=== PATIENT | male | born 1935 | race Caucasian/White ===

== ENCOUNTER → 2017-01-07 | Outpatient (CLI) | payer MEDICARE ==
[2017-01-07 07:40] LABS: Anion Gap 11 mmol/L; Blood Urea Nitrogen 18 mg/dL (9-20); Calcium 9.4 mg/dL (8.4-10.2); Carbon Dioxide 27 mmol/L (22-30); Chloride 102 mmol/L (98-107); Glucose 134 mg/dL (74-99); Non-African American GFR(MDRD) >60 (>60 ml/min/1.73 sqM); Potassium 4.4 mmol/L (3.5-5.1); Sodium 140 mmol/L (137-145)
[2017-01-07 12:51] LABS: Hemoglobin A1C 6.4 % (4.2-6.1)
== END | disposition home or self-care (01) ==
LOC: LABWHC1 06:38
PROVIDERS: ATTEND Internal Medicine
DX: E11.65 Type 2 diabetes mellitus with hyperglycemia (principal)
CPT/HCPCS: 36415; 80048; 83036

== ENCOUNTER → 2017-04-07 | Outpatient (CLI) | payer MEDICARE ==
--- NOTE | 2017-04-07 08:35 | CT ---
EXAMINATION TYPE: CT lumbar spine wo con DATE OF EXAM: 04/07/2017 8:25 AM COMPARISON: July 05, 2014 HISTORY: Low back pain CT DLP: 2633.4 mGycm CONTRAST: Unenhanced CT of the lumbar spine was performed with bone and soft tissue window settings submitted. Unenhanced CT of the lumbar spine was performed. Bone and soft tissue window settings are submitted as well as coronal and sagittal reconstructions. L1-L2: Mild degenerative disc space narrowing. No significant disc bulge. No herniation protrusion or central stenosis. Ventral spondylosis identified. Foramina are patent. L2-L3: Mild degenerative disc space narrowing. No significant disc bulge. No herniation protrusion or central stenosis. Ventral spondylosis identified. Foramina are patent. L3-L4: Mild degenerative disc space narrowing. Posterior disc bulge mildly effaces the ventral thecal sac. No evidence for central stenosis or brijesh herniation. Mild facet joint arthropathy with mild bi lateral foraminal encroachment. L4-L5: Moderate degenerative disc space narrowing. Grade 1 anterolisthesis L4 and L5 measuring 3.8 mm related to severe facet joint arthropathy. Circumferential disc bulge greatest posteriorly with effa cement of the ventral thecal sac. Hypertrophy of the ligamentum flavum contributes to central stenosi s at this level mild to moderate in degree and essentially stable relative to the prior study. Mild b ilateral foraminal encroachment noted. L5-S1: Moderate degenerative disc space narrowing. Circumferential disc bulge greatest posteriorly. E ffacement of the ventral thecal sac with bilateral lateral recess stenosis. No evidence for central s tenosis. Facet joint arthropathy with mild bilateral foraminal encroachment. Ventral spondylosis. No paraspinal masses are identified. Lumbar segments are free if fracture. IMPRESSION: 1. Degenerative disc disease with disc bulging greatest at L4-5 and L5-S1 as noted above.
== END | disposition home or self-care (01) ==
LOC: RADCTMAIN 07:52
PROVIDERS: ATTEND Physical Medicine & Rehabilitation
DX: M51.17 Intervertebral disc disorders with radiculopathy, lumbosacral region (principal); M48.06 Spinal stenosis, lumbar region; M47.27 Other spondylosis with radiculopathy, lumbosacral region; M43.16 Spondylolisthesis, lumbar region; M41.26 Other idiopathic scoliosis, lumbar region; E11.9 Type 2 diabetes mellitus without complications
CPT/HCPCS: 72131

== ENCOUNTER → 2017-04-08 | Outpatient (CLI) | payer MEDICARE ==
[2017-04-08 08:30] LABS: Anion Gap 9 mmol/L; Blood Urea Nitrogen 23 mg/dL (9-20); Calcium 9.1 mg/dL (8.4-10.2); Carbon Dioxide 26 mmol/L (22-30); Chloride 105 mmol/L (98-107); Glucose 137 mg/dL (74-99); Non-African American GFR(MDRD) >60 (>60 ml/min/1.73 sqM); Potassium 4.3 mmol/L (3.5-5.1); Sodium 140 mmol/L (137-145)
[2017-04-08 12:28] LABS: Hemoglobin A1C 6.7 % (4.2-6.1)
== END | disposition home or self-care (01) ==
LOC: LABWHC1 07:05
PROVIDERS: ATTEND Internal Medicine
DX: E11.65 Type 2 diabetes mellitus with hyperglycemia (principal)
CPT/HCPCS: 36415; 80048; 83036

== ENCOUNTER 2017-05-22 08:56 | Inpatient (IN) | payer MEDICARE ==
--- NOTE | 2017-05-22 10:30 | XR ---
EXAMINATION TYPE: XR chest 2V DATE OF EXAM: 05/22/2017 COMPARISON: 05/14/2017 HISTORY: Shortness of breath TECHNIQUE: Frontal and lateral views of the chest are obtained. FINDINGS: Scattered senescent parenchymal changes noted. Hyperinflation compatible with COPD. No evidence for infiltrate. No evidence for atelectasis. Heart size is stable. Mediastinal structures are stable and grossly unremarkable. No evidence for hilar prominence. Degenerative changes dorsal spine. IMPRESSION: 1. No evidence for acute pulmonary disease.
[2017-05-22] MEDS ORDERED: IPRATROPIUM-ALBUTEROL 3 ML NEB INHALATION PRN (10:44)
[2017-05-22 10:55] LABS: Basophils # (A) 0.1 k/uL (0-0.2); Basophils % (A) 0 %; CH 31.8; CHCM 33.8; Eosinophils # (A) 0.2 k/uL (0-0.7); Eosinophils % (A) 1 %; HCT 41.8 % (39.0-53.0); HDW 2.75; HGB 14.9 gm/dL (13.0-17.5); Luc % (Auto) 1; Lymphocytes # (A) 1.2 k/uL (1.0-4.8); Lymphocytes % (A) 9 %; MCH 33.7 pg (25.0-35.0); MCHC 35.7 g/dL (31.0-37.0); MCV 94.5 fL (80.0-100.0); Mean Platelet Volume 6.8; Monocytes # (A) 0.5 k/uL (0-1.0); Monocytes % (A) 4 %; Neutrophils # (A) 11.2 k/uL (1.3-7.7); Neutrophils % (A) 85 %; RBC 4.42 m/uL (4.30-5.90); RDW 13.9 % (11.5-15.5); WBC 13.2 k/uL (3.8-10.6); WBC (Perox) 13.39
[2017-05-22 11:06] LABS: Appearance,Urine Clear (Clear); Bilirubin,Urine Negative (Negative); Glucose,Urine (UA) Negative (Negative); Ketones,Urine Negative (Negative); Leukocyte Esterase,Urine Trace (Negative); Nitrite,Urine Negative (Negative); Particle Count 524; Protein,Urine Negative (Negative); Specific Gravity,Urine 1.007 (1.001-1.035); UA Billing (MACRO vs. MICRO) MICRO; Urobilinogen,Urine <2.0 mg/dL (<2.0); WBC,Urine 2 /hpf (0-5)
[2017-05-22] MEDS: IPRATROPIUM-ALBUTEROL 3 ML NEB INHALATION SCH ×3 (11:18→19:42)
[2017-05-22 11:24] LABS: ALT 49 U/L (21-72); AST 21 U/L (17-59); Alkaline Phosphatase 79 U/L (38-126); Anion Gap 12 mmol/L; Blood Urea Nitrogen 23 mg/dL (9-20); Calcium 9.4 mg/dL (8.4-10.2); Carbon Dioxide 23 mmol/L (22-30); Chloride 102 mmol/L (98-107); Glucose 182 mg/dL (74-99); Non-African American GFR(MDRD) >60 (>60 ml/min/1.73 sqM); Potassium 4.4 mmol/L (3.5-5.1); Sodium 137 mmol/L (137-145); Total Bilirubin 0.4 mg/dL (0.2-1.3); Total Protein 6.2 g/dL (6.3-8.2)
[2017-05-22] MEDS: methylPREDNISolone SOD SUCCI 125 MG/2 ML VIAL IV SCH ×3 (12:13→23:34)
[2017-05-22] MEDS: AZITHROMYCIN 500 MG TAB PO SCH (12:38)
[2017-05-22] MEDS ORDERED: CYCLOBENZAPRINE 10 MG TAB PO PRN (17:27)
[2017-05-22] MEDS ORDERED: HYDROcodone/APAP 5-325MG 1 EACH TAB PO PRN (17:27)
--- NOTE | 2017-05-22 17:28 | P.CNPUL ---
History of Present Illness Consult date: 05/22/17 Reason for consult: dyspnea, COPD History of present illness: This is a 82-year-old male patient, obese with known history of COPD with a baseline FEV1 of 60% of predicted was hospitalized for shortness of breath. The patient was sent over from our office for breathing difficulties. The patient was seen in our office on 05/14/[address] Adams and he was complaining of cough, chest tightness and wheezing and shortness of breath. He has already seen a physician at the walk-in clinic and he had completed the course of Augmentin. Chest x-ray in the office showed a questionable left lower lobe pulmonary infiltrate, retrocardiac, and based on that the patient was given a Depo-Medrol shot, prednisone burst taper it and a course of Levaquin 500 mg by mouth daily for a total of 10 days. The patient was asked also to take Lasix 20 mg every other day noting that he had some increased swelling in lower extremities. He came back to see Dr. Rodriguez on 05/22/2017 and he was having similar symptoms and he denied having much of an improvement. The follow-up chest x-ray was done on 05/22/2017 in the office showed no evidence of any abnormalities. Based on that the patient was sent over to be hospitalized for an acute COPD exacerbation in patient treatment. Denies having any sore throat. Denies having any pleurisy. No hemoptysis. No major swelling lower extremities. No other complaints otherwise for now. Review of Systems All systems: negative Constitutional: Denies chills, Denies fever Eyes: denies blurred vision, denies pain Ears, nose, mouth and throat: Denies headache Cardiovascular: Denies chest pain, Denies shortness of breath Respiratory: Denies cough Musculoskeletal: Denies myalgias Integumentary: Denies pruritus, Denies rash Neurological: Denies numbness, Denies weakness Psychiatric: Denies anxiety, Denies depression Endocrine: Denies fatigue, Denies weight change Past Medical History Past Medical History: Cancer, Heart Failure, COPD, Diabetes Mellitus, Osteoarthritis (OA), Pneumonia, Prostate Disorder, Respiratory Disorder, Sleep Apnea/CPAP/BIPAP, Thyroid Disorder Additional Past Medical History / Comment(s): Obesity, obstructive sleep apnea and the patient has not been able to tolerate CPAP, BPH, diabetes mellitus, hypothyroidism, hypertension, hyperlipidemia History of Any Multi-Drug Resistant Organisms: None Reported Past Surgical History: Appendectomy, Bowel Resection, Heart Catheterization, Orthopedic Surgery, Tonsillectomy Additional Past Surgical History / Comment(s): bowel resections twice-pt does not know reason, CERVICAL FUSION 1989, BACK INJECTIONS, 2 past heart caths-no intervention, ARTHROSCOPIC LT KNEE, bilateral cataract removals, skin cancer removed from upper lip and R ear, colonoscopy. Past Anesthesia/Blood Transfusion Reactions: No Reported Reaction Smoking Status: Former smoker - Past Family History Mother Family Medical History: Cancer Additional Family Medical History / Comment(s): breast cancer Medications and Allergies Home Medications Medication Instructions Recorded Confirmed Type Isosorbide Mononitrate ER [Imdur] 30 mg PO DAILY@1200 07/03/14 05/22/17 History Simvastatin [Zocor] 40 mg PO HS 07/03/14 05/22/17 History Tamsulosin HCl [Flomax] 0.4 mg PO HS 07/03/14 05/22/17 History Hydrocodone/Acetaminophen 1 tab PO TID PRN 11/11/14 05/22/17 History [Hydrocodon-Acetaminophen 5-325] metFORMIN HCL [Glucophage Xr] 500 mg PO DAILY 08/13/15 05/22/17 History Aspirin EC [Ecotrin Low Dose] 81 mg PO DAILY 05/22/17 05/22/17 History Cyclobenzaprine [Flexeril] 10 mg PO TID PRN 05/22/17 05/22/17 History Furosemide [Lasix] 20 mg PO MOWEFR 05/22/17 05/22/17 History Insulin Aspart [NovoLOG Flexpen] 24 units SQ TID 05/22/17 05/22/17 History Levofloxacin [Levaquin] 500 mg PO DAILY 05/22/17 05/22/17 History Levothyroxine Sodium [Synthroid] 50 mcg PO DAILY 05/22/17 05/22/17 History Naproxen Sodium [Aleve] 220 mg PO DAILY PRN 05/22/17 05/22/17 History Olmesartan/Hydrochlorothiazide 1 tab PO DAILY 05/22/17 05/22/17 History [Benicar Hct 20-12.5 mg Tablet] Umeclidinium Brm/Vilanterol Tr 1 puff INHALATION RT-DAILY 05/22/17 05/22/17 History [Anoro Ellipta 62.5-25 Mcg INH] predniSONE See Taper PO DAILY 05/22/17 05/22/17 History Allergies Allergy/AdvReac Type Severity Reaction Status Date / Time acetaminophen AdvReac Nausea & Verified 05/22/17 10:45 [From Darvocet-N 100] Vomiting & Diarrhea propoxyphene napsylate AdvReac Nausea & Verified 05/22/17 10:45 [From Darvocet-N 100] Vomiting & Diarrhea Physical Exam Vitals: Vital Signs Temp Pulse Pulse Resp BP Pulse Ox 05/22/17 16:00 81 20 05/22/17 15:29 68 05/22/17 15:18 66 05/22/17 15:00 97.6 F 81 20 168/72 96 05/22/17 12:21 74 14 05/22/17 11:30 65 05/22/17 11:18 65 14 98 05/22/17 10:00 97.5 F L 74 20 136/58 94 L Intake and Output 05/22/17 05/22/17 05/22/17 06:59 14:59 22:59 Output Total 300 Balance -300 Output: Urine 300 Other: # Voids 1 # Bowel Movements 1 Weight 117.934 kg 117.934 kg Patient Weight 05/23/17 06:59 Weight 117.934 kg Head exam was generally normal. There was no scleral icterus or corneal arcus. Mucous membranes were moist.Neck was supple and without jugular venous distension, thyromegaly, or carotid bruits. Carotids were easily palpable bilaterally. There was no adenopathy. Lung sounds are diminished bilaterally along with some few scattered external wheeze.Cardiac exam revealed the PMI to be normally situated and sized. The rhythm was regular and no extrasystoles were noted during several minutes of auscultation. The first and second heart sounds were normal and physiologic splitting of the second heart sound was noted. There were no murmurs, rubs, clicks, or gallops.Abdominal exam revealed normal bowel sounds. The abdomen was soft, non-tender, and without masses, organomegaly, or appreciable enlargement of the abdominal aorta. Organs are not palpable as the patient has an underlying obesity.Examination of the extremities revealed easily palpable radial, femoral and pedal pulses. There was no cyanosis, clubbing or edema. Results - Laboratory Findings CBC and BMP: 05/22/17 10:45 05/22/17 10:45 Abnormal lab findings: Abnormal Labs 05/22/17 05/22/17 05/22/17 10:45 10:45 10:50 WBC 13.2 H Neutrophils # 11.2 H BUN 23 H Glucose 182 H Total Protein 6.2 L Ur Leukocyte Esterase Trace H - Diagnostic Findings Chest x-ray: image reviewed Assessment and Plan Plan: Assessment 1 shortness of breath secondary to COPD exacerbation. Patient has a baseline FEV1 of 60% of predicted. She is on an outpatient for his/pneumonia yet the most recent chest x-ray is free of any acute pulmonary infiltrates. 2 obesity 3 diabetes mellitus 4 hypertension 5 hyperlipidemia 6 hypothyroidism 7 obstructive sleep apnea, noncompliant to CPAP therapy due to poor tolerability 8 coronary artery disease with nonocclusive disease maintained on medical treatment Plan Continue bronchovascular to antibiotics. We'll assess his progression. May need to repeat his echocardiogram if not done over the past 6 months. Encourage weight loss. We'll follow.
[2017-05-22 17:41] LABS: Glucose,Whole Blood 246 mg/dL (75-99)
[2017-05-22] MEDS: ASPIRIN 81 MG CHEW PO SCH (17:59)
--- NOTE | 2017-05-22 17:59 | ECHOF ---
Referral Reason:CHF MEASUREMENTS -------- HEIGHT: 175.3 cm WEIGHT: 117.9 kg BP: IVSd: 1.5 cm (0.6 - 1.1) LVIDd: 3.6 cm (3.9 - 5.3) LVPWd: 1.5 cm (0.6 - 1.1) IVSs: 1.7 cm LVIDs: 2.1 cm LVPWs: 1.8 cm LAESV Index (A-L): 22.59 ml/m Ao Diam: 3.4 cm (2.0 - 3.7) AV Cusp: 1.5 cm (1.5 - 2.6) MV E Fredo: 1.09 m/s MV DecT: 283 ms MV A Fredo: 0.92 m/s MV E/A Ratio: 1.19 AV maxP.95 mmHg AV meanP.99 mmHg AR PHT: 544 ms RAP: 5.00 mmHg RVSP: 10.73 mmHg FINDINGS -------- Sinus rhythm. This was a technically adequate study. There is moderate concentric left ventricular hypertrophy. Overall left ventricular systolic function is normal with, an EF between 55 - 60 %. The right ventricle is normal in size and function. Normal LA size by volume 22+/-6 ml/m2. The right atrium is normal in size. Aortic valve is trileaflet and is mildly thickened. Trace to mild aortic regurgitation. Moderate aortic stenosis with peak/mean pressure gradient of 36.95mmHg / 22.99mmHg, the aortic valve area by continuity equation is 0.9cm. The mitral valve leaflets are mildly thickened. Mild mitral annular calcification present. There is trace to mild mitral regurgitation. Trace tricuspid regurgitation present. There is no evidence of pulmonary hypertension. The right ventricular systolic pressure, as measured by Doppler, is 10.73mmHg. The pulmonic valve was not well visualized. The aortic root size is normal. Normal inferior vena cava with normal inspiratory collapse consistent with estimated right atrial pressure of 5 mmHg. The pericardium is normal. There is no pericardial effusion. CONCLUSIONS -------- 1. Sinus rhythm. 2. Mild mitral annular calcification present. 3. There is trace to mild mitral regurgitation. 4. Trace tricuspid regurgitation present. 5. There is no evidence of pulmonary hypertension. 6. The right ventricular systolic pressure, as measured by Doppler, is 10.73mmHg. 7. The pulmonic valve was not well visualized. 8. The aortic root size is normal. 9. The pericardium is normal. 10. There is no pericardial effusion. 11. This was a technically adequate study. 12. There is moderate concentric left ventricular hypertrophy. 13. Overall left ventricular systolic function is normal with, an EF between 55 - 60 %. 14. Normal LA size by volume 22+/-6 ml/m2. 15. Aortic valve is trileaflet and is mildly thickened. 16. Trace to mild aortic regurgitation. 17. Moderate aortic stenosis with peak/mean pressure gradient of 36.95mmHg / 22.99mmHg, the aortic valve area by continuity equation is 0.9cm. 18. The mitral valve leaflets are mildly thickened. MARINE SERVICE OPERATOR: Benito Joya RDCS
[2017-05-22] MEDS: INSULIN LISPRO (humaLOG) 300 UNIT/3 ML VIAL SQ SCH ×4 (18:00→23:22)
[2017-05-22] MEDS: FORMOTEROL FUMARATE 20 MCG/2 ML NEBU INHALATION SCH (19:42)
[2017-05-22] MEDS: BUDESONIDE 1 MG/2 ML NEBU INHALATION SCH (19:42)
[2017-05-22 19:55] LABS: Hemoglobin A1C 6.8 % (4.2-6.1)
[2017-05-22 20:50] LABS: Glucose,Whole Blood 265 mg/dL (75-99)
[2017-05-22] MEDS ORDERED: INSULIN LISPRO (humaLOG) 300 UNIT/3 ML VIAL SQ ONE (21:25)
[2017-05-22] MEDS: TAMSULOSIN 0.4 MG CAP.ER.24H PO SCH (21:39)
[2017-05-22] MEDS: ATORVASTATIN 20 MG TAB PO SCH (21:39)
[2017-05-23 03:39] LABS: Glucose,Whole Blood 199 mg/dL (75-99)
[2017-05-23] MEDS: methylPREDNISolone SOD SUCCI 125 MG/2 ML VIAL IV SCH ×2 (05:35→12:50)
[2017-05-23] MEDS: LEVOTHYROXINE 50 MCG TAB PO SCH (05:36)
[2017-05-23 07:23] LABS: Glucose,Whole Blood 203 mg/dL (75-99)
[2017-05-23] MEDS: METOPROLOL TARTRATE 25 MG TAB PO SCH (08:11)
[2017-05-23] MEDS: metFORMIN 500 MG TAB PO SCH ×2 (08:11→16:57)
[2017-05-23] MEDS: HYDROCHLOROTHIAZIDE 12.5 MG CAP PO SCH (08:12)
[2017-05-23] MEDS: FUROSEMIDE 20 MG TAB PO SCH (08:12)
[2017-05-23] MEDS: AZITHROMYCIN 500 MG TAB PO SCH (08:13)
[2017-05-23] MEDS: LOSARTAN 50 MG TAB PO SCH (08:13)
[2017-05-23] MEDS: ASPIRIN 81 MG CHEW PO SCH (08:13)
[2017-05-23] MEDS: INSULIN LISPRO (humaLOG) 300 UNIT/3 ML VIAL SQ SCH ×7 (08:14→21:56)
[2017-05-23] MEDS: BUDESONIDE 1 MG/2 ML NEBU INHALATION SCH ×2 (08:51→19:19)
[2017-05-23] MEDS: FORMOTEROL FUMARATE 20 MCG/2 ML NEBU INHALATION SCH ×2 (08:51→19:19)
[2017-05-23] MEDS: IPRATROPIUM-ALBUTEROL 3 ML NEB INHALATION SCH ×4 (08:51→19:19)
[2017-05-23] MEDS ORDERED: FUROSEMIDE 20 MG TAB PO SCH (09:00)
[2017-05-23 10:56] VITALS: BMI 37.8
[2017-05-23 11:46] LABS: Glucose,Whole Blood 294 mg/dL (75-99)
[2017-05-23] MEDS: ISOSORBIDE MONONITRATE ER 30 MG TAB.ER.24H PO SCH (12:50)
--- NOTE | 2017-05-23 13:21 | P.PN ---
Subjective This is a 82-year-old male patient, obese with known history of COPD with a baseline FEV1 of 60% of predicted was hospitalized for shortness of breath. The patient was sent over from our office for breathing difficulties. The patient was seen in our office on 05/14/[address] Adams and he was complaining of cough, chest tightness and wheezing and shortness of breath. He has already seen a physician at the walk-in clinic and he had completed the course of Augmentin. Chest x-ray in the office showed a questionable left lower lobe pulmonary infiltrate, retrocardiac, and based on that the patient was given a Depo-Medrol shot, prednisone burst taper it and a course of Levaquin 500 mg by mouth daily for a total of 10 days. The patient was asked also to take Lasix 20 mg every other day noting that he had some increased swelling in lower extremities. He came back to see Dr. Rodriguez on 05/22/2017 and he was having similar symptoms and he denied having much of an improvement. The follow-up chest x-ray was done on 05/22/2017 in the office showed no evidence of any abnormalities. Based on that the patient was sent over to be hospitalized for an acute COPD exacerbation in patient treatment. Denies having any sore throat. Denies having any pleurisy. No hemoptysis. No major swelling lower extremities. No other complaints otherwise for now. On 05/23/2017 the patient is feeling better. His cough has subsided. No fever. No chills. No pleurisy. The echocardiogram was also done and the patient has an adequate at present LV function with an ejection fraction of 55- 60% without any significant pulmonary hypertension. He is having however some issues with steroid-induced hyperglycemia. He is diabetic. The appropriate adjustments on the insulin dose was maintained. I think Solu-Medrol can be also weaned off Objective - Vital Signs Vital signs: Vital Signs Temp 97.6 F 05/23/17 07:00 Pulse 80 05/23/17 12:42 Resp 20 05/23/17 07:00 BP 145/76 05/23/17 07:00 Pulse Ox 97 05/23/17 07:00 Intake & Output 05/22/17 05/23/17 05/23/17 18:59 06:59 18:59 Intake Total 820 Output Total 300 Balance -300 820 Weight 117.934 kg 117.934 kg Intake: Oral 820 Output: Urine 300 Other: Voiding Method Toilet Toilet Urinal Urinal # Voids 1 2 # Bowel Movements 1 - Exam Head exam was generally normal. There was no scleral icterus or corneal arcus. Mucous membranes were moist.Neck was supple and without jugular venous distension, thyromegaly, or carotid bruits. Carotids were easily palpable bilaterally. There was no adenopathy. Lung sounds are diminished bilaterally along with some few scattered external wheeze.Cardiac exam revealed the PMI to be normally situated and sized. The rhythm was regular and no extrasystoles were noted during several minutes of auscultation. The first and second heart sounds were normal and physiologic splitting of the second heart sound was noted. There were no murmurs, rubs, clicks, or gallops.Abdominal exam revealed normal bowel sounds. The abdomen was soft, non-tender, and without masses, organomegaly, or appreciable enlargement of the abdominal aorta. Organs are not palpable as the patient has an underlying obesity.Examination of the extremities revealed easily palpable radial, femoral and pedal pulses. There was no cyanosis, clubbing or edema. - Labs CBC & Chem 7: 05/22/17 10:45 05/22/17 10:45 Labs: Abnormal Lab Results - Last 24 Hours (Table) 05/22/17 05/22/17 05/22/17 Range/Units 10:45 17:38 20:49 POC Glucose (mg/dL) 246 H 265 H (75-99) mg/dL Hemoglobin A1c 6.8 H (4.2-6.1) % 05/23/17 05/23/17 05/23/17 Range/Units 03:29 07:21 11:44 POC Glucose (mg/dL) 199 H 203 H 294 H (75-99) mg/dL Hemoglobin A1c (4.2-6.1) % Microbiology - Last 24 Hours (Table) 05/22/17 10:45 Blood Culture Gram Stain - Preliminary Blood 05/22/17 10:45 Blood Culture - Final Blood 05/22/17 10:50 Urine Culture - Preliminary Urine,Clean Catch Assessment and Plan Plan: Assessment 1 shortness of breath secondary to COPD exacerbation. Patient has a baseline FEV1 of 60% of predicted. She is on an outpatient for his/pneumonia yet the most recent chest x-ray is free of any acute pulmonary infiltrates. 2 obesity 3 diabetes mellitus 4 hypertension 5 hyperlipidemia 6 hypothyroidism 7 obstructive sleep apnea, noncompliant to CPAP therapy due to poor tolerability 8 coronary artery disease with nonocclusive disease maintained on medical treatment Plan The patient is improving. The patient is less short of breath. His coughing has subsided. Echocardiogram was noted. He is having steroid-induced hyperglycemia and the sodium was a little be dropped down to 40 mg every 12 hours. We'll switch him to a prednisone burst taper within the next 24 hours if continues to show ongoing improvement. We'll also given Robitussin-DM for cough and chest congestion. We'll follow.
[2017-05-23] MEDS: guaiFENesin-DM 100-10MG/5ML 10 ML CUP PO SCH ×2 (16:56→21:55)
[2017-05-23 17:24] LABS: Glucose,Whole Blood 182 mg/dL (75-99)
[2017-05-23 20:36] LABS: Glucose,Whole Blood 175 mg/dL (75-99)
[2017-05-23] MEDS: ATORVASTATIN 20 MG TAB PO SCH (21:55)
[2017-05-23] MEDS: TAMSULOSIN 0.4 MG CAP.ER.24H PO SCH (21:55)
[2017-05-23] MEDS: methylPREDNISolone SOD SUCCI 40 MG/ML 1 ML VIAL IV SCH (21:56)
[2017-05-24] MEDS: guaiFENesin-DM 100-10MG/5ML 10 ML CUP PO SCH ×4 (02:06→20:33)
[2017-05-24 02:09] LABS: Glucose,Whole Blood 204 mg/dL (75-99)
[2017-05-24] MEDS: LEVOTHYROXINE 50 MCG TAB PO SCH (05:40)
[2017-05-24 07:34] LABS: Glucose,Whole Blood 224 mg/dL (75-99)
[2017-05-24] MEDS: METOPROLOL TARTRATE 25 MG TAB PO SCH (08:14)
[2017-05-24] MEDS: ASPIRIN 81 MG CHEW PO SCH (08:14)
[2017-05-24] MEDS: AZITHROMYCIN 500 MG TAB PO SCH (08:14)
[2017-05-24] MEDS: metFORMIN 500 MG TAB PO SCH ×2 (08:14→17:29)
[2017-05-24] MEDS: methylPREDNISolone SOD SUCCI 40 MG/ML 1 ML VIAL IV SCH ×2 (08:15→20:34)
[2017-05-24] MEDS: LOSARTAN 50 MG TAB PO SCH (08:15)
[2017-05-24] MEDS: FUROSEMIDE 20 MG TAB PO SCH (08:15)
[2017-05-24] MEDS: HYDROCHLOROTHIAZIDE 12.5 MG CAP PO SCH (08:15)
[2017-05-24] MEDS: INSULIN LISPRO (humaLOG) 300 UNIT/3 ML VIAL SQ SCH ×7 (08:16→20:39)
[2017-05-24] MEDS: IPRATROPIUM-ALBUTEROL 3 ML NEB INHALATION SCH ×4 (08:38→19:39)
[2017-05-24] MEDS: BUDESONIDE 1 MG/2 ML NEBU INHALATION SCH ×2 (08:43→19:39)
[2017-05-24] MEDS: FORMOTEROL FUMARATE 20 MCG/2 ML NEBU INHALATION SCH ×2 (08:43→19:39)
[2017-05-24 11:32] LABS: Glucose,Whole Blood 176 mg/dL (75-99)
[2017-05-24] MEDS: ISOSORBIDE MONONITRATE ER 30 MG TAB.ER.24H PO SCH (12:56)
--- NOTE | 2017-05-24 13:59 | P.PN ---
Subjective This is a 82-year-old male patient, obese with known history of COPD with a baseline FEV1 of 60% of predicted was hospitalized for shortness of breath. The patient was sent over from our office for breathing difficulties. The patient was seen in our office on 05/14/[address] Adams and he was complaining of cough, chest tightness and wheezing and shortness of breath. He has already seen a physician at the walk-in clinic and he had completed the course of Augmentin. Chest x-ray in the office showed a questionable left lower lobe pulmonary infiltrate, retrocardiac, and based on that the patient was given a Depo-Medrol shot, prednisone burst taper it and a course of Levaquin 500 mg by mouth daily for a total of 10 days. The patient was asked also to take Lasix 20 mg every other day noting that he had some increased swelling in lower extremities. He came back to see Dr. Rodriguez on 05/22/2017 and he was having similar symptoms and he denied having much of an improvement. The follow-up chest x-ray was done on 05/22/2017 in the office showed no evidence of any abnormalities. Based on that the patient was sent over to be hospitalized for an acute COPD exacerbation in patient treatment. Denies having any sore throat. Denies having any pleurisy. No hemoptysis. No major swelling lower extremities. No other complaints otherwise for now. On 05/23/2017 the patient is feeling better. His cough has subsided. No fever. No chills. No pleurisy. The echocardiogram was also done and the patient has an adequate at present LV function with an ejection fraction of 55- 60% without any significant pulmonary hypertension. He is having however some issues with steroid-induced hyperglycemia. He is diabetic. The appropriate adjustments on the insulin dose was maintained. I think Solu-Medrol can be also weaned off On 2016 the patient's reports that he is getting better. He has no new complaints. Cough has subsided. Blood sugar control is also improved. The patient is on IV Solu Medrol 40 mg every 12 hours. The patient will be switched to prednisone burst taper as of tomorrow. Objective - Vital Signs Vital signs: Vital Signs Temp 97.4 F L 05/24/17 07:00 Pulse 80 05/24/17 12:58 Resp 16 05/24/17 07:00 BP 144/75 05/24/17 07:00 Pulse Ox 96 05/24/17 08:40 Intake & Output 05/23/17 05/24/17 05/24/17 18:59 06:59 18:59 Intake Total 50 550 50 Balance 50 550 50 Weight 117.934 kg 116.94 kg Intake: IV 50 50 cefTRIAXone 1,000 mg In 50 50 Sodium Chloride 0.9% 50 ml @ 100 mls/hr IVPB Q24HR [facility] Rx#:[id number] Oral 550 Other: Voiding Method Toilet Toilet Toilet Urinal Urinal Urinal # Voids 4 2 - Exam Head exam was generally normal. There was no scleral icterus or corneal arcus. Mucous membranes were moist.Neck was supple and without jugular venous distension, thyromegaly, or carotid bruits. Carotids were easily palpable bilaterally. There was no adenopathy. Lung sounds are diminished bilaterally along with some few scattered external wheeze.Cardiac exam revealed the PMI to be normally situated and sized. The rhythm was regular and no extrasystoles were noted during several minutes of auscultation. The first and second heart sounds were normal and physiologic splitting of the second heart sound was noted. There were no murmurs, rubs, clicks, or gallops.Abdominal exam revealed normal bowel sounds. The abdomen was soft, non-tender, and without masses, organomegaly, or appreciable enlargement of the abdominal aorta. Organs are not palpable as the patient has an underlying obesity.Examination of the extremities revealed easily palpable radial, femoral and pedal pulses. There was no cyanosis, clubbing or edema. - Labs CBC & Chem 7: 05/22/17 10:45 05/22/17 10:45 Labs: Abnormal Lab Results - Last 24 Hours (Table) 05/23/17 05/23/17 05/24/17 Range/Units 17:21 20:25 02:02 POC Glucose (mg/dL) 182 H 175 H 204 H (75-99) mg/dL 05/24/17 05/24/17 Range/Units 07:30 11:31 POC Glucose (mg/dL) 224 H 176 H (75-99) mg/dL Microbiology - Last 24 Hours (Table) 05/22/17 10:45 Blood Culture Gram Stain - Final Blood Blood Culture - Final Coagulase Negative Staph Alpha Hemolytic Streptococcus Coagulase Negative Staph#2 05/22/17 10:50 Urine Culture - Final Urine,Clean Catch Assessment and Plan Plan: Assessment 1 shortness of breath secondary to COPD exacerbation. Patient has a baseline FEV1 of 60% of predicted. She is on an outpatient for his/pneumonia yet the most recent chest x-ray is free of any acute pulmonary infiltrates. 2 obesity 3 diabetes mellitus 4 hypertension 5 hyperlipidemia 6 hypothyroidism 7 obstructive sleep apnea, noncompliant to CPAP therapy due to poor tolerability 8 coronary artery disease with nonocclusive disease maintained on medical treatment Plan The patient is improving. The patient is less short of breath. His coughing has subsided. Echocardiogram was noted. Arterial control is also improved. Continue IV Solu Medrol 43 g every 12 hours. Robitussin-DM for cough. Reevaluate in a.m. Possible discharge in a.m.
[2017-05-24 17:22] LABS: Glucose,Whole Blood 190 mg/dL (75-99)
--- NOTE | 2017-05-24 17:48 | P.CRDCN ---
History of Present Illness Consult date: 05/23/17 History of present illness: This 82-year-old gentleman with history of severe COPD, diabetes mellitus, osteoarthritis and also sleep apnea, admitted to the hospital with complaints of increasing shortness of breath. Patient has been coughing and patient also developed some edema and patient was advised to take the Lasix by mouth. Outpatient treatment did not improve the situation and patient came to the emergency room. We're asked to see the patient to rule out possibility of congestive heart failure. Patient's BNP was within normal limits. His echocardiogram showed normal LV function. Based on those findings, it appears that most of symptoms are related to pneumonia and respiratory issues. Review of Systems As per the chart Past Medical History Past Medical History: Cancer, Heart Failure, COPD, Diabetes Mellitus, Osteoarthritis (OA), Pneumonia, Prostate Disorder, Respiratory Disorder, Sleep Apnea/CPAP/BIPAP, Thyroid Disorder Additional Past Medical History / Comment(s): Obesity, obstructive sleep apnea and the patient has not been able to tolerate CPAP, BPH, diabetes mellitus, hypothyroidism, hypertension, hyperlipidemia History of Any Multi-Drug Resistant Organisms: None Reported Past Surgical History: Appendectomy, Bowel Resection, Heart Catheterization, Orthopedic Surgery, Tonsillectomy Additional Past Surgical History / Comment(s): bowel resections twice-pt does not know reason, CERVICAL FUSION 1989, BACK INJECTIONS, 2 past heart caths-no intervention, ARTHROSCOPIC LT KNEE, bilateral cataract removals, skin cancer removed from upper lip and R ear, colonoscopy. Past Anesthesia/Blood Transfusion Reactions: No Reported Reaction Smoking Status: Former smoker - Past Family History Mother Family Medical History: Cancer Additional Family Medical History / Comment(s): breast cancer Medications and Allergies Home Medications Medication Instructions Recorded Confirmed Type Isosorbide Mononitrate ER [Imdur] 30 mg PO DAILY@1200 07/03/14 05/22/17 History Simvastatin [Zocor] 40 mg PO HS 07/03/14 05/22/17 History Tamsulosin HCl [Flomax] 0.4 mg PO HS 07/03/14 05/22/17 History Hydrocodone/Acetaminophen 1 tab PO TID PRN 11/11/14 05/22/17 History [Hydrocodon-Acetaminophen 5-325] metFORMIN HCL [Glucophage Xr] 500 mg PO DAILY 08/13/15 05/22/17 History Aspirin EC [Ecotrin Low Dose] 81 mg PO DAILY 05/22/17 05/22/17 History Cyclobenzaprine [Flexeril] 10 mg PO TID PRN 05/22/17 05/22/17 History Furosemide [Lasix] 20 mg PO MOWEFR 05/22/17 05/22/17 History Insulin Aspart [NovoLOG Flexpen] 24 units SQ TID 05/22/17 05/22/17 History Levofloxacin [Levaquin] 500 mg PO DAILY 05/22/17 05/22/17 History Levothyroxine Sodium [Synthroid] 50 mcg PO DAILY 05/22/17 05/22/17 History Naproxen Sodium [Aleve] 220 mg PO DAILY PRN 05/22/17 05/22/17 History Olmesartan/Hydrochlorothiazide 1 tab PO DAILY 05/22/17 05/22/17 History [Benicar Hct 20-12.5 mg Tablet] Umeclidinium Brm/Vilanterol Tr 1 puff INHALATION RT-DAILY 05/22/17 05/22/17 History [Anoro Ellipta 62.5-25 Mcg INH] predniSONE See Taper PO DAILY 05/22/17 05/22/17 History Allergies Allergy/AdvReac Type Severity Reaction Status Date / Time acetaminophen AdvReac Nausea & Verified 05/22/17 10:45 [From Darvocet-N 100] Vomiting & Diarrhea propoxyphene napsylate AdvReac Nausea & Verified 05/22/17 10:45 [From Darvocet-N 100] Vomiting & Diarrhea Physical Exam Vitals: Vital Signs Temp Pulse Pulse Resp BP Pulse Ox 05/24/17 15:32 78 05/24/17 15:21 77 05/24/17 15:00 97.3 F L 74 20 134/63 93 L 05/24/17 12:58 80 05/24/17 12:47 80 05/24/17 09:01 84 05/24/17 08:54 86 05/24/17 08:53 86 05/24/17 08:40 80 96 05/24/17 07:00 97.4 F L 72 16 144/75 93 L 05/23/17 22:43 97 F L 81 20 125/50 95 05/23/17 19:47 78 05/23/17 19:32 78 05/23/17 19:31 78 05/23/17 19:20 76 Intake and Output 05/24/17 05/24/17 05/24/17 06:59 14:59 22:59 Intake Total 300 50 Balance 300 50 Intake: IV 50 cefTRIAXone 1,000 mg In 50 Sodium Chloride 0.9% 50 ml @ 100 mls/hr IVPB Q24HR DAMI Rx#:[id number] Oral 300 Other: Voiding Method Toilet Toilet Toilet Urinal Urinal # Voids 2 Weight 116.94 kg GENERAL EXAM: Patient is alert and oriented and doesn't appear to be in any acute distress HEENT: Normocephalic. Normal reaction of pupils, equal size, normal range of extraocular motion. No erythema or exudates in the throat. NECK: No masses, no nuchal rigidity. CHEST: No chest wall deformity. Scattered accept default's LUNGS: . Kytril wheezing and diminished breath sounds. HEART: S1 and S2 normal with no audible mumurs or gallops. Regular rhythm, femorals equal on both sides.. ABDOMEN: No hepatosplenomegaly, normal bowel sounds, no guarding or rigidity. SKIN: No rashes CENTRAL NERVOUS SYSTEM: No focal deficits. EXTREMITIES: No cyanosis, clubbing or edema. Results 05/22/17 10:45 05/22/17 10:45 Current Medications Generic Name Dose Route Start Last Admin Trade Name Freq PRN Reason Stop Dose Admin Hydrocodone Bitart/Acetaminophen 1 each 05/22/17 17:27 [place] 5-325 PO TID PRN Pain Albuterol/Ipratropium 3 ml 05/22/17 12:00 05/24/17 15:20 Duoneb 0.5 Mg-3 Mg/3 Ml Soln INHALATION 3 ml RT-QID DAMI Administration Albuterol/Ipratropium 3 ml 05/22/17 10:44 Duoneb 0.5 Mg-3 Mg/3 Ml Soln INHALATION RT-QID PRN Shortness Of Breath Aspirin 81 mg 05/22/17 17:30 05/24/17 08:14 Aspirin PO 81 mg DAILY DAMI Administration Atorvastatin Calcium 20 mg 05/22/17 21:00 05/23/17 21:55 Lipitor PO 20 mg HS DAMI Administration Azithromycin 500 mg 05/22/17 10:45 05/24/17 08:14 Zithromax PO 500 mg DAILY DAMI Administration Budesonide 1 mg 05/22/17 20:00 05/24/17 08:43 Pulmicort INHALATION 1 mg RT-BID DAMI Administration Cyclobenzaprine HCl 10 mg 05/22/17 17:27 Flexeril PO TID PRN MUSCLE SPASMS Formoterol Fumarate 20 mcg 05/22/17 20:00 05/24/17 08:43 Perforomist INHALATION 20 mcg RT-BID DAMI Administration Furosemide 40 mg 05/23/17 09:00 05/24/17 08:15 Lasix PO 40 mg DAILY DAMI Administration Guaifenesin/Dextromethorphan 10 ml 05/23/17 14:00 05/24/17 12:55 Robitussin Dm PO 10 ml Q6H DAMI Administration Hydrochlorothiazide 12.5 mg 05/23/17 09:00 05/24/17 08:15 Hydrodiuril PO 12.5 mg DAILY DAMI Administration Ceftriaxone Sodium 1,000 mg/ 50 mls @ 100 mls/hr 05/22/17 11:30 05/24/17 08: 20 Sodium Chloride IVPB 100 mls/hr Q24HR DAMI Administration Insulin Human Lispro 24 unit 05/22/17 17:30 05/24/17 12:55 Humalog SQ 24 unit AC-TID DAMI Administration Insulin Human Lispro 0 unit 05/22/17 21:30 05/24/17 12:56 Humalog SQ 4 unit ACHS DAMI Administration Protocol Isosorbide Mononitrate 30 mg 05/23/17 12:00 05/24/17 12:56 Imdur PO 30 mg DAILY@1200 DAMI Administration Levothyroxine Sodium 50 mcg 05/23/17 06:30 05/24/17 05:40 Synthroid PO 50 mcg DAILY@0630 DAMI Administration Losartan Potassium 100 mg 05/23/17 09:00 05/24/17 08:15 Cozaar PO 100 mg DAILY DAMI Administration Metformin HCl 250 mg 05/23/17 07:30 05/24/17 17:29 Glucophage PO 250 mg BID-W/MEALS DAMI Administration Methylprednisolone Sodium Succinate 40 mg 05/23/17 21:00 05/24/17 08:15 Solu-Medrol IV 40 mg Q12HR DAMI Administration Metoprolol Tartrate 25 mg 05/23/17 09:00 05/24/17 08:14 Lopressor PO 25 mg QAM DAMI Administration Tamsulosin HCl 0.4 mg 05/22/17 21:00 05/23/17 21:55 Flomax PO 0.4 mg HS DAMI Administration Intake and Output 05/24/17 05/24/17 05/24/17 06:59 14:59 22:59 Intake Total 300 50 Balance 300 50 Intake: IV 50 cefTRIAXone 1,000 mg In 50 Sodium Chloride 0.9% 50 ml @ 100 mls/hr IVPB Q24HR DAMI Rx#:[id number] Oral 300 Other: Voiding Method Toilet Toilet Toilet Urinal Urinal # Voids 2 Weight 116.94 kg 05/22/17 10:45 05/22/17 10:45 Assessment and Plan (1) COPD with exacerbation Status: Acute (2) Hypertension Status: Acute (3) Diabetes mellitus Status: Acute (4) Hypothyroidism Status: Acute Plan: Clinically, or radiologically and also from the lab values. It doesn't appear that the symptoms are cardiac in nature. Continue current medical therapy and close follow-up with [facility].
[2017-05-24 20:10] LABS: Glucose,Whole Blood 193 mg/dL (75-99)
[2017-05-24] MEDS: ATORVASTATIN 20 MG TAB PO SCH (20:33)
[2017-05-24] MEDS: TAMSULOSIN 0.4 MG CAP.ER.24H PO SCH (20:33)
[2017-05-25 02:08] LABS: Glucose,Whole Blood 152 mg/dL (75-99)
[2017-05-25] MEDS: guaiFENesin-DM 100-10MG/5ML 10 ML CUP PO SCH ×2 (02:08→07:44)
[2017-05-25] MEDS: LEVOTHYROXINE 50 MCG TAB PO SCH (05:48)
[2017-05-25 07:33] LABS: Glucose,Whole Blood 206 mg/dL (75-99)
[2017-05-25] MEDS: INSULIN LISPRO (humaLOG) 300 UNIT/3 ML VIAL SQ SCH ×2 (07:44)
[2017-05-25] MEDS: METOPROLOL TARTRATE 25 MG TAB PO SCH (07:46)
[2017-05-25] MEDS: metFORMIN 500 MG TAB PO SCH (07:46)
[2017-05-25] MEDS: LOSARTAN 50 MG TAB PO SCH (07:47)
[2017-05-25] MEDS: methylPREDNISolone SOD SUCCI 40 MG/ML 1 ML VIAL IV SCH (07:47)
[2017-05-25] MEDS: FUROSEMIDE 20 MG TAB PO SCH (07:47)
[2017-05-25] MEDS: HYDROCHLOROTHIAZIDE 12.5 MG CAP PO SCH (07:47)
[2017-05-25] MEDS: AZITHROMYCIN 500 MG TAB PO SCH (07:48)
[2017-05-25] MEDS: ASPIRIN 81 MG CHEW PO SCH (07:48)
[2017-05-25 08:26] VITALS: BP 153/67; RESP 20; TEMP 96.6
[2017-05-25] MEDS: BUDESONIDE 1 MG/2 ML NEBU INHALATION SCH (08:56)
[2017-05-25] MEDS: IPRATROPIUM-ALBUTEROL 3 ML NEB INHALATION SCH ×2 (08:56→12:15)
[2017-05-25] MEDS: FORMOTEROL FUMARATE 20 MCG/2 ML NEBU INHALATION SCH (08:56)
[2017-05-25 09:56] VITALS: PULSE 86
[2017-05-25 11:08] LABS: Anion Gap 16 mmol/L; Blood Urea Nitrogen 29 mg/dL (9-20); Calcium 9.8 mg/dL (8.4-10.2); Carbon Dioxide 23 mmol/L (22-30); Chloride 96 mmol/L (98-107); Glucose 162 mg/dL (74-99); Non-African American GFR(MDRD) >60 (>60 ml/min/1.73 sqM); Potassium 4.3 mmol/L (3.5-5.1); Sodium 135 mmol/L (137-145)
[2017-05-25 11:38] LABS: Glucose,Whole Blood 126 mg/dL (75-99)
[2017-05-25] MEDS: ISOSORBIDE MONONITRATE ER 30 MG TAB.ER.24H PO SCH (12:14)
--- NOTE | 2017-05-25 13:47 | P.PN ---
Subjective Principal diagnosis: Acute exacerbation of COPD This is a 82-year-old male patient, obese with known history of COPD with a baseline FEV1 of 60% of predicted was hospitalized for shortness of breath. The patient was sent over from our office for breathing difficulties. The patient was seen in our office on 05/14/[address] Adams and he was complaining of cough, chest tightness and wheezing and shortness of breath. He has already seen a physician at the walk-in clinic and he had completed the course of Augmentin. Chest x-ray in the office showed a questionable left lower lobe pulmonary infiltrate, retrocardiac, and based on that the patient was given a Depo-Medrol shot, prednisone burst taper it and a course of Levaquin 500 mg by mouth daily for a total of 10 days. The patient was asked also to take Lasix 20 mg every other day noting that he had some increased swelling in lower extremities. He came back to see Dr. Rodriguez on 05/22/2017 and he was having similar symptoms and he denied having much of an improvement. The follow-up chest x-ray was done on 05/22/2017 in the office showed no evidence of any abnormalities. Based on that the patient was sent over to be hospitalized for an acute COPD exacerbation in patient treatment. Denies having any sore throat. Denies having any pleurisy. No hemoptysis. No major swelling lower extremities. No other complaints otherwise for now. On 05/23/2017 the patient is feeling better. His cough has subsided. No fever. No chills. No pleurisy. The echocardiogram was also done and the patient has an adequate at present LV function with an ejection fraction of 55- 60% without any significant pulmonary hypertension. He is having however some issues with steroid-induced hyperglycemia. He is diabetic. The appropriate adjustments on the insulin dose was maintained. I think Solu-Medrol can be also weaned off On 2016 the patient's reports that he is getting better. He has no new complaints. Cough has subsided. Blood sugar control is also improved. The patient is on IV Solu Medrol 40 mg every 12 hours. The patient will be switched to prednisone burst taper as of tomorrow. Patient was seen on 05/25/2017 patient is doing much better, breathing a lot easier, discharge planning is in progress. No cough no wheezing no shortness of breath. Objective - Vital Signs Vital signs: Vital Signs Temp 96.6 F L 05/25/17 07:00 Pulse 86 05/25/17 09:17 Resp 20 05/25/17 07:00 BP 153/67 05/25/17 07:00 Pulse Ox 96 05/25/17 07:00 Intake & Output 05/24/17 05/25/17 05/25/17 18:59 06:59 18:59 Intake Total 50 1070 Balance 50 1070 Weight 115.808 kg Intake: IV 50 cefTRIAXone 1,000 mg In 50 Sodium Chloride 0.9% 50 ml @ 100 mls/hr IVPB Q24HR DAMI Rx#:[id number] Oral 1070 Other: Voiding Method Toilet Toilet Toilet # Voids 2 - Exam Physical Exam HEENT:[Neck is supple.] [No neck masses.] [No thyromegaly.] [No JVD.] Chest: [Clear throughout, no crackles, no rhonchi, no wheezes.] Cardiac Exam: [Normal S1 and S2, no S3 gallop, no murmur.] Abdomen: [Soft, nontender, no megaly, no rebound, no guarding, normal bowel sounds.] Extremities: [No clubbing, no edema, no cyanosis.] Neurological Exam: [No focal neurologic deficit.] - Labs CBC & Chem 7: 05/22/17 10:45 05/25/17 10:43 Labs: Abnormal Lab Results - Last 24 Hours (Table) 05/24/17 05/24/17 05/25/17 Range/Units 17:19 20:09 02:06 Sodium (137-145) mmol/L Chloride (98-107) mmol/L BUN (9-20) mg/dL Glucose (74-99) mg/dL POC Glucose (mg/dL) 190 H 193 H 152 H (75-99) mg/dL 05/25/17 05/25/17 05/25/17 Range/Units 07:31 10:43 11:34 Sodium 135 L (137-145) mmol/L Chloride 96 L (98-107) mmol/L BUN 29 H (9-20) mg/dL Glucose 162 H (74-99) mg/dL POC Glucose (mg/dL) 206 H 126 H (75-99) mg/dL Microbiology - Last 24 Hours (Table) 05/23/17 13:49 Blood Culture - Preliminary Blood No Growth after 24 hours Assessment and Plan Plan: 1 shortness of breath secondary to COPD exacerbation. Patient has a baseline FEV1 of 60% of predicted. She is on an outpatient for his/pneumonia yet the most recent chest x-ray is free of any acute pulmonary infiltrates. 2 obesity 3 diabetes mellitus 4 hypertension 5 hyperlipidemia 6 hypothyroidism 7 obstructive sleep apnea, noncompliant to CPAP therapy due to poor tolerability 8 coronary artery disease with nonocclusive disease maintained on medical treatment Plan: Agree with discharge planning, follow-up on outpatient basis. Time with Patient: Less than 30
[2017-05-25] MEDS ORDERED: INSULIN DETEMIR 100 UNIT/ML 10 ML VIAL SQ SCH (21:00)
--- NOTE | 2017-05-31 10:07 | PN ---
DATE OF SERVICE: 05/23/2017 This 82-year-old gentleman, admitted with COPD exacerbation, is being closely monitored. No chest pain. No palpitations. No fever. On exam, alert and oriented x3. Pulse 76, blood pressure 131/62, respiration 20 , temperature 97.6, pulse ox 94% on room air. HEENT: Conjunctivae normal. NECK: No jugular venous distention. CARDIOVASCULAR: S1, S2 muffled. RESPIRATORY: Breath sounds diminished at the bases. No rhonchi. No crackles. ABDOMEN: Soft, non-tender. LEGS: No edema. No swelling. NERVOUS SYSTEM: No focal deficit. LABS: Accu-Cheks noted. ASSESSMENT: 1. Chronic obstructive pulmonary disease, acute exacerbation, with acute purulent tracheobronchitis. 2. Diabetes mellitus, type 2. 3. Hypertension. 4. Hyperlipidemia. 5. Hypothyroidism. RECOMMENDATIONS AND DISCUSSION: I recommend to continue current medications, continue symptomatic treatment. We will monitor the patient closely. Further recommendations to follow. HEIDID
--- NOTE | 2017-05-31 10:15 | PN ---
DATE OF SERVICE: 05/24/2017 This 82-year-old gentleman admitted with COPD acute exacerbation is improving significantly. No chest pain, no palpitations. No fever. On exam, alert and oriented x3. Pulse 72, blood pressure 144/75, respirations 16 , temperature 97.4, pulse ox 93% on room air. HEENT: Conjunctivae normal. NECK: No jugular venous distention. CARDIOVASCULAR: S1, S2. RESPIRATORY: Breath sounds are diminished at the bases. Bilateral scattered rhonchi and crackles. ABDOMEN: Soft, nontender. LEGS: No edema. NERVOUS SYSTEM: No focal deficits. LABS: Accu-Cheks noted. ASSESSMENT: 1. Chronic obstructive pulmonary disease acute exacerbation with acute purulent tracheobronchitis. 2. Severe chronic obstructive pulmonary disease. 3. Diabetes mellitus type 2. 4. Hypertension, essential. 5. Hyperlipidemia. 6. Hypothyroidism. RECOMMENDATIONS AND DISCUSSION: I recommend to continue the current medications , continue monitoring and symptomatic treatment. Otherwise monitor closely. Further recommendations to follow. MTDD
--- NOTE | 2017-05-31 10:32 | HP ---
DATE OF ADMISSION: 05/22/17 CHIEF COMPLAINT: Shortness of breath. HISTORY OF PRESENT ILLNESS: This 82 year old gentleman with a past medical history of CHF, COPD, diabetes, DJD, was admitted with shortness of breath. The COPD acute exacerbation is suspected. The patient is being closely monitored. The patient was started on board spectrum antibiotics. Also, white count elevated at 13.2. Blood sugars are also elevated. There is no history of fever, rigors or chills. no history of headache, loss of consciousness or seizures. PAST MEDICAL HISTORY: CHF, COPD, history of DJD, history of pneumonia. MEDICATIONS: Home medications were reviewed and include: 1. Glucophage. 2. Metformin 250 mg po b.i.d. 3. Elipto one puff b.i.d. 4. Flomax 0.4 mg daily. 5. Zocor 40 mg daily. 6. Lopressor. 7. Synthroid 50 mcg po daily. 8. Imdur 30 mg. 9. Levemir . 10. NovoLog t.i.d. 11. Hydrocodone one tablet t.i.d. prn. 12. Flexeril 10 mg t.i.d. 13. Ecotrin 81 mg daily. 15. Robitussin . 16. Cozaar 100 mg po daily. 17. Hydrodiuril 12.5 mg daily. 18. Lasix 40 mg daily. 19. Ceftin 500 mg po daily. ALLERGIES ARE: noted. FAMILY HISTORY: History of breast cancer in the family. SOCIAL HISTORY: No history of current smoking. Occasional alcohol. Previous history of smoking. REVIEW OF SYSTEMS: HEENT: No diminished vision, no diminished hearing. Cardiovascular: No angina. Respiratory: As mentioned earlier. GI: No nausea or vomiting. : No dysuria. NERVOUS SYSTEM: No numbness or weakness. Allergy/Immunology: No asthma or hayfever. Musculoskeletal: As mentioned earlier. Hematology/Oncology: no history of anemia. Endocrine: As mentioned earlier. Constitutional: As mentioned earlier. Dermatology: Negative. Rheumatology: Negative. Psychiatric: As mentioned earlier. PHYSICAL EXAMINATION: The patient is alert and oriented times three. Pulse 74, blood pressure 130/58. Respirations 20. Temperature 97.4, pulse ox 92% on room air. HEENT: Conjunctivae normal. Oral mucosa moist. NECK: No JVD. No carotid bruit. No lymph node enlargement. CARDIOVASCULAR: S1, S2 muffled. RESPIRATORY: Breath sounds diminished at the bases. Bilateral scattered rhonchi and crackles. ABDOMEN: Soft, nontender. LEGS: No edema. No swelling. NERVOUS SYSTEM: Higher function as mentioned earlier. Moves all four limbs. LYMPHATICS: No lymph nodes palpable in the neck, axillae or groin. SKIN: no ulcer, rash or bleeding. LABS: WBC 13.2. Glucose noted. other labs noted. ASSESSMENT: 1. Chronic obstructive pulmonary disease with acute purulent tracheobronchitis. 2. Severe chronic obstructive pulmonary disease. 3. Diabetes mellitus Type 2. 4. Hypertension. 5. Hyperlipidemia. 6. Hypothyroidism. RECOMMENDATIONS AND DISCUSSION: Recommend to continue current medications. Continue symptomatic treatment. Continue with bronchodilators. Continue empiric antibiotics. otherwise, guarded prognosis because of multiple complex medical issues. Further recommendations to follow. MTDD
--- NOTE | 2017-06-01 07:01 | DS ---
DATE OF SERVICE: 05/25/2017 FINAL DIAGNOSES: 1. Chronic obstructive pulmonary disease acute exacerbation with acute purulent tracheobronchitis. 2. Diabetes mellitus type 2. 3. Hypertension. 4. Hyperlipidemia. 5. Hypothyroidism. DISCHARGE DISPOSITION: The patient will be discharged in stable condition with guarded prognosis. Discharge cleared by Dr. Adams. HISTORY OF PRESENT ILLNESS: This 82-year-old gentleman with a past medical history of multiple medical problems including COPD, acute exacerbation. The patient also has multiple other medical issues. Monitored closely. steroids and antibiotics, improved significantly. Dr. Adams saw the patient. ON EXAM: Vitals are stable. CARDIOVASCULAR SYSTEM: S1 and S2, muffled. ABDOMEN: Soft. NERVOUS SYSTEM: No focal deficits. DISCHARGE ADVICE: 1. Diet is cardiac. 2. Activity limited until followup. 3. Follow up with Dr. Deleon as advised. 4. Follow up with Dr. De Leon as advised. Medications will be as follows: 1. Ecotrin 81 mg p.o. daily. 2. Ceftin 500 mg p.o. b.i.d. for 5 days. 3. Flexeril 10 mg t.i.d. p.r.n. 4. Lasix 40 mg p.o. daily. 5. Guaifenesin. 6. HydroDIURIL 12.5 mg daily. 7. Hydrocodone tabs t.i.d. p.r.n. 8. NovoLog flex pen. 9. Levemir 60 subcu q.h.s. 10. Imdur ER 30 mg p.o. daily. 11. Synthroid 50 mcg p.o. daily. 12. Cozaar 100 mg p.o. daily. 13. Glucophage XR 250 mg p.o. b.i.d. 14. Lopressor 25 mg q.a.m. 15. Prednisone taper, 40 mg daily for 3 days, 30 for 3 days, 20 for 3 days, 10 for 3 days. 16. Zocor 40 mg q.h.s. 17. Flomax 0.4 q.h.s. 18. Anoro Ellipta 62.5/25 one puff daily. Once again, the patient will be discharged in a stable condition with guarded prognosis. MTDD
== END 2017-05-25 12:20 | disposition home health service (06) | DRG 192 ==
LOC: 5MS5E 09:42
PROVIDERS: ADMIT Hospitalist; ATTEND Hospitalist
DX: J44.1 Chronic obstructive pulmonary disease with (acute) exacerbation (principal); I11.0 Hypertensive heart disease with heart failure; E11.65 Type 2 diabetes mellitus with hyperglycemia; I50.9 Heart failure, unspecified; E66.9 Obesity, unspecified; J20.9 Acute bronchitis, unspecified; J44.0 Chronic obstructive pulmonary disease with (acute) lower respiratory infection; T38.0X5A Adverse effect of glucocorticoids and synthetic analogues, initial encounter; E03.9 Hypothyroidism, unspecified; I25.10 Atherosclerotic heart disease of native coronary artery without angina pectoris; G47.33 Obstructive sleep apnea (adult) (pediatric); E78.5 Hyperlipidemia, unspecified; R06.2 Wheezing; D72.829 Elevated white blood cell count, unspecified; E78.00 Pure hypercholesterolemia, unspecified; N40.0 Benign prostatic hyperplasia without lower urinary tract symptoms; M19.90 Unspecified osteoarthritis, unspecified site; Z87.891 Personal history of nicotine dependence; Z80.3 Family history of malignant neoplasm of breast; Z79.899 Other long term (current) drug therapy; Z79.4 Long term (current) use of insulin; Z85.828 Personal history of other malignant neoplasm of skin; Z88.6 Allergy status to analgesic agent; Z88.5 Allergy status to narcotic agent; Z87.19 Personal history of other diseases of the digestive system; Z98.42 Cataract extraction status, left eye; Z98.41 Cataract extraction status, right eye; Z98.1 Arthrodesis status; Z68.37 Body mass index [BMI] 37.0-37.9, adult; Z71.3 Dietary counseling and surveillance; Z91.19 Patient's noncompliance with other medical treatment and regimen; Z79.1 Long term (current) use of non-steroidal anti-inflammatories (NSAID); Z79.891 Long term (current) use of opiate analgesic; Z87.01 Personal history of pneumonia (recurrent); Z79.82 Long term (current) use of aspirin; Z79.51 Long term (current) use of inhaled steroids
CPT/HCPCS: 71020; 80048; 80053; 81001; 83036; 83880; 84443; 84484; 85025; 87040; 87086; 93005; 93306; 94640; 94760

== ENCOUNTER → 2017-07-10 | Outpatient (CLI) | payer MEDICARE ==
[2017-07-10 07:55] LABS: Anion Gap 8 mmol/L; Blood Urea Nitrogen 16 mg/dL (9-20); Carbon Dioxide 27 mmol/L (22-30); Chloride 105 mmol/L (98-107); Glucose 120 mg/dL (74-99); Non-African American GFR(MDRD) >60 (>60 ml/min/1.73 sqM); Potassium 4.6 mmol/L (3.5-5.1); Sodium 140 mmol/L (137-145)
== END | disposition home or self-care (01) ==
LOC: LABWHC1 06:56
PROVIDERS: ATTEND Internal Medicine
DX: E11.65 Type 2 diabetes mellitus with hyperglycemia (principal)
CPT/HCPCS: 36415; 80048; 83036

== ENCOUNTER → 2017-08-11 | Outpatient (CLI) | payer MEDICARE ==
--- NOTE | 2017-08-11 11:46 | XR ---
EXAMINATION TYPE: XR chest 2V DATE OF EXAM: 08/11/2017 COMPARISON: 05/22/17 HISTORY: Shortness of breath TECHNIQUE: Frontal and lateral views of the chest are obtained. FINDINGS: Scattered senescent parenchymal changes noted. Hyperinflation compatible with COPD. No evidence for infiltrate. No evidence for atelectasis. Heart size is stable. Mediastinal structures are stable and grossly unremarkable. No evidence for hilar prominence. Degenerative changes dorsal spine. IMPRESSION: 1. No evidence for acute pulmonary disease.
== END ==
LOC: RADXRMAIN 11:10
PROVIDERS: ATTEND Internal Medicine
DX: J06.9 Acute upper respiratory infection, unspecified (principal)
CPT/HCPCS: 71020

== ENCOUNTER → 2017-08-20 | Outpatient (CLI) | payer MEDICARE ==
[2017-08-20 12:45] LABS: Anion Gap 12 mmol/L; Blood Urea Nitrogen 19 mg/dL (9-20); Calcium 9.5 mg/dL (8.4-10.2); Carbon Dioxide 22 mmol/L (22-30); Chloride 102 mmol/L (98-107); Glucose 183 mg/dL (74-99); Non-African American GFR(MDRD) >60 (>60 ml/min/1.73 sqM); Potassium 4.6 mmol/L (3.5-5.1); Sodium 136 mmol/L (137-145)
[2017-08-20 12:46] LABS: CH 33.1; CHCM 33.6; HCT 43.2 % (39.0-53.0); HDW 2.85; HGB 14.3 gm/dL (13.0-17.5); MCH 32.7 pg (25.0-35.0); Mean Platelet Volume 6.8; RBC 4.36 m/uL (4.30-5.90); RDW 14.1 % (11.5-15.5); WBC 10.9 k/uL (3.8-10.6)
== END | disposition home or self-care (01) ==
LOC: LABWHC1 11:34
PROVIDERS: ATTEND Internal Medicine Interventional Cardiology
DX: I10 Essential (primary) hypertension (principal)
CPT/HCPCS: 36415; 80048; 85027

== ENCOUNTER 2017-09-09 08:41 | Day surgery (SDC) | payer MEDICARE ==
[2017-09-04 15:36] VITALS: BMI 37.3
[~2017-09-09 08:41] MED LIST: ALPRAZolam 0.25 MG TAB PO PRN; ALPRAZolam 0.5 MG TAB PO PRN; ASPIRIN 325 MG TAB PO STA; ATORVASTATIN 80 MG TAB PO STA; NITROGLYCERIN SL TABS 0.4 MG TAB SUBLINGUAL PRN; SODIUM CHLORIDE 0.9% 1,000 ML in EMPTY BAG 1 BAG IV ONE
[2017-09-09 09:09] VITALS: PULSE 69
[2017-09-09 09:19] LABS: Glucose,Whole Blood 137 mg/dL (75-99)
[2017-09-09] MEDS ORDERED: LIDOCAINE 2% INJ 20 MG/ML (20 ML MDV) ONE (09:30)
[2017-09-09] MEDS ORDERED: HEPARIN SODIUM 1,000 UN/ML (10ML VL) ONE (09:30)
[2017-09-09] MEDS ORDERED: VERAPAMIL 2.5 MG/ML 2 ML AMP ONE (09:31)
[2017-09-09] MEDS ORDERED: diphenhydrAMINE 50 MG/ML 1 ML VIAL ONE (10:08)
[2017-09-09] MEDS ORDERED: MIDAZOLAM 2 MG/2 ML VIAL ONE (10:08)
[2017-09-09] MEDS ORDERED: MIDAZOLAM 2 MG/2 ML VIAL IV ONE ×2 (10:29)
[2017-09-09] MEDS ORDERED: diphenhydrAMINE 50 MG/ML 1 ML VIAL IVP ONE (10:29)
[2017-09-09] MEDS ORDERED: NITROGLYCERIN SL TABS 0.4 MG TAB SUBLINGUAL ONE ×2 (10:32→10:38)
[2017-09-09] MEDS ORDERED: LIDOCAINE 2% INJ 20 MG/ML SQ ONE (10:33)
[2017-09-09] MEDS ORDERED: VERAPAMIL SYRINGE (5 MG/10 ML) INTRAARTER ONE ×2 (10:38→11:21)
[2017-09-09] MEDS ORDERED: HEPARIN SODIUM 1,000 UN/ML (10ML VL) IV ONE (10:38)
[2017-09-09] MEDS ORDERED: BIVALIRUDIN BOLUS 250 MG/50 ML IV ONE (10:59)
[2017-09-09] MEDS ORDERED: BIVALIRUDIN 250 MG in SODIUM CHLORIDE 0.9% 50 ML IV ONE (11:00)
[2017-09-09] MEDS ORDERED: NITROGLYCERIN 1000MCG/10ML SYRINGE INTRACORON ONE (11:13)
[2017-09-09] MEDS ORDERED: TICAGRELOR 90 MG TAB ONE (11:19)
[2017-09-09] MEDS ORDERED: TICAGRELOR 90 MG TAB PO ONE (11:21)
[2017-09-09] MEDS ORDERED: HYDROcodone/APAP 5-325MG 1 EACH TAB PO PRN (11:37)
[2017-09-09] MEDS ORDERED: ATROPINE SULFATE 0.1 MG/ML 10ML SYRINGE IV PRN (11:39)
[2017-09-09] MEDS ORDERED: RX INFO: IV CONTRAST WAS GIVEN 1 EACH MISC MISCELLANE PRN (11:39)
[2017-09-09] MEDS ORDERED: MAG HYDROX/AL HYDROX/SIMETH 30 ML CUP PO PRN (11:39)
[2017-09-09] MEDS ORDERED: SODIUM CHLORIDE 0.9% 1,000 ML IV SCH (11:45)
[2017-09-09 11:56] VITALS: BP 159/104; RESP 16; TEMP 97
[2017-09-09] MEDS ORDERED: ISOSORBIDE MONONITRATE ER 30 MG TAB.ER.24H PO SCH (12:00)
[2017-09-09 12:07] LABS: Glucose,Whole Blood 127 mg/dL (75-99)
--- NOTE | 2017-09-09 15:19 | PTCA ---
PERCUTANEOUSTRANS CORORONARY ANGIOGRAPHY PTCA AND STENTING OF MIDCIRCUMFLEX CORONARY ARTERY: Performed by Dr. Sydney Vaughn. PROCEDURE NOTE: The existing 6 [place] introduced in the right radial artery was used to perform the procedure. I used a standard left Kyle-type guide catheter to cannulate the left coronary artery. A BMW wire was used to cross the lesion. Wire was kept distally. Without predilatation, I deployed a 2.75 caliber 8 mm long Xience stent at 12 atmospheres. Excellent angiographic result was achieved. Patient had mild chest discomfort, but no new EKG changes. Excellent angiographic result without complication was achieved. Patient received Brilinta 180 mg orally and had already received aspirin earlier in the day. The sheath was then taken out and a TR band applied as per protocol with good hemostasis and saturation of the fingers of the right hand was 93%. Patient received Angiomax bolus and infusion as per protocol and Brilinta 180 mg was given. Results were discussed with the patient's and I expect he will be discharged later on this evening if he remains stable and I will see him in the office in 48 hours. Moderate conscious sedation was provided for a total duration of 49 minutes. Patient tolerated procedure well without complications. MMODL / IJN: [id number] /
--- NOTE | 2017-09-09 15:19 | CC ---
CARDIAC CATHETERIZATION REPORT DATE OF SERVICE: 09/09/2017 PROCEDURE: 1. Left heart catheterization. 2. Coronary angiography. Performed by Dr. Sydney Vaughn. CLINICAL INFORMATION: Jorge Escobar is an 82-year-old gentleman with a known history of obstructive sleep apnea who wears a CPAP, COPD, hypertension, hyperlipidemia, and moderate CAD. I had performed a cardiac cath on this patient in 2010, which revealed a 50% proximal/mid LAD lesion and a 60% circumflex lesion and a 40% obtuse marginal lesion. He was treated with medications, had done well. Of late, he has been having symptoms strongly suggestive of unstable angina and even with moderate effort, he had chest heaviness and pressure and therefore I recommended coronary angiography after optimizing medical therapy. He did not have a stress test because of significant symptoms and a change in his pattern. Patient is quite active and plays golf 3 times a week and is unable to do so with his symptoms. PROCEDURE NOTE: Under local anesthesia and strict aseptic precautions, a 6-Ivorian introducer was placed in the right radial artery. I used Ultimate I catheter for the left coronary artery and a JR4 catheter for the right coronary artery. I checked the LV pressures with the same JR4 catheter. I noted that there was 80% lesion in the circumflex in the midportion just before the origin of the second obtuse marginal. The LAD had about a 50% to 55% proximal/mid lesion unchanged from before and the diagonal also had a 40% lesion. The first obtuse marginal had no more than 40% lesion. I recommended intervention and proceeded to perform this in the same setting. CARDIAC CATHETERIZATION FINDINGS: The left ventricular end-diastolic pressure was 14 mmHg and there was a gradient of about 14 to 15 mmHg across the aortic valve suggestive of mild aortic stenosis. . CORONARY ANGIOGRAPHY FINDINGS: RIGHT CORONARY ARTERY: Technically a large dominant vessel that supplies a sizable amount of myocardium and distally gives multiple branches including a PDA and PLV all of which supply a sizable amount of myocardium. There are minor diffuse irregularities and also moderate calcification but no significant disease is noted. The PDA and PLV are free of significant disease other than minor irregularities. LEFT MAIN CORONARY ARTERY: Short patent vessel that bifurcates into LAD and circumflex. LEFT ANTERIOR DESCENDING CORONARY ARTERY: This is a good caliber vessel that has about a 55% proximal/mid lesion eccentric area of narrowing, gives off a diagonal branch that has a 40% narrowing and then the caliber improved, runs all the way to the apex. Angiographically, the stenosis is very similar to the previous one. There is a modest increase in the narrowing, but no significant lesion is noted. This needs to be addressed at a later date either by a stress test or FFR. LEFT POSTERIOR CIRCUMFLEX CORONARY ARTERY: Nondominant vessel that gives off a first obtuse marginal that is free of significant disease. Second obtuse marginal has about a 40% narrowing but just before the second obtuse marginal, there is an 80% stenosis and then there is a groove branch that runs through. Second obtuse marginal has about a 40% narrowing within the branch, but before the origin of second obtuse marginal, there is 80% stenosis which represents a progression of disease. FINAL IMPRESSION: 1. This patient has normal filling pressures, mild aortic stenosis and nondominant circumflex vessel with 80% mid lesion. The right coronary artery is dominant, free of significant disease. Left anterior descending artery has a 55% mid lesion, which will need to be addressed at a later date. 2. LV gram was not performed. RECOMMENDATION: I recommend intervention of the circumflex and proceeded to perform this in the same setting. MMODL / IJN: [id number] /
[2017-09-09] MEDS ORDERED: INSULIN LISPRO (humaLOG) 300 UNIT/3 ML VIAL SQ SCH (16:00)
[2017-09-09] MEDS ORDERED: IPRATROPIUM-ALBUTEROL 3 ML NEB INHALATION SCH (16:15)
[2017-09-09 16:23] LABS: Glucose,Whole Blood 207 mg/dL (75-99)
--- NOTE | 2017-09-09 16:43 | P.PN ---
Progress Note - Text Progress Note Date: 09/09/17 Patient underwent PTCA and stenting of the mid circumflex artery today by Dr. ROGER Vaughn by right radial approach. His right radial site was examined, good distal pulse, soft, no hematoma. Patient was given instructions regarding the care of his right radial site is well. Discharge orders have been written and medications provided. Follow-up appointment has been scheduled. DNP note has been reviewed, I agree with a documented findings and plan of care. Patient was seen and examined.
[2017-09-09] MEDS ORDERED: NON-FORMULARY DRUG (Simvastatin 40 MG) PO SCH (21:00)
[2017-09-09] MEDS ORDERED: TAMSULOSIN 0.4 MG CAP.ER.24H PO SCH (21:00)
[2017-09-09] MEDS ORDERED: INSULIN DETEMIR 100 UNIT/ML 10 ML VIAL SQ SCH (21:00)
[2017-09-09] MEDS ORDERED: METOPROLOL TARTRATE 25 MG TAB PO SCH (21:00)
[2017-09-10] MEDS ORDERED: LEVOTHYROXINE 50 MCG TAB PO SCH (06:30)
[2017-09-10] MEDS ORDERED: predniSONE 5 MG TAB PO SCH (09:00)
[2017-09-10] MEDS ORDERED: ASPIRIN 81 MG PO SCH (09:00)
[2017-09-10] MEDS ORDERED: TICAGRELOR 90 MG TAB PO SCH (09:00)
[2017-09-10] MEDS ORDERED: ATORVASTATIN 80 MG TAB PO SCH (21:00)
== END 2017-09-09 19:03 | disposition home health service (06) ==
LOC: CATHCVL 08:41 → 6SEL 11:20 → CATHCVL 19:03
PROVIDERS: ATTEND Internal Medicine Interventional Cardiology
DX: I25.110 Atherosclerotic heart disease of native coronary artery with unstable angina pectoris (principal); I10 Essential (primary) hypertension; E78.00 Pure hypercholesterolemia, unspecified; G47.33 Obstructive sleep apnea (adult) (pediatric); Z99.89 Dependence on other enabling machines and devices; I35.2 Nonrheumatic aortic (valve) stenosis with insufficiency; I27.20 Pulmonary hypertension, unspecified; E11.9 Type 2 diabetes mellitus without complications; I73.9 Peripheral vascular disease, unspecified; E66.9 Obesity, unspecified; Z68.37 Body mass index [BMI] 37.0-37.9, adult; J44.9 Chronic obstructive pulmonary disease, unspecified; Z79.82 Long term (current) use of aspirin; Z79.4 Long term (current) use of insulin; Z79.899 Other long term (current) drug therapy; Z88.5 Allergy status to narcotic agent; Z87.891 Personal history of nicotine dependence
CPT/HCPCS: 93458; 99152; 99153 ×2; C9600; C1769 ×2; C1887; C1874; C1894; J2001; J2250; J1200; J1644; J0583

== ENCOUNTER → 2018-06-23 | Outpatient (CLI) | payer MEDICARE ==
[2018-06-23 06:59] LABS: Basophils # (A) 0.1 k/uL (0-0.2); Basophils % (A) 1 %; Eosinophils # (A) 0.3 k/uL (0-0.7); Eosinophils % (A) 3 %; HCT 39.5 % (39.0-53.0); HGB 13.2 gm/dL (13.0-17.5); Lymphocytes # (A) 2.1 k/uL (1.0-4.8); Lymphocytes % (A) 27 %; MCH 31.1 pg (25.0-35.0); MCHC 33.4 g/dL (31.0-37.0); MCV 93.1 fL (80.0-100.0); Mean Platelet Volume 7.2; Monocytes # (A) 0.3 k/uL (0-1.0); Monocytes % (A) 4 %; Neutrophils # (A) 5.1 k/uL (1.3-7.7); Neutrophils % (A) 65 %; Platelet Count 210 k/uL (150-450); RBC 4.24 m/uL (4.30-5.90); RDW 14.3 % (11.5-15.5); WBC 7.9 k/uL (3.8-10.6)
[2018-06-23 07:21] LABS: Anion Gap 7 mmol/L; Blood Urea Nitrogen 19 mg/dL (9-20); Calcium 9.1 mg/dL (8.4-10.2); Carbon Dioxide 26 mmol/L (22-30); Chloride 106 mmol/L (98-107); Glucose 118 mg/dL (74-99); Potassium 4.2 mmol/L (3.5-5.1); Sodium 139 mmol/L (137-145)
[2018-06-23 13:02] LABS: Hemoglobin A1C 6.2 % (4.0-6.0)
== END | disposition home or self-care (01) ==
LOC: LABWHC1 06:39
PROVIDERS: ATTEND Internal Medicine
DX: E11.21 Type 2 diabetes mellitus with diabetic nephropathy (principal)
CPT/HCPCS: 36415; 80048; 83036; 85025

== ENCOUNTER 2018-09-02 18:56 | Inpatient (IN) | payer MEDICARE ==
[2018-09-02] MEDS ORDERED: ACETAMINOPHEN TAB 500 MG TAB PO STA (19:08)
[2018-09-02] MEDS ORDERED: IBUPROFEN 600 MG TAB PO STA (19:08)
[2018-09-02] MEDS ORDERED: SODIUM CHLORIDE 0.9% 1,000 ML IV STA (19:08)
--- NOTE | 2018-09-02 19:20 | ED ---
SOB HPI - General Chief Complaint: Shortness of Breath Stated Complaint: poss sepsis Time Seen by Provider: 09/02/18 19:07 Source: patient, EMS, RN notes reviewed, old records reviewed - History of Present Illness Initial Comments: This is a 83-year-old male to the ER for evaluation. Patient was essay for evaluation or shortness of breath positive fever positive cough. 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 Patient denies pain no chest pain no bowel pain no nausea vomiting no known sick contacts he does have no recent hospital admissions. No recent travel history. MD Complaint: shortness of breath, cough -: days(s) Severity scale (1-10): 7 Quality: aching Consistency: constant Improves With: rest Worsens With: exertion Known History Of: COPD, congestive heart failure Associated Symptoms: fever, cough - Related Data Home Medications Medication Instructions Recorded Confirmed Isosorbide Mononitrate ER [Imdur] 30 mg PO DAILY@1200 07/03/14 09/02/18 Tamsulosin HCl [Flomax] 0.4 mg PO HS 07/03/14 09/02/18 Aspirin EC [Ecotrin Low Dose] 81 mg PO DAILY 05/22/17 09/02/18 Insulin Aspart [NovoLOG Flexpen] 24 units SQ TID 05/22/17 09/02/18 Levothyroxine Sodium [Synthroid] 50 mcg PO DAILY 05/22/17 09/02/18 Umeclidinium Brm/Vilanterol Tr 1 puff INHALATION RT-DAILY 05/22/17 09/02/18 [Anoro Ellipta 62.5-25 Mcg INH] Insulin Degludec [Tresiba 60 unit SQ HS 09/04/17 09/02/18 Flextouch U-100] Metoprolol Tartrate [Lopressor] 25 mg PO HS 09/04/17 09/02/18 metFORMIN HCL [Glucophage Xr] 500 mg PO AC-SUPPER 09/04/17 09/02/18 Clopidogrel [Plavix] 75 mg PO HS 09/02/18 09/02/18 Olmesartan [Benicar] 10 mg PO DAILY 09/02/18 09/02/18 Sulfamethox-Tmp 800-160Mg [Bactrim 1 tab PO Q12HR 09/02/18 09/02/18 DS 800-160 mg] predniSONE See Taper PO DIRECTED 09/02/18 09/02/18 Previous Rx's Medication Instructions Recorded Atorvastatin [Lipitor] 80 mg PO HS #30 tab 09/09/17 Allergies Allergy/AdvReac Type Severity Reaction Status Date / Time morphine AdvReac Hallucinati Verified 09/02/18 19:31 ons propoxyphene napsylate AdvReac Nausea & Verified 09/02/18 19:31 [From Iramt-N 100] Vomiting & Diarrhea Review of Systems ROS Statement: Those systems with pertinent positive or pertinent negative responses have been documented in the HPI. ROS Other: All systems not noted in ROS Statement are negative. 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 Past Anesthesia/Blood Transfusion Reactions: No Reported Reaction Past Psychological History: No Psychological Hx Reported Smoking Status: Former smoker Past Alcohol Use History: Occasional Past Drug Use History: None Reported - Past Family History Mother Family Medical History: Cancer Additional Family Medical History / Comment(s): breast cancer General Exam General appearance: alert, in no apparent distress Head exam: Present: atraumatic, normocephalic, normal inspection Eye exam: Present: normal appearance, PERRL, EOMI. Absent: scleral icterus, conjunctival injection, periorbital swelling ENT exam: Present: normal exam, mucous membranes moist Neck exam: Present: normal inspection. Absent: tenderness, meningismus, lymphadenopathy Respiratory exam: Present: normal lung sounds bilaterally, wheezes, accessory muscle use, decreased breath sounds, prolonged expiratory. Absent: respiratory distress, rales, rhonchi, stridor Cardiovascular Exam: Present: normal rhythm, tachycardia, normal heart sounds. Absent: systolic murmur, diastolic murmur, rubs, gallop, clicks GI/Abdominal exam: Present: soft, normal bowel sounds. Absent: distended, tenderness, guarding, rebound, rigid Extremities exam: Present: normal inspection, full ROM, normal capillary refill. Absent: tenderness, pedal edema, joint swelling, calf tenderness Back exam: Present: normal inspection Neurological exam: Present: alert, oriented X3, CN II-XII intact Psychiatric exam: Present: normal affect, normal mood Skin exam: Present: warm, dry, intact, normal color. Absent: rash Course Vital Signs 09/02/18 09/02/18 09/02/18 19:00 19:45 19:57 Temperature 102.5 F H Pulse Rate 100 93 Respiratory 32 H 26 H Rate Blood Pressure 150/68 137/60 O2 Sat by Pulse 96 99 Oximetry 09/02/18 21:25 Temperature 99.3 F Pulse Rate 89 Respiratory 24 Rate Blood Pressure 101/50 O2 Sat by Pulse 95 Oximetry - Reevaluation(s) Reevaluation #1: 09/02/18 21:39 Medical record is reviewed Reevaluation #2: 09/02/18 21:39 Patient symptoms are improved with fever control and breathing treatments Medical Decision Making - Medical Decision Making 83 male the ER for evaluation of fever cough congestion shortness of breath COPD exacerbation, no evidence of heart failure, will place on fever control symptom management, breathing treatments, rule out bacteremia - Lab Data Result diagrams: 09/02/18 19:09 09/02/18 19:09 Lab Results 09/02/18 09/02/18 09/02/18 Range/Units 19:09 19:09 19:09 WBC 11.0 H (3.8-10.6) k/uL RBC 4.31 (4.30-5.90) m/uL Hgb 13.6 (13.0-17.5) gm/dL Hct 41.1 (39.0-53.0) % MCV 95.3 (80.0-100.0) fL MCH 31.6 (25.0-35.0) pg MCHC 33.1 (31.0-37.0) g/dL RDW 15.1 (11.5-15.5) % Plt Count 227 (150-450) k/uL Neutrophils % 94 % Lymphocytes % 2 % Monocytes % 3 % Eosinophils % 1 % Basophils % 0 % Neutrophils # 10.3 H (1.3-7.7) k/uL Lymphocytes # 0.2 L (1.0-4.8) k/uL Monocytes # 0.3 (0-1.0) k/uL Eosinophils # 0.1 (0-0.7) k/uL Basophils # 0.0 (0-0.2) k/uL Sodium 135 L (137-145) mmol/L Potassium 4.9 (3.5-5.1) mmol/L Chloride 102 (98-107) mmol/L Carbon Dioxide 24 (22-30) mmol/L Anion Gap 9 mmol/L BUN 16 (9-20) mg/dL Creatinine 0.91 (0.66-1.25) mg/dL Est GFR (CKD-EPI)AfAm 89 (>60 ml/min/1.73 sqM) Est GFR (CKD-EPI)NonAf 77 (>60 ml/min/1.73 sqM) Glucose 210 H (74-99) mg/dL POC Glucose (mg/dL) (75-99) mg/dL POC Glu Chef [employer] ID Plasma Lactic Acid Don 2.7 H* (0.7-2.0) mmol/L Calcium 9.2 (8.4-10.2) mg/dL Total Bilirubin 0.7 (0.2-1.3) mg/dL AST 31 (17-59) U/L ALT 21 (21-72) U/L Alkaline Phosphatase 64 (38-126) U/L Total Protein 6.4 (6.3-8.2) g/dL Albumin 3.8 (3.5-5.0) g/dL 09/02/18 Range/Units 20:48 WBC (3.8-10.6) k/uL RBC (4.30-5.90) m/uL Hgb (13.0-17.5) gm/dL Hct (39.0-53.0) % MCV (80.0-100.0) fL MCH (25.0-35.0) pg MCHC (31.0-37.0) g/dL RDW (11.5-15.5) % Plt Count (150-450) k/uL Neutrophils % % Lymphocytes % % Monocytes % % Eosinophils % % Basophils % % Neutrophils # (1.3-7.7) k/uL Lymphocytes # (1.0-4.8) k/uL Monocytes # (0-1.0) k/uL Eosinophils # (0-0.7) k/uL Basophils # (0-0.2) k/uL Sodium (137-145) mmol/L Potassium (3.5-5.1) mmol/L Chloride (98-107) mmol/L Carbon Dioxide (22-30) mmol/L Anion Gap mmol/L BUN (9-20) mg/dL Creatinine (0.66-1.25) mg/dL Est GFR (CKD-EPI)AfAm (>60 ml/min/1.73 sqM) Est GFR (CKD-EPI)NonAf (>60 ml/min/1.73 sqM) Glucose (74-99) mg/dL POC Glucose (mg/dL) 148 H (75-99) mg/dL POC Glu Chef [employer] ID [place] Plasma Lactic Acid Don (0.7-2.0) mmol/L Calcium (8.4-10.2) mg/dL Total Bilirubin (0.2-1.3) mg/dL AST (17-59) U/L ALT (21-72) U/L Alkaline Phosphatase (38-126) U/L Total Protein (6.3-8.2) g/dL Albumin (3.5-5.0) g/dL - EKG Data -: EKG Interpreted by Me (EKG shows sinus rhythm rate of 98, HI 228, QRS 138, QTc 480) EKG shows normal: sinus rhythm - Radiology Data Radiology results: report reviewed (Chest x-rays negative for acute disease), image reviewed Disposition Clinical Impression: COPD with exacerbation, Fever, Acute exacerbation of chronic obstructive airways disease Disposition: ADMITTED IP TO THIS HOSP Condition: Fair Is patient prescribed a controlled substance at d/c from ED?: No Referrals: Manuel Deleon MD [Primary Care Provider] - 1-2 days
[2018-09-02 19:22] LABS: Basophils % (A) 0 %; Eosinophils # (A) 0.1 k/uL (0-0.7); Eosinophils % (A) 1 %; HCT 41.1 % (39.0-53.0); HGB 13.6 gm/dL (13.0-17.5); Lymphocytes # (A) 0.2 k/uL (1.0-4.8); Lymphocytes % (A) 2 %; MCH 31.6 pg (25.0-35.0); MCHC 33.1 g/dL (31.0-37.0); MCV 95.3 fL (80.0-100.0); Mean Platelet Volume 8.1; Monocytes # (A) 0.3 k/uL (0-1.0); Monocytes % (A) 3 %; Neutrophils # (A) 10.3 k/uL (1.3-7.7); Neutrophils % (A) 94 %; Platelet Count 227 k/uL (150-450); RBC 4.31 m/uL (4.30-5.90); RDW 15.1 % (11.5-15.5)
[2018-09-02 19:37] LABS: Albumin 3.8 g/dL (3.5-5.0); Calcium 9.2 mg/dL (8.4-10.2); Potassium 4.9 mmol/L (3.5-5.1); Total Bilirubin 0.7 mg/dL (0.2-1.3); Total Protein 6.4 g/dL (6.3-8.2)
--- NOTE | 2018-09-02 19:49 | XR ---
EXAMINATION TYPE: XR chest 2V DATE OF EXAM: 09/02/2018 COMPARISON: 09/01/2018 and 05/22/2017 HISTORY: Difficulty breathing TECHNIQUE: Frontal and lateral views of the chest are obtained. FINDINGS: There is some coarsening of interstitial markings. There is poor inspiration. There is no heart failure. There is spurring in the thoracic spine. There is mid thoracic mild kyphotic deformity . IMPRESSION: Pulmonary fibrosis. No definite acute lung disease. No change compared to yesterday. Ins piration is decreased compared to 05/22/2017. There is stable mild thoracic kyphotic deformity.
[2018-09-02 20:53] LABS: Glucose,Whole Blood 148 mg/dL (75-99)
[2018-09-02] MEDS ORDERED: HYDROcodone/APAP 5-325MG 1 EACH TAB PO STA (21:08)
[2018-09-02] MEDS ORDERED: HYDROmorphone 1 MG/ML 1 ML SYRINGE IVP STA (21:33)
[2018-09-02] MEDS ORDERED: HYDROmorphone 1 MG/ML 1 ML SYRINGE IVP PRN (21:33)
[2018-09-02] MEDS ORDERED: LEVOFLOXACIN 750MG-D5W PMX 750 MG in DEXTROSE/WATER 1 150ML.BAG IVPB STA (21:34)
[2018-09-02] MEDS ORDERED: PIPERACILLIN-TAZOBACTAM 3.375 GM in DEXTROSE/WATER 1 50ML.BAG IVPB STA (21:34)
[2018-09-02] MEDS ORDERED: IPRATROPIUM-ALBUTEROL 3 ML NEB INHALATION STA (21:40)
[2018-09-02 21:54] LABS: Appearance,Urine Cloudy (Clear); Bilirubin,Urine Negative (Negative); Blood,Urine Trace (Negative); Color,Urine Yellow; Glucose,Urine (UA) 2+ (Negative); Hyaline Casts,Urine 5 /lpf (0-2); Ketones,Urine Trace (Negative); Leukocyte Esterase,Urine Moderate (Negative); Mucus,Urine Many /hpf; Nitrite,Urine Negative (Negative); PH, Urine 5.5 (5.0-8.0); Protein,Urine 1+ (Negative); RBC,Urine 5 /hpf (0-5); Specific Gravity,Urine 1.026 (1.001-1.035); WBC,Urine 8 /hpf (0-5)
[2018-09-02] MEDS: SODIUM CHLORIDE 0.9% 1,000 ML IV SCH (21:55)
[2018-09-03] MEDS: SODIUM CHLORIDE 0.9% 1,000 ML IV SCH ×2 (00:02→17:10)
[2018-09-03] MEDS ORDERED: AZITHROMYCIN 500 MG TAB PO STA (00:34)
--- NOTE | 2018-09-03 00:41 | P.HPIM ---
History of Present Illness H&P Date: 09/03/18 Chief Complaint: Shortness of breath 83-year-old male with history of COPD not on home oxygen, obstructive sleep apnea on CPAP. Patient presented the hospital with a few day history of worsening shortness of breath. Patient reported advanced COPD for which she follows up with Dr. Steele , he is normally able to run short errands around the house and take care of his basic needs without having limitations by shortness of breath unless he exerts himself. However over the past couple days he noticed shortness of breath with minimum exertion out of the ordinary associated with coughing productive of yellowish sputum and feeling of a temperature. He denies any sick contacts or recent traveling denies any chest pain but he does report chest tightness when he starts coughing. On Thursday he saw Dr. Steele who prescribed him a tapering doses of steroids and antibiotics however he didn't have a chance to start that yet. Today patient noticed wheezing and worsening trouble breathing for which she decided to come to the hospital he denies any leg swelling but does report some weight gain over the past month or so. Patient denies any history of intubation, patient denies any chest pain, abdominal pain, nausea or vomiting, denies any changes in his bowel or urinary habits. In the emergency department after initial treatments with steroids and inhalers reports some improvement in his wheezing. Chest x-ray did not show any acute infiltrations. Review of Systems Pertinent positives as noted in HPI. 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 Past Anesthesia/Blood Transfusion Reactions: No Reported Reaction Past Psychological History: No Psychological Hx Reported Smoking Status: Former smoker Past Alcohol Use History: Occasional Past Drug Use History: None Reported - Past Family History Mother Family Medical History: Cancer Additional Family Medical History / Comment(s): breast cancer Medications and Allergies Home Medications Medication Instructions Recorded Confirmed Type Isosorbide Mononitrate ER [Imdur] 30 mg PO DAILY@1200 07/03/14 09/02/18 History Tamsulosin HCl [Flomax] 0.4 mg PO HS 07/03/14 09/02/18 History Aspirin EC [Ecotrin Low Dose] 81 mg PO DAILY 05/22/17 09/02/18 History Insulin Aspart [NovoLOG Flexpen] 24 units SQ TID 05/22/17 09/02/18 History Levothyroxine Sodium [Synthroid] 50 mcg PO DAILY 05/22/17 09/02/18 History Umeclidinium Brm/Vilanterol Tr 1 puff INHALATION RT-DAILY 05/22/17 09/02/18 History [Anoro Ellipta 62.5-25 Mcg INH] Insulin Degludec [Tresiba 60 unit SQ HS 09/04/17 09/02/18 History Flextouch U-100] Metoprolol Tartrate [Lopressor] 25 mg PO HS 09/04/17 09/02/18 History metFORMIN HCL [Glucophage Xr] 500 mg PO AC-SUPPER 09/04/17 09/02/18 History Atorvastatin [Lipitor] 80 mg PO HS #30 tab 09/09/17 09/02/18 Rx Clopidogrel [Plavix] 75 mg PO HS 09/02/18 09/02/18 History Olmesartan [Benicar] 10 mg PO DAILY 09/02/18 09/02/18 History Sulfamethox-Tmp 800-160Mg [Bactrim 1 tab PO Q12HR 09/02/18 09/02/18 History DS 800-160 mg] predniSONE See Taper PO DIRECTED 09/02/18 09/02/18 History Allergies Allergy/AdvReac Type Severity Reaction Status Date / Time morphine AdvReac Hallucinati Verified 09/02/18 19:31 ons propoxyphene napsylate AdvReac Nausea & Verified 09/02/18 19:31 [From Darvocet-N 100] Vomiting & Diarrhea Physical Exam Vitals: Vital Signs Temp Pulse Pulse Resp BP BP Pulse Ox 09/02/18 23:23 96.7 F L 86 20 127/65 92 L 09/02/18 22:58 81 18 102/52 93 L 09/02/18 22:11 95 09/02/18 22:02 91 09/02/18 21:25 99.3 F 89 24 101/50 95 09/02/18 19:57 99 09/02/18 19:45 93 26 H 137/60 96 09/02/18 19:00 102.5 F H 100 32 H 150/68 Intake and Output 09/02/18 09/02/18 09/03/18 14:59 22:59 06:59 Other: Weight 122.47 kg Constitutional: Patient is conversant and pleasant, however he starts huffing and puffing after speaking few words Eyes: Anicteric sclerae, moist conjunctiva, no lid-lag Pupils equal round reactive to light ENMT: NC/AT Oropharynx clear, no erythema, or exudates Neck: Supple, FROM, no masses, or JVD No carotid bruits No thyromegaly Lungs: Good breath sounds overall, prolonged expiratory phase with end expiratory wheezes Clear to percussion Mild respiratory distress when patient starts talking , increased respiratory effort, with accessory muscle use Cardiovascular: Heart regular in rate and rhythm, No murmurs, gallops, or rubs No peripheral edema Abdominal: Obese, large abdomen limiting exam Nontender, no guarding, rebound or rigidity Abdomen moving with respiration Normoactive bowel sounds No hepatomegaly, No splenomegaly No palpable mass No abdominal wall hernia noted Skin: Normal temperature, tone, texture, turgor No induration No subcutaneous nodules No rash, lesions No ulcers Extremities: No digital cyanosis No clubbing Pedal pulses intact and symmetrical Radial pulses intact and symmetrical No calf tenderness Psychiatric: Alert and oriented to person, place and time Appropriate affect fair judgment Neuro Muscles Strength 5/5 in all 4 extremities Sensation to light touch grossly present throughout Cranial nerves II-XII grossly intact No focal sensory deficits Lymphatics: no palpable cervical or supraclavicular , or inguinal lymph nodes Results CBC & Chem 7: 09/02/18 19:09 09/02/18 19:09 Labs: Abnormal Lab Results - Last 24 Hours (Table) 09/02/18 09/02/18 09/02/18 Range/Units 19:09 19:09 19:09 WBC 11.0 H (3.8-10.6) k/uL Neutrophils # 10.3 H (1.3-7.7) k/uL Lymphocytes # 0.2 L (1.0-4.8) k/uL Sodium 135 L (137-145) mmol/L Glucose 210 H (74-99) mg/dL POC Glucose (mg/dL) (75-99) mg/dL Plasma Lactic Acid Don 2.7 H* (0.7-2.0) mmol/L Urine Protein (Negative) Urine Glucose (UA) (Negative) Urine Ketones (Negative) Urine Blood (Negative) Ur Leukocyte Esterase (Negative) Urine WBC (0-5) /hpf Hyaline Casts (0-2) /lpf Urine Mucus (None) /hpf 09/02/18 09/02/18 Range/Units 20:48 21:38 WBC (3.8-10.6) k/uL Neutrophils # (1.3-7.7) k/uL Lymphocytes # (1.0-4.8) k/uL Sodium (137-145) mmol/L Glucose (74-99) mg/dL POC Glucose (mg/dL) 148 H (75-99) mg/dL Plasma Lactic Acid Don (0.7-2.0) mmol/L Urine Protein 1+ H (Negative) Urine Glucose (UA) 2+ H (Negative) Urine Ketones Trace H (Negative) Urine Blood Trace H (Negative) Ur Leukocyte Esterase Moderate H (Negative) Urine WBC 8 H (0-5) /hpf Hyaline Casts 5 H (0-2) /lpf Urine Mucus Many H (None) /hpf Assessment and Plan Assessment: 83 year old male with history of copd not on home oxygen , admitted as inpatient with anticipated length of stay >48 hours, due to acute worsening of SOB, due to acute COPD exacerbation with suspected underlying viral Bronchitis with fever, and productive cough , CXR did not show any acute changes Plan: Acute COPD exacerbation secondary to acute bronchitis rule out influenza Check flu PCR Continue patient on systemic IV steroids DuoNeb nebulizer when necessary Continue with home inhalers Supplemental oxygen through nasal cannula Azithromycin Chest x-ray did not show acute infiltrate Evaluate for home oxygen requirement prior to discharge Diabetes mellitus Hold metformin Continue with home dose of insulin Add insulin sliding scale DVT prophylaxis on Lovenox subcu Chronic conditions CAD stable continue plavix and ASA, and statin Hypertension Currently controlled continue with home medications History of CHF currently compensated continue with home medications Hyperlipidemia History prostate cancer Hypothyroidism Surrogate decision-maker: Patient's [place] CODE STATUS: Full code Discussed with: Patient, ER, RN Anticipated discharge: 48-[address]: Home A total of 60 minutes was spent on the care of this complex patient more than 50 % of the time was spent in counseling and care coordination.
[2018-09-03] MEDS: methylPREDNISolone SOD SUCCI 125 MG/2 ML VIAL IV SCH ×4 (00:59→17:14)
[2018-09-03 02:55] VITALS: BMI 38.7
[2018-09-03] MEDS: LEVOTHYROXINE 50 MCG TAB PO SCH (05:52)
[2018-09-03] MEDS ORDERED: PIPERACILLIN-TAZOBACTAM 3.375 GM in DEXTROSE/WATER 1 50ML.BAG IVPB SCH (06:00)
[2018-09-03] MEDS: IPRATROPIUM-ALBUTEROL 3 ML NEB INHALATION SCH ×6 (07:12→19:34)
[2018-09-03 07:46] LABS: Glucose,Whole Blood 156 mg/dL (75-99)
[2018-09-03] MEDS ORDERED: IPRATROPIUM 0.5 MG/2.5 ML NEBU INHALATION SCH (08:00)
[2018-09-03] MEDS: INSULIN ASPART 100 UNIT/ML 1 ML 10 ML VIAL SQ SCH ×3 (08:25→22:44)
[2018-09-03] MEDS: ENOXAPARIN 40 MG/0.4 ML SYRINGE SQ SCH (08:25)
[2018-09-03] MEDS: AZITHROMYCIN 250 MG TAB PO SCH (08:25)
[2018-09-03] MEDS: LOSARTAN 50 MG TAB PO SCH (08:25)
[2018-09-03] MEDS: ASPIRIN 81 MG PO SCH (08:25)
[2018-09-03 09:46] LABS: Basophils % (A) 0 %; Eosinophils # (A) 0.1 k/uL (0-0.7); Eosinophils % (A) 0 %; HCT 40.7 % (39.0-53.0); HGB 13.6 gm/dL (13.0-17.5); Lymphocytes # (A) 0.1 k/uL (1.0-4.8); Lymphocytes % (A) 1 %; MCH 31.4 pg (25.0-35.0); MCHC 33.4 g/dL (31.0-37.0); MCV 93.8 fL (80.0-100.0); Monocytes # (A) 0.2 k/uL (0-1.0); Monocytes % (A) 2 %; Neutrophils # (A) 10.9 k/uL (1.3-7.7); Neutrophils % (A) 96 %; Platelet Count 184 k/uL (150-450); RBC 4.33 m/uL (4.30-5.90); RDW 15.5 % (11.5-15.5); WBC 11.3 k/uL (3.8-10.6)
[2018-09-03 09:49] LABS: Albumin 3.5 g/dL (3.5-5.0); Potassium 4.7 mmol/L (3.5-5.1); Total Bilirubin 0.7 mg/dL (0.2-1.3); Total Protein 6.1 g/dL (6.3-8.2)
[2018-09-03 11:24] LABS: Glucose,Whole Blood 219 mg/dL (75-99)
[2018-09-03] MEDS: ISOSORBIDE MONONITRATE ER 30 MG TAB.ER.24H PO SCH (11:30)
--- NOTE | 2018-09-03 12:16 | P.PN ---
Subjective Progress Note Date: 09/03/18 Principal diagnosis: COPD exacerbation Patient was seen and examined. No acute events overnight. Patient reports feeling short of breath at baseline. But he is able to usually catch his breath while at rest, worsened with exertion. Patient reported feeling short of breath while walking from his garage to the front of the house to put out the garbage. He also complains of cough, productive of yellow mucus. Patient reports a long smoking history quit in 1989. He denies any lower extremity edema. He denies any orthopnea. Objective - Vital Signs Vital signs: Vital Signs Temp 96.8 F L 09/03/18 05:00 Pulse 82 09/03/18 11:20 Resp 20 09/03/18 05:00 BP 131/64 09/03/18 05:00 Pulse Ox 92 L 09/03/18 07:14 Intake & Output 09/02/18 09/03/18 09/03/18 18:59 06:59 18:59 Intake Total 720 Balance 720 Weight 122.47 kg Intake: Intake, IV Titration 600 Amount Sodium Chloride 0.9% 1, 600 000 ml @ 150 mls/hr IV . Q6H40M [facility] Rx#:[id number] Oral 120 - Exam General: [Obese], [short of breath speaking in full sentences], [appears at stated age] Derm: [warm], [dry] Head: [atraumatic], [normocephalic], [symmetric] Eyes: [EOMI], [no lid lag], [anicteric sclera] Mouth: [no lip lesion], [mucus membranes moist] Cardiovascular: [S1S2 reg], [no murmur], [positive posterior tibial pulse bilateral], Lungs: [Decreased breath sounds bilateral], [no rhonchi, no rales] , [no accessory muscle use] Abdominal: [soft], [ nontender to palpation], [no guarding], [no appreciable organomegaly] Ext: [no gross muscle atrophy], [no edema], [no contractures] Neuro: [no focal neuro deficits] Psych: [Alert], [oriented], [appropriate affect] - Labs CBC & Chem 7: 09/03/18 09:02 09/03/18 09:02 Labs: Abnormal Lab Results - Last 24 Hours (Table) 09/02/18 09/02/1809/02/18 Range/Units 19:09 19:09 19:09 WBC 11.0 H (3.8-10.6) k/uL Neutrophils # 10.3 H (1.3-7.7) k/uL Lymphocytes # 0.2 L (1.0-4.8) k/uL Sodium 135 L (137-145) mmol/L Carbon Dioxide (22-30) mmol/L BUN (9-20) mg/dL Glucose 210 H (74-99) mg/dL POC Glucose (mg/dL) (75-99) mg/dL Plasma Lactic Acid Don 2.7 H* (0.7-2.0) mmol/L Total Protein (6.3-8.2) g/dL Urine Protein (Negative) Urine Glucose (UA) (Negative) Urine Ketones (Negative) Urine Blood (Negative) Ur Leukocyte Esterase (Negative) Urine WBC (0-5) /hpf Hyaline Casts (0-2) /lpf Urine Mucus (None) /hpf 09/02/18 09/02/18 09/03/18 Range/Units 20:48 21:38 07:42 WBC (3.8-10.6) k/uL Neutrophils # (1.3-7.7) k/uL Lymphocytes # (1.0-4.8) k/uL Sodium (137-145) mmol/L Carbon Dioxide (22-30) mmol/L BUN (9-20) mg/dL Glucose (74-99) mg/dL POC Glucose (mg/dL) 148 H 156 H (75-99) mg/dL Plasma Lactic Acid Don (0.7-2.0) mmol/L Total Protein (6.3-8.2) g/dL Urine Protein 1+ H (Negative) Urine Glucose (UA) 2+ H (Negative) Urine Ketones Trace H (Negative) Urine Blood Trace H (Negative) Ur Leukocyte Esterase Moderate H (Negative) Urine WBC 8 H (0-5) /hpf Hyaline Casts 5 H (0-2) /lpf Urine Mucus Many H (None) /hpf 09/03/18 09/03/18 09/03/18 Range/Units 09:02 09:02 11:23 WBC 11.3 H (3.8-10.6) k/uL Neutrophils # 10.9 H (1.3-7.7) k/uL Lymphocytes # 0.1 L (1.0-4.8) k/uL Sodium 134 L (137-145) mmol/L Carbon Dioxide 19 L (22-30) mmol/L BUN 21 H (9-20) mg/dL Glucose 206 H (74-99) mg/dL POC Glucose (mg/dL) 219 H (75-99) mg/dL Plasma Lactic Acid Don (0.7-2.0) mmol/L Total Protein 6.1 L (6.3-8.2) g/dL Urine Protein (Negative) Urine Glucose (UA) (Negative) Urine Ketones (Negative) Urine Blood (Negative) Ur Leukocyte Esterase (Negative) Urine WBC (0-5) /hpf Hyaline Casts (0-2) /lpf Urine Mucus (None) /hpf Microbiology - Last 24 Hours (Table) 09/02/18 21:38 Urine Culture - Preliminary Urine,Voided Assessment and Plan Assessment: Assessment and Plan 1. COPD exacerbation: Likely due to viral bronchitis. CXR shows pulmonary fibrosis. Tmax 102.5 on 09/02, afebrile since with a mild leukocytosis of 11.3 ( on IV steroids). Z pack for possible bacterial bronchitis. DuoNeb Q4H scheduled , SoluMedrol 60 mg IV Q6H. Telemetry monitoring. O2 per NC to maintain O2 sat > 92%. Will need 6 min walk test prior to DC. FU Pulmonology 2. Diabetes Mellitus: POC glucose 219. A1c 7.3 on 07/2018. Continue Levemir 60 units QHS, Novolog 24 units TID. 3. CHF: Stable. Echo 04/2017 shows EF 55-60% with normal LVH. Continue BBlocker and ARB. PAKO Vaughn outPT 4. CAD: Stable. Continue ASA 81 mg PO QD and Lipitor 80 mg PO QHS with Plavix 75 mg PO QD. On BBlocker and ARB. PAKO Vaughn outPT 5. Hypertension: BP 131/64. Continue Imdur 30 mg PO QD, Losartan 50 mg PO QD, Metoprolol 25 mg PO QHS. Monitor vitals, adjust medications as necessary. 6. Hypothyroidism: Stable. TSH 2.62 07/2018. Continue Synthroid 50 mcg PO QD. 7. DVT/GI Prophylaxis: Lovenox 40 mg SUBCUT QD. Patient is pending clinical improvement. Better than yesterday. Pulmonology consult pending. Will need 6 min walk test prior to DC.
--- NOTE | 2018-09-03 12:18 | P.CNPUL ---
History of Present Illness Consult date: 09/03/18 Requesting physician: Carlitos Jaramillo Reason for consult: dyspnea Chief complaint: Shortness of breath History of present illness: This is a very pleasant 83-year-old gentleman who follows with Dr. Deleon as his primary care physician. He has a history of diabetes mellitus, osteoarthritis, congestive heart failure, hypothyroidism, previous bowel resection 2. He has obstructive sleep apnea and utilizes a CPAP at night. He also has a previous smoking history and has chronic obstructive pulmonary disease and follows with Dr. Hayward in our office. He is maintained on Anoro and albuterol. He was seen there this week and treated for COPD exacerbation with steroids and empiric antibiotics in the form of Bactrim. He states yesterday he had been out for lunch and a haircut and returned home and sat in a chair. He then developed significant weakness while sitting in his chair and unable to get himself up. EMS was called and he was brought here for the same. Chest x-ray revealed evidence of pulmonary fibrosis but no acute pulmonary process. White count 11.3. Hemoglobin 13.6. Creatinine 0.95. Influenza screen was negative. Urine culture pending. He's been initiated on IV Solu- Medrol, bronchodilators, azithromycin. He is seen today in the regular medical floor. He is currently sitting up in the bedside. He is awake and alert in no acute distress. He states he is still quite dyspneic on minimal exertion. Not quite back to his baseline. Maintaining O2 saturations in the low 90s on 3 L/m per nasal cannula. Review of Systems 14 point review of system was conducted. All negative other than as mentioned in the HPI. 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 Past Anesthesia/Blood Transfusion Reactions: No Reported Reaction Past Psychological History: No Psychological Hx Reported Smoking Status: Former smoker Past Alcohol Use History: Occasional Past Drug Use History: None Reported - Past Family History Mother Family Medical History: Cancer Additional Family Medical History / Comment(s): breast cancer Medications and Allergies Home Medications Medication Instructions Recorded Confirmed Type Isosorbide Mononitrate ER [Imdur] 30 mg PO DAILY@1200 07/03/14 09/02/18 History Tamsulosin HCl [Flomax] 0.4 mg PO HS 07/03/14 09/02/18 History Aspirin EC [Ecotrin Low Dose] 81 mg PO DAILY 05/22/17 09/02/18 History Insulin Aspart [NovoLOG Flexpen] 24 units SQ TID 05/22/17 09/02/18 History Levothyroxine Sodium [Synthroid] 50 mcg PO DAILY 05/22/17 09/02/18 History Umeclidinium Brm/Vilanterol Tr 1 puff INHALATION RT-DAILY 05/22/17 09/02/18 History [Anoro Ellipta 62.5-25 Mcg INH] Insulin Degludec [Tresiba 60 unit SQ HS 09/04/17 09/02/18 History Flextouch U-100] Metoprolol Tartrate [Lopressor] 25 mg PO HS 09/04/17 09/02/18 History metFORMIN HCL [Glucophage Xr] 500 mg PO AC-SUPPER 09/04/17 09/02/18 History Atorvastatin [Lipitor] 80 mg PO HS #30 tab 09/09/17 09/02/18 Rx Clopidogrel [Plavix] 75 mg PO HS 09/02/18 09/02/18 History Olmesartan [Benicar] 10 mg PO DAILY 09/02/18 09/02/18 History Sulfamethox-Tmp 800-160Mg [Bactrim 1 tab PO Q12HR 09/02/18 09/02/18 History DS 800-160 mg] predniSONE See Taper PO DIRECTED 09/02/18 09/02/18 History Allergies Allergy/AdvReac Type Severity Reaction Status Date / Time morphine AdvReac Hallucinati Verified 09/02/18 19:31 ons propoxyphene napsylate AdvReac Nausea & Verified 09/02/18 19:31 [From Darvocet-N 100] Vomiting & Diarrhea Physical Exam Vitals: Vital Signs Temp Pulse Pulse Resp BP BP Pulse Ox 09/03/18 11:20 82 09/03/18 11:09 86 09/03/18 07:25 92 09/03/18 07:14 88 92 L 09/03/18 05:00 96.8 F L 83 20 131/64 97 09/03/18 00:00 20 09/02/18 23:23 96.7 F L 86 20 127/65 92 L 09/02/18 22:58 81 18 102/52 93 L 09/02/18 22:11 95 09/02/18 22:02 91 09/02/18 21:25 99.3 F 89 24 101/50 95 09/02/18 19:57 99 09/02/18 19:45 93 26 H 137/60 96 09/02/18 19:00 102.5 F H 100 32 H 150/68 Intake and Output 09/02/18 09/03/18 09/03/18 22:59 06:59 14:59 Intake Total 720 Balance 720 Intake: Intake, IV Titration 600 Amount Sodium Chloride 0.9% 1, 600 000 ml @ 150 mls/hr IV . Q6H40M [facility] Rx#:[id number] Oral 120 Other: Weight 122.47 kg 122.47 kg GENERAL EXAM: Morbidly obese. Alert, active, comfortable in no apparent distress. HEAD: Normocephalic. EYES: Normal reaction of pupils, equal size. NOSE: Clear with pink turbinates. THROAT: Crowding of the posterior pharynx. No erythema or exudates. NECK: Short. No masses, no JVD. CHEST: No chest wall deformity. LUNGS: Equal air entry with faint crackles in the posterior bases, no wheeze, rhonchi or dullness. CVS: S1 and S2 normal with no audible murmur, regular rhythm. ABDOMEN: No hepatosplenomegaly, normal bowel sounds, no guarding or rigidity. SPINE: No scoliosis or deformity SKIN: No rashes CENTRAL NERVOUS SYSTEM: No focal deficits, tone is normal in all 4 extremities. EXTREMITIES: There is no peripheral edema. No clubbing, no cyanosis. Peripheral pulses are intact. Results - Laboratory Findings CBC and BMP: 09/03/18 09:02 09/03/18 09:02 Abnormal lab findings: Abnormal Labs 09/02/18 09/02/18 09/02/18 19:09 19:09 19:09 WBC 11.0 H Neutrophils # 10.3 H Lymphocytes # 0.2 L Sodium 135 L Carbon Dioxide BUN Glucose 210 H POC Glucose (mg/dL) Plasma Lactic Acid Don 2.7 H* Total Protein Urine Protein Urine Glucose (UA) Urine Ketones Urine Blood Ur Leukocyte Esterase Urine WBC Hyaline Casts Urine Mucus 09/02/18 09/02/18 09/03/18 20:48 21:38 07:42 WBC Neutrophils # Lymphocytes # Sodium Carbon Dioxide BUN Glucose POC Glucose (mg/dL) 148 H 156 H Plasma Lactic Acid Don Total Protein Urine Protein 1+ H Urine Glucose (UA) 2+ H Urine Ketones Trace H Urine Blood Trace H Ur Leukocyte Esterase Moderate H Urine WBC 8 H Hyaline Casts 5 H Urine Mucus Many H 09/03/18 09/03/18 09/03/18 09:02 09:02 11:23 WBC 11.3 H Neutrophils # 10.9 H Lymphocytes # 0.1 L Sodium 134 L Carbon Dioxide 19 L BUN 21 H Glucose 206 H POC Glucose (mg/dL) 219 H Plasma Lactic Acid Don Total Protein 6.1 L Urine Protein Urine Glucose (UA) Urine Ketones Urine Blood Ur Leukocyte Esterase Urine WBC Hyaline Casts Urine Mucus - Diagnostic Findings Chest x-ray: image reviewed Assessment and Plan Assessment: Impression: #1 Acute exacerbation of chronic obstructive pulmonary disease, complicated by purulent tracheobronchitis. #2 Acute hypoxic respiratory failure secondary to above. #3 Morbid obesity. #4 Obstructive sleep apnea utilizing CPAP in the outpatient setting. #5 Diabetes mellitus. #6 Hyperlipidemia. #7 Hypertension. #8 Hypothyroidism. Plan: The patient was seen and evaluated by Dr. Adams. Chest x-ray and labs were reviewed. We'll continue his treatment for his COPD exacerbation. Empiric antibiotics. Increase his activity as tolerated. We'll continue to follow. I, the cosigning physician, performed a history & physical examination of the patient. Lungs sounds have faint crackles in the posterior bases, diminished. Maintaining good O2 saturations in the 90s on 3 L/m per nasal cannula. I discussed the assessment and plan of care with my nurse practitioner, Antoinette Denny. I attest to the above note as dictated by her. Time with Patient: Greater than 30
[2018-09-03 16:59] LABS: Glucose,Whole Blood 310 mg/dL (75-99)
[2018-09-03] MEDS ORDERED: IPRATROPIUM-ALBUTEROL 3 ML NEB INHALATION PRN (20:58)
[2018-09-03] MEDS ORDERED: INSULIN DETEMIR 100 UNIT/ML 10 ML VIAL SQ SCH (21:00)
[2018-09-03] MEDS ORDERED: TAMSULOSIN 0.4 MG CAP.ER.24H PO SCH (21:00)
[2018-09-03] MEDS ORDERED: LEVOFLOXACIN 750MG-D5W PMX 750 MG in DEXTROSE/WATER 1 150ML.BAG IVPB SCH (21:00)
[2018-09-03] MEDS ORDERED: ATORVASTATIN 80 MG TAB PO SCH (21:00)
[2018-09-03] MEDS ORDERED: METOPROLOL TARTRATE 25 MG TAB PO SCH (21:00)
[2018-09-03] MEDS ORDERED: CLOPIDOGREL 75 MG TAB PO SCH (21:00)
[2018-09-03 21:16] LABS: Glucose,Whole Blood 303 mg/dL (75-99)
[2018-09-03 23:47] LABS: Glucose,Whole Blood 213 mg/dL (75-99)
[2018-09-04] MEDS: methylPREDNISolone SOD SUCCI 125 MG/2 ML VIAL IV SCH ×3 (00:10→12:32)
[2018-09-04] MEDS: LEVOTHYROXINE 50 MCG TAB PO SCH (05:36)
[2018-09-04 05:42] VITALS: RESP 18; TEMP 97.7
[2018-09-04 06:56] LABS: Glucose,Whole Blood 148 mg/dL (75-99)
[2018-09-04] MEDS: IPRATROPIUM-ALBUTEROL 3 ML NEB INHALATION SCH ×3 (07:02→16:34)
--- NOTE | 2018-09-04 07:46 | P.PN ---
Subjective Progress Note Date: 09/04/18 Principal diagnosis: COPD exacerbation, shortness of breath, cough, Progress note dated 09/04/2018 This 83-year-old male who I saw the office on Thursday. The patient has a history of underlying COPD and COPD exacerbation. The patient was given a Depo- Medrol, prednisone, and antibiotics. Unfortunately, beginning on , the patient got worse with fever chills cough shortness of breath chest congestion and phlegm production. He called 911 and EMS brought him into the emergency room where he was evaluated. The patient was admitted with a COPD exacerbation. Today, he is doing much better. He feels much better. His breathing is improved. He still coughing quite a bit. Producing some phlegm. No fever or chills. The patient has a history of COPD, acute purulent tracheobronchitis, hypoxemic respiratory failure, morbid obesity, sleep apnea, diabetes, hyperlipidemia, hypertension, and hypothyroidism. Again, he is doing much better today than he was yesterday and the day before. Objective - Vital Signs Vital signs: Vital Signs Temp 97.7 F 09/04/18 05:00 Pulse 80 09/04/18 07:16 Resp 18 09/04/18 05:00 BP 133/65 09/04/18 05:00 Pulse Ox 97 09/04/18 05:00 Intake & Output 09/03/18 09/04/18 09/04/18 18:59 06:59 18:59 Output Total 1999 850 Balance -2000 -850 Output: Urine 2000 850 Other: Voiding Method Urinal # Voids 2 - Exam No acute distress, oriented 3. Nasal O2 in place. HEENT examination is grossly unremarkable. Mucous membranes are moist. No oral lesions. Neck supple. Full range of motion. No adenopathy thyromegaly or neck vein distention. Cardiovascular examination reveals regular rhythm rate. S1-S2 normal. No S3 or S4. No discernible murmur noted. Heart sounds are distant. Lungs reveal coarse bilateral breath sounds. Breath sounds are diminished. There is prolongation on forced maneuver. There are no crackles. There are coarse inspiratory and expiratory wheezes and rhonchi both on inspiration and excellent ablation. Adventitious lung sounds are more prominent on forced maneuver. Abdomen soft bowel sounds are heard. No masses or tenderness. Extremities are intact. No cyanosis clubbing or edema. Skin is without rash or lesion. Neurologic examination is brief but nonfocal. - Labs CBC & Chem 7: 09/03/18 09:02 09/03/18 09:02 Labs: Abnormal Lab Results - Last 24 Hours (Table) 09/03/18 09/03/18 09/03/18 Range/Units 07:42 09:02 09:02 WBC 11.3 H (3.8-10.6) k/uL Neutrophils # 10.9 H (1.3-7.7) k/uL Lymphocytes # 0.1 L (1.0-4.8) k/uL Sodium 134 L (137-145) mmol/L Carbon Dioxide 19 L (22-30) mmol/L BUN 21 H (9-20) mg/dL Glucose 206 H (74-99) mg/dL POC Glucose (mg/dL) 156 H (75-99) mg/dL Total Protein 6.1 L (6.3-8.2) g/dL 09/03/18 09/03/18 09/03/18 Range/Units 11:23 16:58 21:13 WBC (3.8-10.6) k/uL Neutrophils # (1.3-7.7) k/uL Lymphocytes # (1.0-4.8) k/uL Sodium (137-145) mmol/L Carbon Dioxide (22-30) mmol/L BUN (9-20) mg/dL Glucose (74-99) mg/dL POC Glucose (mg/dL) 219 H 310 H 303 H (75-99) mg/dL Total Protein (6.3-8.2) g/dL 09/03/18 09/04/18 Range/Units 23:44 06:53 WBC (3.8-10.6) k/uL Neutrophils # (1.3-7.7) k/uL Lymphocytes # (1.0-4.8) k/uL Sodium (137-145) mmol/L Carbon Dioxide (22-30) mmol/L BUN (9-20) mg/dL Glucose (74-99) mg/dL POC Glucose (mg/dL) 213 H 148 H (75-99) mg/dL Total Protein (6.3-8.2) g/dL Microbiology - Last 24 Hours (Table) 09/02/18 21:38 Urine Culture - Final Urine,Voided 09/02/18 19:09 Blood Culture - Preliminary Blood No Growth after 24 hours Assessment and Plan Assessment: Assessment COPD exacerbation complicated by purulent tracheobronchitis Acute hypoxemic respiratory failure Morbid obesity Sleep apnea syndrome, maintained on CPAP History of diabetes mellitus Hyperlipidemia Hypertension Hypothyroidism Plan: Plan dated 09/04/2018 Labs x-rays a medications are reviewed. The patient appears be doing better. Likely discharge within the next 24-48 hours. White count from yesterday was 11.3. Hemoglobin and hematocrit and platelet count all normal. Sodium 134 potassium and chloride normal CO2 19 anion gap mildly elevated and BUN and creatinine were 21 and 0.95. Initial lactic acid was 1.7. Urine and blood cultures negative thus far. Medications are reviewed. Prognosis is guarded. The patient does appear to be moving in the right direction. Time with Patient: Less than 30
[2018-09-04] MEDS: ASPIRIN 81 MG PO SCH (08:05)
[2018-09-04] MEDS: INSULIN ASPART 100 UNIT/ML 1 ML 10 ML VIAL SQ SCH (08:05)
[2018-09-04] MEDS: LOSARTAN 50 MG TAB PO SCH (08:05)
[2018-09-04] MEDS: AZITHROMYCIN 250 MG TAB PO SCH (08:05)
[2018-09-04] MEDS: ENOXAPARIN 40 MG/0.4 ML SYRINGE SQ SCH (08:05)
[2018-09-04 08:11] LABS: Anion Gap 13 mmol/L; Blood Urea Nitrogen 20 mg/dL (9-20); Calcium 9.3 mg/dL (8.4-10.2); Carbon Dioxide 20 mmol/L (22-30); Chloride 103 mmol/L (98-107); Glucose 162 mg/dL (74-99); Potassium 4.2 mmol/L (3.5-5.1); Sodium 136 mmol/L (137-145)
--- NOTE | 2018-09-04 10:59 | P.PN ---
Subjective Progress Note Date: 09/04/18 Principal diagnosis: COPD exacerbation Patient was seen and examined. No acute events overnight. Patient reports improvement in his breathing but states he has not been able to walk around. per RN, patient had difficulty getting out of bed yesterday. He continues to cough up yellow sputum. He denies any fever or chills. No chest pain, palpitations. Patient requesting to go home today. Objective - Vital Signs Vital signs: Vital Signs Temp 97.7 F 09/04/18 05:00 Pulse 80 09/04/18 07:16 Resp 18 09/04/18 05:00 BP 133/65 09/04/18 05:00 Pulse Ox 97 09/04/18 05:00 Intake & Output 09/03/18 09/04/18 09/04/18 18:59 06:59 18:59 Output Total 1999 850 Balance -1999 Output: Urine 1999 Other: Voiding Method Urinal # Voids 2 - Exam General: [Obese], [short of breath speaking in full sentences], [appears at stated age] Derm: [warm], [dry] Head: [atraumatic], [normocephalic], [symmetric] Eyes: [EOMI], [no lid lag], [anicteric sclera] Mouth: [no lip lesion], [mucus membranes moist] Cardiovascular: [S1S2 reg], [no murmur], [positive posterior tibial pulse bilateral], Lungs: [Decreased breath sounds bilateral], [no rhonchi, no rales] , [no accessory muscle use] Abdominal: [soft], [ nontender to palpation], [no guarding], [no appreciable organomegaly] Ext: [no gross muscle atrophy], [no edema], [no contractures] Neuro: [no focal neuro deficits] Psych: [Alert], [oriented], [appropriate affect] - Labs CBC & Chem 7: 09/03/18 09:02 09/04/18 07:36 Labs: Abnormal Lab Results - Last 24 Hours (Table) 09/03/18 09/03/18 09/03/18 Range/Units 11:23 16:58 21:13 Sodium (137-145) mmol/L Carbon Dioxide (22-30) mmol/L Glucose (74-99) mg/dL POC Glucose (mg/dL) 219 H 310 H 303 H (75-99) mg/dL 09/03/18 09/04/18 09/04/18 Range/Units 23:44 06:53 07:36 Sodium 136 L (137-145) mmol/L Carbon Dioxide 20 L (22-30) mmol/L Glucose 162 H (74-99) mg/dL POC Glucose (mg/dL) 213 H 148 H (75-99) mg/dL Microbiology - Last 24 Hours (Table) 09/02/18 21:38 Urine Culture - Final Urine,Voided 09/02/18 19:09 Blood Culture - Preliminary Blood No Growth after 24 hours Assessment and Plan Assessment: Assessment and Plan 1. COPD exacerbation: Likely due to viral bronchitis. CXR shows pulmonary fibrosis (has had CT chest and follows Dr. Hayward). Tmax 102.5 on 09/02, afebrile since with a mild leukocytosis of 11.3 (on IV steroids). Z pack for possible bacterial bronchitis. DuoNeb Q4H scheduled, SoluMedrol 60 mg IV Q6H. Add Symbicort 2 puff BID. Telemetry monitoring. O2 per NC to maintain O2 sat > 92%. FU 6 min walk test, PT/OT, Pulmonology 2. Diabetes Mellitus: POC glucose 162. A1c 7.3 on 07/2018. Continue Levemir 60 units QHS, Novolog 24 units TID. Low carb diet. Accuchecks. Hypoglycemic precautions. 3. CHF: Stable. Echo 04/2017 shows EF 55-60% with normal LVH. Continue BBlocker and ARB. FU Dr. Vaughn outPT 4. CAD: Stable. Continue ASA 81 mg PO QD and Lipitor 80 mg PO QHS with Plavix 75 mg PO QD. On BBlocker and ARB. FU Dr. Vaughn outPT 5. Hypertension: BP 133/65. Continue Imdur 30 mg PO QD, Losartan 50 mg PO QD, Metoprolol 25 mg PO QHS. Monitor vitals, adjust medications as necessary. 6. Hypothyroidism: Stable. TSH 2.62 07/2018. Continue Synthroid 50 mcg PO QD. 7. DVT/GI Prophylaxis: Lovenox 40 mg SUBCUT QD. Patient is pending clinical improvement. Better than yesterday. Wants to go home. Will order 6 minute walk test and PT consult.
[2018-09-04 11:33] LABS: Glucose,Whole Blood 318 mg/dL (75-99)
[2018-09-04] MEDS ORDERED: INSULIN ASPART 100 UNIT/ML 1 ML 10 ML VIAL SQ SCH (12:30)
[2018-09-04] MEDS: ISOSORBIDE MONONITRATE ER 30 MG TAB.ER.24H PO SCH (12:33)
[2018-09-04 12:48] VITALS: BP 138/64
[2018-09-04 14:37] VITALS: PULSE 95
[2018-09-04] MEDS ORDERED: SYMBICORT 160-4.5 MCG INHALER INHALATION SCH (20:00)
[2018-09-04] MEDS ORDERED: INSULIN DETEMIR 100 UNIT/ML 10 ML VIAL SQ SCH (21:00)
--- NOTE | 2018-09-05 11:31 | P.DS ---
Providers Date of admission: 09/02/18 21:40 Expected date of discharge: 09/04/18 Attending physician: Jair Sweeney MD Consults: 09/02/18 21:44 Consult Physician Routine Consulting Provider: Steve Hayward Consult Reason/Comments: known Do you want consulting provider notified?: Yes Primary care physician: Manuel Deleon - Discharge Diagnosis(es) (1) CAD (coronary artery disease) Status: Acute (2) Acute exacerbation of chronic obstructive airways disease Status: Acute (3) Diabetes mellitus Status: Acute (4) Hypertension Status: Acute (5) Hypothyroidism Status: Acute Hospital Course: 83-year-old male with history of COPD not on home oxygen, obstructive sleep apnea on CPAP. Patient presented the hospital with a few day history of worsening shortness of breath. Patient reported advanced COPD for which she follows up with Dr. Steele , he is normally able to run short errands around the house and take care of his basic needs without having limitations by shortness of breath unless he exerts himself. However over the past couple days he noticed shortness of breath with minimum exertion out of the ordinary associated with coughing productive of yellowish sputum and feeling of a temperature. He denies any sick contacts or recent traveling denies any chest pain but he does report chest tightness when he starts coughing. On Thursday he saw Dr. Steele who prescribed him a tapering doses of steroids and antibiotics however he didn't have a chance to start that yet. Today patient noticed wheezing and worsening trouble breathing for which she decided to come to the hospital he denies any leg swelling but does report some weight gain over the past month or so. His shortness of breath was thought to be due to COPD exacerbation. Chest x- ray showed pulmonary fibrosis. Patient did report obtaining a CT chest under Dr. Steele in the outpatient setting. He had a T-max of 102.5 on admission but was afebrile afterwards with a mild leukocytosis of 11.3. He was started on azithromycin for possible bacterial bronchitis. He was started on DuoNeb treatments scheduled along with Solu-Medrol IV and Symbicort. His oxygenation was maintained on nasal cannula. Heart to discharge he underwent a 6 minute walk test and passed. Pulmonology was consulted at this time and recommended that we continue present management. PT and OT were consulted and recommended home PT. His home medications were otherwise resumed for his diabetes mellitus, CHF, CAD , hypertension, and hypothyroidism. Patient was discharged after passing his 6 minute walk test and being cleared by PT and OT. He was advised to follow-up with his PCP within 1-2 days of discharge. He was advised follow-up with Dr. Hayward within 1 week of discharge. Pertinent Studies: CXR Patient Condition at Discharge: Fair Plan - Discharge Summary New Discharge Prescriptions: New Azithromycin [Zithromax] 250 mg PO DAILY #3 tab predniSONE 50 mg PO DAILY #3 tablet Continue Tamsulosin HCl [Flomax] 0.4 mg PO HS Isosorbide Mononitrate ER [Imdur] 30 mg PO DAILY@1200 Umeclidinium Brm/Vilanterol Tr [Anoro Ellipta 62.5-25 Mcg INH] 1 puff INHALATION RT-DAILY Aspirin EC [Ecotrin Low Dose] 81 mg PO DAILY Insulin Aspart [NovoLOG Flexpen] 24 units SQ TID Levothyroxine Sodium [Synthroid] 50 mcg PO DAILY Insulin Degludec [Tresiba Flextouch U-100] 60 unit SQ HS metFORMIN HCL [Glucophage Xr] 500 mg PO AC-SUPPER Metoprolol Tartrate [Lopressor] 25 mg PO HS Atorvastatin [Lipitor] 80 mg PO HS #30 tab Olmesartan [Benicar] 10 mg PO DAILY Clopidogrel [Plavix] 75 mg PO HS Discontinued predniSONE See Taper PO DIRECTED Sulfamethox-Tmp 800-160Mg [Bactrim DS 800-160 mg] 1 tab PO Q12HR Discharge Medication List Isosorbide Mononitrate ER [Imdur] 30 mg PO DAILY@1200 07/03/14 [History] Tamsulosin HCl [Flomax] 0.4 mg PO HS 07/03/14 [History] Aspirin EC [Ecotrin Low Dose] 81 mg PO DAILY 05/22/17 [History] Insulin Aspart [NovoLOG Flexpen] 24 units SQ TID 05/22/17 [History] Levothyroxine Sodium [Synthroid] 50 mcg PO DAILY 05/22/17 [History] Umeclidinium Brm/Vilanterol Tr [Anoro Ellipta 62.5-25 Mcg INH] 1 puff INHALATION RT-DAILY 05/22/17 [History] Insulin Degludec [Tresiba Flextouch U-100] 60 unit SQ HS 09/04/17 [History] Metoprolol Tartrate [Lopressor] 25 mg PO HS 09/04/17 [History] metFORMIN HCL [Glucophage Xr] 500 mg PO AC-SUPPER 09/04/17 [History] Atorvastatin [Lipitor] 80 mg PO HS #30 tab 09/09/17 [Rx] Clopidogrel [Plavix] 75 mg PO HS 09/02/18 [History] Olmesartan [Benicar] 10 mg PO DAILY 09/02/18 [History] Azithromycin [Zithromax] 250 mg PO DAILY #3 tab 09/04/18 [Rx] predniSONE 50 mg PO DAILY #3 tablet 09/04/18 [Rx] Follow up Appointment(s)/Referral(s): Steve Hayward DO [Doctor of Osteopathic Medicine] - 1 Week Manuel Deleon MD [Primary Care Provider] - 1-2 days Patient Instructions/Handouts: Prednisone (By mouth), Azithromycin (By mouth), COPD (Chronic Obstructive Pulmonary Disease) (DC) Activity/Diet/Wound Care/Special Instructions: Diet: HEART healthy deit. Please take all medications as advised. Please follow up with your primary care provider within 1-2 days of discharge. Please follow up with Dr. Hayward within 1 week of discharge. Discharge Disposition: HOME SELF-CARE
== END 2018-09-04 16:45 | disposition home or self-care (01) | DRG 190 ==
LOC: EC 18:56 → 5MS5E 21:40
PROVIDERS: ADMIT Family Medicine; ATTEND Family Medicine
DX: J44.1 Chronic obstructive pulmonary disease with (acute) exacerbation (principal); J96.01 Acute respiratory failure with hypoxia; E03.9 Hypothyroidism, unspecified; E11.9 Type 2 diabetes mellitus without complications; E66.01 Morbid (severe) obesity due to excess calories; E78.5 Hyperlipidemia, unspecified; G47.33 Obstructive sleep apnea (adult) (pediatric); I11.0 Hypertensive heart disease with heart failure; I25.10 Atherosclerotic heart disease of native coronary artery without angina pectoris; I50.9 Heart failure, unspecified; J84.10 Pulmonary fibrosis, unspecified; M19.90 Unspecified osteoarthritis, unspecified site; J20.8 Acute bronchitis due to other specified organisms; J44.0 Chronic obstructive pulmonary disease with (acute) lower respiratory infection; N40.0 Benign prostatic hyperplasia without lower urinary tract symptoms; Z68.38 Body mass index [BMI] 38.0-38.9, adult; Z79.02 Long term (current) use of antithrombotics/antiplatelets; Z79.4 Long term (current) use of insulin; Z79.51 Long term (current) use of inhaled steroids; Z79.82 Long term (current) use of aspirin; Z79.890 Hormone replacement therapy; Z79.899 Other long term (current) drug therapy; Z90.49 Acquired absence of other specified parts of digestive tract; Z87.891 Personal history of nicotine dependence; Z85.46 Personal history of malignant neoplasm of prostate; Z85.828 Personal history of other malignant neoplasm of skin; Z88.5 Allergy status to narcotic agent; Z80.3 Family history of malignant neoplasm of breast
CPT/HCPCS: 36415; 71046; 80048; 80053; 81001; 83605; 83880; 85025; 87040; 87086; 87502; 93005; 94640; 94760; 96361; 96365; 96375; 99285

== ENCOUNTER 2018-09-13 13:57 | Observation (INO) | payer MEDICARE ==
[2018-09-13] MEDS ORDERED: IPRATROPIUM-ALBUTEROL 3 ML NEB INHALATION STA (14:27)
[2018-09-13] MEDS ORDERED: methylPREDNISolone SOD SUCCI 125 MG/2 ML VIAL IV STA (14:27)
--- NOTE | 2018-09-13 14:27 | ED ---
General Adult HPI - General Chief complaint: Shortness of Breath Stated complaint: SOB Time Seen by Provider: 09/13/18 14:00 Source: patient, RN notes reviewed Mode of arrival: wheelchair Limitations: no limitations - History of Present Illness Initial comments: This is an 83-year-old male who presents emergency department with past medical history significant for COPD and a recent lung infection. Patient comes in today because it is difficult to breathing is gotten considerably worse. Patient states he went to see Dr. Mae for Dr. Mae ordered a CAT scan it did not show any signs of a pulmonary embolism but Dr. Mae told the patient to come to the emergency department. Patient is here and feeling slightly short of breath. Patient denies any chest pain or palpitations. Patient denies fever or chills recently. Patient denies any lightheadedness or dizziness. Patient denies any dark or black or bloody stools. Patient denies any abdominal pain patient denies nausea vomiting diarrhea. Patient denies any lightheadedness or dizziness or near syncopal episode. - Related Data Home Medications Medication Instructions Recorded Confirmed Isosorbide Mononitrate ER [Imdur] 30 mg PO DAILY@1200 07/03/14 09/13/18 Tamsulosin HCl [Flomax] 0.4 mg PO HS 07/03/14 09/13/18 Aspirin EC [Ecotrin Low Dose] 81 mg PO DAILY 05/22/17 09/13/18 Insulin Aspart [NovoLOG Flexpen] 24 units SQ TID 05/22/17 09/13/18 Levothyroxine Sodium [Synthroid] 50 mcg PO DAILY 05/22/17 09/13/18 Umeclidinium Brm/Vilanterol Tr 1 puff INHALATION RT-DAILY 05/22/17 09/13/18 [Anoro Ellipta 62.5-25 Mcg INH] Insulin Degludec [Tresiba 60 unit SQ HS 09/04/17 09/13/18 Flextouch U-100] Metoprolol Tartrate [Lopressor] 25 mg PO HS 09/04/17 09/13/18 metFORMIN HCL [Glucophage Xr] 500 mg PO AC-SUPPER 09/04/17 09/13/18 Clopidogrel [Plavix] 75 mg PO HS 09/02/18 09/13/18 Olmesartan [Benicar] 10 mg PO DAILY 09/02/18 09/13/18 Previous Rx's Medication Instructions Recorded Atorvastatin [Lipitor] 80 mg PO HS #30 tab 09/09/17 Azithromycin [Zithromax] 250 mg PO DAILY #3 tab 09/04/18 Allergies Allergy/AdvReac Type Severity Reaction Status Date / Time morphine AdvReac Hallucinati Verified 09/13/18 14:23 ons propoxyphene napsylate AdvReac Nausea & Verified 09/13/18 14:23 [From Darvocet-N 100] Vomiting & Diarrhea Review of Systems ROS Statement: Those systems with pertinent positive or pertinent negative responses have been documented in the HPI. ROS Other: All systems not noted in ROS Statement are negative. 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 Past Anesthesia/Blood Transfusion Reactions: No Reported Reaction Past Psychological History: No Psychological Hx Reported Smoking Status: Former smoker Past Alcohol Use History: Occasional Past Drug Use History: None Reported - Past Family History Mother Family Medical History: Cancer Additional Family Medical History / Comment(s): breast cancer General Exam - General Exam Comments Initial Comments: GENERAL: Patient is well-developed and well-nourished. Patient is nontoxic and well- hydrated and is in mild distress. ENT: Neck is soft and supple. No significant lymphadenopathy is noted. Oropharynx is clear. Moist mucous membranes. Neck has full range of motion without eliciting any pain. EYES: The sclera were anicteric and conjunctiva were pink and moist. Extraocular movements were intact and pupils were equal round and reactive to light. Eyelids were unremarkable. PULMONARY: Unlabored respirations. Good breath sounds bilaterally. No audible rales rhonchi or wheezing was noted. CARDIOVASCULAR: There is a regular rate and rhythm without any murmurs gallops or rubs. ABDOMEN: Soft and nontender with normal bowel sounds. No palpable organomegaly was noted. There is no palpable pulsatile mass. SKIN: Skin is clear with no lesions or rashes and otherwise unremarkable. NEUROLOGIC: Patient is alert and oriented x3. Cranial nerves II through XII are grossly intact. Motor and sensory are also intact. Normal speech, volume and content. Symmetrical smile. MUSCULOSKELETAL: Normal extremities with adequate strength and full range of motion. No lower extremity swelling or edema. No calf tenderness. LYMPHATICS: No significant lymphadenopathy is noted PSYCHIATRIC: Normal psychiatric evaluation. Limitations: no limitations Course Vital Signs 09/13/18 09/13/18 09/13/18 14:02 14:35 14:47 Temperature 98.2 F Pulse Rate 77 74 68 Respiratory 20 Rate Blood Pressure 120/66 O2 Sat by Pulse 97 Oximetry 09/13/18 09/13/18 15:00 16:00 Temperature Pulse Rate 69 69 Respiratory 19 12 Rate Blood Pressure 132/57 148/73 O2 Sat by Pulse 95 Oximetry Medical Decision Making - Medical Decision Making EKG shows normal sinus rhythm at 76 bpm LA interval is 208 QRSs 1:30 for QT intervals 432 QTC is 486. Patient's EKG shows no ST segment elevation or depression or T wave abnormalities are noted I reviewed the patient's CAT scan. There was no pulmonary embolism. Computed tomography scan did show emphysematous changes bilaterally Patient received a breathing treatment while in the emergency department and was feeling a little better. I spoke with some physicians admit the patient I consult Dr. Mae. - Lab Data Result diagrams: 09/13/18 14:27 09/13/18 14:27 Lab Results 09/13/18 09/13/18 09/13/18 Range/Units 14:27 14:27 14:27 WBC 12.6 H (3.8-10.6) k/uL RBC 4.36 (4.30-5.90) m/uL Hgb 13.8 (13.0-17.5) gm/dL Hct 41.2 (39.0-53.0) % MCV 94.5 (80.0-100.0) fL MCH 31.6 (25.0-35.0) pg MCHC 33.4 (31.0-37.0) g/dL RDW 15.2 (11.5-15.5) % Plt Count 233 (150-450) k/uL Neutrophils % 87 % Lymphocytes % 7 % Monocytes % 4 % Eosinophils % 1 % Basophils % 0 % Neutrophils # 11.0 H (1.3-7.7) k/uL Lymphocytes # 0.9 L (1.0-4.8) k/uL Monocytes # 0.5 (0-1.0) k/uL Eosinophils # 0.1 (0-0.7) k/uL Basophils # 0.0 (0-0.2) k/uL PT (9.0-12.0) sec INR (<1.2) APTT (22.0-30.0) sec Sodium 138 (137-145) mmol/L Potassium 4.5 (3.5-5.1) mmol/L Chloride 104 (98-107) mmol/L Carbon Dioxide 24 (22-30) mmol/L Anion Gap 10 mmol/L BUN 17 (9-20) mg/dL Creatinine 0.72 (0.66-1.25) mg/dL Est GFR (CKD-EPI)AfAm >90 (>60 ml/min/1.73 sqM) Est GFR (CKD-EPI)NonAf 85 (>60 ml/min/1.73 sqM) Glucose 151 H (74-99) mg/dL Calcium 9.5 (8.4-10.2) mg/dL Magnesium 2.1 (1.6-2.3) mg/dL Total Bilirubin 0.7 (0.2-1.3) mg/dL AST 25 (17-59) U/L ALT 36 (21-72) U/L Alkaline Phosphatase 75 (38-126) U/L Total Creatine Kinase 36 L (55-170) U/L CK-MB (CK-2) 1.6 (0.0-2.4) ng/mL CK-MB (CK-2) Rel Index 4.4 Troponin I <0.012 (0.000-0.034) ng/mL NT-Pro-B Natriuret Pep pg/mL Total Protein 6.2 L (6.3-8.2) g/dL Albumin 3.6 (3.5-5.0) g/dL 09/13/18 09/13/18 Range/Units 14:27 14:27 WBC (3.8-10.6) k/uL RBC (4.30-5.90) m/uL Hgb (13.0-17.5) gm/dL Hct (39.0-53.0) % MCV (80.0-100.0) fL MCH (25.0-35.0) pg MCHC (31.0-37.0) g/dL RDW (11.5-15.5) % Plt Count (150-450) k/uL Neutrophils % % Lymphocytes % % Monocytes % % Eosinophils % % Basophils % % Neutrophils # (1.3-7.7) k/uL Lymphocytes # (1.0-4.8) k/uL Monocytes # (0-1.0) k/uL Eosinophils # (0-0.7) k/uL Basophils # (0-0.2) k/uL PT 10.0 (9.0-12.0) sec INR 1.0 (<1.2) APTT 22.4 (22.0-30.0) sec Sodium (137-145) mmol/L Potassium (3.5-5.1) mmol/L Chloride (98-107) mmol/L Carbon Dioxide (22-30) mmol/L Anion Gap mmol/L BUN (9-20) mg/dL Creatinine (0.66-1.25) mg/dL Est GFR (CKD-EPI)AfAm (>60 ml/min/1.73 sqM) Est GFR (CKD-EPI)NonAf (>60 ml/min/1.73 sqM) Glucose (74-99) mg/dL Calcium (8.4-10.2) mg/dL Magnesium (1.6-2.3) mg/dL Total Bilirubin (0.2-1.3) mg/dL AST (17-59) U/L ALT (21-72) U/L Alkaline Phosphatase (38-126) U/L Total Creatine Kinase (55-170) U/L CK-MB (CK-2) (0.0-2.4) ng/mL CK-MB (CK-2) Rel Index Troponin I (0.000-0.034) ng/mL NT-Pro-B Natriuret Pep 546 pg/mL Total Protein (6.3-8.2) g/dL Albumin (3.5-5.0) g/dL Disposition Clinical Impression: Acute exacerbation of chronic obstructive airways disease Disposition: ADMITTED IP TO THIS HOSP Referrals: Manuel Deleon MD [Primary Care Provider] - 1-2 days Time of Disposition: 16:02
[2018-09-13 15:25] LABS: Basophils % (A) 0 %; Eosinophils # (A) 0.1 k/uL (0-0.7); Eosinophils % (A) 1 %; HCT 41.2 % (39.0-53.0); HGB 13.8 gm/dL (13.0-17.5); Lymphocytes # (A) 0.9 k/uL (1.0-4.8); Lymphocytes % (A) 7 %; MCH 31.6 pg (25.0-35.0); MCHC 33.4 g/dL (31.0-37.0); MCV 94.5 fL (80.0-100.0); Mean Platelet Volume 6.9; Monocytes # (A) 0.5 k/uL (0-1.0); Monocytes % (A) 4 %; Neutrophils % (A) 87 %; Platelet Count 233 k/uL (150-450); RBC 4.36 m/uL (4.30-5.90); RDW 15.2 % (11.5-15.5); WBC 12.6 k/uL (3.8-10.6)
[2018-09-13 15:34] LABS: ALT 36 U/L (21-72); AST 25 U/L (17-59); Albumin 3.6 g/dL (3.5-5.0); Alkaline Phosphatase 75 U/L (38-126); Anion Gap 10 mmol/L; Blood Urea Nitrogen 17 mg/dL (9-20); Calcium 9.5 mg/dL (8.4-10.2); Carbon Dioxide 24 mmol/L (22-30); Chloride 104 mmol/L (98-107); Glucose 151 mg/dL (74-99); Magnesium 2.1 mg/dL (1.6-2.3); Potassium 4.5 mmol/L (3.5-5.1); Sodium 138 mmol/L (137-145); Total Bilirubin 0.7 mg/dL (0.2-1.3); Total Protein 6.2 g/dL (6.3-8.2)
[2018-09-13 15:39] LABS: Partial Thromboplastin Time 22.4 sec (22.0-30.0)
[2018-09-13 15:44] LABS: Creatine Kinase 36 U/L (55-170)
[2018-09-13 15:57] LABS: Creatine Kinase MB 1.6 ng/mL (0.0-2.4); Troponin I <0.012 ng/mL (0.000-0.034)
[2018-09-13] MEDS ORDERED: IPRATROPIUM-ALBUTEROL 3 ML NEB INHALATION PRN (16:02)
[2018-09-13] MEDS ORDERED: ACETAMINOPHEN TAB 325 MG TAB PO PRN (16:46)
[2018-09-13] MEDS ORDERED: NALOXONE 0.4 MG/ML 1 ML VIAL IV PRN (16:46)
[2018-09-13 17:16] LABS: Glucose,Whole Blood 123 mg/dL (75-99)
--- NOTE | 2018-09-13 17:51 | P.HPIM ---
History of Present Illness H&P Date: 09/13/18 Chief Complaint: COPD exacerbation 83-year-old male with PMH of hypertension, diabetes mellitus, hypothyroidism, CHF, COPD presents to the ED for shortness of breath. Patient reports worsening shortness of breath over the last 2-3 days. Patient reports he is usually able to walk from his garage to the front of the house, but was unable to do so in the recent days. Patient states that he went to [facility] to get some exercise, felt exertional shortness of breath and had to use his albuterol inhaler 4 times during that trip. Today he went to Dr. Hayward's clinic, CT of the chest was ordered and ruled out pulmonary embolus. Patient was advised to go to the ED for shortness of breath with minimal exertion. He continues to complain of a cough productive of mucus with yellow and white sputum for the past 1-1/2 weeks. He denies any fever or chills. He denies any lower extremity edema or orthopnea. He does not have a nebulizer machine at home. Of note, he has a history of smoking 1-1/2-2 packs of cigarettes per day for at least 30 years, quit in 1989. He denies any headache, nausea, vomiting, fever, chest pain, palpitations, changes in urination or bowel habits. No changes in appetite or weight. Of note, patient was recently discharged on 09/04/2018 after being treated for COPD exacerbation. He does report that his symptoms initially improved after discharge prior to returning again. In the ED, CBC showed a mild leukocytosis of 12.6. CMP showed a glucose of 151. His vitals were stable, with an O2 saturation of 95% on 2 L nasal cannula. EKG showed normal sinus rhythm with RBBB. 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 Past Anesthesia/Blood Transfusion Reactions: No Reported Reaction Past Psychological History: No Psychological Hx Reported Smoking Status: Former smoker Past Alcohol Use History: Occasional Past Drug Use History: None Reported - Past Family History Mother Family Medical History: Cancer Additional Family Medical History / Comment(s): breast cancer Medications and Allergies Home Medications Medication Instructions Recorded Confirmed Type Isosorbide Mononitrate ER [Imdur] 30 mg PO DAILY@1200 07/03/14 09/13/18 History Tamsulosin HCl [Flomax] 0.4 mg PO HS 07/03/14 09/13/18 History Aspirin EC [Ecotrin Low Dose] 81 mg PO DAILY 05/22/17 09/13/18 History Insulin Aspart [NovoLOG Flexpen] 24 units SQ TID 05/22/17 09/13/18 History Levothyroxine Sodium [Synthroid] 50 mcg PO DAILY 05/22/17 09/13/18 History Umeclidinium Brm/Vilanterol Tr 1 puff INHALATION RT-DAILY 05/22/17 09/13/18 History [Anoro Ellipta 62.5-25 Mcg INH] Insulin Degludec [Tresiba 60 unit SQ HS 09/04/17 09/13/18 History Flextouch U-100] Metoprolol Tartrate [Lopressor] 25 mg PO HS 09/04/17 09/13/18 History metFORMIN HCL [Glucophage Xr] 500 mg PO AC-SUPPER 09/04/17 09/13/18 History Atorvastatin [Lipitor] 80 mg PO HS #30 tab 09/09/17 09/13/18 Rx Clopidogrel [Plavix] 75 mg PO HS 09/02/18 09/13/18 History Olmesartan [Benicar] 10 mg PO DAILY 09/02/18 09/13/18 History Azithromycin [Zithromax] 250 mg PO DAILY #3 tab 09/04/18 09/13/18 Rx Allergies Allergy/AdvReac Type Severity Reaction Status Date / Time morphine AdvReac Hallucinati Verified 09/13/18 14:23 ons propoxyphene napsylate AdvReac Nausea & Verified 09/13/18 14:23 [From Darvocet-N 100] Vomiting & Diarrhea Physical Exam Vitals: Vital Signs Temp Pulse Pulse Resp BP BP Pulse Ox 09/13/18 17:15 97.6 F 72 20 192/82 96 09/13/18 16:00 69 12 148/73 09/13/18 15:00 69 19 132/57 95 09/13/18 14:47 68 09/13/18 14:35 74 09/13/18 14:02 98.2 F 77 20 120/66 97 Intake and Output 09/13/18 09/13/18 09/13/18 06:59 14:59 22:59 Other: Weight 122.47 kg 74.843 kg General: [non toxic], [no distress], [appears at stated age] Derm: [warm], [dry] Head: [atraumatic], [normocephalic], [symmetric] Eyes: [EOMI], [no lid lag], [anicteric sclera] Mouth: [no lip lesion], [mucus membranes moist] Cardiovascular: [S1S2 reg], [no murmur], [positive DP pulse bilateral] Lungs: [Decreased breath sounds bilateral], [no rhonchi, no rales] , [no accessory muscle use] Abdominal: [soft], [ nontender to palpation], [no guarding], [no appreciable organomegaly] Ext: [no gross muscle atrophy], [no edema], [no contractures], [ecchymosis bilateral arms] Neuro: [ CN II-XI grossly intact], [no focal neuro deficits] Psych: [Alert], [oriented], [appropriate affect] Results CBC & Chem 7: 09/13/18 14:27 09/13/18 14:27 Labs: Abnormal Lab Results - Last 24 Hours (Table) 09/13/18 09/13/18 09/13/18 Range/Units 14:27 14:27 14:27 WBC 12.6 H (3.8-10.6) k/uL Neutrophils # 11.0 H (1.3-7.7) k/uL Lymphocytes # 0.9 L (1.0-4.8) k/uL Glucose 151 H (74-99) mg/dL POC Glucose (mg/dL) (75-99) mg/dL Total Creatine Kinase 36 L (55-170) U/L Total Protein 6.2 L (6.3-8.2) g/dL 09/13/18 Range/Units 17:10 WBC (3.8-10.6) k/uL Neutrophils # (1.3-7.7) k/uL Lymphocytes # (1.0-4.8) k/uL Glucose (74-99) mg/dL POC Glucose (mg/dL) 123 H (75-99) mg/dL Total Creatine Kinase (55-170) U/L Total Protein (6.3-8.2) g/dL Thrombosis Risk Factor Assmnt - Choose All That Apply Any of the Below Risk Factors Present?: Yes Each Factor Represents 1 point: Abnormal pulmonary function (COPD) Other Risk Factors: Yes Each Risk Factor Represents 3 Points: Age 75 years or older Thrombosis Risk Factor Assessment Total Risk Factor Score: 4 Thrombosis Risk Factor Assessment Level: Moderate Risk Assessment and Plan Assessment: Assessment and Plan 1. COPD exacerbation: Possibly due to viral bronchitis. CTA of the chest rules out pulmonary embolus, shows emphysematous changes. Patient is afebrile with a mild leukocytosis of 12.6 (this is likely due to steroids). We will start the patient on DuoNeb every 4 hours scheduled and as needed. Continue Solu-Medrol 60 mg IV every 6 hours, Symbicort 2 puffs twice a day. Oxygen per nasal cannula to maintain oxygen saturation greater than 92%. FU Pulmonology consult 2. Diabetes Mellitus: POC glucose 123. A1c 7.3 on 07/2018. Continue Levemir 60 units QHS, Novolog 24 units TID. Low carb diet. Accuchecks TID. Hypoglycemic precautions. 3. CHF: Stable. Echocardiogram shows EF 55-60 % with normal LVH. Continue BBlocker and ARB. PAKO Vaughn outPT 4. CAD: Continue ASA 81 mg PO QD, Lipitor 80 mg PO QHS with Plavix 75 mg PO QD. On BBlocker at ARB at home. PAKO Vaughn outPT 5. Hypertension: BP 192/82. Continue Imdur 30 mg PO QD, Losartan 50 mg PO QD, Metoprolol 25 mg PO QHS. Monitor vitals, adjust medications as necessary. 6. Hypothyroidism: Stable TSH 07/2018. Continue Synthroid 50 mcg PO QD. 7. DVT/GI Prophylaxis: Lovenox 40 mg SUBCUT QD. Protonix 40 mg PO QAM. Patient admitted for COPD exacerbation. Pending clinic improvement. Will follow Pulmonology recommendations.
[2018-09-13] MEDS: methylPREDNISolone SOD SUCCI 125 MG/2 ML VIAL IV SCH ×2 (18:23→23:30)
[2018-09-13] MEDS: INSULIN ASPART 100 UNIT/ML 1 ML 10 ML VIAL SQ SCH (18:23)
[2018-09-13] MEDS: SYMBICORT 160-4.5 MCG INHALER INHALATION SCH (19:23)
[2018-09-13] MEDS: IPRATROPIUM-ALBUTEROL 3 ML NEB INHALATION SCH (19:23)
[2018-09-13] MEDS: TAMSULOSIN 0.4 MG CAP.ER.24H PO SCH (20:36)
[2018-09-13] MEDS: CLOPIDOGREL 75 MG TAB PO SCH (20:36)
[2018-09-13] MEDS: METOPROLOL TARTRATE 25 MG TAB PO SCH (20:36)
[2018-09-13] MEDS: ATORVASTATIN 80 MG TAB PO SCH (20:36)
[2018-09-13] MEDS ORDERED: TRESIBA U SQ SCH (21:00)
[2018-09-13 21:55] LABS: Glucose,Whole Blood 141 mg/dL (75-99)
[2018-09-13] MEDS ORDERED: INSULIN ASPART 100 UNIT/ML 1 ML 10 ML VIAL SQ SCH (22:00)
[2018-09-13] MEDS: INSULIN DETEMIR 100 UNIT/ML 10 ML VIAL SQ SCH (22:09)
[2018-09-14] MEDS: IPRATROPIUM-ALBUTEROL 3 ML NEB INHALATION SCH ×7 (00:56→19:46)
[2018-09-14] MEDS: LEVOTHYROXINE 50 MCG TAB PO SCH (05:15)
[2018-09-14] MEDS: methylPREDNISolone SOD SUCCI 125 MG/2 ML VIAL IV SCH (05:15)
[2018-09-14 07:02] LABS: Glucose,Whole Blood 182 mg/dL (75-99)
[2018-09-14] MEDS: SYMBICORT 160-4.5 MCG INHALER INHALATION SCH ×2 (07:44→19:33)
[2018-09-14] MEDS: ENOXAPARIN 40 MG/0.4 ML SYRINGE SQ SCH (08:34)
[2018-09-14] MEDS: PANTOPRAZOLE 40 MG TABLET PO SCH (08:34)
[2018-09-14] MEDS: INSULIN ASPART 100 UNIT/ML 1 ML 10 ML VIAL SQ SCH ×3 (08:34→18:08)
[2018-09-14] MEDS: ASPIRIN 81 MG PO SCH (08:34)
[2018-09-14] MEDS: LOSARTAN 50 MG TAB PO SCH (08:34)
[2018-09-14 09:09] LABS: HCT 45.4 % (39.0-53.0); HGB 14.9 gm/dL (13.0-17.5); MCH 31.6 pg (25.0-35.0); MCHC 32.7 g/dL (31.0-37.0); MCV 96.5 fL (80.0-100.0); Platelet Count 250 k/uL (150-450); RDW 15.2 % (11.5-15.5); WBC 14.5 k/uL (3.8-10.6)
[2018-09-14 09:18] LABS: Anion Gap 14 mmol/L; Blood Urea Nitrogen 19 mg/dL (9-20); Calcium 9.2 mg/dL (8.4-10.2); Carbon Dioxide 24 mmol/L (22-30); Chloride 97 mmol/L (98-107); Glucose 268 mg/dL (74-99); Sodium 135 mmol/L (137-145)
[2018-09-14 09:21] LABS: Potassium 4.8 mmol/L (3.5-5.1)
--- NOTE | 2018-09-14 10:08 | P.PN ---
Subjective Progress Note Date: 09/14/18 Principal diagnosis: COPD exacerbation Patient was seen and examined. No acute events overnight. Patient reports walking up to the nursing station this morning, got visibly short of breath as he was walking back to his room. He continues to complain of a mild cough productive of white sputum. He denies any chest pain. He used his BiPAP overnight. Objective - Vital Signs Vital signs: Vital Signs Temp 97.8 F 09/14/18 08:00 Pulse 69 09/14/18 08:00 Resp 16 09/14/18 08:00 BP 172/76 09/14/18 08:00 Pulse Ox 95 09/14/18 08:00 Intake & Output 09/13/18 09/14/18 09/14/18 18:59 06:59 18:59 Intake Total 200 236 Balance 200 236 Weight 74.843 kg Intake: Oral 200 236 Other: Voiding Method Toilet Toilet Toilet # Voids 3 1 - Exam General: [non toxic], [no distress], [appears at stated age] Derm: [warm], [dry] Head: [atraumatic], [normocephalic], [symmetric] Eyes: [EOMI], [no lid lag], [anicteric sclera] Mouth: [no lip lesion], [mucus membranes moist] Cardiovascular: [S1S2 reg], [no murmur], [positive DP pulse bilateral] Lungs: [Decreased breath sounds bilateral], [no rhonchi, no rales] , [no accessory muscle use] Abdominal: [soft], [ nontender to palpation], [no guarding], [no appreciable organomegaly] Ext: [no gross muscle atrophy], [no edema], [no contractures], [ecchymosis bilateral arms] Neuro: [no focal neuro deficits] Psych: [Alert], [oriented], [appropriate affect] - Labs CBC & Chem 7: 09/14/18 08:33 09/14/18 08:33 Labs: Abnormal Lab Results - Last 24 Hours (Table) 09/13/18 09/13/18 09/13/18 Range/Units 14:27 14:27 14:27 WBC 12.6 H (3.8-10.6) k/uL Neutrophils # 11.0 H (1.3-7.7) k/uL Lymphocytes # 0.9 L (1.0-4.8) k/uL Sodium (137-145) mmol/L Chloride (98-107) mmol/L Glucose 151 H (74-99) mg/dL POC Glucose (mg/dL) (75-99) mg/dL Total Creatine Kinase 36 L (55-170) U/L Total Protein 6.2 L (6.3-8.2) g/dL 09/13/18 09/13/18 09/14/18 Range/Units 17:10 21:53 06:52 WBC (3.8-10.6) k/uL Neutrophils # (1.3-7.7) k/uL Lymphocytes # (1.0-4.8) k/uL Sodium (137-145) mmol/L Chloride (98-107) mmol/L Glucose (74-99) mg/dL POC Glucose (mg/dL) 123 H 141 H 182 H (75-99) mg/dL Total Creatine Kinase (55-170) U/L Total Protein (6.3-8.2) g/dL 09/14/18 09/14/18 Range/Units 08:33 08:33 WBC 14.5 H (3.8-10.6) k/uL Neutrophils # (1.3-7.7) k/uL Lymphocytes # (1.0-4.8) k/uL Sodium 135 L (137-145) mmol/L Chloride 97 L (98-107) mmol/L Glucose 268 H (74-99) mg/dL POC Glucose (mg/dL) (75-99) mg/dL Total Creatine Kinase (55-170) U/L Total Protein (6.3-8.2) g/dL Assessment and Plan Assessment: Assessment and Plan 1. COPD exacerbation: Possibly due to viral bronchitis. CTA of the chest rules out pulmonary embolus, shows emphysematous changes. Patient is afebrile with a mild leukocytosis of 12.6 (this is likely due to steroids). We will start the patient on DuoNeb every 4 hours scheduled and as needed. Continue Solu-Medrol 60 mg IV every 6 hours, Symbicort 2 puffs twice a day. Oxygen per nasal cannula to maintain oxygen saturation greater than 92%. Pulmonology consult 2. Diabetes Mellitus: POC glucose 268. A1c 7.3 on 07/2018. Continue Levemir 60 units QHS, Novolog 24 units TID. Low carb diet. Accuchecks TID. Hypoglycemic precautions. 3. CHF: Stable. Echocardiogram shows EF 55-60 % with normal LVH. Continue BBlocker and ARB. FU Dr. Vaughn outPT 4. CAD: Continue ASA 81 mg PO QD, Lipitor 80 mg PO QHS with Plavix 75 mg PO QD. On BBlocker at ARB at home. FU Dr. Vaughn outPT 5. Hypertension: BP 172/76. Continue Imdur 30 mg PO QD, Losartan 50 mg PO QD, Metoprolol 25 mg PO QHS. Monitor vitals, adjust medications as necessary. 6. Hypothyroidism: Stable TSH 07/2018. Continue Synthroid 50 mcg PO QD. 7. DVT/GI Prophylaxis: Lovenox 40 mg SUBCUT QD. Protonix 40 mg PO QAM. Patient admitted for COPD exacerbation. Pending clinic improvement. Discussed with case management, will attempt to get patient a nebulizer machine for home. Will follow Pulmonology recommendations.
[2018-09-14 12:22] LABS: Glucose,Whole Blood 184 mg/dL (75-99)
[2018-09-14] MEDS: ISOSORBIDE MONONITRATE ER 30 MG TAB.ER.24H PO SCH (12:36)
--- NOTE | 2018-09-14 14:05 | P.CNPUL ---
History of Present Illness Consult date: 09/14/18 Requesting physician: Zuleima Caballero Reason for consult: dyspnea Chief complaint: Dyspnea on exertion History of present illness: This is a 83-year-old white male patient with past medical history of moderately severe COPD with an underlying FEV1 of 71% of predicted, who was recently hospitalized for acute exacerbation of chronic obstructive pulmonary disease and acute bronchitis, who presented to the emergency department on at 1300 for evaluation of worsening shortness of breath. Patient was seen by Dr. Hayward in the pulmonary office, CTA chest was ordered, and was negative for any evidence of pulmonary embolism, however in view of patient's symptoms of worsening shortness of breath, patient was directed to the emergency department for further evaluation and treatment. Denies any fever or chills, no chest pain, no palpitations, no lightheadedness or dizziness. No abdominal pain, no nausea, no vomiting or diarrhea. No significant chest congestion, no phlegm production. No other acute abnormality was noted on the CT angios of the chest. No pulmonary infiltrates, no atelectasis, no nodules or masses, no pleural effusion. Emphysematous changes noted bilaterally. Lab work showed a PVC of 12.6, hemoglobin of 13.8, electrolytes and renal profile were within normal limits, troponins were negative 2, proBNP is within normal limits at 546, LFTs are normal. Vital signs are stable, no fever or chills, room air pulse ox is 95%. Patient states he has gained 8 pounds in one week, no significant lower extremity edema noted. His abdomen is large and distended , but nontender. Patient has had 3 rounds of oral steroids in the last several weeks. He is on maintenance dose of prednisone of 5 mg daily, his maintenance inhalers include Anoro Ellipta. Not significantly bronchospastic on the exam. No rhonchi, no crackles, wheezes. Not congested. Patient does become very dyspneic with ambulation. His previous echocardiogram from 05/22/2017 showed preserved left ventricular systolic function with an EF between 55-60%. There was moderate aortic stenosis, trace MR and trace TR. No significant pulmonary hypertension. His most recent cardiac catheterization on 09/09/2017 showed mild aortic stenosis, nondominant circumflex vessel with 80% mid lesion. RCA was free of any significant disease, LAD had a 55% mid lesion. Patient did undergo PTCA and stenting of the mid circumflex on 09/09/2017. He follows with Dr. ROGER Vaughn, and he states he had a recent echocardiogram done at the office, and we will try to obtain results of that. Review of Systems All systems: negative Constitutional: Denies chills, Denies fever Eyes: denies blurred vision, denies pain Ears, nose, mouth and throat: Denies headache, Denies sore throat Cardiovascular: Denies chest pain, Denies shortness of breath Respiratory: Reports dyspnea, Denies cough Gastrointestinal: Denies abdominal pain, Denies diarrhea, Denies nausea, Denies vomiting Musculoskeletal: Denies myalgias Integumentary: Denies pruritus, Denies rash Neurological: Denies numbness, Denies weakness Psychiatric: Denies anxiety, Denies depression Endocrine: Denies fatigue, Denies weight change Past Medical History Past Medical History: Cancer, Heart Failure, COPD, Diabetes Mellitus, Hyperlipidemia, Hypertension, Osteoarthritis (OA), Prostate Disorder, Respiratory Disorder, Sleep Apnea/CPAP/BIPAP, Thyroid Disorder Additional Past Medical History / Comment(s): 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 Past Anesthesia/Blood Transfusion Reactions: No Reported Reaction Smoking Status: Former smoker - Past Family History Father Additional Family Medical History / Comment(s): burst appendix Mother Family Medical History: Cancer Additional Family Medical History / Comment(s): breast cancer Medications and Allergies Home Medications Medication Instructions Recorded Confirmed Type Isosorbide Mononitrate ER [Imdur] 30 mg PO DAILY@1200 07/03/14 09/13/18 History Tamsulosin HCl [Flomax] 0.4 mg PO HS 07/03/14 09/13/18 History Aspirin EC [Ecotrin Low Dose] 81 mg PO DAILY 05/22/17 09/13/18 History Insulin Aspart [NovoLOG Flexpen] 24 units SQ TID 05/22/17 09/13/18 History Levothyroxine Sodium [Synthroid] 50 mcg PO DAILY 05/22/17 09/13/18 History Umeclidinium Brm/Vilanterol Tr 1 puff INHALATION RT-DAILY 05/22/17 09/13/18 History [Anoro Ellipta 62.5-25 Mcg INH] Insulin Degludec [Tresiba 60 unit SQ HS 09/04/17 09/13/18 History Flextouch U-100] Metoprolol Tartrate [Lopressor] 25 mg PO HS 09/04/17 09/13/18 History metFORMIN HCL [Glucophage Xr] 500 mg PO AC-SUPPER 09/04/17 09/13/18 History Atorvastatin [Lipitor] 80 mg PO HS #30 tab 09/09/17 09/13/18 Rx Clopidogrel [Plavix] 75 mg PO HS 09/02/18 09/13/18 History Olmesartan [Benicar] 10 mg PO DAILY 09/02/18 09/13/18 History Azithromycin [Zithromax] 250 mg PO DAILY #3 tab 09/04/18 09/13/18 Rx Allergies Allergy/AdvReac Type Severity Reaction Status Date / Time morphine AdvReac Hallucinati Verified 09/13/18 14:23 ons propoxyphene napsylate AdvReac Nausea & Verified 09/13/18 14:23 [From Darvocet-N 100] Vomiting & Diarrhea Physical Exam Vitals: Vital Signs Temp Pulse Pulse Resp BP BP Pulse Ox 09/14/18 12:00 69 16 09/14/18 11:27 74 09/14/18 11:16 82 09/14/18 08:00 97.8 F 69 16 172/76 95 09/14/18 07:55 74 09/14/18 07:44 70 09/14/18 03:50 18 09/14/18 00:00 18 09/13/18 23:50 97.5 F L 74 18 152/65 94 L 09/13/18 20:00 20 09/13/18 19:40 73 09/13/18 19:23 71 98 09/13/18 19:05 179/77 09/13/18 17:45 72 20 09/13/18 17:15 97.6 F 72 20 192/82 96 09/13/18 16:00 69 12 148/73 09/13/18 15:00 69 19 132/57 95 09/13/18 14:47 68 09/13/18 14:35 74 09/13/18 14:02 98.2 F 77 20 120/66 97 Intake and Output 09/13/18 09/14/18 09/14/18 22:59 06:59 14:59 Intake Total 200 236 Balance 200 236 Intake: Oral 200 236 Other: Voiding Method Toilet Toilet Toilet # Voids 3 1 Weight 74.843 kg GENERAL EXAM: Alert, pleasant, 83-year-old obese white male comfortable in no apparent distress. HEAD: Normocephalic/atraumatic. EYES: Normal reaction of pupils, equal size. Conjunctiva pink, sclera white. NOSE: Clear with pink turbinates. THROAT: No erythema or exudates. NECK: No masses, no JVD, no thyroid enlargement, no adenopathy. CHEST: No chest wall deformity. Symmetrical expansion. LUNGS: Equal air entry with no crackles, wheeze, rhonchi or dullness. CVS: Regular rate and rhythm, normal S1 and S2, no gallops, no murmurs, no rubs ABDOMEN: Soft, obese, nontender. No hepatosplenomegaly, normal bowel sounds, no guarding or rigidity. EXTREMITIES: No clubbing, no edema, no cyanosis, 2+ pulses and upper and lower extremities. MUSCULOSKELETAL: Muscle strength and tone normal. SPINE: No scoliosis or deformity SKIN: No rashes CENTRAL NERVOUS SYSTEM: Alert and oriented -3. No focal deficits, tone is normal in all 4 extremities. PSYCHIATRIC: Alert and oriented -3. Appropriate affect. Intact judgment and insight. Results - Laboratory Findings CBC and BMP: 09/14/18 08:33 09/14/18 08:33 PT/INR, D-dimer PT 10.0 sec (9.0-12.0) 09/13/18 14:27 INR 1.0 (<1.2) 09/13/18 14:27 Abnormal lab findings: Abnormal Labs 09/13/18 09/13/18 09/13/18 14:27 14:27 14:27 WBC 12.6 H Neutrophils # 11.0 H Lymphocytes # 0.9 L Sodium Chloride Glucose 151 H POC Glucose (mg/dL) Total Creatine Kinase 36 L Total Protein 6.2 L 09/13/18 09/13/18 09/14/18 17:10 21:53 06:52 WBC Neutrophils # Lymphocytes # Sodium Chloride Glucose POC Glucose (mg/dL) 123 H 141 H 182 H Total Creatine Kinase Total Protein 09/14/18 09/14/18 09/14/18 08:33 08:33 12:08 WBC 14.5 H Neutrophils # Lymphocytes # Sodium 135 L Chloride 97 L Glucose 268 H POC Glucose (mg/dL) 184 H Total Creatine Kinase Total Protein - Diagnostic Findings CT scan - chest: report reviewed, image reviewed Additional studies: EKG reviewed Assessment and Plan Plan: Assessment: #1. Exertional dyspnea, and the etiology is under investigation. Patient is not bronchospastic, no chest congestion, no phlegm production, no chest wall tenderness. CT angios was negative for any evidence of pulmonary embolism, or any other pulmonary abnormality. No infiltrates, no atelectasis, no pneumothorax, no masses or nodules. #2. Coronary artery disease with previous stenting #3. Obesity #4. Recent hospitalization for acute exacerbation of COPD #5. Moderately severe COPD with underlying FEV1 of 71% of predicted #6. Obstructive sleep apnea on CPAP therapy #7. Diabetes mellitus type 2 #8. Hypertension, hyperlipidemia #9. Hypothyroidism #10. Mild aortic stenosis as previously documented on the echocardiogram and heart catheterization Plan: Patient is not significantly bronchospastic or congested on today's exam, we can discontinue the IV steroids, we'll put the patient on his maintenance dose of prednisone 5 mg daily. Continue nebulized bronchodilators, continue Symbicort. No fever or chills, vital signs are stable, he is not requiring any supplemental oxygen, does become very dyspneic with exertion, denies any chest pain. EKG was normal, troponins were negative 2, proBNP is within normal limits. Patient has had a recent echocardiogram at Dr. ROGER Vaughn's office, we will try to obtain the results of that. CT angios was negative for any abnormalities. Patient did have 3 [id number] rounds of prednisone, he states he has gained some weight but does not seem to be clinically fluid overloaded, and overall he may be somewhat deconditioned as well from recent hospitalization , and weight gain. Continue GI and DVT prophylaxis. Continue to follow. I performed a history & physical examination of the patient and discussed their management with my nurse practitioner, Richa Weiss. I reviewed the nurse practitioner's note and agree with the documented findings and plan of care. Lung sounds are positive or breath sounds, no rhonchi, no wheezes no rales. The findings and the impression was discussed with the patient. I attest to the documentation by the nurse practitioner. Time with Patient: Greater than 30
[2018-09-14 17:05] LABS: Glucose,Whole Blood 185 mg/dL (75-99)
[2018-09-14] MEDS: METOPROLOL TARTRATE 25 MG TAB PO SCH (20:27)
[2018-09-14] MEDS: ATORVASTATIN 80 MG TAB PO SCH (20:28)
[2018-09-14] MEDS: CLOPIDOGREL 75 MG TAB PO SCH (20:28)
[2018-09-14] MEDS: TAMSULOSIN 0.4 MG CAP.ER.24H PO SCH (20:28)
[2018-09-14 20:40] LABS: Glucose,Whole Blood 297 mg/dL (75-99)
[2018-09-14] MEDS: INSULIN DETEMIR 100 UNIT/ML 10 ML VIAL SQ SCH (21:04)
[2018-09-15] MEDS: LEVOTHYROXINE 50 MCG TAB PO SCH (06:07)
[2018-09-15 06:48] LABS: Glucose,Whole Blood 103 mg/dL (75-99)
[2018-09-15] MEDS: IPRATROPIUM-ALBUTEROL 3 ML NEB INHALATION SCH ×4 (07:13→16:00)
[2018-09-15] MEDS: SYMBICORT 160-4.5 MCG INHALER INHALATION SCH ×2 (07:13→08:49)
[2018-09-15] MEDS: INSULIN ASPART 100 UNIT/ML 1 ML 10 ML VIAL SQ SCH ×3 (08:27→17:41)
[2018-09-15] MEDS: ASPIRIN 81 MG PO SCH (08:28)
[2018-09-15] MEDS: LOSARTAN 50 MG TAB PO SCH (08:28)
[2018-09-15] MEDS: PANTOPRAZOLE 40 MG TABLET PO SCH (08:28)
[2018-09-15] MEDS: ENOXAPARIN 40 MG/0.4 ML SYRINGE SQ SCH (08:29)
[2018-09-15] MEDS ORDERED: predniSONE 5 MG TAB PO SCH (09:00)
--- NOTE | 2018-09-15 09:04 | P.PN ---
Subjective Progress Note Date: 09/15/18 Principal diagnosis: COPD exacerbation Patient was seen and examined. No acute events overnight. Patient reports walking to the bathroom from his bed yesterday to wash his CPAP. He began to feel dyspneic as he was standing in the washroom washing his CPAP. Patient reports recently obtaining an echocardiogram to Dr. Vaughn, results to be followed up by pulmonology. No chest pain or palpitations. Objective - Vital Signs Vital signs: Vital Signs Temp 98 F 09/15/18 07:30 Pulse 74 09/15/18 08:50 Resp 16 09/15/18 08:50 BP 159/70 09/15/18 07:30 Pulse Ox 96 09/15/18 07:30 Intake & Output 09/14/18 09/15/18 09/15/18 18:59 06:59 18:59 Intake Total 236 Balance 236 Intake: Oral 236 Other: Voiding Method Toilet Toilet # Voids 1 2 - Exam General: [non toxic], [visibly short of breath while speaking in full sentences] , [appears at stated age] Derm: [warm], [dry] Head: [atraumatic], [normocephalic], [symmetric] Eyes: [EOMI], [no lid lag], [anicteric sclera] Mouth: [no lip lesion], [mucus membranes moist] Cardiovascular: [S1S2 reg], [+ systolic murmur], [positive DP pulse bilateral] Lungs: [Decreased breath sounds bilateral], [no rhonchi, no rales] , [no accessory muscle use] Abdominal: [soft], [ nontender to palpation], [no guarding], [no appreciable organomegaly] Ext: [no gross muscle atrophy], [no edema], [no contractures], [ecchymosis bilateral arms] Neuro: [no focal neuro deficits] Psych: [Alert], [oriented], [appropriate affect] - Labs CBC & Chem 7: 09/14/18 08:33 09/14/18 08:33 Labs: Abnormal Lab Results - Last 24 Hours (Table) 09/14/18 09/14/18 09/14/18 Range/Units 08:33 08:33 12:08 WBC 14.5 H (3.8-10.6) k/uL Sodium 135 L (137-145) mmol/L Chloride 97 L (98-107) mmol/L Glucose 268 H (74-99) mg/dL POC Glucose (mg/dL) 184 H (75-99) mg/dL 09/14/18 09/14/18 09/15/18 Range/Units 17:02 20:39 06:47 WBC (3.8-10.6) k/uL Sodium (137-145) mmol/L Chloride (98-107) mmol/L Glucose (74-99) mg/dL POC Glucose (mg/dL) 185 H 297 H 103 H (75-99) mg/dL Microbiology - Last 24 Hours (Table) 09/13/18 14:27 Blood Culture - Preliminary Blood No Growth after 24 hours Assessment and Plan Assessment: Assessment and Plan 1. COPD exacerbation: Possibly due to viral bronchitis. CTA of the chest rules out pulmonary embolus, shows emphysematous changes. BNP 546, Echocardiogram in 2017 shows EF 55-60% with moderate , low concern for CHF. Troponin < 0.012 x 2 with EKG showing NSR with RBBB, ruling out ACS. Patient is afebrile with a mild leukocytosis of 14.5 (this is likely due to steroids). We will start the patient on DuoNeb every 4 hours scheduled and as needed. Solu-Medrol changed to daily maintenance of Prednisone 5 mg PO QD. Continue Symbicort 2 puffs twice a day. Oxygen per nasal cannula to maintain oxygen saturation greater than 92% . 6 minute walk test today. FU Pulmonology consult, Echocardiogram, 6 minute walk test. 2. Diabetes Mellitus: POC glucose 103. A1c 7.3 on 07/2018. Continue Levemir 60 units QHS, Novolog 24 units TID. Low carb diet. Accuchecks TID. Hypoglycemic precautions. 3. CHF: Stable. Echocardiogram shows EF 55-60 % with normal LVH in 2017. Continue BBlocker and ARB. PAKO Vaughn outPT 4. CAD: Continue ASA 81 mg PO QD, Lipitor 80 mg PO QHS with Plavix 75 mg PO QD. On BBlocker at ARB at home. PAKO Vaughn outPT 5. Hypertension: BP 159/70. Continue Imdur 30 mg PO QD, Losartan 50 mg PO QD, Metoprolol 25 mg PO QHS. Monitor vitals, adjust medications as necessary. 6. Hypothyroidism: Stable TSH 07/2018. Continue Synthroid 50 mcg PO QD. 7. DVT/GI Prophylaxis: Lovenox 40 mg SUBCUT QD. Protonix 40 mg PO QAM. Patient admitted for COPD exacerbation. Discussed with case management, will attempt to get patient a nebulizer machine for home. 6 minute walk test for discharge planning. He is pending clinical improvement. Will follow Pulmonology recommendations.
[2018-09-15] MEDS: ISOSORBIDE MONONITRATE ER 30 MG TAB.ER.24H PO SCH (11:43)
[2018-09-15 11:56] LABS: Glucose,Whole Blood 60 mg/dL (75-99)
[2018-09-15 12:32] LABS: Glucose,Whole Blood 131 mg/dL (75-99)
[2018-09-15 12:40] LABS: HCT 44.9 % (39.0-53.0); HGB 14.2 gm/dL (13.0-17.5); MCH 30.5 pg (25.0-35.0); MCHC 31.6 g/dL (31.0-37.0); MCV 96.6 fL (80.0-100.0); Mean Platelet Volume 6.7; Platelet Count 259 k/uL (150-450); RBC 4.65 m/uL (4.30-5.90); RDW 15.6 % (11.5-15.5); WBC 16.1 k/uL (3.8-10.6)
[2018-09-15 13:05] LABS: Anion Gap 9 mmol/L; Blood Urea Nitrogen 19 mg/dL (9-20); Calcium 9.5 mg/dL (8.4-10.2); Carbon Dioxide 27 mmol/L (22-30); Chloride 104 mmol/L (98-107); Potassium 4.3 mmol/L (3.5-5.1); Sodium 140 mmol/L (137-145)
[2018-09-15 13:17] LABS: Glucose 44 mg/dL (74-99)
[2018-09-15 14:55] VITALS: BP 154/66; TEMP 97.8
[2018-09-15 16:01] VITALS: RESP 16
[2018-09-15 16:33] VITALS: PULSE 71
[2018-09-15 17:16] LABS: Glucose,Whole Blood 160 mg/dL (75-99)
--- NOTE | 2018-09-15 17:57 | P.PN ---
Subjective Progress Note Date: 09/15/18 Principal diagnosis: Dyspnea on exertion This is a 83-year-old white male patient with past medical history of moderately severe COPD with an underlying FEV1 of 71% of predicted, who was recently hospitalized for acute exacerbation of chronic obstructive pulmonary disease and acute bronchitis, who presented to the emergency department on at 1300 for evaluation of worsening shortness of breath. Patient was seen by Dr. Hayward in the pulmonary office, CTA chest was ordered, and was negative for any evidence of pulmonary embolism, however in view of patient's symptoms of worsening shortness of breath, patient was directed to the emergency department for further evaluation and treatment. Denies any fever or chills, no chest pain, no palpitations, no lightheadedness or dizziness. No abdominal pain, no nausea, no vomiting or diarrhea. No significant chest congestion, no phlegm production. No other acute abnormality was noted on the CT angios of the chest. No pulmonary infiltrates, no atelectasis, no nodules or masses, no pleural effusion. Emphysematous changes noted bilaterally. Lab work showed a PVC of 12.6, hemoglobin of 13.8, electrolytes and renal profile were within normal limits, troponins were negative 2, proBNP is within normal limits at 546, LFTs are normal. Vital signs are stable, no fever or chills, room air pulse ox is 95%. Patient states he has gained 8 pounds in one week, no significant lower extremity edema noted. His abdomen is large and distended , but nontender. Patient has had 3 rounds of oral steroids in the last several weeks. He is on maintenance dose of prednisone of 5 mg daily, his maintenance inhalers include Anoro Ellipta. Not significantly bronchospastic on the exam. No rhonchi, no crackles, wheezes. Not congested. Patient does become very dyspneic with ambulation. His previous echocardiogram from 05/22/2017 showed preserved left ventricular systolic function with an EF between 55-60%. There was moderate aortic stenosis, trace MR and trace TR. No significant pulmonary hypertension. His most recent cardiac catheterization on 09/09/2017 showed mild aortic stenosis, nondominant circumflex vessel with 80% mid lesion. RCA was free of any significant disease, LAD had a 55% mid lesion. Patient did undergo PTCA and stenting of the mid circumflex on 09/09/2017. He follows with Dr. ROGER Vaughn, and he states he had a recent echocardiogram done at the office, and we will try to obtain results of that. The patient is seen again today 09/15/2018 in follow-up in the observation unit. He is awake and alert in no acute distress. He is maintaining O2 saturations in the 90s on room air. He's been afebrile. Cultures show no growth. Count 16.1. Hemoglobin 14.2. Creatinine 0.80. Bicarb 27. He has been taking maintained on DuoNeb, Symbicort. He is anxious to go home. Objective - Vital Signs Vital signs: Vital Signs Temp 97.8 F 09/15/18 14:54 Pulse 70 09/15/18 16:10 Resp 16 09/15/18 16:10 BP 154/66 09/15/18 14:54 Pulse Ox 90 L 09/15/18 16:01 Intake & Output 09/14/18 09/15/18 09/15/18 18:59 06:59 18:59 Intake Total 236 472 Balance 236 472 Intake: Oral 236 472 Other: Voiding Method Toilet Toilet Toilet # Voids 1 2 2 - Exam GENERAL EXAM: Alert, pleasant, 83-year-old morbidly obese white male comfortable in no apparent distress. HEAD: Normocephalic/atraumatic. EYES: Normal reaction of pupils, equal size. Conjunctiva pink, sclera white. NOSE: Clear with pink turbinates. THROAT: No erythema or exudates. NECK: No masses, no JVD, no thyroid enlargement, no adenopathy. CHEST: No chest wall deformity. Symmetrical expansion. LUNGS: Equal air entry with no crackles, wheeze, rhonchi or dullness. CVS: Regular rate and rhythm, normal S1 and S2, no gallops, no murmurs, no rubs ABDOMEN: Soft, obese, nontender. No hepatosplenomegaly, normal bowel sounds, no guarding or rigidity. EXTREMITIES: No clubbing, no edema, no cyanosis, 2+ pulses and upper and lower extremities. MUSCULOSKELETAL: Muscle strength and tone normal. SPINE: No scoliosis or deformity SKIN: No rashes CENTRAL NERVOUS SYSTEM: Alert and oriented -3. No focal deficits, tone is normal in all 4 extremities. PSYCHIATRIC: Alert and oriented -3. Appropriate affect. Intact judgment and insight. - Labs CBC & Chem 7: 09/15/18 11:20 09/15/18 11:20 Labs: Abnormal Lab Results - Last 24 Hours (Table) 09/14/18 09/15/18 09/15/18 Range/Units 20:39 06:47 11:20 WBC 16.1 H (3.8-10.6) k/uL RDW 15.6 H (11.5-15.5) % Glucose (74-99) mg/dL POC Glucose (mg/dL) 297 H 103 H (75-99) mg/dL 09/15/18 09/15/18 09/15/18 Range/Units 11:20 11:53 12:29 WBC (3.8-10.6) k/uL RDW (11.5-15.5) % Glucose 44 L* (74-99) mg/dL POC Glucose (mg/dL) 60 L 131 H (75-99) mg/dL 09/15/18 Range/Units 17:14 WBC (3.8-10.6) k/uL RDW (11.5-15.5) % Glucose (74-99) mg/dL POC Glucose (mg/dL) 160 H (75-99) mg/dL Microbiology - Last 24 Hours (Table) 09/13/18 14:27 Blood Culture - Preliminary Blood No Growth after 48 hours Assessment and Plan Assessment: Assessment: #1. Exertional dyspnea, and the etiology is under investigation. Patient is not bronchospastic, no chest congestion, no phlegm production, no chest wall tenderness. CT angios was negative for any evidence of pulmonary embolism, or any other pulmonary abnormality. No infiltrates, no atelectasis, no pneumothorax, no masses or nodules. #2. Coronary artery disease with previous stenting #3. Obesity #4. Recent hospitalization for acute exacerbation of COPD #5. Moderately severe COPD with underlying FEV1 of 71% of predicted #6. Obstructive sleep apnea on CPAP therapy #7. Diabetes mellitus type 2 #8. Hypertension, hyperlipidemia #9. Hypothyroidism #10. Mild aortic stenosis as previously documented on the echocardiogram and heart catheterization Plan: The patient was seen and evaluated by Dr. De Leon. He is stable from the pulmonary standpoint. He remains dyspneic on exertion otherwise comfortable at rest. He'll follow up with Dr. Basha in our office for close follow-up. He has received a nebulizer for treatments at home. He is encouraged to call sooner with any recurrence of symptoms or other questions or concerns. I, the cosigning physician, performed a history & physical examination of the patient. Lungs sounds are clear. Maintaining good O2 saturations in the 90s on room air. I discussed the assessment and plan of care with my nurse practitioner, Antoinette Denny. I attest to the above note as dictated by her.
== END 2018-09-15 16:14 | disposition home or self-care (01) ==
LOC: EC 13:57 → 1SOBS 16:03
PROVIDERS: ADMIT Family Medicine; ATTEND Family Medicine
DX: J44.1 Chronic obstructive pulmonary disease with (acute) exacerbation (principal); E11.9 Type 2 diabetes mellitus without complications; E03.9 Hypothyroidism, unspecified; I11.0 Hypertensive heart disease with heart failure; I50.9 Heart failure, unspecified; Z87.891 Personal history of nicotine dependence; D72.829 Elevated white blood cell count, unspecified; M19.90 Unspecified osteoarthritis, unspecified site; E78.5 Hyperlipidemia, unspecified; G47.33 Obstructive sleep apnea (adult) (pediatric); N40.0 Benign prostatic hyperplasia without lower urinary tract symptoms; I25.10 Atherosclerotic heart disease of native coronary artery without angina pectoris; I35.0 Nonrheumatic aortic (valve) stenosis; Z85.819 Personal history of malignant neoplasm of unspecified site of lip, oral cavity, and pharynx; Z85.828 Personal history of other malignant neoplasm of skin; Z80.3 Family history of malignant neoplasm of breast; Z79.82 Long term (current) use of aspirin; Z79.4 Long term (current) use of insulin; Z79.890 Hormone replacement therapy; Z79.899 Other long term (current) drug therapy; Z79.84 Long term (current) use of oral hypoglycemic drugs; Z79.02 Long term (current) use of antithrombotics/antiplatelets; Z88.5 Allergy status to narcotic agent; Z98.1 Arthrodesis status; Z99.89 Dependence on other enabling machines and devices; Z95.5 Presence of coronary angioplasty implant and graft; Z68.27 Body mass index [BMI] 27.0-27.9, adult; E66.01 Morbid (severe) obesity due to excess calories; Z98.0 Intestinal bypass and anastomosis status
CPT/HCPCS: 96374 ×2; 99285; 96372 ×2; 96376 ×2; 36415; 94640 ×6; 94760; 93005; 83880; 80053; 80048 ×2; 82550; 82553; 83735; 84484 ×2; 85025; 85027 ×2; 85610; 85730; 87040; G0378 ×3; J2930 ×2; J1650 ×2; J7512

== ENCOUNTER → 2018-09-13 | Outpatient (CLI) | payer MEDICARE ==
--- NOTE | 2018-09-13 12:04 | CT ---
EXAMINATION TYPE: CT angio chest DATE OF EXAM: 09/13/2018 COMPARISON: None HISTORY: SOB CT DLP: 613 mGycm CONTRAST: CT chest with contrast and 3D reconstruction with MIP imaging is performed with IV Contrast, patient injected with 100 mL of Isovue 370. Contrast-enhanced CT of the chest was performed through the course of the pulmonary arteries with ubaldo g and mediastinal window settings submitted. 3D reconstruction with MIP imaging was also performed. PULMONARY ARTERIES: The pulmonary arteries and their major tributaries are patent. I do not see liyl dence for sizable filling defect to suggest pulmonary embolic process. LUNGS: The lungs are clear and free of infiltrate. No evidence for atelectasis. No pulmonary nodule or mass is detected. No pleural effusion. Emphysematous changes noted bilaterally. MEDIASTINUM: Thoracic aorta courses posterior to the esophagus at the level of the aortic arch. Ather omatous changes noted. No evidence for aneurysm. The heart is enlarged. If there is concern for thora cic aortic pathology consider LYLE. Correlate clinically . No evidence for mediastinal mass. No med iastinal lymph nodes greater than 1cm. HILAR STRUCTURES: No evidence for mass. No hilar lymph nodes greater than 1 cm. UPPER ABDOMEN: No significant abnormality is seen. IMPRESSION: 1. No evidence for Pulmonary embolism at this time.
== END | disposition home or self-care (01) ==
LOC: RADCTMAIN 10:53
PROVIDERS: ATTEND Internal Medicine Critical Care Medicine
DX: R06.02 Shortness of breath (principal); Z88.5 Allergy status to narcotic agent
CPT/HCPCS: 71275; Q9967

== ENCOUNTER 2019-02-03 13:01 | Observation (INO) | payer MEDICARE ==
[2019-02-03] MEDS ORDERED: ALBUTEROL NEBULIZED 2.5 MG/3 ML INHALATION STA ×2 (13:38→15:04)
[2019-02-03] MEDS ORDERED: methylPREDNISolone SOD SUCCI 125 MG/2 ML VIAL IV STA (13:38)
[2019-02-03] MEDS ORDERED: IPRATROPIUM 0.5 MG/2.5 ML NEBU INHALATION STA (13:38)
[2019-02-03] MEDS ORDERED: cefTRIAXone IN SWFI 1,000 MG/10 ML SYRINGE IVP STA (13:40)
--- NOTE | 2019-02-03 13:48 | ED ---
General Adult HPI - General Chief complaint: Shortness of Breath Stated complaint: pneumonia Time Seen by Provider: 02/03/19 13:18 Source: patient, family, RN notes reviewed, old records reviewed Mode of arrival: wheelchair Limitations: no limitations - History of Present Illness Initial comments: 83-year-old male presents with a four-day history of cough, dyspnea, subjective fever chills. Patient was seen by his primary care physician on Thursday of this week which was 4 days prior, treated for COPD exacerbation, given steroids, antibiotics. Patient has been taking these medications over the past 4 days with no improvement. He continues to have productive cough with yellow sputum. He has moderate dyspnea. Denies any central chest pain, some mild chest pain associated with cough. No abdominal pain, no nausea vomiting or diarrhea. Denies lower extremity pain or swelling. Patient does have history of CAD status post stent. - Related Data Home Medications Medication Instructions Recorded Confirmed Isosorbide Mononitrate ER [Imdur] 30 mg PO DAILY@1200 07/03/14 09/13/18 Tamsulosin HCl [Flomax] 0.4 mg PO HS 07/03/14 09/13/18 Aspirin EC [Ecotrin Low Dose] 81 mg PO DAILY 05/22/17 09/13/18 Insulin Aspart [NovoLOG Flexpen] 24 units SQ TID 05/22/17 09/13/18 Levothyroxine Sodium [Synthroid] 50 mcg PO DAILY 05/22/17 09/13/18 Insulin Degludec [Tresiba 60 unit SQ HS 09/04/17 09/13/18 Flextouch U-100] Metoprolol Tartrate [Lopressor] 25 mg PO HS 09/04/17 09/13/18 metFORMIN HCL [Glucophage Xr] 500 mg PO AC-SUPPER 09/04/17 09/13/18 Clopidogrel [Plavix] 75 mg PO HS 09/02/18 09/13/18 Olmesartan [Benicar] 10 mg PO DAILY 09/02/18 09/13/18 Albuterol Inhaler [Ventolin Hfa 2 puff INHALATION RT-Q6H PRN 02/03/19 02/03/19 Inhaler] Albuterol Nebulized (Conc) 2.5 mg INHALATION RT-QID PRN 02/03/19 02/03/19 [Ventolin Nebulized (Conc)] Previous Rx's Medication Instructions Recorded Atorvastatin [Lipitor] 80 mg PO HS #30 tab 09/09/17 Ipratropium-Albuterol Nebulize 3 ml INHALATION RT-Q4H PRN #90 09/15/18 [Duoneb 0.5 mg-3 mg/3 ml Soln] ampul.neb Umeclidinium Brm/Vilanterol Tr 1 puff INHALATION RT-DAILY #30 09/15/18 [Anoro Ellipta 62.5-25 Mcg INH] blst.w.dev predniSONE 5 mg PO DAILY #30 tab 09/15/18 Allergies Allergy/AdvReac Type Severity Reaction Status Date / Time morphine AdvReac Hallucinati Verified 02/03/19 13:59 ons propoxyphene napsylate AdvReac Nausea & Verified 02/03/19 13:59 [From Darvocet-N 100] Vomiting & Diarrhea Review of Systems ROS Statement: Those systems with pertinent positive or pertinent negative responses have been documented in the HPI. ROS Other: All systems not noted in ROS Statement are negative. 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 Past Anesthesia/Blood Transfusion Reactions: No Reported Reaction Past Psychological History: No Psychological Hx Reported Smoking Status: Former smoker Past Alcohol Use History: None Reported Past Drug Use History: None Reported - Past Family History Father Additional Family Medical History / Comment(s): burst appendix Mother Family Medical History: Cancer Additional Family Medical History / Comment(s): breast cancer General Exam Limitations: no limitations General appearance: alert, in distress Head exam: Present: atraumatic, normocephalic Eye exam: Present: PERRL, other (Bilateral proptosis) ENT exam: Present: mucous membranes dry Neck exam: Present: normal inspection. Absent: tenderness, meningismus Respiratory exam: Present: normal lung sounds bilaterally, respiratory distress, wheezes, decreased breath sounds Cardiovascular Exam: Present: regular rate, normal rhythm GI/Abdominal exam: Present: soft. Absent: distended, tenderness Extremities exam: Present: normal inspection, normal capillary refill, pedal edema (Trace) Neurological exam: Present: alert, oriented X3, CN II-XII intact. Absent: motor sensory deficit Psychiatric exam: Present: normal affect, normal mood Skin exam: Present: warm, dry, intact. Absent: cyanosis, diaphoretic Course Vital Signs 02/03/19 02/03/19 02/03/19 13:06 13:46 14:01 Temperature 97.8 F Pulse Rate 64 62 69 Respiratory 18 20 Rate Blood Pressure 159/82 131/81 O2 Sat by Pulse 97 99 Oximetry 02/03/19 14:09 Temperature Pulse Rate 63 Respiratory Rate Blood Pressure O2 Sat by Pulse Oximetry EKG Findings - EKG Comments: EKG Findings:: EKG: Sinus rhythm, first-degree AV block, rate of 70, WA interval 236, QRS duration 140, QTC 462, no ST segment elevation, similar compared to EKG in August 2018. Medical Decision Making - Medical Decision Making 83-year-old male history of COPD presenting with cough and dyspnea, been on treatment as an outpatient for the past 5 days. Symptoms have failed to improve. X-rays obtained, consistent with COPD and bronchitis, no focal pneumonia. There is primarily nodule which may require further evaluation with computed tomography scan. Patient has mild leukocytosis 11.1, stable hemoglobin, lactic acid 2.2 which is treated with IV hydration. Influenza testing negative. Electrolytes within normal limits. Troponin, BNP are negative. Patient will be admitted for COPD exacerbation, failed outpatient treatment. Case discussed with admitting physician, who will admit. - Lab Data Result diagrams: 02/03/19 13:14 02/03/19 13:14 Lab Results 02/03/19 02/03/19 02/03/19 Range/Units 13:14 13:14 13:14 WBC 11.1 H (3.8-10.6) k/uL RBC 4.36 (4.30-5.90) m/uL Hgb 13.6 (13.0-17.5) gm/dL Hct 40.9 (39.0-53.0) % MCV 93.9 (80.0-100.0) fL MCH 31.3 (25.0-35.0) pg MCHC 33.3 (31.0-37.0) g/dL RDW 14.8 (11.5-15.5) % Plt Count 252 (150-450) k/uL Neutrophils % 84 % Lymphocytes % 9 % Monocytes % 5 % Eosinophils % 1 % Basophils % 0 % Neutrophils # 9.3 H (1.3-7.7) k/uL Lymphocytes # 1.0 (1.0-4.8) k/uL Monocytes # 0.5 (0-1.0) k/uL Eosinophils # 0.1 (0-0.7) k/uL Basophils # 0.0 (0-0.2) k/uL PT (9.0-12.0) sec INR (<1.2) APTT (22.0-30.0) sec Sodium 139 (137-145) mmol/L Potassium 5.0 (3.5-5.1) mmol/L Chloride 104 (98-107) mmol/L Carbon Dioxide 24 (22-30) mmol/L Anion Gap 11 mmol/L BUN 18 (9-20) mg/dL Creatinine 0.61 L (0.66-1.25) mg/dL Est GFR (CKD-EPI)AfAm >90 (>60 ml/min/1.73 sqM) Est GFR (CKD-EPI)NonAf >90 (>60 ml/min/1.73 sqM) Glucose 108 H (74-99) mg/dL Plasma Lactic Acid Don (0.7-2.0) mmol/L Calcium 9.6 (8.4-10.2) mg/dL Magnesium 2.2 (1.6-2.3) mg/dL Total Bilirubin 0.8 (0.2-1.3) mg/dL AST 38 (17-59) U/L ALT 27 (21-72) U/L Alkaline Phosphatase 54 (38-126) U/L Troponin I (0.000-0.034) ng/mL NT-Pro-B Natriuret Pep 845 pg/mL Total Protein 6.9 (6.3-8.2) g/dL Albumin 4.1 (3.5-5.0) g/dL Influenza Type A RNA (Not Detectd) Influenza Type B (PCR) (Not Detectd) 02/03/19 02/03/19 02/03/19 Range/Units 13:14 13:14 13:14 WBC (3.8-10.6) k/uL RBC (4.30-5.90) m/uL Hgb (13.0-17.5) gm/dL Hct (39.0-53.0) % MCV (80.0-100.0) fL MCH (25.0-35.0) pg MCHC (31.0-37.0) g/dL RDW (11.5-15.5) % Plt Count (150-450) k/uL Neutrophils % % Lymphocytes % % Monocytes % % Eosinophils % % Basophils % % Neutrophils # (1.3-7.7) k/uL Lymphocytes # (1.0-4.8) k/uL Monocytes # (0-1.0) k/uL Eosinophils # (0-0.7) k/uL Basophils # (0-0.2) k/uL PT 10.1 (9.0-12.0) sec INR 0.9 (<1.2) APTT 23.5 (22.0-30.0) sec Sodium (137-145) mmol/L Potassium (3.5-5.1) mmol/L Chloride (98-107) mmol/L Carbon Dioxide (22-30) mmol/L Anion Gap mmol/L BUN (9-20) mg/dL Creatinine (0.66-1.25) mg/dL Est GFR (CKD-EPI)AfAm (>60 ml/min/1.73 sqM) Est GFR (CKD-EPI)NonAf (>60 ml/min/1.73 sqM) Glucose (74-99) mg/dL Plasma Lactic Acid Don 2.2 H* (0.7-2.0) mmol/L Calcium (8.4-10.2) mg/dL Magnesium (1.6-2.3) mg/dL Total Bilirubin (0.2-1.3) mg/dL AST (17-59) U/L ALT (21-72) U/L Alkaline Phosphatase (38-126) U/L Troponin I 0.012 (0.000-0.034) ng/mL NT-Pro-B Natriuret Pep pg/mL Total Protein (6.3-8.2) g/dL Albumin (3.5-5.0) g/dL Influenza Type A RNA (Not Detectd) Influenza Type B (PCR) (Not Detectd) 02/03/19 Range/Units 13:46 WBC (3.8-10.6) k/uL RBC (4.30-5.90) m/uL Hgb (13.0-17.5) gm/dL Hct (39.0-53.0) % MCV (80.0-100.0) fL MCH (25.0-35.0) pg MCHC (31.0-37.0) g/dL RDW (11.5-15.5) % Plt Count (150-450) k/uL Neutrophils % % Lymphocytes % % Monocytes % % Eosinophils % % Basophils % % Neutrophils # (1.3-7.7) k/uL Lymphocytes # (1.0-4.8) k/uL Monocytes # (0-1.0) k/uL Eosinophils # (0-0.7) k/uL Basophils # (0-0.2) k/uL PT (9.0-12.0) sec INR (<1.2) APTT (22.0-30.0) sec Sodium (137-145) mmol/L Potassium (3.5-5.1) mmol/L Chloride (98-107) mmol/L Carbon Dioxide (22-30) mmol/L Anion Gap mmol/L BUN (9-20) mg/dL Creatinine (0.66-1.25) mg/dL Est GFR (CKD-EPI)AfAm (>60 ml/min/1.73 sqM) Est GFR (CKD-EPI)NonAf (>60 ml/min/1.73 sqM) Glucose (74-99) mg/dL Plasma Lactic Acid Don (0.7-2.0) mmol/L Calcium (8.4-10.2) mg/dL Magnesium (1.6-2.3) mg/dL Total Bilirubin (0.2-1.3) mg/dL AST (17-59) U/L ALT (21-72) U/L Alkaline Phosphatase (38-126) U/L Troponin I (0.000-0.034) ng/mL NT-Pro-B Natriuret Pep pg/mL Total Protein (6.3-8.2) g/dL Albumin (3.5-5.0) g/dL Influenza Type A RNA Not Detected (Not Detectd) Influenza Type B (PCR) Not Detected (Not Detectd) Disposition Clinical Impression: Acute exacerbation of chronic obstructive airways disease, COPD with exacerbation Disposition: ADMITTED IP TO THIS HOSP Condition: Stable Is patient prescribed a controlled substance at d/c from ED?: No Referrals: Manuel Deleon MD [Primary Care Provider] - 1-2 days Decision to Admit Reason: Admit from EC Decision Date: 02/03/19 Decision Time: 15:03
[2019-02-03 14:18] LABS: INR 0.9 (<1.2); Partial Thromboplastin Time 23.5 sec (22.0-30.0); Prothrombin Time 10.1 sec (9.0-12.0)
[2019-02-03 14:22] LABS: Basophils % (A) 0 %; Eosinophils # (A) 0.1 k/uL (0-0.7); Eosinophils % (A) 1 %; HCT 40.9 % (39.0-53.0); HGB 13.6 gm/dL (13.0-17.5); Lymphocytes % (A) 9 %; MCH 31.3 pg (25.0-35.0); MCHC 33.3 g/dL (31.0-37.0); MCV 93.9 fL (80.0-100.0); Mean Platelet Volume 6.4; Monocytes # (A) 0.5 k/uL (0-1.0); Monocytes % (A) 5 %; Neutrophils # (A) 9.3 k/uL (1.3-7.7); Neutrophils % (A) 84 %; Platelet Count 252 k/uL (150-450); RBC 4.36 m/uL (4.30-5.90); RDW 14.8 % (11.5-15.5); WBC 11.1 k/uL (3.8-10.6)
--- NOTE | 2019-02-03 14:33 | XR ---
EXAMINATION TYPE: XR chest 2V DATE OF EXAM: 02/03/2019 COMPARISON: 09/02/[address] 09/13/2018 HISTORY: 83-year-old male difficulty breathing and shortness of breath TECHNIQUE: PA and lateral views FINDINGS: Heart mildly enlarged. Diffuse interstitial prominence. No brijesh consolidation or pleural effusion. S table accentuation of the upper thoracic kyphosis. Subtle nodularity at the peripheral left midlung. Hyperinflation. IMPRESSION: 1. COPD, cardiomegaly, and interstitial changes which appear largely chronic. Correlate for possible superimposed bronchitis. 2. Nodular density left midlung likely corresponds to a calcified pleural plaque seen on CT. Given th e patient's increased risk for development of lung cancer, consider a one-month follow-up CT to ny re to the patient's 09/13/2018 study.
[2019-02-03 14:36] LABS: ALT 27 U/L (21-72); AST 38 U/L (17-59); Albumin 4.1 g/dL (3.5-5.0); Alkaline Phosphatase 54 U/L (38-126); Anion Gap 11 mmol/L; Blood Urea Nitrogen 18 mg/dL (9-20); Calcium 9.6 mg/dL (8.4-10.2); Carbon Dioxide 24 mmol/L (22-30); Chloride 104 mmol/L (98-107); Glucose 108 mg/dL (74-99); Magnesium 2.2 mg/dL (1.6-2.3); Sodium 139 mmol/L (137-145); Total Bilirubin 0.8 mg/dL (0.2-1.3); Total Protein 6.9 g/dL (6.3-8.2)
[2019-02-03] MEDS ORDERED: SODIUM CHLORIDE 0.9% 500 ML 500 ML IV ONE (14:44)
[2019-02-03] MEDS ORDERED: IPRATROPIUM-ALBUTEROL 3 ML NEB INHALATION PRN (15:00)
[2019-02-03] MEDS ORDERED: ACETAMINOPHEN TAB 325 MG TAB PO PRN (16:34)
[2019-02-03] MEDS ORDERED: NALOXONE 0.4 MG/ML 1 ML VIAL IV PRN (16:34)
[2019-02-03 17:12] LABS: Glucose,Whole Blood 209 mg/dL (75-99)
[2019-02-03] MEDS ORDERED: HYDROcodone/APAP 10-325MG 1 EACH TAB PO PRN (17:27)
--- NOTE | 2019-02-03 17:28 | P.HPIM ---
History of Present Illness H&P Date: 02/03/19 Chief Complaint: COPD exacerbation 83-year-old male with PMH of hypertension, diabetes mellitus, hypothyroidism, CHF, COPD presents the ED for shortness of breath. Of note, he has a history of smoking 1-1-1/2 pack of cigarettes per day for at least 30 years, quit in 1989. Patient reports constellation of symptoms including productive cough of yellow sputum, rhinorrhea and nasal congestion along with shortness of breath and wheezing that has been ongoing since Thursday. Patient reports going to Dr. Torres's office on Thursday, received some antibiotics orally and steroids to take by mouth. Patient reports trying nebulize treatments at home. Patient states that he progressively got worse, prompting him to come to the ED today. He also complains of whole body soreness and chest pain only when he coughs. He denies any headache, nausea, vomiting, fever, chest pain, palpitations, changes in urination or bowel habits. No changes in appetite or weight. In the ED, CBC showed a mild leukocytosis of 11.1. CMP was unremarkable. Lactic acid was 2.2. Troponin was 0.012, EKG showing sinus rhythm with first- degree AV block and RBBB. Chest x-ray showing signs of COPD and interstitial changes, calcified pleural plaque nodular density. His vital signs are stable and he was saturating 96% on 2 L nasal cannula. Patient is admitted for COPD exacerbation. 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 Past Anesthesia/Blood Transfusion Reactions: No Reported Reaction Past Psychological History: No Psychological Hx Reported Smoking Status: Former smoker Past Alcohol Use History: None Reported Past Drug Use History: None Reported - Past Family History Father Additional Family Medical History / Comment(s): burst appendix Mother Family Medical History: Cancer Additional Family Medical History / Comment(s): breast cancer Medications and Allergies Home Medications Medication Instructions Recorded Confirmed Type Isosorbide Mononitrate ER [Imdur] 30 mg PO DAILY 07/03/14 02/03/19 History Tamsulosin HCl [Flomax] 0.4 mg PO HS 07/03/14 02/03/19 History Aspirin EC [Ecotrin Low Dose] 81 mg PO DAILY 05/22/17 02/03/19 History Insulin Aspart [NovoLOG Flexpen] 24 units SQ AC-TID 05/22/17 02/03/19 History Levothyroxine Sodium [Synthroid] 50 mcg PO DAILY 05/22/17 02/03/19 History Insulin Degludec [Tresiba 60 unit SQ HS 09/04/17 02/03/19 History Flextouch U-100] Metoprolol Tartrate [Lopressor] 25 mg PO HS 09/04/17 02/03/19 History metFORMIN HCL [Glucophage Xr] 500 mg PO AC-SUPPER 09/04/17 02/03/19 History Atorvastatin [Lipitor] 80 mg PO HS #30 tab 09/09/17 02/03/19 Rx Clopidogrel [Plavix] 75 mg PO HS 09/02/18 02/03/19 History Olmesartan [Benicar] 10 mg PO DAILY 09/02/18 02/03/19 History Ipratropium-Albuterol Nebulize 3 ml INHALATION RT-Q4H PRN #90 09/15/18 02/03/19 Rx [Duoneb 0.5 mg-3 mg/3 ml Soln] ampul.neb Umeclidinium Brm/Vilanterol Tr 1 puff INHALATION RT-DAILY #30 09/15/18 02/03/19 Rx [Anoro Ellipta 62.5-25 Mcg INH] blst.w.dev predniSONE 5 mg PO DAILY #30 tab 09/15/18 02/03/19 Rx Albuterol Inhaler [Ventolin Hfa 2 puff INHALATION RT-Q6H PRN 02/03/19 02/03/19 History Inhaler] Albuterol Nebulized (Conc) 2.5 mg INHALATION RT-QID PRN 02/03/19 02/03/19 History [Ventolin Nebulized (Conc)] Allergies Allergy/AdvReac Type Severity Reaction Status Date / Time morphine AdvReac Hallucinati Verified 02/03/19 13:59 ons propoxyphene napsylate AdvReac Nausea & Verified 02/03/19 13:59 [From Darcet-N 100] Vomiting & Diarrhea Physical Exam Vitals: Vital Signs Temp Pulse Resp BP Pulse Ox 02/03/19 15:50 98.1 F 84 20 145/72 02/03/19 15:25 67 02/03/19 15:16 65 02/03/19 15:00 78 20 133/81 96 02/03/19 14:09 63 02/03/19 14:01 69 20 131/81 99 02/03/19 13:46 62 02/03/19 13:06 97.8 F 64 18 159/82 97 Intake and Output 02/03/19 02/03/19 02/03/19 06:59 14:59 22:59 Other: Weight 121.563 kg General: [non toxic], [no distress], [appears at stated age] Derm: [warm], [dry] Head: [atraumatic], [normocephalic], [symmetric] Eyes: [EOMI], [no lid lag], [anicteric sclera] Mouth: [no lip lesion], [mucus membranes moist] Cardiovascular: [S1S2 reg], [no murmur], [positive posterior tibial pulse bilateral], Lungs: [Decreased breath sounds bilateral with wheezing at the bases], [no rhon chi, no rales] , [no accessory muscle use] Abdominal: [soft], [ nontender to palpation], [no guarding], [no appreciable organomegaly] Ext: [no gross muscle atrophy], [no edema], [no contractures] Neuro: [ CN II-XI grossly intact], [no focal neuro deficits] Psych: [Alert], [oriented], [appropriate affect] Results CBC & Chem 7: 02/03/19 13:14 02/03/19 13:14 Labs: Abnormal Lab Results - Last 24 Hours (Table) 02/03/19 02/03/19 02/03/19 Range/Units 13:14 13:14 13:14 WBC 11.1 H (3.8-10.6) k/uL Neutrophils # 9.3 H (1.3-7.7) k/uL Creatinine 0.61 L (0.66-1.25) mg/dL Glucose 108 H (74-99) mg/dL Plasma Lactic Acid Don 2.2 H* (0.7-2.0) mmol/L Thrombosis Risk Factor Assmnt - Choose All That Apply Any of the Below Risk Factors Present?: Yes Each Factor Represents 1 point: Abnormal pulmonary function (COPD), Obesity (BMI >25) Each Risk Factor Represents 3 Points: Positive Factor V Leiden, Age 75 years or older Thrombosis Risk Factor Assessment Total Risk Factor Score: 8 Thrombosis Risk Factor Assessment Level: High Risk Assessment and Plan Assessment: Assessment and plan 1. COPD exacerbation 2. Lactic acidosis 3. Diabetes mellitus 4. CHF 5. CAD, diastolic 6. Hypertension 7. Hypothyroidism 8. DVT and GI prophylaxis 1. Echo secondary to bronchitis. Chest x-ray showing signs of COPD and pleural plaque that was previously seen on computed tomography scan. Patient is afebrile with a mild leukocytosis of 11.1. Start the patient on DuoNeb 4 times a day scheduled and as needed for shortness of breath or wheezing. Continue Solu-Medrol 60 mg IV every 6 hours. O2 per nasal cannula to maintain an O2 saturation greater than 92%. Will follow pulmonology consultation. 2. Lactate 2.2 likely due to dehydration. Continue normal saline at 75 mL per hour. Repeat lactic acid. 3. Cooml-uy-hhdy glucose 108. A1c 7.3 in July 2018. Continue Levemir 60 units daily at bedtime, NovoLog 24 units 3 times a day. Low carb diet. Accu- Cheks 3 times a day. Hypoglycemic precautions. 4. Stable. Echocardiogram shows EF 55-60% with normal LVH. A new beta sohail and ARB. Follow-up cardiology Dr. Vaughn in the outpatient setting. 5. Continue aspirin 81 mg by mouth daily, Lipitor 80 mg by mouth at bedtime with Plavix 75 mg by mouth daily. Continue beta sohail and ARB. Follow-up cardiology in the outpatient setting. 6. BP 145/72. Continue Imdur 30 mg by mouth daily, losartan 50 mg by mouth daily, metoprolol 25 mg by mouth at bedtime. Monitor vitals, adjust medications as necessary. 7. TSH within normal limits in July 2018. Continue Synthroid 50 g by mouth daily. 8. SCD boots only. Patient is admitted for COPD exacerbation. He is pending clinical improvement. Pulmonology on board.
[2019-02-03 18:34] VITALS: BMI 38.4
[2019-02-03] MEDS: INSULIN ASPART (NovoLOG) 100 UNIT/ML VIAL SQ SCH (18:41)
[2019-02-03] MEDS: methylPREDNISolone SOD SUCCI 125 MG/2 ML VIAL IV SCH (19:25)
[2019-02-03] MEDS: SODIUM CHLORIDE 0.9% 1,000 ML IV SCH (19:25)
[2019-02-03] MEDS: IPRATROPIUM-ALBUTEROL 3 ML NEB INHALATION SCH (19:51)
[2019-02-03] MEDS: TAMSULOSIN 0.4 MG CAP.ER.24H PO SCH (21:02)
[2019-02-03] MEDS: INSULIN DETEMIR (LEVEMIR) 100 UNIT/ML SYR SQ SCH (21:02)
[2019-02-03] MEDS: ATORVASTATIN 80 MG TAB PO SCH (21:02)
[2019-02-03] MEDS: METOPROLOL TARTRATE 25 MG TAB PO SCH (21:02)
[2019-02-03] MEDS: CLOPIDOGREL 75 MG TAB PO SCH (21:02)
[2019-02-04] MEDS: methylPREDNISolone SOD SUCCI 125 MG/2 ML VIAL IV SCH ×4 (01:36→18:37)
[2019-02-04] MEDS: LEVOTHYROXINE 50 MCG TAB PO SCH (05:43)
[2019-02-04 06:52] LABS: Glucose,Whole Blood 225 mg/dL (75-99)
[2019-02-04] MEDS: ASPIRIN 81 MG PO SCH (08:00)
[2019-02-04] MEDS: INSULIN ASPART (NovoLOG) 100 UNIT/ML VIAL SQ SCH ×3 (08:00→18:10)
[2019-02-04] MEDS: LOSARTAN 50 MG TAB PO SCH (08:00)
[2019-02-04] MEDS: ISOSORBIDE MONONITRATE ER 30 MG TAB.ER.24H PO SCH (08:00)
[2019-02-04 08:12] LABS: Basophils % (A) 0 %; Eosinophils % (A) 0 %; HCT 40.5 % (39.0-53.0); HGB 13.3 gm/dL (13.0-17.5); Lymphocytes # (A) 0.7 k/uL (1.0-4.8); Lymphocytes % (A) 7 %; MCH 31.2 pg (25.0-35.0); MCHC 32.9 g/dL (31.0-37.0); Mean Platelet Volume 6.4; Monocytes # (A) 0.3 k/uL (0-1.0); Monocytes % (A) 3 %; Neutrophils # (A) 8.5 k/uL (1.3-7.7); Neutrophils % (A) 89 %; Platelet Count 240 k/uL (150-450); RBC 4.26 m/uL (4.30-5.90); RDW 14.9 % (11.5-15.5); WBC 9.6 k/uL (3.8-10.6)
[2019-02-04] MEDS: IPRATROPIUM-ALBUTEROL 3 ML NEB INHALATION SCH ×4 (08:20→19:29)
[2019-02-04] MEDS: SODIUM CHLORIDE 0.9% 1,000 ML IV SCH ×2 (08:24→21:14)
--- NOTE | 2019-02-04 11:23 | P.PN ---
Subjective Progress Note Date: 02/04/19 Principal diagnosis: COPD exacerbation Patient was seen and examined. No acute events overnight. Patient reports great improvement in his breathing today. He complains of cough productive of yellow sputum. He denies any chest pain, dizziness or palpitations. No fever or chills. No nausea or vomiting. Objective - Vital Signs Vital signs: Vital Signs Temp 97.3 F L 02/04/19 04:52 Pulse 74 02/04/19 08:32 Resp 18 02/04/19 08:30 BP 168/85 02/04/19 04:52 Pulse Ox 98 02/04/19 08:20 Intake & Output 02/03/19 02/04/19 02/04/19 18:59 06:59 18:59 Intake Total 1300 Balance 1300 Weight 121.563 kg 120.5 kg Intake: Intake, IV Titration 800 Amount Sodium Chloride 0.9% 1, 800 000 ml @ 75 mls/hr IV . [id number] [facility] Rx#:[id number] Oral 500 Other: Voiding Method Toilet Toilet # Voids 3 - Exam General: [non toxic], [no distress], [appears at stated age] Derm: [warm], [dry] Head: [atraumatic], [normocephalic], [symmetric] Eyes: [EOMI], [no lid lag], [anicteric sclera] Mouth: [no lip lesion], [mucus membranes moist] Cardiovascular: [S1S2 reg], [no murmur], [positive posterior tibial pulse bilateral], Lungs: [Decreased breath sounds bilateral], [no rhonchi, no rales] , [no acce ssory muscle use] Abdominal: [soft], [ nontender to palpation], [no guarding], [no appreciable organomegaly] Ext: [no gross muscle atrophy], [no edema], [no contractures] Neuro: [ CN II-XI grossly intact], [no focal neuro deficits] Psych: [Alert], [oriented], [appropriate affect] - Labs CBC & Chem 7: 02/04/19 07:26 02/03/19 13:14 Labs: Abnormal Lab Results - Last 24 Hours (Table) 02/03/19 02/03/19 02/03/19 Range/Units 13:14 13:14 13:14 WBC 11.1 H (3.8-10.6) k/uL RBC (4.30-5.90) m/uL Neutrophils # 9.3 H (1.3-7.7) k/uL Lymphocytes # (1.0-4.8) k/uL Creatinine 0.61 L (0.66-1.25) mg/dL Glucose 108 H (74-99) mg/dL POC Glucose (mg/dL) (75-99) mg/dL Plasma Lactic Acid Don 2.2 H* (0.7-2.0) mmol/L 02/03/19 02/03/19 02/04/19 Range/Units 17:11 17:39 06:50 WBC (3.8-10.6) k/uL RBC (4.30-5.90) m/uL Neutrophils # (1.3-7.7) k/uL Lymphocytes # (1.0-4.8) k/uL Creatinine (0.66-1.25) mg/dL Glucose (74-99) mg/dL POC Glucose (mg/dL) 209 H 225 H (75-99) mg/dL Plasma Lactic Acid Don 2.2 H* (0.7-2.0) mmol/L 02/04/19 Range/Units 07:26 WBC (3.8-10.6) k/uL RBC 4.26 L (4.30-5.90) m/uL Neutrophils # 8.5 H (1.3-7.7) k/uL Lymphocytes # 0.7 L (1.0-4.8) k/uL Creatinine (0.66-1.25) mg/dL Glucose (74-99) mg/dL POC Glucose (mg/dL) (75-99) mg/dL Plasma Lactic Acid Don (0.7-2.0) mmol/L Assessment and Plan Assessment: Assessment and plan 1. COPD exacerbation 2. Lactic acidosis 3. Diabetes mellitus 4. CHF 5. CAD, diastolic 6. Hypertension 7. Hypothyroidism 8. DVT and GI prophylaxis 1. Likely secondary to bronchitis. Chest x-ray showing signs of COPD and pleural plaque that was previously seen on computed tomography scan. Patient is afebrile with a mild leukocytosis of 11.1 on admission, resolved today. Start the patient on DuoNeb 4 times a day scheduled and as needed for shortness of breath or wheezing. Continue Solu-Medrol 60 mg IV every 6 hours. O2 per nasal cannula to maintain an O2 saturation greater than 92%. Will follow pulmonology consultation. 2. Lactate 2.2 likely due to dehydration, same on repeat. Continue normal saline at 75 mL per hour. Repeat lactic acid. 3. Phbrc-ge-nujv glucose 225. A1c 7.3 in July 2018. Continue Levemir 60 units daily at bedtime, NovoLog 24 units 3 times a day. Low carb diet. Accu- Cheks 3 times a day. Hypoglycemic precautions. 4. Stable. Echocardiogram shows EF 55-60% with normal LVH. Continue beta oshail and ARB. Follow-up cardiology Dr. Vaughn in the outpatient setting. 5. Continue aspirin 81 mg by mouth daily, Lipitor 80 mg by mouth at bedtime with Plavix 75 mg by mouth daily. Continue beta sohail and ARB. Follow-up cardiology in the outpatient setting. 6. BP 160/85. Continue Imdur 30 mg by mouth daily, losartan 50 mg by mouth daily, metoprolol 25 mg by mouth at bedtime. Monitor vitals, adjust medications as necessary. 7. TSH within normal limits in July 2018. Continue Synthroid 50 g by mouth daily. 8. SCD boots only. Patient is admitted for COPD exacerbation. Considerable improvement from yesterday. Patient is pending clinical improvement. We'll follow pulmonology recommendations. Possible DC 1-2 days.
[2019-02-04 11:27] LABS: Glucose,Whole Blood 251 mg/dL (75-99)
[2019-02-04] MEDS: AZITHROMYCIN 500 MG TAB PO SCH (12:53)
--- NOTE | 2019-02-04 14:43 | CONS ---
CONSULTATION PULMONARY CRITICAL CARE CONSULTATION: DATE OF SERVICE: 02/04/2019 REASON FOR CONSULTATION: Shortness of breath. An 83-year-old male who I see in the office. His primary is Dr. Deleon. The patient apparently saw Dr. Deleon twice this past week. He apparently was seen on Thursday and I believe on . Since Thursday he has not been feeling well. He has been complaining of cough, wheezing, shortness of breath, fever, chills, and phlegm production. His phlegm is discolored. He saw Dr. Deleon on Thursday, was treated with antibiotics and steroids. Returned on and because he was no better, was sent to the ER to be evaluated. The patient's complaints again include shortness of breath, chest tightness, wheezing, cough, chest congestion and yellow phlegm production. The patient denies any chest pain or chest discomfort. There is no nausea, vomiting or diarrhea. No urinary complaints. Anyway, the patient is feeling a slight bit better currently than he did when he first came in. I see me in the office for his underlying COPD. I see him about every 3-4 months. CURRENT HOME MEDICATIONS: Include Imdur, Flomax, low-dose aspirin, insulin FlexPen, Synthroid, Tresiba, Lopressor, Glucophage XR, Plavix, Benicar, Ventolin, updrafts with albuterol, Anoro, atorvastatin, and prednisone 5 mg a day. ALLERGIES: Are MORPHINE and DARVOCET-N. PAST MEDICAL HISTORY: Include heart failure, COPD, diabetes, hyperlipidemia, sleep apnea syndrome, hypothyroidism, ear and lip cancer, obesity. SURGICAL HISTORY: Includes appendectomy, bowel resection, heart catheterization, orthopedic procedures, and tonsillectomy. The patient has also had bilateral cataract surgery and skin cancer removal. SOCIAL HISTORY: Positive for previous tobacco use. Does not smoke currently. Denies any alcohol use or illicit drug use. FAMILY HISTORY: Positive for appendicitis and breast cancer. OCCUPATIONAL HISTORY: Noncontributory. He is currently retired. REVIEW OF SYSTEMS: CONSTITUTIONAL: Fever, chills. NEUROLOGIC: Negative. HEENT: Negative. CARDIOVASCULAR: Negative. PULMONARY: Shortness of breath, chest tightness, wheezing, cough, chest congestion and phlegm production. GI: Negative/ : Negative. RHEUMATOLOGIC: Negative. IMMUNOLOGIC: Negative. ENDOCRINOLOGIC: Negative. DERMATOLOGIC: Negative. PHYSICAL EXAMINATION: Current vital signs are reviewed. Temperature 98.2, heart rate 69, respiratory rate 18, blood pressure 138/61, room air saturation 95%. He is sitting at the bedside. The patient does have some very mild conversational dyspnea. He has a very harsh wet congested cough. There is no audible wheezing. No use of accessory muscles. HEENT examination is grossly unremarkable. Mucous membranes are moist. Neck is supple. Full range of motion. No adenopathy, thyromegaly or neck vein distention. Cardiovascular examination reveals regular rhythm and rate. Heart rate 72, S1, S2 normal. Heart sounds are distant. No distinct murmur noted. Lungs reveal diffuse inspiratory and expiratory rhonchi and wheezes. Breath sounds are diminished throughout. There is prolongation on forced maneuver. Adventitious lung sounds are more prominent on forced maneuver. Breath sounds are equal bilaterally. Abdomen is obese. Bowel sounds are heard. Extremities are intact. No cyanosis, clubbing, or edema. Skin without rash. Neurologic examination is brief but nonfocal. LABORATORY DATA: Reviewed. White count 9.6, hemoglobin 13.3, hematocrit 40.5, platelet count normal. Sodium, potassium, chloride, CO2 all normal, anion gap normal. BUN and creatinine were 18 and 0.61. His lactic acid was 2.2. Liver function tests are normal. Influenza studies were negative. Troponin was 0.014. N terminal proBNP 845. CHEST X-RAY: From yesterday shows evidence of changes of COPD. Cardiomegaly and some diffuse interstitial changes. In addition, there is some nodular densities left mid lung, likely corresponding to calcified pleural plaques seen on CT scan. Medications are reviewed. They will be adjusted accordingly. We will make sure that he is on a short-acting beta agonist, short-acting muscarinic antagonist, long-acting beta agonist, inhaled corticosteroids, systemic corticosteroids and antibiotics. ASSESSMENT: 1. Chronic obstructive pulmonary disease exacerbation complicated by purulent tracheobronchitis, without brijesh pneumonia, failing outpatient therapy. 2. History of skin cancer. 3. Congestive heart failure. 4. Diabetes mellitus. 5. Hyperlipidemia. 6. History of hypertension. 7. Benign prostatic hypertrophy. 8. Sleep apnea syndrome. 9. Obesity. 10.Hypothyroidism. PLAN: The patient's medications will be adjusted accordingly. Please see my note above. Will make sure he is on all the appropriate medications, systemic corticosteroids and oral antibiotics. I am hoping that he will be able to be discharged in a day or so. Will have to see how he responds. If he is going to be here longer, he would like to bring his CPAP device from home. He will let his know. No additional recommendations are made. After discharge, will follow up with me in the office. DOMINIK / ENID: [id number] /
[2019-02-04 17:10] LABS: Glucose,Whole Blood 197 mg/dL (75-99)
[2019-02-04] MEDS: SYMBICORT 160-4.5 MCG INHALER INHALATION SCH (19:29)
[2019-02-04 19:53] LABS: Glucose,Whole Blood 293 mg/dL (75-99)
[2019-02-04] MEDS: CLOPIDOGREL 75 MG TAB PO SCH (22:20)
[2019-02-04] MEDS: ATORVASTATIN 80 MG TAB PO SCH (22:20)
[2019-02-04] MEDS: METOPROLOL TARTRATE 25 MG TAB PO SCH (22:20)
[2019-02-04] MEDS: TAMSULOSIN 0.4 MG CAP.ER.24H PO SCH (22:20)
[2019-02-04] MEDS: INSULIN DETEMIR (LEVEMIR) 100 UNIT/ML SYR SQ SCH (22:24)
[2019-02-05] MEDS: methylPREDNISolone SOD SUCCI 125 MG/2 ML VIAL IV SCH ×2 (00:07→05:59)
[2019-02-05] MEDS: DOCUSATE 100 MG CAP PO SCH ×2 (00:08→07:57)
[2019-02-05 05:46] VITALS: RESP 20; TEMP 97.5
[2019-02-05] MEDS: LEVOTHYROXINE 50 MCG TAB PO SCH (05:58)
[2019-02-05 06:51] LABS: Glucose,Whole Blood 180 mg/dL (75-99)
[2019-02-05] MEDS: INSULIN ASPART (NovoLOG) 100 UNIT/ML VIAL SQ SCH ×2 (07:56→12:21)
[2019-02-05] MEDS: LOSARTAN 50 MG TAB PO SCH (07:57)
[2019-02-05] MEDS: SYMBICORT 160-4.5 MCG INHALER INHALATION SCH (07:57)
[2019-02-05] MEDS: IPRATROPIUM-ALBUTEROL 3 ML NEB INHALATION SCH ×2 (07:57→11:41)
[2019-02-05] MEDS: ISOSORBIDE MONONITRATE ER 30 MG TAB.ER.24H PO SCH (07:57)
[2019-02-05] MEDS: ASPIRIN 81 MG PO SCH (07:57)
[2019-02-05] MEDS: AZITHROMYCIN 500 MG TAB PO SCH (07:57)
[2019-02-05 08:57] LABS: Glucose,Whole Blood 283 mg/dL (75-99)
[2019-02-05 10:58] LABS: Glucose,Whole Blood 255 mg/dL (75-99)
[2019-02-05 11:44] LABS: Basophils % (A) 0 %; Eosinophils # (A) 0.1 k/uL (0-0.7); Eosinophils % (A) 1 %; HCT 41.1 % (39.0-53.0); HGB 13.3 gm/dL (13.0-17.5); Lymphocytes # (A) 0.8 k/uL (1.0-4.8); Lymphocytes % (A) 6 %; MCH 31.3 pg (25.0-35.0); MCHC 32.3 g/dL (31.0-37.0); MCV 96.8 fL (80.0-100.0); Mean Platelet Volume 7.9; Monocytes # (A) 0.5 k/uL (0-1.0); Monocytes % (A) 4 %; Neutrophils # (A) 10.9 k/uL (1.3-7.7); Neutrophils % (A) 88 %; Platelet Count 235 k/uL (150-450); RBC 4.25 m/uL (4.30-5.90); WBC 12.3 k/uL (3.8-10.6)
[2019-02-05 11:55] LABS: ALT 34 U/L (21-72); AST 29 U/L (17-59); Albumin 3.7 g/dL (3.5-5.0); Alkaline Phosphatase 59 U/L (38-126); Anion Gap 8 mmol/L; Blood Urea Nitrogen 20 mg/dL (9-20); Calcium 9.3 mg/dL (8.4-10.2); Carbon Dioxide 25 mmol/L (22-30); Chloride 105 mmol/L (98-107); Glucose 194 mg/dL (74-99); Potassium 4.5 mmol/L (3.5-5.1); Sodium 138 mmol/L (137-145); Total Bilirubin 0.5 mg/dL (0.2-1.3)
[2019-02-05 11:58] VITALS: BP 160/72; PULSE 64
--- NOTE | 2019-02-05 13:11 | P.DS ---
Providers Date of admission: 02/03/19 15:00 Expected date of discharge: 02/05/19 Attending physician: Zuleima Caballero MD Consults: 02/03/19 17:27 Consult Physician Stat Consulting Provider: Steve Hayward Reason/Comments: COPD exacerbation Do you want consulting provider notified?: Yes Primary care physician: Manuel Deleon - Discharge Diagnosis(es) (1) Acute exacerbation of chronic obstructive airways disease Current Visit: Yes Status: Acute (2) Diabetes mellitus Current Visit: Yes Status: Acute (3) CAD (coronary artery disease) Current Visit: No Status: Acute (4) Hypertension Current Visit: No Status: Acute (5) Lactic acid acidosis Current Visit: Yes Status: Acute Hospital Course: The patient is a 83-year-old male was admitted with acute COPD exacerbation secondary to purulent tracheobronchitis after presenting with shortness of air and productive cough was started on systemic steroids with IV Solu-Medrol 60 mg IV 4 times a day along with empiric IV antibiotics with azithromycin, and scheduled and when necessary bronchodilator DuoNeb breathing treatments, along with inhaled steroids. chest x-ray showed signs of COPD and pleural plaque with diffuse interstitial changes with some nodular densities in the left midlung likely corresponding to calcified pleural plaques seen on CT. treatment the patient's symptoms improved and he was gradually cleared for discharge by pulmonary, the patient continued to have lactic acidosis of unknown cause, there is no signs of sepsis as a patient remained afebrile with only mild leukocytosis. He was discharged home in stable condition told to follow-up with his PCP to have his lactic acid checked. The patient is sent home with new prescriptions for prednisone taper and azithromycin. This discharge process took approximately 35 minutes Focused exam Respiratory: Coarse breath sounds and coughing, otherwise unlabored and clear to auscultation Patient Condition at Discharge: Stable Plan - Discharge Summary Discharge Rx Participant: No New Discharge Prescriptions: New Azithromycin [Zithromax] 500 mg PO DAILY #3 tab Continue Tamsulosin HCl [Flomax] 0.4 mg PO HS Isosorbide Mononitrate ER [Imdur] 30 mg PO DAILY Aspirin EC [Ecotrin Low Dose] 81 mg PO DAILY Insulin Aspart [NovoLOG Flexpen] 24 units SQ AC-TID Levothyroxine Sodium [Synthroid] 50 mcg PO DAILY Insulin Degludec [Tresiba Flextouch U-100] 60 unit SQ HS metFORMIN HCL [Glucophage Xr] 500 mg PO AC-SUPPER Metoprolol Tartrate [Lopressor] 25 mg PO HS Atorvastatin [Lipitor] 80 mg PO HS #30 tab Olmesartan [Benicar] 10 mg PO DAILY Clopidogrel [Plavix] 75 mg PO HS Ipratropium-Albuterol Nebulize [Duoneb 0.5 mg-3 mg/3 ml Soln] 3 ml INHALATION RT-Q4H PRN #90 ampul.neb PRN Reason: Shortness Of Breath Or Wheezing predniSONE 5 mg PO DAILY #30 tab Umeclidinium Brm/Vilanterol Tr [Anoro Ellipta 62.5-25 Mcg INH] 1 puff INHALATION RT-DAILY #30 blst.w.dev Albuterol Inhaler [Ventolin Hfa Inhaler] 2 puff INHALATION RT-Q6H PRN PRN Reason: Shortness Of Breath Albuterol Nebulized (Conc) [Ventolin Nebulized (Conc)] 2.5 mg INHALATION RT- QID PRN PRN Reason: Shortness Of Breath Or Wheezing Discharge Medication List Isosorbide Mononitrate ER [Imdur] 30 mg PO DAILY 07/03/14 [History] Tamsulosin HCl [Flomax] 0.4 mg PO HS 07/03/14 [History] Aspirin EC [Ecotrin Low Dose] 81 mg PO DAILY 05/22/17 [History] Insulin Aspart [NovoLOG Flexpen] 24 units SQ AC-TID 05/22/17 [History] Levothyroxine Sodium [Synthroid] 50 mcg PO DAILY 05/22/17 [History] Insulin Degludec [Tresiba Flextouch U-100] 60 unit SQ HS 09/04/17 [History] Metoprolol Tartrate [Lopressor] 25 mg PO HS 09/04/17 [History] metFORMIN HCL [Glucophage Xr] 500 mg PO AC-SUPPER 09/04/17 [History] Atorvastatin [Lipitor] 80 mg PO HS #30 tab 09/09/17 [Rx] Clopidogrel [Plavix] 75 mg PO HS 09/02/18 [History] Olmesartan [Benicar] 10 mg PO DAILY 09/02/18 [History] Ipratropium-Albuterol Nebulize [Duoneb 0.5 mg-3 mg/3 ml Soln] 3 ml INHALATION RT-Q4H PRN #90 ampul.neb 09/15/18 [Rx] Umeclidinium Brm/Vilanterol Tr [Anoro Ellipta 62.5-25 Mcg INH] 1 puff INHALATION RT-DAILY #30 blst.w.dev 09/15/18 [Rx] predniSONE 5 mg PO DAILY #30 tab 09/15/18 [Rx] Albuterol Inhaler [Ventolin Hfa Inhaler] 2 puff INHALATION RT-Q6H PRN 02/03/19 [History] Albuterol Nebulized (Conc) [Ventolin Nebulized (Conc)] 2.5 mg INHALATION RT-QID PRN 02/03/19 [History] Azithromycin [Zithromax] 500 mg PO DAILY #3 tab 02/05/19 [Rx] Follow up Appointment(s)/Referral(s): Steve Hayward DO [Family Provider] - 1 Week (call office on Thursday for appointment at end of the week or beginning of following week.) Manuel Deleon MD [Primary Care Provider] - 1-2 days (call office for follow up appointment) Patient Instructions/Handouts: Azithromycin (By mouth)
[2019-02-05 13:49] LABS: Glucose,Whole Blood 309 mg/dL (75-99)
--- NOTE | 2019-02-05 15:50 | PN ---
PROGRESS NOTE DATE OF SERVICE: 02/05/2019 An 83-year-old male seen yesterday in consultation. His primary care physician is Dr. Manuel Deleon. He saw Dr. Deleon twice this past week, once on Thursday and once on . Anyway, he came with complaints of increasing shortness of breath, chest tightness, wheezing, cough and some phlegm production. Today, he is doing much better. The patient states that he feels like he possibly could go home. Will leave that up to the primary. He is not having any fever or chills. He is feeling much better. I did tell him that I would like to see him in the office either the end of this upcoming week or the beginning part of the following week. Anyway, if he is discharged, he should go home on a short course of antibiotics for about 5 or 7 days and prednisone with a burst and taper 40 mg for 4 days, 30 mg for 4 days, 20 mg for 4 days, 10 mg for 4 days, then stop. He has the rest of his medications at home. In addition to COPD, the patient has a history of skin cancer, heart failure, diabetes, hyperlipidemia, hypertension, BPH, sleep apnea syndrome, obesity, and hypothyroidism. Current vital signs included a temperature which is 97.6, a heart rate which is 74, respiratory rate 16, blood pressure 129/72, and a saturation on room air of 96%. Appears in no acute distress. He is sitting at the bedside. No conversational dyspnea. No use of accessory muscles. No audible wheezing. HEENT examination is grossly unremarkable. Mucous membranes are moist. He does have a degree of exophthalmos. Neck is supple. Full range of motion. No adenopathy or thyromegaly. Neck veins are flat. Cardiovascular examination reveals regular rhythm and rate. S1, S2 normal. No S3, S4, or murmur. Lungs reveal relatively clear breath sounds. There is a few scattered rhonchi. No wheezes or crackles. Breath sounds equal bilaterally but diminished throughout. Abdomen is obese. Bowel sounds are heard. Extremities are intact. No cyanosis, clubbing, or edema. Skin is without rash. Neurologic examination is brief but nonfocal. Labs, x-rays and medications are all reviewed. ASSESSMENT: 1. Chronic obstructive pulmonary disease exacerbation complicated by purulent tracheobronchitis, without brijesh pneumonia, failing outpatient therapy. 2. History of skin cancer. 3. Congestive heart failure. 4. Diabetes mellitus. 5. Hyperlipidemia. 6. Benign essential hypertension. 7. Benign prostatic hypertrophy. 8. Sleep apnea syndrome. 9. Obesity. 10.Hypothyroidism. PLAN: The patient will go home on a short course of antibiotics. In addition, the patient will be placed on prednisone with a burst and taper 40 mg a day for 4 days, 30 mg a day for 4 days, 20 mg a day for 4 days and 10 mg a day for 4 days. He should resume his normal medications. He knows to follow with me in the office either at the end of next week or the beginning of the following the week. No additional recommendations are made. Prognosis is guarded. MMODL / IJN: [id number] /
== END 2019-02-05 14:49 | disposition home or self-care (01) ==
LOC: EC 13:01 → INTOOBSV 15:00 → 3NMEDONC 15:00
PROVIDERS: ADMIT Family Medicine; ATTEND Family Medicine
DX: J44.1 Chronic obstructive pulmonary disease with (acute) exacerbation (principal); E03.9 Hypothyroidism, unspecified; E11.9 Type 2 diabetes mellitus without complications; E66.9 Obesity, unspecified; Z68.38 Body mass index [BMI] 38.0-38.9, adult; E78.5 Hyperlipidemia, unspecified; E86.0 Dehydration; I11.0 Hypertensive heart disease with heart failure; I50.32 Chronic diastolic (congestive) heart failure; H05.20 Unspecified exophthalmos; E87.2 Acidosis; I25.10 Atherosclerotic heart disease of native coronary artery without angina pectoris; I44.30 Unspecified atrioventricular block; I45.10 Unspecified right bundle-branch block; N40.0 Benign prostatic hyperplasia without lower urinary tract symptoms; G47.33 Obstructive sleep apnea (adult) (pediatric); Z95.5 Presence of coronary angioplasty implant and graft; Z87.891 Personal history of nicotine dependence; Z85.828 Personal history of other malignant neoplasm of skin; Z85.819 Personal history of malignant neoplasm of unspecified site of lip, oral cavity, and pharynx; Z79.899 Other long term (current) drug therapy; Z79.890 Hormone replacement therapy; Z79.82 Long term (current) use of aspirin; Z79.4 Long term (current) use of insulin; Z79.02 Long term (current) use of antithrombotics/antiplatelets; Z80.3 Family history of malignant neoplasm of breast
CPT/HCPCS: 96376 ×3; 96361; 96374; 96375; 99285; 36415; 94640 ×6; 94760; 93005; 83880; 80053 ×2; 83605 ×2; 83735; 84484; 85025 ×3; 85610; 85730; 87040; 87502; 71046; G0378 ×4; J2930 ×3; J0696

== ENCOUNTER 2019-02-06 13:09 | Inpatient (IN) | payer MEDICARE ==
[2019-02-06] MEDS ORDERED: methylPREDNISolone SOD SUCCI 125 MG/2 ML VIAL IV STA (13:16)
[2019-02-06] MEDS ORDERED: ALBUTEROL NEBULIZED 2.5 MG/3 ML INHALATION STA (13:16)
[2019-02-06] MEDS ORDERED: IPRATROPIUM 0.5 MG/2.5 ML NEBU INHALATION STA (13:16)
[2019-02-06] MEDS ORDERED: SODIUM CHLORIDE 0.9% 1,000 ML IV STA (13:16)
--- NOTE | 2019-02-06 13:35 | ED ---
SOB HPI - General Chief Complaint: Shortness of Breath Stated Complaint: DEON Time Seen by Provider: 02/06/19 13:16 Source: EMS, RN notes reviewed, old records reviewed Mode of arrival: EMS Limitations: no limitations - History of Present Illness Initial Comments: This is an 83-year-old male well-known to this emergency department. Patient coming in for evaluation of shortness of breath episodes of recurrent hypoglycemia at home. Patient is having persistent shortness of breath with cough and congestion since arriving home about a couple days ago from inpatient pneumonia hospitalization. Patient activity levels been diminished that is kind of been the course he has been on. Patient has some fullness of chest but no pain. Patient denies fevers. No recent other change in medications. Patient was also be on antibiotics currently but he is not taking them secondary to prescription filled. MD Complaint: shortness of breath, cough -: days(s) Radiation: other (No pain) Severity: severe (With coughing attack shortness of breath is severe) Severity scale (1-10): 7 Consistency: constant, intermittent Improves With: oxygen, rest Worsens With: exertion, medication Known History Of: COPD, asthma, congestive heart failure Context: recent URI Associated Symptoms: cough, sputum production Treatments Prior to Arrival: oxygen, bronchodilator - Related Data Home Medications Medication Instructions Recorded Confirmed Isosorbide Mononitrate ER [Imdur] 30 mg PO DAILY 07/03/14 02/06/19 Tamsulosin HCl [Flomax] 0.4 mg PO HS 07/03/14 02/06/19 Aspirin EC [Ecotrin Low Dose] 81 mg PO DAILY 05/22/17 02/06/19 Insulin Aspart [NovoLOG Flexpen] 24 units SQ AC-TID 05/22/17 02/06/19 Levothyroxine Sodium [Synthroid] 50 mcg PO DAILY 05/22/17 02/06/19 Insulin Degludec [Tresiba 60 unit SQ HS 09/04/17 02/06/19 Flextouch U-100] Metoprolol Tartrate [Lopressor] 25 mg PO HS 09/04/17 02/06/19 metFORMIN HCL [Glucophage Xr] 500 mg PO AC-SUPPER 09/04/17 02/06/19 Clopidogrel [Plavix] 75 mg PO HS 09/02/18 02/06/19 Olmesartan [Benicar] 10 mg PO DAILY 09/02/18 02/06/19 Albuterol Inhaler [Ventolin Hfa 2 puff INHALATION RT-Q6H PRN 02/03/19 02/06/19 Inhaler] Albuterol Nebulized (Conc) 2.5 mg INHALATION RT-QID PRN 02/03/19 02/06/19 [Ventolin Nebulized (Conc)] predniSONE 20 mg PO ONCE 02/06/19 02/06/19 Previous Rx's Medication Instructions Recorded Atorvastatin [Lipitor] 80 mg PO HS #30 tab 09/09/17 Ipratropium-Albuterol Nebulize 3 ml INHALATION RT-Q4H PRN #90 09/15/18 [Duoneb 0.5 mg-3 mg/3 ml Soln] ampul.neb Umeclidinium Brm/Vilanterol Tr 1 puff INHALATION RT-DAILY #30 09/15/18 [Anoro Ellipta 62.5-25 Mcg INH] blst.w.dev predniSONE 5 mg PO DAILY #30 tab 09/15/18 Azithromycin [Zithromax] 500 mg PO DAILY #3 tab 02/05/19 Allergies Allergy/AdvReac Type Severity Reaction Status Date / Time morphine AdvReac Hallucinati Verified 02/06/19 13:29 ons propoxyphene napsylate AdvReac Nausea & Verified 02/06/19 13:29 [From Darvocet-N 100] Vomiting & Diarrhea Review of Systems ROS Statement: Those systems with pertinent positive or pertinent negative responses have been documented in the HPI. ROS Other: All systems not noted in ROS Statement are negative. Past Medical History Past Medical History: Cancer, Heart Failure, COPD, Diabetes Mellitus, Hyperlipidemia, Osteoarthritis (OA), Prostate Disorder, Respiratory Disorder, Sleep Apnea/CPAP/BIPAP, Thyroid Disorder Additional Past Medical History / Comment(s): CA on Ear & lip; obstructive sleep apnea-uses CPAP every night, BPH, hypothyroidism History of Any Multi-Drug Resistant Organisms: None Reported Past Surgical History: Appendectomy, Bowel Resection, Heart Catheterization With Stent, Orthopedic Surgery, Tonsillectomy Additional Past Surgical History / Comment(s): bowel resections x 2-had adhesions that were blocking everything, cervical fusion in 1989, back injections, 2 past heart caths-had stent put in 2016, bilateral cataract removals, skin cancer removed from upper lip and R ear, colonoscopy. Past Anesthesia/Blood Transfusion Reactions: No Reported Reaction Date of Last Stent Placement:: 09/2017 Past Psychological History: No Psychological Hx Reported Smoking Status: Former smoker Past Alcohol Use History: None Reported Past Drug Use History: None Reported - Past Family History Father Additional Family Medical History / Comment(s): burst appendix Mother Family Medical History: Cancer Additional Family Medical History / Comment(s): breast cancer General Exam Limitations: no limitations General appearance: alert, anxious, in distress Head exam: Present: atraumatic, normocephalic, normal inspection Eye exam: Present: normal appearance, PERRL, EOMI. Absent: scleral icterus, conjunctival injection, periorbital swelling ENT exam: Present: normal exam, mucous membranes moist Neck exam: Present: normal inspection. Absent: tenderness, meningismus, lymphadenopathy Respiratory exam: Present: respiratory distress, wheezes, accessory muscle use, decreased breath sounds, prolonged expiratory. Absent: rales, rhonchi, stridor Cardiovascular Exam: Present: regular rate, normal rhythm, normal heart sounds. Absent: systolic murmur, diastolic murmur, rubs, gallop, clicks GI/Abdominal exam: Present: soft, normal bowel sounds. Absent: distended, tenderness, guarding, rebound, rigid Extremities exam: Present: normal inspection, full ROM, normal capillary refill. Absent: tenderness, pedal edema, joint swelling, calf tenderness Back exam: Present: normal inspection Neurological exam: Present: alert, oriented X3, CN II-XII intact Psychiatric exam: Present: normal affect, normal mood Skin exam: Present: warm, dry, intact, normal color. Absent: rash Course Vital Signs 02/06/19 02/06/19 02/06/19 13:15 13:23 14:04 Temperature 99.1 F Pulse Rate 83 79 95 Respiratory 20 24 Rate Blood Pressure 154/83 O2 Sat by Pulse 95 Oximetry 02/06/19 02/06/19 02/06/19 14:20 17:00 18:52 Temperature Pulse Rate 72 72 71 Respiratory 18 18 18 Rate Blood Pressure 153/68 169/83 O2 Sat by Pulse 100 97 Oximetry 02/06/19 02/06/19 19:09 19:11 Temperature Pulse Rate 77 74 Respiratory 18 18 Rate Blood Pressure 151/74 O2 Sat by Pulse 98 Oximetry - Reevaluation(s) Reevaluation #1: 02/06/19 14:54 Medical record including prior hospitalization is reviewed Reevaluation #2: 02/06/19 14:54 Patient is improved currently resting comfortably after significant breathing treatments Medical Decision Making - Medical Decision Making 83 male the ER for evaluation. Patient is just not feeling better. Patient does have significant history of breathing disorders. Patient be admitted for breathing treatments and monitoring of cardiopulmonary status - Lab Data Result diagrams: 02/06/19 13:26 02/06/19 13:26 Lab Results 02/06/19 02/06/19 02/06/19 Range/Units 13:26 13:26 13:26 WBC 13.8 H (3.8-10.6) k/uL RBC 4.41 (4.30-5.90) m/uL Hgb 13.6 (13.0-17.5) gm/dL Hct 42.8 (39.0-53.0) % MCV 97.0 (80.0-100.0) fL MCH 30.8 (25.0-35.0) pg MCHC 31.8 (31.0-37.0) g/dL RDW 15.0 (11.5-15.5) % Plt Count 211 (150-450) k/uL Neutrophils % 87 % Lymphocytes % 6 % Monocytes % 5 % Eosinophils % 1 % Basophils % 0 % Neutrophils # 11.9 H (1.3-7.7) k/uL Lymphocytes # 0.8 L (1.0-4.8) k/uL Monocytes # 0.7 (0-1.0) k/uL Eosinophils # 0.2 (0-0.7) k/uL Basophils # 0.0 (0-0.2) k/uL PT (9.0-12.0) sec INR (<1.2) APTT (22.0-30.0) sec Sodium 133 L (137-145) mmol/L Potassium 4.7 (3.5-5.1) mmol/L Chloride 101 (98-107) mmol/L Carbon Dioxide 25 (22-30) mmol/L Anion Gap 7 mmol/L BUN 21 H (9-20) mg/dL Creatinine 0.64 L (0.66-1.25) mg/dL Est GFR (CKD-EPI)AfAm >90 (>60 ml/min/1.73 sqM) Est GFR (CKD-EPI)NonAf 89 (>60 ml/min/1.73 sqM) Glucose 111 H (74-99) mg/dL POC Glucose (mg/dL) (75-99) mg/dL POC Glu L[employer] ID Calcium 8.8 (8.4-10.2) mg/dL Magnesium 2.1 (1.6-2.3) mg/dL Total Bilirubin 0.6 (0.2-1.3) mg/dL AST 71 H (17-59) U/L ALT 79 H (21-72) U/L Alkaline Phosphatase 71 (38-126) U/L Troponin I (0.000-0.034) ng/mL NT-Pro-B Natriuret Pep 1530 pg/mL Total Protein 5.7 L (6.3-8.2) g/dL Albumin 3.4 L (3.5-5.0) g/dL 02/06/19 02/06/19 02/06/19 Range/Units 13:26 13:26 16:57 WBC (3.8-10.6) k/uL RBC (4.30-5.90) m/uL Hgb (13.0-17.5) gm/dL Hct (39.0-53.0) % MCV (80.0-100.0) fL MCH (25.0-35.0) pg MCHC (31.0-37.0) g/dL RDW (11.5-15.5) % Plt Count (150-450) k/uL Neutrophils % % Lymphocytes % % Monocytes % % Eosinophils % % Basophils % % Neutrophils # (1.3-7.7) k/uL Lymphocytes # (1.0-4.8) k/uL Monocytes # (0-1.0) k/uL Eosinophils # (0-0.7) k/uL Basophils # (0-0.2) k/uL PT 10.4 (9.0-12.0) sec INR 1.0 (<1.2) APTT 23.3 (22.0-30.0) sec Sodium (137-145) mmol/L Potassium (3.5-5.1) mmol/L Chloride (98-107) mmol/L Carbon Dioxide (22-30) mmol/L Anion Gap mmol/L BUN (9-20) mg/dL Creatinine (0.66-1.25) mg/dL Est GFR (CKD-EPI)AfAm (>60 ml/min/1.73 sqM) Est GFR (CKD-EPI)NonAf (>60 ml/min/1.73 sqM) Glucose (74-99) mg/dL POC Glucose (mg/dL) 225 H (75-99) mg/dL POC Glu [employer] ID Dorene Mitchell Calcium (8.4-10.2) mg/dL Magnesium (1.6-2.3) mg/dL Total Bilirubin (0.2-1.3) mg/dL AST (17-59) U/L ALT (21-72) U/L Alkaline Phosphatase (38-126) U/L Troponin I 0.017 (0.000-0.034) ng/mL NT-Pro-B Natriuret Pep pg/mL Total Protein (6.3-8.2) g/dL Albumin (3.5-5.0) g/dL - EKG Data -: EKG Interpreted by Me (EKG shows sinus rhythm rate of 79, SD 104, QRS 142, QTc 470) - Radiology Data Radiology results: report reviewed (Chest x-ray shows increased pleural effusion sinus), image reviewed Disposition Clinical Impression: COPD with exacerbation, CAD (coronary artery disease), Weakness, Hypoglycemia Disposition: ADMITTED IP TO THIS [facility] Condition: Fair Is patient prescribed a controlled substance at d/c from ED?: No
[2019-02-06 13:49] LABS: ALT 79 U/L (21-72); AST 71 U/L (17-59); Albumin 3.4 g/dL (3.5-5.0); Alkaline Phosphatase 71 U/L (38-126); Anion Gap 7 mmol/L; Blood Urea Nitrogen 21 mg/dL (9-20); Calcium 8.8 mg/dL (8.4-10.2); Carbon Dioxide 25 mmol/L (22-30); Chloride 101 mmol/L (98-107); Glucose 111 mg/dL (74-99); Magnesium 2.1 mg/dL (1.6-2.3); Potassium 4.7 mmol/L (3.5-5.1); Sodium 133 mmol/L (137-145); Total Bilirubin 0.6 mg/dL (0.2-1.3); Total Protein 5.7 g/dL (6.3-8.2)
[2019-02-06 13:50] LABS: Basophils % (A) 0 %; Eosinophils # (A) 0.2 k/uL (0-0.7); Eosinophils % (A) 1 %; HCT 42.8 % (39.0-53.0); HGB 13.6 gm/dL (13.0-17.5); Lymphocytes # (A) 0.8 k/uL (1.0-4.8); Lymphocytes % (A) 6 %; MCH 30.8 pg (25.0-35.0); MCHC 31.8 g/dL (31.0-37.0); Mean Platelet Volume 6.4; Monocytes # (A) 0.7 k/uL (0-1.0); Monocytes % (A) 5 %; Neutrophils # (A) 11.9 k/uL (1.3-7.7); Neutrophils % (A) 87 %; Platelet Count 211 k/uL (150-450); RBC 4.41 m/uL (4.30-5.90); WBC 13.8 k/uL (3.8-10.6)
[2019-02-06 13:58] LABS: Partial Thromboplastin Time 23.3 sec (22.0-30.0); Prothrombin Time 10.4 sec (9.0-12.0)
--- NOTE | 2019-02-06 16:25 | XR ---
EXAMINATION TYPE: XR chest 2V DATE OF EXAM: 02/06/2019 COMPARISON: 02/03/2019 HISTORY: Difficulty breathing TECHNIQUE: Frontal and lateral views of the chest are obtained. FINDINGS: There is coarsening of the lung markings. Heart size is normal. There is slight blunting o f the costophrenic angles. There is spurring in the thoracic spine. There is right-sided aortic arch. IMPRESSION: Pulmonary fibrotic changes. Small pleural effusions. There is slight increased pleural f luid compared to last exam. There could be very minimal heart failure.
[2019-02-06 17:00] LABS: Glucose,Whole Blood 225 mg/dL (75-99)
[2019-02-06] MEDS ORDERED: IPRATROPIUM-ALBUTEROL 3 ML NEB INHALATION STA (18:03)
[2019-02-06] MEDS ORDERED: SODIUM CHLORIDE 0.9% 1,000 ML IV SCH (18:15)
[2019-02-06] MEDS: IPRATROPIUM-ALBUTEROL 3 ML NEB INHALATION SCH (19:46)
[2019-02-06 20:15] LABS: Glucose,Whole Blood 269 mg/dL (75-99)
--- NOTE | 2019-02-06 23:02 | P.HPIM ---
History of Present Illness H&P Date: 02/06/19 The patient is a 83-year-old male with a PMH of COPD, hypertension, diabetes mellitus, hypothyroid rhythm, and CHF who was recently admitted to the hospital and discharged yesterday for an acute COPD exacerbation. The patient notes that he was feeling well prior to discharge and was eager to get home. However, earlier this morning he felt uneasy after waking up and checked his blood sugar which was 67. He had breakfast after which he continued to feel uneasy and there are repeat blood sugar a few hours later which was then 74. At around the same time, he began to have mild shortness of breath and small amounts of yellow productive phlegm. He otherwise denied fever, chills, chest pain, nausea, vomiting, diaphoresis. He notes that his last A1c was 7.1 with his PCP though his sugars had recently been running on the lower side. He currently takes 50 units of Lantus at bedtime and 22 units of NovoLog 3 times a day with meals. Furthermore, the patient noted that he had not been able to get his steroid prescription filled as of yet. In the emergency room, the patient underwent a comprehensive workup, with WBC count 13.8, hemoglobin 13, platelets 211, chest x-ray showing fibrotic changes and small pleural effusions, BUN 21, creatinine 0.64, and glucose 111. The patient was subsequently admitted to the medicine service for continued COPD exacerbation and hypoglycemia. Review of Systems Pertinent positives and negatives as discussed in HPI, a complete review of systems was performed and all other systems are negative. Past Medical History Past Medical History: Cancer, Heart Failure, COPD, Diabetes Mellitus, Hyperlipidemia, Osteoarthritis (OA), Prostate Disorder, Respiratory Disorder, Sleep Apnea/CPAP/BIPAP, Thyroid Disorder Additional Past Medical History / Comment(s): CA on Ear & lip; obstructive sleep apnea-uses CPAP every night, BPH, hypothyroidism History of Any Multi-Drug Resistant Organisms: None Reported Past Surgical History: Appendectomy, Bowel Resection, Heart Catheterization With Stent, Orthopedic Surgery, Tonsillectomy Additional Past Surgical History / Comment(s): bowel resections x 2-had adhesions that were blocking everything, cervical fusion in 1989, back injections, 2 past heart caths-had stent put in 2016, bilateral cataract removals, skin cancer removed from upper lip and R ear, colonoscopy. Past Anesthesia/Blood Transfusion Reactions: No Reported Reaction Date of Last Stent Placement:: 09/2017 Smoking Status: Former smoker - Past Family History Father Additional Family Medical History / Comment(s): burst appendix Mother Family Medical History: Cancer Additional Family Medical History / Comment(s): breast cancer Medications and Allergies Home Medications Medication Instructions Recorded Confirmed Type Isosorbide Mononitrate ER [Imdur] 30 mg PO DAILY 07/03/14 02/06/19 History Tamsulosin HCl [Flomax] 0.4 mg PO HS 07/03/14 02/06/19 History Aspirin EC [Ecotrin Low Dose] 81 mg PO DAILY 05/22/17 02/06/19 History Insulin Aspart [NovoLOG Flexpen] 24 units SQ AC-TID 05/22/17 02/06/19 History Levothyroxine Sodium [Synthroid] 50 mcg PO DAILY 05/22/17 02/06/19 History Insulin Degludec [Tresiba 60 unit SQ HS 09/04/17 02/06/19 History Flextouch U-100] Metoprolol Tartrate [Lopressor] 25 mg PO HS 09/04/17 02/06/19 History metFORMIN HCL [Glucophage Xr] 500 mg PO AC-SUPPER 09/04/17 02/06/19 History Atorvastatin [Lipitor] 80 mg PO HS #30 tab 09/09/17 02/06/19 Rx Clopidogrel [Plavix] 75 mg PO HS 09/02/18 02/06/19 History Olmesartan [Benicar] 10 mg PO DAILY 09/02/18 02/06/19 History Ipratropium-Albuterol Nebulize 3 ml INHALATION RT-Q4H PRN #90 09/15/18 02/06/19 Rx [Duoneb 0.5 mg-3 mg/3 ml Soln] ampul.neb Umeclidinium Brm/Vilanterol Tr 1 puff INHALATION RT-DAILY #30 09/15/18 02/06/19 Rx [Anoro Ellipta 62.5-25 Mcg INH] blst.w.dev predniSONE 5 mg PO DAILY #30 tab 09/15/18 02/06/19 Rx Albuterol Inhaler [Ventolin Hfa 2 puff INHALATION RT-Q6H PRN 02/03/19 02/06/19 History Inhaler] Albuterol Nebulized (Conc) 2.5 mg INHALATION RT-QID PRN 02/03/19 02/06/19 History [Ventolin Nebulized (Conc)] Azithromycin [Zithromax] 500 mg PO DAILY #3 tab 02/05/19 02/06/19 Rx predniSONE 20 mg PO ONCE 02/06/19 02/06/19 History Allergies Allergy/AdvReac Type Severity Reaction Status Date / Time morphine AdvReac Hallucinati Verified 02/06/19 13:29 ons propoxyphene napsylate AdvReac Nausea & Verified 02/06/19 13:29 [[facility]] Vomiting & Diarrhea raw oyster AdvReac Diarrhea Uncoded 02/06/19 22:26 Physical Exam Vitals: Vital Signs Temp Pulse Pulse Resp BP BP Pulse Ox 02/06/19 21:29 98 F 89 18 167/75 92 L 02/06/19 19:11 74 18 151/74 98 02/06/19 19:09 77 18 02/06/19 18:52 71 18 02/06/19 17:00 72 18 169/83 97 02/06/19 14:20 72 18 153/68 100 02/06/19 14:04 95 02/06/19 13:23 79 24 02/06/19 13:15 99.1 F 83 20 154/83 95 Intake and Output 02/06/19 02/06/19 02/06/19 06:59 14:59 22:59 Other: Weight 121.563 kg General: non toxic, no distress, appears at stated age, obese Derm: no unusual rashes/lesions no unusual ecchymoses, warm, dry Head: atraumatic, normocephalic, symmetric Eyes: EOMI, no lid lag, anicteric sclera, pupils equal round reactive to light ENT: Nose and ears atraumatic, no thrush, no pharyngeal erythema Neck: No thyromegaly, no cervical lymphadenopathy, trachea midline, supple Mouth: no lip lesion, mucus membranes moist Cardiovascular: S1S2 reg, grade 4 systolic murmur appreciated, positive posterior tibial pulse bilateral, 1+ bilateral lower extremity pitting edema, capillary refill less than 2 seconds Lungs: Mild bilateral rhonchi, no rales , no wheezing appreciated, no accessory muscle use Abdominal: soft, nontender to palpation, no guarding, no appreciable organomegaly, normal bowel sounds Ext: no gross muscle atrophy, muscle strength 5 out of 5 in all 4 extremities grossly, no contractures, Neuro: CN II-XI grossly intact, light touch intact all 4 extremities, finger to nose within normal limits, Psych: Alert, oriented, appropriate affect Results CBC & Chem 7: 02/06/19 13:26 02/06/19 13:26 Labs: Abnormal Lab Results - Last 24 Hours (Table) 02/06/19 02/06/19 02/06/19 Range/Units 13:26 13:26 16:57 WBC 13.8 H (3.8-10.6) k/uL Neutrophils # 11.9 H (1.3-7.7) k/uL Lymphocytes # 0.8 L (1.0-4.8) k/uL Sodium 133 L (137-145) mmol/L BUN 21 H (9-20) mg/dL Creatinine 0.64 L (0.66-1.25) mg/dL Glucose 111 H (74-99) mg/dL POC Glucose (mg/dL) 225 H (75-99) mg/dL AST 71 H (17-59) U/L ALT 79 H (21-72) U/L Total Protein 5.7 L (6.3-8.2) g/dL Albumin 3.4 L (3.5-5.0) g/dL 02/06/19 Range/Units 20:14 WBC (3.8-10.6) k/uL Neutrophils # (1.3-7.7) k/uL Lymphocytes # (1.0-4.8) k/uL Sodium (137-145) mmol/L BUN (9-20) mg/dL Creatinine (0.66-1.25) mg/dL Glucose (74-99) mg/dL POC Glucose (mg/dL) 269 H (75-99) mg/dL AST (17-59) U/L ALT (21-72) U/L Total Protein (6.3-8.2) g/dL Albumin (3.5-5.0) g/dL Thrombosis Risk Factor Assmnt - Choose All That Apply Any of the Below Risk Factors Present?: Yes Each Factor Represents 1 point: Abnormal pulmonary function (COPD), Obesity (BMI >25), Sepsis (< 1month), Serious lung disease incl. pneumonia (< 1month) Other Risk Factors: Yes Each Risk Factor Represents 3 Points: Age 75 years or older Other congenital or acquired thrombophilia - If yes, enter type in comment: No Thrombosis Risk Factor Assessment Total Risk Factor Score: 7 Thrombosis Risk Factor Assessment Level: High Risk Assessment and Plan Plan: Symptomatic hypoglycemia -Will decrease insulin to 30 units daily at bedtime and 15 units 3 times a day before meals -The patient will need close follow-up with his PMD upon discharge and may then gradually increase the insulin levels Acute COPD exacerbation -We'll continue with burst steroid taper -Continue with prednisone 40 mg daily -DuoNeb's -Symbicort Leukocytosis -Likely reactive Hypertension -Resume home meds Hypothyroidism -Resume home meds DVT//GI prophylaxis -Heparin -Protonix The patient is admitted with an anticipated less than 2 midnight stay for evaluation of hypoglycemia CODE STATUS:Full Code Discussed with: Patient Anticipated discharge date: 02/07/[address]: Home A total of 45 minutes was spent on the care of this complex patient more than 50% of the time was spent in counseling and care coordination.
[2019-02-06] MEDS ORDERED: IPRATROPIUM-ALBUTEROL 3 ML NEB INHALATION PRN (23:43)
[2019-02-06] MEDS: INSULIN DETEMIR (LEVEMIR) 100 UNIT/ML SYR SQ SCH (23:51)
[2019-02-06] MEDS: INSULIN ASPART (NovoLOG) 100 UNIT/ML VIAL SQ SCH (23:52)
[2019-02-06] MEDS ORDERED: ATORVASTATIN 80 MG TAB PO STA (23:58)
[2019-02-06] MEDS ORDERED: CLOPIDOGREL 75 MG TAB PO STA (23:58)
[2019-02-06] MEDS ORDERED: TAMSULOSIN 0.4 MG CAP.ER.24H PO STA (23:59)
[2019-02-06] MEDS ORDERED: METOPROLOL TARTRATE 25 MG TAB PO STA (23:59)
[2019-02-07] MEDS ORDERED: methylPREDNISolone SOD SUCCI 125 MG/2 ML VIAL IV SCH
[2019-02-07 00:10] LABS: Glucose,Whole Blood 331 mg/dL (75-99)
[2019-02-07] MEDS: LEVOTHYROXINE 50 MCG TAB PO SCH (05:40)
[2019-02-07 06:53] LABS: Glucose,Whole Blood 79 mg/dL (75-99)
[2019-02-07] MEDS: IPRATROPIUM-ALBUTEROL 3 ML NEB INHALATION SCH ×4 (07:02→20:23)
[2019-02-07] MEDS: INSULIN ASPART (NovoLOG) 100 UNIT/ML VIAL SQ SCH ×3 (07:20→17:55)
[2019-02-07] MEDS: ASPIRIN 81 MG PO SCH (07:29)
[2019-02-07] MEDS: ENOXAPARIN 40 MG/0.4 ML SYRINGE SQ SCH (07:29)
[2019-02-07] MEDS ORDERED: INSULIN ASPART (NovoLOG) 100 UNIT/ML VIAL SQ SCH ×3 (07:30)
[2019-02-07] MEDS: ISOSORBIDE MONONITRATE ER 30 MG TAB.ER.24H PO SCH (07:30)
[2019-02-07] MEDS: predniSONE 20 MG TAB PO SCH (07:30)
[2019-02-07] MEDS: AZITHROMYCIN 500 MG TAB PO SCH (07:30)
[2019-02-07 08:03] LABS: HCT 41.6 % (39.0-53.0); HGB 13.3 gm/dL (13.0-17.5); MCH 30.6 pg (25.0-35.0); MCV 95.6 fL (80.0-100.0); Mean Platelet Volume 6.6; Platelet Count 240 k/uL (150-450); RBC 4.35 m/uL (4.30-5.90); RDW 14.9 % (11.5-15.5); WBC 11.3 k/uL (3.8-10.6)
[2019-02-07 08:42] LABS: Anion Gap 7 mmol/L; Blood Urea Nitrogen 19 mg/dL (9-20); Calcium 9.4 mg/dL (8.4-10.2); Carbon Dioxide 30 mmol/L (22-30); Chloride 101 mmol/L (98-107); Glucose 84 mg/dL (74-99); Potassium 4.3 mmol/L (3.5-5.1); Sodium 138 mmol/L (137-145)
--- NOTE | 2019-02-07 10:29 | P.PN ---
Subjective Progress Note Date: 02/07/19 Principal diagnosis: Patient seen in follow-up for acute COPD exacerbation Patient seen and examined, patient reported he was unable to refill his prednisone due to insurance denial. Yesterday he noticed that he was feeling some generalized weakness and feeling tired his blood sugar was running low for him in the range of 60s to 70s despite eating. Patient has been adjusting his insulin with the help of his PCP due to better control of his blood sugar recently despite taking prednisone. He's been requiring less and less insulin overall. His A1c 7.1. Yesterday suddenly he felt short of breath again with decreased exercise tolerance he continues to produce yellowish sputum picking consistency. Breathing treatments were not effective and he decided come back to the ospital. Today he is feeling better tolerating by mouth intake reports that his breathing better but he was concerned due to inability to refill his prednisone. oxygen saturation this morning dropped to the low 80s upon ambulation on room air. Patient denies any chest pain fevers or chills Patient reported specks of blood in his sputum I wasn't able to see it but nurse confirmed seeing the blood, she reported it was minimal and suspected it to be due to irritation of the throat from coughin Objective - Vital Signs Vital signs: Vital Signs Temp 97.5 F L 02/07/19 05:12 Pulse 84 02/07/19 07:15 Resp 18 02/07/19 05:12 BP 158/71 02/07/19 05:12 Pulse Ox 91 L 02/07/19 08:25 Intake & Output 02/06/19 02/07/19 02/07/19 18:59 06:59 18:59 Weight 121.563 kg Other: Voiding Method Toilet # Voids 2 - Exam Constitutional: vital signs stable, Not in acute distress, pleasant, conversant Lungs: Clear to auscultation bilaterally, clear to percussion, normal respiratory effort no use of accessory muscles Cardiovascular: Regular rate and rhythm, no murmurs, no gallops, no rubs, no peripheral edema Gastrointestinal: Soft, no tenderness to palpation, bowel sounds positive, Extremities: peripheral pulses palpable and equal over bilateral radial arteries and dorsalis pedis artery, no calf muscle tenderness Psych: Alert, oriented to place, person and time, appropriate affect, intact judgment - Labs CBC & Chem 7: 02/07/19 07:43 02/07/19 07:43 Labs: Abnormal Lab Results - Last 24 Hours (Table) 02/06/19 02/06/19 02/06/19 Range/Units 13:26 13:26 16:57 WBC 13.8 H (3.8-10.6) k/uL Neutrophils # 11.9 H (1.3-7.7) k/uL Lymphocytes # 0.8 L (1.0-4.8) k/uL Sodium 133 L (137-145) mmol/L BUN 21 H (9-20) mg/dL Creatinine 0.64 L (0.66-1.25) mg/dL Glucose 111 H (74-99) mg/dL POC Glucose (mg/dL) 225 H (75-99) mg/dL AST 71 H (17-59) U/L ALT 79 H (21-72) U/L Total Protein 5.7 L (6.3-8.2) g/dL Albumin 3.4 L (3.5-5.0) g/dL 02/06/19 02/06/19 02/07/19 Range/Units 20:14 23:48 07:43 WBC 11.3 H (3.8-10.6) k/uL Neutrophils # (1.3-7.7) k/uL Lymphocytes # (1.0-4.8) k/uL Sodium (137-145) mmol/L BUN (9-20) mg/dL Creatinine (0.66-1.25) mg/dL Glucose (74-99) mg/dL POC Glucose (mg/dL) 269 H 331 H (75-99) mg/dL AST (17-59) U/L ALT (21-72) U/L Total Protein (6.3-8.2) g/dL Albumin (3.5-5.0) g/dL Assessment and Plan Assessment: 83-year-old male with history of COPD and diabetes mellitus, patient does not use oxygen at home. He was recently admitted to the hospital for acute COPD exacerbation discharged and came back to the hospital after less than 48 hours due to low blood sugar and breathing difficulties. Patient was unable to refill his prescription for prednisone at his pharmacy due to insurance denial. This was verified and seems like he got a prescription for 5 mg prednisone daily for 90 days early in December and it seems like this would be the reason for insurance denial. Patient blood sugar has been running lower than usual over the past few months and his primary care doctor has been adjusting his insulin requirement down recently. Today upon reevaluation in the morning patient has dropped his oxygen saturation upon ambulation using room air down to the low 80s for which probably will continue to monitor the patient today while hospitalized we'll optimize his pulmonary function by adding expectorants and chest physiotherapy Plan: Acute hypoxic respiratory failure secondary to COPD exacerbation Acute COPD exacerbation Continue COPD pathway Add expectorants and chest physiotherapy today to optimize his pulmonary function Reevaluate ambulatory oxygen saturation tomorrow for home oxygen assessment By mouth prednisone upon discharge Diabetes mellitus with hypoglycemia on insulin Patient insulin requirement has been adjusted down A1c 7.1 I will discontinue preprandial insulin and continue with long-acting insulin at night Added insulin sliding scale for blood sugar correction DVT prophylaxis on Lovenox Patient labs reviewed and were unremarkable, leukocytosis resolved, no fevers Anticipated discharge tomorrow 02/08/2019 to home
[2019-02-07 11:09] LABS: Glucose,Whole Blood 54 mg/dL (75-99)
[2019-02-07 11:25] LABS: Glucose,Whole Blood 96 mg/dL (75-99)
[2019-02-07] MEDS: guaiFENesin 600 MG TABLET.ER PO SCH ×2 (12:25→21:33)
[2019-02-07 17:03] LABS: Glucose,Whole Blood 194 mg/dL (75-99)
--- NOTE | 2019-02-07 19:34 | P.CNPUL ---
History of Present Illness Consult date: 02/07/19 Requesting physician: Gisel Wang Reason for consult: dyspnea, cough, other Chief complaint: Worsening dyspnea, recurrent hypoglycemia, chest congestion History of present illness: 83-year-old white male patient of Dr. Deleon who is recently hospitalized or acute exacerbation of chronic obstructive pulmonary disease, with tracheobronchitis, chest x-ray were negative for pneumonia. Patient is clinically improving, and when she was discharged home on 02/05/2019. He was supposed to see Dr. Hayward in follow-up in the pulmonary clinic, however on 02/06/2019 was brought to the hospital by an ambulance, after experiencing acute episode of respiratory distress, dyspnea, cough and congestion at home. Patient feels like he is still having some chest congestion, he is not able to bring up much sputum. Chest x-ray showed pulmonary fibrotic changes, small pleural effusions, slight increase in pleural fluid compared to his last chest x-ray from 02/03/2019. Patient was also experiencing hypoglycemic episodes at home. Denied any fever or chills, denied any nausea, vomiting or diaphoresis. Patient after discharge did not fill his prescriptions including the prednisone taper. His blood work showed a white blood cell count of 13.8, hemoglobin of 13.6, correlation profile was within normal limits, sodium is 133, potassium is 4.7, chloride is 101, CO2 is 25, B1 is 21 and creatinine is 0.64. ProBNP was 1530, troponin was 0.017. AST was 71, ALT was 79, alkaline phosphatase was 71. On today's exam patient is seen in surgical floor, he is awake and alert, he is ambulating in the room, no acute distress, still feels somewhat congested, is able to bring up some small amounts of yellow colored sputum at times, and room air pulse ox is 95%, vital signs are stable, no complaints of chest pain. He was given a dose of IV Solu-Medrol in the emergency department, and he is currently on oral prednisone, lung sounds reveal some scattered rhonchi, and a few scattered wheezes. Pneumatic coverage in the form of Zithromax, patient was started on mucolytic's in the form of Mucinex Review of Systems All systems: negative Constitutional: Denies chills, Denies fever Eyes: denies blurred vision, denies pain Ears, nose, mouth and throat: Denies headache, Denies sore throat Cardiovascular: Denies chest pain, Denies shortness of breath Respiratory: Reports congestion, Reports dyspnea, Reports respiratory infections, Reports wheezing, Denies cough Gastrointestinal: Denies abdominal pain, Denies diarrhea, Denies nausea, Denies vomiting Musculoskeletal: Denies myalgias Integumentary: Denies pruritus, Denies rash Neurological: Denies numbness, Denies weakness Psychiatric: Denies anxiety, Denies depression Endocrine: Denies fatigue, Denies weight change Past Medical History Past Medical History: Cancer, Heart Failure, COPD, Diabetes Mellitus, Hyperlipidemia, Osteoarthritis (OA), Prostate Disorder, Respiratory Disorder, Sleep Apnea/CPAP/BIPAP, Thyroid Disorder Additional Past Medical History / Comment(s): 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 History of Any Multi-Drug Resistant Organisms: None Reported Past Surgical History: Appendectomy, Bowel Resection, Heart Catheterization With Stent, Orthopedic Surgery, Tonsillectomy Additional Past Surgical History / Comment(s): Bowel resections x 2 - had adhesions that were blocking everything, cervical fusion in 1989, back injections, 2 past heart caths - stent 2016, bilateral cataract removals, 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 Past Anesthesia/Blood Transfusion Reactions: No Reported Reaction Date of Last Stent Placement:: 09/2017 Past Psychological History: No Psychological Hx Reported Additional Psychological History / Comment(s): Pt resides with his spouse of over 60 years, Seble Michelle. He currently uses no assistive devices. He drives. He has a CPAP and glucometer and a nebulizer. Smoking Status: Former smoker Past Alcohol Use History: None Reported Additional Past Alcohol Use History / Comment(s): QUIT SMOKING 1989 ; smoked from age 17 to 65 yrs old 2 ppd Past Drug Use History: None Reported - Past Family History Father Additional Family Medical History / Comment(s): burst appendix Mother Family Medical History: Cancer Additional Family Medical History / Comment(s): breast cancer Medications and Allergies Home Medications Medication Instructions Recorded Confirmed Type Isosorbide Mononitrate ER [Imdur] 30 mg PO DAILY 07/03/14 02/06/19 History Tamsulosin HCl [Flomax] 0.4 mg PO HS 07/03/14 02/06/19 History Aspirin EC [Ecotrin Low Dose] 81 mg PO DAILY 05/22/17 02/06/19 History Insulin Aspart [NovoLOG Flexpen] 24 units SQ AC-TID 05/22/17 02/06/19 History Levothyroxine Sodium [Synthroid] 50 mcg PO DAILY 05/22/17 02/06/19 History Insulin Degludec [Tresiba 60 unit SQ HS 09/04/17 02/06/19 History Flextouch U-100] Metoprolol Tartrate [Lopressor] 25 mg PO HS 09/04/17 02/06/19 History metFORMIN HCL [Glucophage Xr] 500 mg PO AC-SUPPER 09/04/17 02/06/19 History Atorvastatin [Lipitor] 80 mg PO HS #30 tab 09/09/17 02/06/19 Rx Clopidogrel [Plavix] 75 mg PO HS 09/02/18 02/06/19 History Olmesartan [Benicar] 10 mg PO DAILY 09/02/18 02/06/19 History Ipratropium-Albuterol Nebulize 3 ml INHALATION RT-Q4H PRN #90 09/15/18 02/06/19 Rx [Duoneb 0.5 mg-3 mg/3 ml Soln] ampul.neb Umeclidinium Brm/Vilanterol Tr 1 puff INHALATION RT-DAILY #30 09/15/18 02/06/19 Rx [Anoro Ellipta 62.5-25 Mcg INH] blst.w.dev predniSONE 5 mg PO DAILY #30 tab 09/15/18 02/06/19 Rx Albuterol Inhaler [Ventolin Hfa 2 puff INHALATION RT-Q6H PRN 02/03/19 02/06/19 History Inhaler] Albuterol Nebulized (Conc) 2.5 mg INHALATION RT-QID PRN 02/03/19 02/06/19 History [Ventolin Nebulized (Conc)] Azithromycin [Zithromax] 500 mg PO DAILY #3 tab 02/05/19 02/06/19 Rx predniSONE 20 mg PO ONCE 02/06/19 02/06/19 History Allergies Allergy/AdvReac Type Severity Reaction Status Date / Time morphine AdvReac Hallucinati Verified 02/06/19 13:29 ons propoxyphene napsylate AdvReac Nausea & Verified 02/06/19 13:29 [From Darvocet-N 100] Vomiting & Diarrhea raw oyster AdvReac Diarrhea Uncoded 02/06/19 22:26 Physical Exam Vitals: Vital Signs Temp Pulse Pulse Resp BP Pulse Ox Pulse Ox 02/07/19 16:44 88 02/07/19 16:30 86 02/07/19 11:59 98 F 74 20 136/67 95 02/07/19 11:42 86 02/07/19 11:20 86 02/07/19 08:25 91 L 02/07/19 08:20 02/07/19 08:14 91 L 02/07/19 07:15 84 02/07/19 07:02 90 02/07/19 05:12 97.5 F L 69 18 158/71 94 L 02/07/19 00:41 91 22 103/77 92 L 02/07/19 00:00 89 02/06/19 23:49 87 02/06/19 21:29 98 F 89 18 167/75 92 L Pulse Ox 02/07/19 16:44 02/07/19 16:30 02/07/19 11:59 02/07/19 11:42 02/07/19 11:20 02/07/19 08:25 02/07/19 08:20 88 L 02/07/19 08:14 02/07/19 07:15 02/07/19 07:02 02/07/19 05:12 02/07/19 00:41 02/07/19 00:00 02/06/19 23:49 02/06/19 21:29 Intake and Output 02/07/19 02/07/19 02/07/19 06:59 14:59 22:59 Other: # Voids 2 2 GENERAL EXAM: Alert, pleasant, 83-year-old obese white male comfortable in no apparent distress. HEAD: Normocephalic/atraumatic. EYES: Normal reaction of pupils, equal size. Conjunctiva pink, sclera white. NOSE: Clear with pink turbinates. THROAT: No erythema or exudates. NECK: No masses, no JVD, no thyroid enlargement, no adenopathy. CHEST: No chest wall deformity. Symmetrical expansion. LUNGS: Equal air entry with scattered rhonchi and wheezes CVS: Regular rate and rhythm, normal S1 and S2, no gallops, no murmurs, no rubs ABDOMEN: Soft, nontender. No hepatosplenomegaly, normal bowel sounds, no guarding or rigidity. EXTREMITIES: No clubbing, no edema, no cyanosis, 2+ pulses and upper and lower extremities. MUSCULOSKELETAL: Muscle strength and tone normal. SPINE: No scoliosis or deformity SKIN: No rashes CENTRAL NERVOUS SYSTEM: Alert and oriented -3. No focal deficits, tone is normal in all 4 extremities. PSYCHIATRIC: Alert and oriented -3. Appropriate affect. Intact judgment and insight. Results - Laboratory Findings CBC and BMP: 02/07/19 07:43 02/07/19 07:43 PT/INR, D-dimer PT 10.4 sec (9.0-12.0) 02/06/19 13:26 INR 1.0 (<1.2) 02/06/19 13:26 Abnormal lab findings: Abnormal Labs 02/06/19 02/06/19 02/06/19 13:26 13:26 16:57 WBC 13.8 H Neutrophils # 11.9 H Lymphocytes # 0.8 L Sodium 133 L BUN 21 H Creatinine 0.64 L Glucose 111 H POC Glucose (mg/dL) 225 H AST 71 H ALT 79 H Total Protein 5.7 L Albumin 3.4 L 02/06/19 02/06/19 02/07/19 20:14 23:48 07:43 WBC 11.3 H Neutrophils # Lymphocytes # Sodium BUN Creatinine Glucose POC Glucose (mg/dL) 269 H 331 H AST ALT Total Protein Albumin 02/07/19 02/07/19 11:07 17:01 WBC Neutrophils # Lymphocytes # Sodium BUN Creatinine Glucose POC Glucose (mg/dL) 54 L 194 H AST ALT Total Protein Albumin - Diagnostic Findings Chest x-ray: report reviewed, image reviewed Additional studies: EKG reviewed Assessment and Plan Plan: Assessment: #1. Acute dyspnea, related to what sounds to be mucous plugging, and mild exacerbation of COPD #2. Recent hospitalization for acute COPD exacerbation, following the discharge patient did not fill his prescriptions before going home #3. Episodes of hypoglycemia #4. Diabetes mellitus #5. Benign prostatic hypertrophy #6. Hypothyroidism #7. Chronic congestive heart failure #8. Hyperipidemia #9. Sleep apnea syndrome on home CPAP #10. Obesity #11. Former smoker Plan: Agree with oral prednisone, nebulized bronchodilators, mucolytic's in the form of Mucinex, encourage ambulation, deep breathing and coughing, since insulin coverage has been adjusted, no recurrent episodes of hypoglycemia. Continue with oral antibiotic coverage, GI and DVT prophylaxis, patient can bring his CPAP unit from home. Will continue to follow, I performed a history & physical examination of the patient and discussed their management with my nurse practitioner, Richa Weiss. I reviewed the nurse practitioner's note and agree with the documented findings and plan of care. Lung sounds are positive for rhonchi, and some limited wheezes. The findings and the impression was discussed with the patient. I attest to the documentat ion by the nurse practitioner. Time with Patient: Greater than 30
[2019-02-07 20:22] LABS: Glucose,Whole Blood 202 mg/dL (75-99)
[2019-02-07] MEDS ORDERED: METOPROLOL TARTRATE 25 MG TAB PO SCH (21:00)
[2019-02-07] MEDS ORDERED: ATORVASTATIN 80 MG TAB PO SCH (21:00)
[2019-02-07] MEDS ORDERED: CLOPIDOGREL 75 MG TAB PO SCH (21:00)
[2019-02-07] MEDS ORDERED: TAMSULOSIN 0.4 MG CAP.ER.24H PO SCH (21:00)
[2019-02-07] MEDS: INSULIN DETEMIR (LEVEMIR) 100 UNIT/ML SYR SQ SCH (21:34)
[2019-02-08 01:56] LABS: Glucose,Whole Blood 54 mg/dL (75-99)
[2019-02-08 02:27] LABS: Glucose,Whole Blood 67 mg/dL (75-99)
[2019-02-08 02:42] LABS: Glucose,Whole Blood 76 mg/dL (75-99)
[2019-02-08 02:46] LABS: Glucose,Whole Blood 74 mg/dL (75-99)
[2019-02-08 03:08] LABS: Glucose,Whole Blood 93 mg/dL (75-99)
[2019-02-08 03:37] LABS: Glucose,Whole Blood 87 mg/dL (75-99)
[2019-02-08] MEDS ORDERED: DEXTROSE 50%-WATER 50 ML SYRINGE IVP STA (03:42)
[2019-02-08 04:25] VITALS: BP 146/63; TEMP 97.9
[2019-02-08 04:42] LABS: Glucose,Whole Blood 170 mg/dL (75-99)
[2019-02-08 05:54] LABS: Glucose,Whole Blood 118 mg/dL (75-99)
[2019-02-08] MEDS: LEVOTHYROXINE 50 MCG TAB PO SCH (05:57)
[2019-02-08 06:52] LABS: Glucose,Whole Blood 92 mg/dL (75-99)
[2019-02-08] MEDS: INSULIN ASPART (NovoLOG) 100 UNIT/ML VIAL SQ SCH ×2 (07:21→12:49)
[2019-02-08] MEDS: IPRATROPIUM-ALBUTEROL 3 ML NEB INHALATION SCH ×2 (08:08→11:17)
[2019-02-08] MEDS: ISOSORBIDE MONONITRATE ER 30 MG TAB.ER.24H PO SCH (08:32)
[2019-02-08] MEDS: guaiFENesin 600 MG TABLET.ER PO SCH (08:32)
[2019-02-08] MEDS: ASPIRIN 81 MG PO SCH (08:32)
[2019-02-08] MEDS: predniSONE 20 MG TAB PO SCH (08:32)
[2019-02-08] MEDS: AZITHROMYCIN 500 MG TAB PO SCH (08:32)
[2019-02-08] MEDS: ENOXAPARIN 40 MG/0.4 ML SYRINGE SQ SCH (08:32)
--- NOTE | 2019-02-08 10:38 | P.DS ---
Providers Date of admission: 02/06/19 18:03 Expected date of discharge: 02/08/19 Attending physician: Jair Sweeney MD Consults: 02/06/19 18:03 Consult Physician Routine Consulting Provider: Steve Hayward Consult Reason/Comments: known Do you want consulting provider notified?: Yes Primary care physician: [facility] Course: Final diagnosis at discharge Symptomatic hypoglycemia on insulin therapy acute hypoxic respiratory failure, secondary to mucus plug with recent acute COPD exacerbation Secondary diagnosis COPD Hypertension Hypothyroidism DM Obesity Hospital course 83-year-old male with history of COPD and diabetes mellitus, patient does not use oxygen at home. He was recently admitted to the hospital for acute COPD exacerbation discharged and came back to the hospital after less than 48 hours due to low blood sugar and breathing difficulties. Patient was unable to refill his prescription for prednisone at his pharmacy due to insurance denial. This was verified and seems like he got a prescription for 5 mg prednisone daily for 90 days early in December and it seems like this would be the reason for insurance denial. Patient blood sugar has been running lower than usual over the past few months and his primary care doctor has been adjusting his insulin requirement down recently. upon reevaluation the next day, patient has dropped his oxygen saturation upon ambulation using room air down to the low 80s for which it wsa thought to be secondary to mucus plug, as patient lungs sounded clear, patient was monitored another day and started on chest physiotherpay and mucinex to clear mucus from his recent acute bronchitis attack. the next morning , I did walk with the patient to test his ambulatory oxygen saturation after optimize his pulmonary function by adding expectorants and chest physiotherapy, and he seemed to be doing way better as his oxygen sat was initially 96% on room air , and remained above 90% while walking. Patient blood sugar was monitored and continued to have low readings throughout the day , despite good apetite, and getting steroids for his COPD. I eventually maintained the patient on short acting insulin on sliding scale basis only, along with dropping his long acting insulin to 30, then recommending to take only 20 units at home. however his morning blood sugar on day of discharge was 92 mg/dl Educated regarding how to use his incentive spirometry, and chest physiotherapy at home. Discussed his existing prednisone pills at home and how to take the recommended dose for 3 days and then to reverse back to his chronic home dose of 5 mg. Patient lung sounds clear no wheezing no rhonchi no rales Heart sounded regular with normal S1 and S2 No leg edema bilaterally Patient was able to ambulate without any assistance Patient verbalized understanding of above instructions and he was discharged in stable condition. Patient was off any supplemental oxygen. Patient discharged home to follow up with his PCP. 35 minutes were spent discharging this patient, and more than 50% of the time was spent in counseling the patient and family and in coordinating care. Patient Condition at Discharge: Fair Plan - Discharge Summary Discharge Rx Participant: No New Discharge Prescriptions: New guaiFENesin [Mucinex] 1,200 mg PO Q12HR 5 Days #20 tablet.er INSULIN ASPART (NovoLOG) [NovoLOG (formulary)] 0 unit SQ AC-TID vial Continue Tamsulosin HCl [Flomax] 0.4 mg PO HS Isosorbide Mononitrate ER [Imdur] 30 mg PO DAILY Aspirin EC [Ecotrin Low Dose] 81 mg PO DAILY Levothyroxine Sodium [Synthroid] 50 mcg PO DAILY Metoprolol Tartrate [Lopressor] 25 mg PO HS Atorvastatin [Lipitor] 80 mg PO HS #30 tab Olmesartan [Benicar] 10 mg PO DAILY Clopidogrel [Plavix] 75 mg PO HS Ipratropium-Albuterol Nebulize [Duoneb 0.5 mg-3 mg/3 ml Soln] 3 ml INHALATION RT-Q4H PRN #90 ampul.neb PRN Reason: Shortness Of Breath Or Wheezing Umeclidinium Brm/Vilanterol Tr [Anoro Ellipta 62.5-25 Mcg INH] 1 puff INHALATION RT-DAILY #30 blst.w.dev Albuterol Inhaler [Ventolin Hfa Inhaler] 2 puff INHALATION RT-Q6H PRN PRN Reason: Shortness Of Breath Albuterol Nebulized (Conc) [Ventolin Nebulized (Conc)] 2.5 mg INHALATION RT- QID PRN PRN Reason: Shortness Of Breath Or Wheezing predniSONE 5 mg PO DAILY #30 tab Changed predniSONE 40 mg PO DAILY 3 Days Insulin Degludec [Tresiba Flextouch U-100] 20 unit SQ HS #0 Discontinued Insulin Aspart [NovoLOG Flexpen] 24 units SQ AC-TID metFORMIN HCL [Glucophage Xr] 500 mg PO AC-SUPPER Azithromycin [Zithromax] 500 mg PO DAILY #3 tab Discharge Medication List Isosorbide Mononitrate ER [Imdur] 30 mg PO DAILY 07/03/14 [History] Tamsulosin HCl [Flomax] 0.4 mg PO HS 07/03/14 [History] Aspirin EC [Ecotrin Low Dose] 81 mg PO DAILY 05/22/17 [History] Levothyroxine Sodium [Synthroid] 50 mcg PO DAILY 05/22/17 [History] Metoprolol Tartrate [Lopressor] 25 mg PO HS 09/04/17 [History] Atorvastatin [Lipitor] 80 mg PO HS #30 tab 09/09/17 [Rx] Clopidogrel [Plavix] 75 mg PO HS 09/02/18 [History] Olmesartan [Benicar] 10 mg PO DAILY 09/02/18 [History] Ipratropium-Albuterol Nebulize [Duoneb 0.5 mg-3 mg/3 ml Soln] 3 ml INHALATION RT-Q4H PRN #90 ampul.neb 09/15/18 [Rx] Umeclidinium Brm/Vilanterol Tr [Anoro Ellipta 62.5-25 Mcg INH] 1 puff INHALATION RT-DAILY #30 blst.w.dev 09/15/18 [Rx] Albuterol Inhaler [Ventolin Hfa Inhaler] 2 puff INHALATION RT-Q6H PRN 02/03/19 [History] Albuterol Nebulized (Conc) [Ventolin Nebulized (Conc)] 2.5 mg INHALATION RT-QID PRN 02/03/19 [History] INSULIN ASPART (NovoLOG) [NovoLOG (formulary)] 0 unit SQ AC-TID vial 02/08/19 [Rx] Insulin Degludec [Tresiba Flextouch U-100] 20 unit SQ HS #0 02/08/19 [Rx] guaiFENesin [Mucinex] 1,200 mg PO Q12HR 5 Days #20 tablet.er 02/08/19 [Rx] predniSONE 5 mg PO DAILY #30 tab 02/08/19 [Rx] predniSONE 40 mg PO DAILY 3 Days 02/08/19 [Rx] Follow up Appointment(s)/Referral(s): Manuel Deleon MD [Primary Care Provider] - 02/14/19 11:45 am Patient Instructions/Handouts: COPD (Chronic Obstructive Pulmonary Disease) (DC), Hypoxia (ED), Hypoglycemia in a Person with Diabetes (GEN), How to Use an Incentive Spirometer (GEN) Activity/Diet/Wound Care/Special Instructions: for Diabeted mellitus, continue with long acting insulin at night time at 20 uni ts, if your morning fasting blood sugar continues to be low , call your PCP to consider lowering the dose only take short acting insulin before meals on a sliding scale that you have at home. If your blood sugar readings are consistently above 200 , call your PCP to make adjustments to your insulin regimen If your blood sugar reading is low or you have symptoms of low blood sugar, consider drinking or eating sweat foods like orange juice or candy, or even straight plain sugar , and notify your PCP if this is happening frequently for your COPD, continue with chest physiotherapy when possible by a family member, continue to use the IS 5-10 times every hour when awake take prednison 40 mg ( that is 8 tabs of the 5 mg tabs) for 3 more days starting tomorrow Thursday02/09/2019. Then switch back to 5 mg daily on Thursday02/12/2019 which is your baseline dose as prescribed by your PCP Discharge Disposition: HOME SELF-CARE
[2019-02-08 11:21] LABS: Glucose,Whole Blood 179 mg/dL (75-99)
[2019-02-08 11:49] VITALS: PULSE 74; RESP 18
--- NOTE | 2019-02-08 13:26 | CDI ---
Documentation Clarification Form Date: 02/08/2019 12:52:00 PM From: Marley Mathur RN, CCDS Admit Date: 02/06/2019 6:03:00 PM Patient Name: Jorge Escobar Visit Number: [id number] Discharge Date: ATTENTION: The Clinical Documentation Specialists (CDI) and [facility] Coding Staff appreciate your assistance in clarifying documentation. Please respond to the clarification below the line at the bottom and electronically sign. The CDI & [facility] Coding staff will review the response and follow-up if needed. Please note: Queries are made part of the Legal Health Record. If you have any questions, please contact the author of this message via ITS. Dr. Sb De Leon Chronic congestive heart failure is documented in your consult on 02/07/19. History/Risk Factor: COPD, Diabetes mellitus, Clinical Indicators: Present with worsening dyspnea, and had recurrent hypoglycemia, chest congestion VS/Pulse OX: 154/83 83 20 99.1 95 % RA BNP: 1530 Echocardiogram Results: (02/03/19 on progress note) EF 55-60 % Chest X Ray: pulmonary fibrotic changes, small pleural effusion Treatment: Lopressor PO In your professional opinion, can you please clarify the acuity and type of Chronic CHF if known? Chronic Diastolic heart failure Unable to Determine Other, please specify (Last Revision: February 2018) Chronic Diastolic heart failure MTDD
--- NOTE | 2019-02-08 13:32 | P.PN ---
Subjective Progress Note Date: 02/08/19 Principal diagnosis: Recurrent hypoglycemia, shortness of breath, chest congestion 83-year-old white male patient of Dr. Deleon who is recently hospitalized or acute exacerbation of chronic obstructive pulmonary disease, with tracheobronchitis, chest x-ray were negative for pneumonia. Patient is clinically improving, and when she was discharged home on 02/05/2019. He was almanzar pposed to see Dr. Hayward in follow-up in the pulmonary clinic, however on 02/06/2019 was brought to the hospital by an ambulance, after experiencing acute episode of respiratory distress, dyspnea, cough and congestion at home. Patient feels like he is still having some chest congestion, he is not able to bring up much sputum. Chest x-ray showed pulmonary fibrotic changes, small pleural effusions, slight increase in pleural fluid compared to his last chest x-ray from 02/03/2019. Patient was also experiencing hypoglycemic episodes at home. Denied any fever or chills, denied any nausea, vomiting or diaphoresis. Patient after discharge did not fill his prescriptions including the prednisone taper. His blood work showed a white blood cell count of 13.8, hemoglobin of 13.6, correlation profile was within normal limits, sodium is 133, potassium is 4.7, chloride is 101, CO2 is 25, B1 is 21 and creatinine is 0.64. ProBNP was 1530, troponin was 0.017. AST was 71, ALT was 79, alkaline phosphatase was 71. On today's exam patient is seen in surgical floor, he is awake and alert, he is amb ulating in the room, no acute distress, still feels somewhat congested, is able to bring up some small amounts of yellow colored sputum at times, and room air pulse ox is 95%, vital signs are stable, no complaints of chest pain. He was given a dose of IV Solu-Medrol in the emergency department, and he is currently on oral prednisone, lung sounds reveal some scattered rhonchi, and a few scattered wheezes. Pneumatic coverage in the form of Zithromax, patient was started on mucolytic's in the form of Mucinex The patient is seen today 02/08/2019 in follow-up on the regular medical floor. He is currently awake and alert in no acute distress. Sitting up at the bedside. He denies any worsening shortness of breath, cough or congestion. His breathing is back to his normal. He did have issues with hypoglycemia last evening. His insulin doses are being adjusted. Current glucose 179. Continue O2 saturations in the 90s on 2 L/m per nasal cannula. Remains on bronchodilators, prednisone, azithromycin. Objective - Vital Signs Vital signs: Vital Signs Temp 97.9 F 02/08/19 04:24 Pulse 74 02/08/19 11:30 Resp 18 02/08/19 11:30 BP 146/63 02/08/19 04:24 Pulse Ox 91 L 02/08/19 09:12 Intake & Output 02/07/19 02/08/19 02/08/19 18:59 06:59 18:59 Intake Total 2280 Balance 2280 Weight 114.6 kg Intake: Oral 2280 Other: Voiding Method Toilet # Voids 2 1 - Exam GENERAL EXAM: Alert, active, comfortable in no apparent distress. On room air. HEAD: Normocephalic. EYES: Normal reaction of pupils, equal size. NOSE: Clear with pink turbinates. THROAT: No erythema or exudates. NECK: No masses, no JVD. CHEST: No chest wall deformity. LUNGS: Equal air entry with no crackles, wheeze, rhonchi or dullness. Managed. CVS: S1 and S2 normal with no audible murmur, regular rhythm. ABDOMEN: No hepatosplenomegaly, normal bowel sounds, no guarding or rigidity. SPINE: No scoliosis or deformity SKIN: No rashes CENTRAL NERVOUS SYSTEM: No focal deficits, tone is normal in all 4 extremities. EXTREMITIES: There is no peripheral edema. No clubbing, no cyanosis. Peripheral pulses are intact. - Labs CBC & Chem 7: 02/07/19 07:43 02/07/19 07:43 Labs: Abnormal Lab Results - Last 24 Hours (Table) 02/07/19 02/07/19 02/08/19 Range/Units 17:01 20:03 01:53 POC Glucose (mg/dL) 194 H 202 H 54 L (75-99) mg/dL 02/08/19 02/08/19 02/08/19 Range/Units 02:12 02:44 04:41 POC Glucose (mg/dL) 67 L 74 L 170 H (75-99) mg/dL 02/08/19 02/08/19 Range/Units 05:52 11:20 POC Glucose (mg/dL) 118 H 179 H (75-99) mg/dL Assessment and Plan Assessment: Assessment: #1. Acute dyspnea, related to what sounds to be mucous plugging, and mild exacerbation of COPD #2. Recent hospitalization for acute COPD exacerbation, following the discharge patient did not fill his prescriptions before going home #3. Episodes of hypoglycemia #4. Diabetes mellitus #5. Benign prostatic hypertrophy #6. Hypothyroidism #7. Chronic congestive heart failure #8. Hyperipidemia #9. Sleep apnea syndrome on home CPAP #10. Obesity #11. Former smoker Plan: The patient was seen and evaluated by Dr. De Leon. He is stable from the pulmonary standpoint. Complete prednisone taper. Complete his course of antibiotics. Continue his home pulmonary medications. He is cleared for discharge. He'll have close follow-up in our office in 1 week. He is encouraged to call sooner with any recurrence of symptoms or other questions or concerns. He needs to follow closely with his PCP regarding his insulin adjustments. I, the cosigning physician, performed a history & physical examination of the patient. Lungs sounds are clear, diminished. Maintaining good O2 saturations in the 90s on room air. I discussed the assessment and plan of care with my nurse practitioner, Antoinette Denny. I attest to the above note as dictated by her.
--- NOTE | 2019-02-16 13:54 | CDI ---
Documentation Clarification Form Date: 02/16/2019 From: Mary Garry Stella Rojas, Senior Automation Engineer Hours-8:30 am & 5 pm M-F Admit Date: 02/06/2019 6:03:00 PM Patient Name: Jorge Escobar Visit Number: [id number] Discharge Date: 02/08/2019 2:20:00 PM ATTENTION: The Clinical Documentation Specialists (CDI) and [facility] Coding Staff appreciate your assistance in clarifying documentation. Please respond to the clarification below the line at the bottom and electronically sign. The CDI & [facility] Coding staff will review the response and follow-up if needed. Please note: Queries are made part of the Legal Health Record. If you have any questions, please contact the author of this message via ITS. Dr. Sb De Leon Conflicting documentation has been found in the medical record: Query response for CHF is conflicting. Response on query by Dr De Leon is chronic diastolic heart failure. Query response by Fredo Denny on 02/08 PN is acute exacerbation of chronic diastolic CHF. History/Risk Factors: COPD, DM Clinical Indicators: Present with worsening dyspnea, and had recurrent hypoglycemia, chest congestion Treatment: Lopressor PO In your opinion, what is the most clinically appropriate diagnosis for this patient? Chronic diastolic CHF Acute on chronic diastolic CHF Other explanation of clinical findings Unable to determine (no explanation for clinical findings) MTDD
== END 2019-02-08 14:20 | disposition home or self-care (01) | DRG 637 ==
LOC: EC 13:09 → 3NMEDONC 18:03
PROVIDERS: ADMIT Family Medicine; ATTEND Family Medicine
PROC: 5A09357 Assistance with Respiratory Ventilation, Less than 24 Consecutive Hours, Continuous Positive Airway Pressure (ICD-10-PCS; principal; 2019-02-07)
DX: E11.649 Type 2 diabetes mellitus with hypoglycemia without coma (principal); J96.01 Acute respiratory failure with hypoxia; J44.1 Chronic obstructive pulmonary disease with (acute) exacerbation; I50.32 Chronic diastolic (congestive) heart failure; T17.990A Other foreign object in respiratory tract, part unspecified in causing asphyxiation, initial encounter; G47.33 Obstructive sleep apnea (adult) (pediatric); I25.10 Atherosclerotic heart disease of native coronary artery without angina pectoris; E78.5 Hyperlipidemia, unspecified; M19.90 Unspecified osteoarthritis, unspecified site; N40.0 Benign prostatic hyperplasia without lower urinary tract symptoms; E03.9 Hypothyroidism, unspecified; E66.9 Obesity, unspecified; Z68.36 Body mass index [BMI] 36.0-36.9, adult; Z79.82 Long term (current) use of aspirin; Z79.4 Long term (current) use of insulin; Z79.890 Hormone replacement therapy; Z79.02 Long term (current) use of antithrombotics/antiplatelets; Z79.899 Other long term (current) drug therapy; Z99.89 Dependence on other enabling machines and devices; Z85.828 Personal history of other malignant neoplasm of skin; Z85.819 Personal history of malignant neoplasm of unspecified site of lip, oral cavity, and pharynx; Z87.891 Personal history of nicotine dependence; Z95.5 Presence of coronary angioplasty implant and graft; Z90.49 Acquired absence of other specified parts of digestive tract; Z98.1 Arthrodesis status; Z98.42 Cataract extraction status, left eye; Z98.41 Cataract extraction status, right eye; Z88.5 Allergy status to narcotic agent; Z80.3 Family history of malignant neoplasm of breast
CPT/HCPCS: 36415; 71046; 80048; 80053; 83605; 83735; 83880; 84484; 85025; 85027; 85610; 85730; 93005; 94640; 94667; 94668; 94760; 96374; 99285

== ENCOUNTER → 2019-06-01 | Outpatient (CLI) | payer MEDICARE ==
[2019-06-01 15:33] LABS: HCT 37.2 % (39.0-53.0); HGB 12.5 gm/dL (13.0-17.5); MCHC 33.6 g/dL (31.0-37.0); MCV 92.2 fL (80.0-100.0); Mean Platelet Volume 7.1; Platelet Count 246 k/uL (150-450); RBC 4.03 m/uL (4.30-5.90); RDW 14.7 % (11.5-15.5); WBC 10.1 k/uL (3.8-10.6)
[2019-06-02 06:04] LABS: African American GFR (CKD) 89.3 (60.0-200.0); Anion Gap 11.1 mmol/L (4.00-12.00); BUN/Creat Ratio 21.11 Ratio (12.00-20.00); Carbon Dioxide 22.9 mmol/L (21.6-31.8); Magnesium 2.1 mg/dL (1.5-2.4); Potassium 4.4 mmol/L (3.5-5.5)
== END | disposition home or self-care (01) ==
LOC: LABWHC1 15:02
PROVIDERS: ATTEND Nurse Practitioner
DX: R53.83 Other fatigue (principal)
CPT/HCPCS: 36415; 80048; 83735; 84439; 84443; 85027

== ENCOUNTER → 2019-06-20 | Outpatient (CLI) | payer MEDICARE ==
[2019-06-20 11:17] LABS: HCT 38.3 % (39.0-53.0); HGB 12.7 gm/dL (13.0-17.5); MCH 31.7 pg (25.0-35.0); MCHC 33.1 g/dL (31.0-37.0); MCV 95.8 fL (80.0-100.0); Mean Platelet Volume 7.3; Platelet Count 201 k/uL (150-450); RDW 15.4 % (11.5-15.5); WBC 10.8 k/uL (3.8-10.6)
[2019-06-20 11:42] LABS: African American GFR (CKD) >90 (>60 ml/min/1.73 sqM); Anion Gap 12 mmol/L; Blood Urea Nitrogen 19 mg/dL (9-20); Carbon Dioxide 24 mmol/L (22-30); Chloride 103 mmol/L (98-107); Glucose 230 mg/dL (74-99); Potassium 4.5 mmol/L (3.5-5.1); Sodium 139 mmol/L (137-145)
== END | disposition home or self-care (01) ==
LOC: LABPAT 10:33
PROVIDERS: ATTEND Internal Medicine Interventional Cardiology
DX: Z01.812 Encounter for preprocedural laboratory examination (principal); I35.0 Nonrheumatic aortic (valve) stenosis
CPT/HCPCS: 80051; 82565; 82947; 83735; 84520; 85027

== ENCOUNTER → 2019-06-23 | Day surgery (SDC) | payer MEDICARE ==
[2019-06-17 14:35] VITALS: BMI 37.3
[~2019-06-23] MED LIST changes: +ASPIRIN 81 MG ONE; +ASPIRIN 81 MG PO ONE; +HEPARIN SODIUM 1,000 UN/ML (10ML VL) IV ONE; +INSULIN ASPART (NovoLOG) 100 UNIT/ML VIAL SQ SCH; +IOPAMIDOL-370 100ML BTL INJ ONE; +IPRATROPIUM-ALBUTEROL 3 ML NEB INHALATION PRN; +ISOSORBIDE MONONITRATE ER 30 MG TAB.ER.24H PO SCH; +LIDOCAINE 1% INJ 10MG/ML (20 ML MDV) SQ ONE; +MIDAZOLAM PF (FBP) 2 MG/2 ML VIAL IVP ONE; +SODIUM CHLORIDE 0.9% 1,000 ML IV ONE; +VERAPAMIL SYRINGE (5 MG/10 ML) INTRAARTER ONE; +fentaNYL (PF) 50 MCG/ML 2 ML AMP IVP ONE; +fentaNYL (PF) 50 MCG/ML 2 ML AMP ONE
[2019-06-23 07:08] VITALS: RESP 16; TEMP 97.8
[2019-06-23 08:20] LABS: O2 Sat Blood Gas 66.4 %
[2019-06-23 08:23] LABS: O2 Sat Blood Gas 71.2 %
[2019-06-23 08:25] LABS: O2 Sat Blood Gas 93.5 %
--- NOTE | 2019-06-23 11:03 | CC ---
CARDIAC CATHETERIZATION REPORT DATE OF SERVICE: 06/23/2019. PROCEDURE: Right and left heart catheterization and coronary angiography. PERFORMED BY: Dr. Sydney Vaughn. Moderate conscious sedation time was 34 minutes. CLINICAL INFORMATION: This patient has history of type 2 diabetes, hypertension, hyperlipidemia, CAD, obstructive sleep apnea, pulmonary hypertension, and wears a CPAP faithfully. He also has moderate aortic stenosis, which seemed to be worsening of late. I performed a transthoracic echo which revealed a mean gradient of 42 mmHg across the aortic valve which is a significant increase with mild aortic insufficiency and mild pulmonary hypertension. Patient has had a stenting of circumflex coronary artery performed by me in August 2017 from right radial approach. Because of symptoms of chest discomfort and aortic stenosis, I recommended cardiac catheterization even though the Lexiscan stress test did not reveal ischemia. Rationale, risks, benefits and options were explained to the patient at length. PROCEDURE NOTE: Under local anesthesia and strict aseptic precautions, a 6-[place] introducer was placed in the right radial artery. I also gained access from the right brachial vein and placed a 6-[place] introducer in the right brachial vein. Using a 6-[place] balloon tipped catheter, I performed right heart catheterization and performed a thermodilution cardiac output and saturation run. Subsequently, using a JL4 and JR4 catheters, I performed coronary angiography. I could not cross the aortic valve after making an attempt with the right coronary catheter. The patient will have a transesophageal echo later on today. The sheaths were taken out and TR band applied with saturation of the fingers of the right hand of about 92%. The patient tolerated the procedure well without complications. Findings were discussed with the patient and his daughter. He will have a transesophageal echo at noon time. CARDIAC CATHETERIZATION FINDINGS: Patient had a thermodilution cardiac output of 7 L and Agustina cardiac output of 6.5 L. His pulmonary arterial saturation was 71% and radial arterial was 94%. His left ventricular end-diastolic pressure was not obtained. I could not cross the valve. Right atrial pressure was 6 mmHg, right ventricular pressure was 40/6, pulmonary arterial pressure was 40/18 with a mean of 28. Pulmonary capillary wedge pressure was 16 mmHg. CORONARY ANGIOGRAPHY FINDINGS: RIGHT CORONARY ARTERY: Dominant vessel, heavily calcified throughout its course. In the proximal portion, at the junction of the proximal and middle 1/3, there is about a 40% narrowing after which the caliber improves and distally it bifurcates into 3 different branches without significant disease. LEFT MAIN CORONARY ARTERY: Short patent disease-free vessel which has mild calcification bifurcates into LAD and circumflex. LEFT ANTERIOR DESCENDING CORONARY ARTERY: Good caliber vessel, has about a 50% lesion in the midportion and a moderately calcified segment. There is some tapering of the vessel and the worst case scenario seems to be 50% to 55% in the midportion, unchanged from before. It gives off a diagonal branch. The caliber of the vessel decreases. It runs all the way to the apex to supply a sizable amount of myocardium. No significant disease is noted in the proximal aspect of the LAD, but the midportion has a 50% to 55% narrowing and it gives off a diagonal branch. The diagonal branch at its origin has a 40% narrowing. LAD after the diagonal has minor diffuse disease and runs all the way to the apex. Angiographically the appearance is no different from what was seen in August 2017. LEFT POSTERIOR CIRCUMFLEX CORONARY ARTERY: This vessel was stented in August 2017. The stented segment is widely patent and this is a nondominant circumflex. Two obtuse marginal branches are free of significant disease and a groove branch has minor irregularities no significant disease in the circumflex system. FINAL IMPRESSION: This patient has mild pulmonary hypertension with right-sided pressures in the range of 40 mmHg. The previously stented circumflex is patent. RCA has a 40% proximal lesion. LAD has a 50% to 55% mid lesion as well as the diagonal has a 40% lesion, but angiographically the LAD system appears very similar to the previous study from August 2017. I could not cross the aortic valve. The cardiac output is in the range of 6 to 7 L both by Agustina and thermodilution. RECOMMENDATIONS: Based on angiographic appearance, I am recommending continued medical therapy. I will await the results of the transesophageal echo to make a recommendation about the aortic valve. Findings were discussed with the patient and also with his daughter who was in the waiting room. I will talk to them after the transesophageal echo and then make further recommendations. MMODL / IJN: [id number] /
[2019-06-23] MEDS: BENZOCAINE SPRAY 1 CAN MUCOUS MEM ONE ×3 (12:32→12:52)
--- NOTE | 2019-06-23 13:33 | ECHOT ---
TRANSESOPHAGEAL ECHOCARDIOGRAM Mr. Escobar is an 84-year-old gentleman who underwent transesophageal echocardiogram to evaluate for aortic stenosis. Patient was given intravenous sedation with Versed and fentanyl and transesophageal echocardiogram was performed without any complications. Left ventricular chamber is normal in size with moderate to severe degree of left ventricular hypertrophy and normal left ventricular systolic function. Mitral valve is mildly thickened. Mild mitral regurgitation is noted. Diastolic flow is more prominent than the systolic flow, which may be suggestive of elevated left ventricular pressure. Left atrial appendage is normal. Aortic valve is sclerotic with a diminished opening. The aortic valve area was difficult to calculate by planimeter, but it appears to be in the range of 0.8 to 0.9 square cm, suggestive of severe aortic stenosis. No significant aortic regurgitation is noted. Interatrial septum is intact. There is no evidence of any PFO. There are diffuse mild atherosclerotic changes noted in the descending thoracic aorta. FINAL IMPRESSION: 1. The aortic valve is sclerotic and calcified with diminished aortic leaflet excursion. Aortic valve area was difficult to calculate, but it appears to be in the range of 0.8 to 0.9 square cm, suggestive of severe aortic stenosis. No significant aortic regurgitation is noted. 2. There is moderate to severe left ventricular hypertrophy with normal left ventricular systolic function. Left atrium is moderately enlarged. 3. There is no significant aortic regurgitation. Interatrial septum is intact. There are diffuse arthrosclerotic changes noted in the descending thoracic aorta. MMODL / IJN: [id number] /
[2019-06-23 14:26] LABS: Glucose,Whole Blood 213 mg/dL (75-99)
--- NOTE | 2019-06-23 16:42 | P.GSCN ---
<Lidia Savage - Last Filed: 06/23/19 16:36> History of Present Illness Consult date: 06/23/19 Reason for Consult: Aortic stenosis, surgical recommendations Requesting physician: Kendal Vaughn History of present illness: This is an 84-year-old gentleman who follows on an outpatient basis with Dr. Deleon. He has a previous medical history of aortic stenosis, coronary artery disease with stent placement, hypertension, hyperlipidemia, diabetes mellitus, hypothyroidism, previous tobacco dependence, COPD with current prednisone use, obstructive sleep apnea, pulmonary hypertension, peripheral arterial disease, and BPH. He presented to [facility] with complaints of intermittent chest tightness not associated with activity as well as increasing shortness of breath. He has been followed for some time by Dr. Vaughn for aortic stenosis. A transthoracic echocardiogram was completed in the office demonstrating a mean gradient of 42 mmHg across the aortic valve which was increased from previous with mild aortic insufficiency and mild pulmonary hypertension. He had a previous history of stenting to the circumflex coronary artery in August 2017. Due to his symptoms and transthoracic echocardiogram results the patient was recommended to undergo heart catheterization and transesophageal echocardiogram which were completed today. The heart catheterization demonstrated patent circumflex stent, RCA with 40% proximal lesion, LAD with mid lesion 50-55% as well as a diagonal with a 40% lesion. The LAD system appeared similar to the patient's previous heart cath completed in August 2017. Transesophageal echocardiogram revealed moderate to severe left ventricular hypertrophy with normal LV systolic function, sclerotic aortic valve with diminished opening and an aortic valve area 0.8-0.9 cm, no aortic regurgitation, and mildly thickened mitral valve with mild mitral regurgitation. Due to these findings Dr. Montesinos from cardiothoracic surgery was consulted for recommendations for aortic valve replacement. Review of Systems Review of systems was completed and was negative except as noted. 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 Past Anesthesia/Blood Transfusion Reactions: No Reported Reaction Additional Past Anesthesia/Blood Transfusion Reaction / Comm: HARD TO WAKE UP Date of Last Stent Placement:: 09/2017 Past Psychological History: No Psychological Hx Reported Smoking Status: Former smoker Past Alcohol Use History: None Reported Past Drug Use History: None Reported - Past Family History Father Additional Family Medical History / Comment(s): burst appendix Mother Family Medical History: Cancer Additional Family Medical History / Comment(s): breast cancer Medications and Allergies Home Medications Medication Instructions Recorded Confirmed Type Isosorbide Mononitrate ER [Imdur] 30 mg PO DAILY 07/03/14 06/23/19 History Tamsulosin HCl [Flomax] 0.4 mg PO HS 07/03/14 06/23/19 History Aspirin EC [Ecotrin Low Dose] 81 mg PO DAILY 05/22/17 06/23/19 History Levothyroxine Sodium [Synthroid] 50 mcg PO DAILY 05/22/17 06/23/19 History Metoprolol Tartrate [Lopressor] 25 mg PO HS 09/04/17 06/23/19 History Atorvastatin [Lipitor] 80 mg PO HS #30 tab 09/09/17 06/23/19 Rx Olmesartan [Benicar] 10 mg PO DAILY 09/02/18 06/23/19 History Ipratropium-Albuterol Nebulize 3 ml INHALATION RT-Q4H PRN #90 09/15/18 06/23/19 Rx [Duoneb 0.5 mg-3 mg/3 ml Soln] ampul.neb Umeclidinium Brm/Vilanterol Tr 1 puff INHALATION RT-DAILY #30 09/15/18 06/23/19 Rx [Anoro Ellipta 62.5-25 Mcg INH] blst.w.dev Albuterol Inhaler [Ventolin Hfa 2 puff INHALATION RT-Q6H PRN 02/03/19 06/23/19 History Inhaler] guaiFENesin [Mucinex] 1,200 mg PO Q12HR 5 Days #20 02/08/19 06/23/19 Rx tablet.er predniSONE 5 mg PO DAILY #30 tab 02/08/19 06/23/19 Rx Acetaminophen Tab [Tylenol Tab] 1,000 mg PO BID 06/17/19 06/23/19 History metFORMIN HCL [Glucophage] 500 mg PO DAILY 06/17/19 06/23/19 History INSULIN ASPART (NovoLOG) [NovoLOG 20 unit SQ AC-TID 06/23/19 06/23/19 History (formulary)] Insulin Degludec [Tresiba 60 unit SQ HS 06/23/19 06/23/19 History Flextouch U-100] Allergies Allergy/AdvReac Type Severity Reaction Status Date / Time morphine AdvReac Hallucinati Verified 06/17/19 14:36 ons propoxyphene napsylate AdvReac Nausea & Verified 06/17/19 14:36 [From Darcet-N 100] Vomiting & Diarrhea raw oyster AdvReac Diarrhea Uncoded 06/17/19 14:36 Surgical - Exam Vital Signs Temp Pulse Resp BP Pulse Ox 97.8 F 72 16 114/53 94 L 06/23/19 07:03 06/23/19 07:03 06/23/19 07:03 06/23/19 07:03 06/23/19 07:03 - General well developed, well nourished, no distress, no pain, obese - Eyes PERRL, normal ocular movement - ENT decreased hearing - Neck no masses, no bruits, trachea midline - Respiratory Lungs sounds diminished bilaterally. Respirations even, nonlabored. Currently on room air with oxygen saturation 97%. No chest wall deformities although patient is overweight. No clubbing or cyanosis. - Cardiovascular S1, S2 present. Systolic murmur present. Regular rate and rhythm, sinus rhythm on telemetry. Palpable peripheral pulses bilaterally. No edema present. No calf pain or tenderness noted. - Abdomen Abdomen: soft, non tender, bowel sounds - Genitourinary Deferred - Rectum Deferred - Integumentary no rash, no growths - Neurologic normal coordination, normal sensation - Musculoskeletal normal posture - Psychiatric oriented to time, oriented to person, oriented to place, speech is normal, memory intact Results - Labs 06/23/19 06:30 Abnormal Lab Results - Last 24 Hours (Table) 06/23/19 06/23/19 Range/Units 06:30 14:24 Glucose 165 H (74-99) mg/dL POC Glucose (mg/dL) 213 H (75-99) mg/dL Diabetes panel 06/23/19 Range/Units 06:30 Glucose 165 H (74-99) mg/dL Pituitary panel 06/23/19 Range/Units 06:30 Glucose 165 H (74-99) mg/dL Adrenal panel 06/23/19 Range/Units 06:30 Glucose 165 H (74-99) mg/dL - Imaging Additional studies: Heart catheterization films reviewed reviewed with Dr. Montesinos and Dr. Vaughn Assessment and Plan Assessment: 1. Severe aortic stenosis 2. Coronary artery disease with previous stent to the circumflex artery in 2017 3. Hypertension 4. Hyperlipidemia 5. Diabetes mellitus 6. Hypothyroidism 7. Previous tobacco dependence 8. COPD with chronic prednisone use 9. Obstructive sleep apnea with home CPAP use 10. Pulmonary hypertension 11. Peripheral artery disease 10. BPH Plan: The patient was seen and examined in the extended stay unit with Dr. Montesinos. Chart/diagnostics were reviewed, heart catheterization films were reviewed with Dr. Montesinos and Dr. Vaughn. We did discuss surgical versus transcatheter aortic valve replacement as medical management is recommended for his coronary artery disease at this time. Due to his multiple comorbid conditions the patient does appear to be at higher risk for surgical aortic valve replacement. The usual pe rioperative course was discussed in detail with the patient and his daughter for both surgical aortic valve replacement and transcatheter aortic valve replacement. All risks and benefits were discussed in detail, all questions were answered. At this time the patient is to be evaluated for transcatheter aortic valve replacement and all information will be sent to the TAVR clinic at [facility], who will call the patient and set up a clinic date. This was agreeable to the patient and his daughter. More recommendations to follow. Thank you Dr. Vaughn for this consult. We look forward to working with you in the care of your patient. Time with Patient: Greater than 30 <Bony Montesinos - Last Filed: 06/24/19 14:00> Surgical - Exam Vital Signs Temp Pulse Resp BP Pulse Ox 97.8 F 72 16 114/53 94 L 06/23/19 07:03 06/23/19 07:03 06/23/19 07:03 06/23/19 07:03 06/23/19 07:03 Results - Labs 06/23/19 06:30 Abnormal Lab Results - Last 24 Hours (Table) 06/23/19 Range/Units 14:24 POC Glucose (mg/dL) 213 H (75-99) mg/dL Assessment and Plan Assessment: Patient seen aqnd examined, echo and cath films reviewed. Stable moderate CAD with progressive . Sx likely secondary latter. Clearly high risk for SAVR, recommend evaluation for TAVR. Refer to [facility] TAVR clinic.
[2019-06-23 16:45] VITALS: BP 139/63; PULSE 78
== END ==
LOC: CATHCVL 05:50
PROVIDERS: ATTEND Internal Medicine Interventional Cardiology
DX: I08.0 Rheumatic disorders of both mitral and aortic valves (principal); I25.110 Atherosclerotic heart disease of native coronary artery with unstable angina pectoris; I11.0 Hypertensive heart disease with heart failure; I50.9 Heart failure, unspecified; I27.20 Pulmonary hypertension, unspecified; I25.84 Coronary atherosclerosis due to calcified coronary lesion; I10 Essential (primary) hypertension; Z87.891 Personal history of nicotine dependence; E78.5 Hyperlipidemia, unspecified; E11.51 Type 2 diabetes mellitus with diabetic peripheral angiopathy without gangrene; E78.00 Pure hypercholesterolemia, unspecified; Z95.5 Presence of coronary angioplasty implant and graft; M19.90 Unspecified osteoarthritis, unspecified site; J44.9 Chronic obstructive pulmonary disease, unspecified; N42.9 Disorder of prostate, unspecified; G47.33 Obstructive sleep apnea (adult) (pediatric); Z99.89 Dependence on other enabling machines and devices; N40.0 Benign prostatic hyperplasia without lower urinary tract symptoms; G51.0 Bell's palsy; E03.9 Hypothyroidism, unspecified; Z79.52 Long term (current) use of systemic steroids; E66.9 Obesity, unspecified; Z68.37 Body mass index [BMI] 37.0-37.9, adult; Z85.828 Personal history of other malignant neoplasm of skin; Z79.890 Hormone replacement therapy; Z79.82 Long term (current) use of aspirin; Z79.4 Long term (current) use of insulin; Z79.891 Long term (current) use of opiate analgesic; Z79.51 Long term (current) use of inhaled steroids; Z79.899 Other long term (current) drug therapy; Z88.5 Allergy status to narcotic agent
CPT/HCPCS: 94640; 93312; 93325; 93456; 85018; 82810; 82947; C1769 ×4; C1751; C1894 ×3; J2001; J3010; J1644; Q9967; J2250; 93320

== ENCOUNTER 2019-08-27 14:14 | Emergency (ER) | payer MEDICARE ==
[2019-08-27 14:21] VITALS: TEMP 97
--- NOTE | 2019-08-27 15:24 | ED ---
Recheck HPI - General Chief Complaint: Recheck/Abnormal Lab/Rx Stated Complaint: bleeding surgical site, groin Time Seen by Provider: 08/27/19 14:51 Source: patient, RN notes reviewed Mode of arrival: wheelchair Limitations: no limitations - History of Present Illness Initial Comments: This 84-year-old male presents emergency Department chief complaint of intermittent bleeding from his right groin. Patient states that he had aortic valve replacement at [facility] on August 16 2019. They warned him to watch out for any bleeding from his incision site. He states he did have follow-up in which he had swelling at the time but states that swelling went away but he noticed that he's had some very faint intermittent bleeding shows up on his underwear. Patient states that he has no current discomfort. Denies any chest pain shortness breath patient states he felt well after the surgery states she's felt better after the surgery than he did before. He's had no fevers or chills. He has no dysuria no hematuria. - Related Data Home Medications Medication Instructions Recorded Confirmed Isosorbide Mononitrate ER [Imdur] 30 mg PO DAILY 07/03/14 06/23/19 Tamsulosin HCl [Flomax] 0.4 mg PO HS 07/03/14 06/23/19 Aspirin EC [Ecotrin Low Dose] 81 mg PO DAILY 05/22/17 06/23/19 Levothyroxine Sodium [Synthroid] 50 mcg PO DAILY 05/22/17 06/23/19 Metoprolol Tartrate [Lopressor] 25 mg PO HS 09/04/17 06/23/19 Olmesartan [Benicar] 10 mg PO DAILY 09/02/18 06/23/19 Albuterol Inhaler [Ventolin Hfa 2 puff INHALATION RT-Q6H PRN 02/03/19 06/23/19 Inhaler] Acetaminophen Tab [Tylenol Tab] 1,000 mg PO BID 06/17/19 06/23/19 metFORMIN HCL [Glucophage] 500 mg PO DAILY 06/17/19 06/23/19 INSULIN ASPART (NovoLOG) [NovoLOG 20 unit SQ AC-TID 06/23/19 06/23/19 (formulary)] Insulin Degludec [Tresiba 60 unit SQ HS 06/23/19 06/23/19 Flextouch U-100] Previous Rx's Medication Instructions Recorded Atorvastatin [Lipitor] 80 mg PO HS #30 tab 09/09/17 Ipratropium-Albuterol Nebulize 3 ml INHALATION RT-Q4H PRN #90 09/15/18 [Duoneb 0.5 mg-3 mg/3 ml Soln] ampul.neb Umeclidinium Brm/Vilanterol Tr 1 puff INHALATION RT-DAILY #30 09/15/18 [Anoro Ellipta 62.5-25 Mcg INH] blst.w.dev guaiFENesin [Mucinex] 1,200 mg PO Q12HR 5 Days #20 02/08/19 tablet.er predniSONE 5 mg PO DAILY #30 tab 02/08/19 Allergies Allergy/AdvReac Type Severity Reaction Status Date / Time morphine AdvReac Hallucinati Verified 06/17/19 14:36 ons propoxyphene napsylate AdvReac Nausea & Verified 06/17/19 14:36 [From Iramt-N 100] Vomiting & Diarrhea raw oyster AdvReac Diarrhea Uncoded 06/17/19 14:36 Review of Systems ROS Statement: Those systems with pertinent positive or pertinent negative responses have been documented in the HPI. ROS Other: All systems not noted in ROS Statement are negative. 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 Past Anesthesia/Blood Transfusion Reactions: No Reported Reaction Additional Past Anesthesia/Blood Transfusion Reaction / Comment(s): HARD TO WAKE UP Date of Last Stent Placement:: 09/2017 Past Psychological History: No Psychological Hx Reported Smoking Status: Former smoker Past Alcohol Use History: None Reported Past Drug Use History: None Reported - Past Family History Father Additional Family Medical History / Comment(s): burst appendix Mother Family Medical History: Cancer Additional Family Medical History / Comment(s): breast cancer General Exam Limitations: no limitations General appearance: alert, in no apparent distress Head exam: Present: atraumatic, normocephalic, normal inspection Eye exam: Present: normal appearance, PERRL, EOMI. Absent: scleral icterus, conjunctival injection, periorbital swelling Respiratory exam: Present: normal lung sounds bilaterally. Absent: respiratory distress, wheezes, rales, rhonchi, stridor Cardiovascular Exam: Present: regular rate, normal rhythm, systolic murmur. Absent: normal heart sounds, diastolic murmur, rubs, gallop, clicks GI/Abdominal exam: Present: soft, normal bowel sounds, other (Right groin there is small open wound noted with no active bleeding there is old ecchymosis noted in the groin, lower abdomen region there is non-tender). Absent: distended, tenderness, guarding, rebound, rigid Extremities exam: Present: other (Lower extremity pulses equal bilaterally) Skin exam: Present: warm, dry, intact, normal color. Absent: rash Course Vital Signs 08/27/19 14:17 Temperature 97 F L Pulse Rate 80 Respiratory 18 Rate Blood Pressure 121/57 O2 Sat by Pulse 96 Oximetry Medical Decision Making - Medical Decision Making 84-year-old male presented for small area of bleeding to his right groin, lower abdomen region and was concerned for bleeding after access for cardiac surgery. Patient has a slightly opened wound which has no signs of infection. Patient will be discharged with close follow-up return parameters were discussed. Disposition Clinical Impression: Open wound of groin Disposition: HOME SELF-CARE Condition: Stable Instructions (If sedation given, give patient instructions): Acute Wound Care (ED) Additional Instructions: Please return to the Emergency Department if symptoms worsen or any other concerns. Is patient prescribed a controlled substance at d/c from ED?: No Referrals: Manuel Deleon MD [Primary Care Provider] - 1-2 days Time of Disposition: 16:01
--- NOTE | 2019-08-27 15:49 | US ---
EXAMINATION TYPE: US lower ext pseudo artery RT DATE OF EXAM: 08/27/2019 COMPARISON: NONE CLINICAL HISTORY: Right groin pain, bleeding. Pain right groin. Heart valve replacement 08/16/19. Ble eding at puncture site for 1 week EXAM PERFORMED: Grayscale and color Doppler duplex imaging performed of the groin, post cardiac homero ter to assess for pseudoaneurysm. SIDE PERFORMED: right Color and Waveform Doppler performed to assess for the presence of pseudoaneurysm; Is there ultrasound evidence of a pseudoaneurysm: no Is there evidence of AV shunting: no Is there a fluid collection present: no IMPRESSION: Exam fails to demonstrate any evidence for pseudoaneurysm or hematoma.
[2019-08-27 16:25] VITALS: BP 122/62; PULSE 75; RESP 16
== END 2019-08-27 16:19 | disposition home or self-care (01) ==
LOC: EC 14:14
DX: S31.103A Unspecified open wound of abdominal wall, right lower quadrant without penetration into peritoneal cavity, initial encounter (principal); R01.1 Cardiac murmur, unspecified; I50.9 Heart failure, unspecified; J44.9 Chronic obstructive pulmonary disease, unspecified; E11.9 Type 2 diabetes mellitus without complications; M19.90 Unspecified osteoarthritis, unspecified site; N42.9 Disorder of prostate, unspecified; G47.33 Obstructive sleep apnea (adult) (pediatric); E07.9 Disorder of thyroid, unspecified; Z87.891 Personal history of nicotine dependence; Z88.5 Allergy status to narcotic agent; Z91.018 Allergy to other foods; Z79.4 Long term (current) use of insulin; Z79.82 Long term (current) use of aspirin; Z79.890 Hormone replacement therapy; Z79.891 Long term (current) use of opiate analgesic; Z79.899 Other long term (current) drug therapy; Z99.89 Dependence on other enabling machines and devices; Z85.828 Personal history of other malignant neoplasm of skin; Z95.2 Presence of prosthetic heart valve; Z95.5 Presence of coronary angioplasty implant and graft; Z98.1 Arthrodesis status; Z90.49 Acquired absence of other specified parts of digestive tract; Z98.890 Other specified postprocedural states; X58.XXXA Exposure to other specified factors, initial encounter
CPT/HCPCS: 93975; 99283

== ENCOUNTER 2019-09-01 15:31 | Observation (INO) | payer MEDICARE ==
[2019-09-01 16:58] LABS: Basophils # (A) 0.1 k/uL (0-0.2); Basophils % (A) 1 %; Eosinophils # (A) 0.2 k/uL (0-0.7); Eosinophils % (A) 2 %; HCT 37.2 % (39.0-53.0); Lymphocytes # (A) 1.1 k/uL (1.0-4.8); Lymphocytes % (A) 13 %; MCHC 32.2 g/dL (31.0-37.0); MCV 93.1 fL (80.0-100.0); Mean Platelet Volume 6.5; Monocytes # (A) 0.4 k/uL (0-1.0); Monocytes % (A) 5 %; Neutrophils # (A) 6.3 k/uL (1.3-7.7); Neutrophils % (A) 77 %; Platelet Count 236 k/uL (150-450); RBC 3.99 m/uL (4.30-5.90); RDW 14.7 % (11.5-15.5); WBC 8.2 k/uL (3.8-10.6)
[2019-09-01 17:07] LABS: INR 0.9 (<1.2); Partial Thromboplastin Time 25.4 sec (22.0-30.0); Prothrombin Time 10.1 sec (9.0-12.0)
[2019-09-01 17:17] LABS: ALT 29 U/L (21-72); AST 30 U/L (17-59); African American GFR (CKD) >90 (>60 ml/min/1.73 sqM); Albumin 3.9 g/dL (3.5-5.0); Alkaline Phosphatase 86 U/L (38-126); Anion Gap 10 mmol/L; Blood Urea Nitrogen 16 mg/dL (9-20); Calcium 9.5 mg/dL (8.4-10.2); Carbon Dioxide 26 mmol/L (22-30); Chloride 103 mmol/L (98-107); Glucose 121 mg/dL (74-99); Potassium 4.2 mmol/L (3.5-5.1); Sodium 139 mmol/L (137-145); Total Bilirubin 0.4 mg/dL (0.2-1.3); Total Protein 6.4 g/dL (6.3-8.2)
[2019-09-01 18:59] VITALS: RESP 18
--- NOTE | 2019-09-01 19:26 | CT ---
EXAMINATION TYPE: CT angio abd aorta w/Runoff DATE OF EXAM: 09/01/2019 COMPARISON: None HISTORY: Aortic valve replacement 08-16-19. Groin insertion sites bleeding bilaterally. CT DLP: 1819 mGycm, Automated Exposure Control for Dose Reduction was Utilized. CONTRAST: CT scan of the abdomen and pelvis with runoff is performed with oral and with IV Contrast, patient in jected with 125 mL of Isovue 370. There is 3-D post processed images. FINDINGS: Heart appears enlarged. There is patency of the celiac artery and superior mesenteric artery. There i s bilateral patency of the renal arteries. Abdominal aorta is atheromatous. There is no aneurysm or d issection. There is no evidence of aortic stenosis. There is arterial flow in the common internal and external iliac arteries bilaterally. There is atherosclerotic plaque in the iliac arteries. There is arterial flow in the femoral arteries. There is arterial flow in the superficial femoral art eries and profunda femoris arteries bilaterally. There is no contrast extravasation. There is some mi ld stranding in the subcutaneous fat anterior to the proximal femoral arteries and more on the left s julio. There is arterial flow in both superficial femoral arteries. There is slight bulging of the anterior wall of both proximal femoral arteries. There is variable plaque formation. There is more than 75% st enosis of the distal superficial femoral arteries. There is arterial flow in both popliteal arteries. There is arterial flow in the tibial arteries on the tibial artery trifurcation. There is some steno sis at the origin right anterior tibial artery. There is arterial flow in the anterior and posterior tibial arteries and the peroneal arteries. There is arterial flow in the posterior tibial arteries at the ankle. There is arterial flow in the left dorsalis pedis artery. There is no significant flow se en in the right dorsalis pedis artery. There is probably complete occlusion distal right anterior tib ial artery at the ankle. IMPRESSION: Atherosclerotic vascular disease. There is evidence for hemodynamic stenosis distal superficial femor al arteries bilaterally. Postsurgical changes with minimal fat stranding in the left and right inguin al region and more on the left side. There is 3 x 1.5 cm linear area of increased density consistent with small hematoma or significant bruising in the left inguinal region. 50% stenosis origin of the right anterior tibial artery. There is bulging of the contour anterior wall of the proximal left femoral artery that could be 5 mm pseudoaneurysm. There is also possible 3 mm pseudoaneurysm anterior right proximal femoral artery. No evidence for active contrast extravasation.
[2019-09-01 20:02] LABS: Glucose,Whole Blood 104 mg/dL (75-99)
[2019-09-01] MEDS ORDERED: NALOXONE 0.4 MG/ML 1 ML VIAL IV PRN (21:13)
--- NOTE | 2019-09-01 21:13 | ED ---
General Adult HPI - General Chief complaint: Recheck/Abnormal Lab/Rx Stated complaint: recheck - post surg bleeding Time Seen by Provider: 09/01/19 15:55 Source: patient Mode of arrival: wheelchair Limitations: no limitations - History of Present Illness Initial comments: The patient is an 84-year-old male who presents emergency department status post aortic valve replacement. The procedure was done on August [address] [facility]. Procedure was done by Dr. Ling. They accessed both groins to complete the procedure. He states he followed up with his surgeon after the procedure and everything was "fine". States approximately one week ago he developed bleeding from his right groin site. States it was a small oozing that he noted on his underpants. Denies any pustular drainage. No large bulge. He seen a nurse practitioner at Dr. Vaughn's office. He was placed on Keflex. He was seen in the emergency department and had an ultrasound done which demonstrated no pseudoaneurysm. Today he noted he started having oozing from his left sided surgical site which was not previously opened. He therefore presented the emergency room for further evaluation. Denies numbness or tingling in his lower extremities. Denies any pain. No abdominal pain pain. He is on Plavix however no anticoagulation. Denies fevers or chills. There are no other alleviating, precipitating or modifying factors - Related Data Home Medications Medication Instructions Recorded Confirmed Tamsulosin HCl [Flomax] 0.4 mg PO HS 07/03/14 09/01/19 Aspirin EC [Ecotrin Low Dose] 81 mg PO DAILY 05/22/17 09/01/19 Metoprolol Tartrate [Lopressor] 25 mg PO DAILY 09/04/17 09/01/19 Albuterol Inhaler [Ventolin Hfa 2 puff INHALATION RT-Q6H PRN 02/03/19 09/01/19 Inhaler] Acetaminophen Tab [Tylenol] 1,000 mg PO BID 06/17/19 09/01/19 INSULIN ASPART (NovoLOG) [NovoLOG See Protocol SQ AC-TID 06/23/19 09/01/19 (formulary)] Insulin Degludec [Tresiba 60 unit SQ HS 06/23/19 09/01/19 Flextouch U-100] Cephalexin [Keflex] 500 mg PO TID 09/01/19 09/01/19 Clopidogrel [Plavix] 75 mg PO DAILY 09/01/19 09/01/19 Ipratropium-Albuterol Nebulize 3 ml INHALATION RT-QID PRN 09/01/19 09/01/19 [Duoneb 0.5 mg-3 mg/3 ml Soln] Isosorbide Mononitrate ER [Imdur] 30 mg PO DAILY 09/01/19 09/01/19 Levothyroxine Sodium [Synthroid] 100 mcg PO DAILY 09/01/19 09/01/19 Olmesartan/Hydrochlorothiazide 1 tab PO DAILY 09/01/19 09/01/19 [Olmesartan-Hctz 20-12.5 mg Tab] metFORMIN HCL ER [Glucophage Xr] 500 mg PO HS 09/01/19 09/01/19 guaiFENesin [Mucinex] 1,200 mg PO BID 09/02/19 09/02/19 Previous Rx's Medication Instructions Recorded Atorvastatin [Lipitor] 80 mg PO HS #30 tab 09/09/17 Umeclidinium Brm/Vilanterol Tr 1 puff INHALATION RT-DAILY #30 09/15/18 [Anoro Ellipta 62.5-25 Mcg INH] blst.w.dev predniSONE 5 mg PO DAILY #30 tab 02/08/19 amLODIPine [Norvasc] 5 mg PO DAILY #30 tab 09/02/19 Allergies Allergy/AdvReac Type Severity Reaction Status Date / Time morphine AdvReac Hallucinati Verified 09/01/19 16:28 ons propoxyphene napsylate AdvReac Nausea & Verified 09/01/19 16:28 [From Darvocet-N 100] Vomiting & Diarrhea raw oyster AdvReac Diarrhea Uncoded 09/01/19 16:28 Review of Systems ROS Statement: Those systems with pertinent positive or pertinent negative responses have been documented in the HPI. ROS Other: All systems not noted in ROS Statement are negative. 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 Past Anesthesia/Blood Transfusion Reactions: No Reported Reaction Additional Past Anesthesia/Blood Transfusion Reaction / Comment(s): HARD TO WAKE UP Date of Last Stent Placement:: 09/2017 Past Psychological History: No Psychological Hx Reported Smoking Status: Former smoker Past Alcohol Use History: None Reported Past Drug Use History: None Reported - Past Family History Father Additional Family Medical History / Comment(s): burst appendix Mother Family Medical History: Cancer Additional Family Medical History / Comment(s): breast cancer General Exam Limitations: no limitations General appearance: alert, in no apparent distress Head exam: Present: atraumatic, normocephalic, normal inspection Eye exam: Present: normal appearance, PERRL, EOMI. Absent: scleral icterus, conjunctival injection, periorbital swelling ENT exam: Present: normal exam, mucous membranes moist Neck exam: Present: normal inspection. Absent: tenderness, meningismus, lymphadenopathy Respiratory exam: Present: normal lung sounds bilaterally. Absent: respiratory distress, wheezes, rales, rhonchi, stridor Cardiovascular Exam: Present: regular rate, normal rhythm, normal heart sounds. Absent: systolic murmur, diastolic murmur, rubs, gallop, clicks GI/Abdominal exam: Present: soft, normal bowel sounds. Absent: distended, tenderness, guarding, rebound, rigid Extremities exam: Present: normal inspection, full ROM, normal capillary refill. Absent: tenderness, pedal edema, joint swelling, calf tenderness Back exam: Present: normal inspection Neurological exam: Present: alert, oriented X3, CN II-XII intact Psychiatric exam: Present: normal affect, normal mood Skin exam: Present: warm, dry, intact, normal color, other (3 mm open surgical site right groin with slight serosanguinous drainage. 5 mm open surgical site left groin with slight bleeding. also associated 3x3 cm palpable subq hematoma left groin. 2+ DP, PT, popliteal and femoral pulses bilaterally). Absent: rash Course Vital Signs 09/01/19 09/01/19 09/01/19 15:50 17:58 21:21 Temperature 97.9 F 98.0 F Pulse Rate 62 75 74 Respiratory 24 18 18 Rate Blood Pressure 139/55 145/75 160/70 O2 Sat by Pulse 95 95 98 Oximetry Medical Decision Making - Medical Decision Making Upon arrival the patient is placed into room 16. A thorough history and physical exam was performed. The patient does have 2+ palpable pulses in his lower extremities. There is a bulge felt to the patient's left groin region which may be a possible hematoma. I did recommend laboratory studies and CT angios of the patient's pelvis and lower extremity runoffs. The patient did agree to this. Laboratory studies demonstrate a hemoglobin of 12. Remainder of the CBC and CMP are normal. CT angiography of the abdomen and lower extremities demonstrates a 3 x 1.5 cm increased density consistent with a small hematoma. There is also a left femoral artery pseudoaneurysm which measures 5 mm. There is a 3 mm pseudoaneurysm of the right proximal femoral artery. I discussed these results with the patient. I called and discussed the case with Dr. Vaughn. He does request that the patient be admitted to our facility. He would like to be placed on consult. He does request that I consult Dr. Talbert and interventional radiology. The patient was admitted to Dr. Jaramillo. He did accept the admission. Bridging orders were placed and the patient was tr ansported for in stable condition - Lab Data Result diagrams: 09/02/19 06:52 09/02/19 06:52 Lab Results 09/01/19 09/01/19 09/01/19 Range/Units 16:47 16:47 16:47 WBC 8.2 (3.8-10.6) k/uL RBC 3.99 L (4.30-5.90) m/uL Hgb 12.0 L (13.0-17.5) gm/dL Hct 37.2 L (39.0-53.0) % MCV 93.1 (80.0-100.0) fL MCH 30.0 (25.0-35.0) pg MCHC 32.2 (31.0-37.0) g/dL RDW 14.7 (11.5-15.5) % Plt Count 236 (150-450) k/uL Neutrophils % 77 % Lymphocytes % 13 % Monocytes % 5 % Eosinophils % 2 % Basophils % 1 % Neutrophils # 6.3 (1.3-7.7) k/uL Lymphocytes # 1.1 (1.0-4.8) k/uL Monocytes # 0.4 (0-1.0) k/uL Eosinophils # 0.2 (0-0.7) k/uL Basophils # 0.1 (0-0.2) k/uL PT 10.1 (9.0-12.0) sec INR 0.9 (<1.2) APTT 25.4 (22.0-30.0) sec Sodium 139 (137-145) mmol/L Potassium 4.2 (3.5-5.1) mmol/L Chloride 103 (98-107) mmol/L Carbon Dioxide 26 (22-30) mmol/L Anion Gap 10 mmol/L BUN 16 (9-20) mg/dL Creatinine 0.77 (0.66-1.25) mg/dL Est GFR (CKD-EPI)AfAm >90 (>60 ml/min/1.73 sqM) Est GFR (CKD-EPI)NonAf 82 (>60 ml/min/1.73 sqM) Glucose 121 H (74-99) mg/dL POC Glucose (mg/dL) (75-99) mg/dL POC Glu Cash Register Mechanic ID Calcium 9.5 (8.4-10.2) mg/dL Total Bilirubin 0.4 (0.2-1.3) mg/dL AST 30 (17-59) U/L ALT 29 (21-72) U/L Alkaline Phosphatase 86 (38-126) U/L Total Protein 6.4 (6.3-8.2) g/dL Albumin 3.9 (3.5-5.0) g/dL 09/01/19 Range/Units 20:00 WBC (3.8-10.6) k/uL RBC (4.30-5.90) m/uL Hgb (13.0-17.5) gm/dL Hct (39.0-53.0) % MCV (80.0-100.0) fL MCH (25.0-35.0) pg MCHC (31.0-37.0) g/dL RDW (11.5-15.5) % Plt Count (150-450) k/uL Neutrophils % % Lymphocytes % % Monocytes % % Eosinophils % % Basophils % % Neutrophils # (1.3-7.7) k/uL Lymphocytes # (1.0-4.8) k/uL Monocytes # (0-1.0) k/uL Eosinophils # (0-0.7) k/uL Basophils # (0-0.2) k/uL PT (9.0-12.0) sec INR (<1.2) APTT (22.0-30.0) sec Sodium (137-145) mmol/L Potassium (3.5-5.1) mmol/L Chloride (98-107) mmol/L Carbon Dioxide (22-30) mmol/L Anion Gap mmol/L BUN (9-20) mg/dL Creatinine (0.66-1.25) mg/dL Est GFR (CKD-EPI)AfAm (>60 ml/min/1.73 sqM) Est GFR (CKD-EPI)NonAf (>60 ml/min/1.73 sqM) Glucose (74-99) mg/dL POC Glucose (mg/dL) 104 H (75-99) mg/dL POC Glu Cash Register Mechanic ID Reshma Hsu Calcium (8.4-10.2) mg/dL Total Bilirubin (0.2-1.3) mg/dL AST (17-59) U/L ALT (21-72) U/L Alkaline Phosphatase (38-126) U/L Total Protein (6.3-8.2) g/dL Albumin (3.5-5.0) g/dL Disposition Clinical Impression: Pseudoaneurysm following procedure, H/O aortic valve replacement Disposition: ADMITTED IP TO THIS [facility] Condition: Stable Is patient prescribed a controlled substance at d/c from ED?: No Decision to Admit Reason: Admit from EC Decision Date: 09/01/19 Decision Time: 21:13
[2019-09-01] MEDS ORDERED: IPRATROPIUM-ALBUTEROL 3 ML NEB INHALATION PRN (21:17)
[2019-09-01] MEDS ORDERED: CLOPIDOGREL 75 MG TAB PO SCH (21:30)
[2019-09-01] MEDS: CEPHALEXIN 500 MG CAP PO SCH (22:40)
--- NOTE | 2019-09-02 00:19 | P.HPIM ---
History of Present Illness H&P Date: 09/01/19 Chief Complaint: bleeding from bilateral groin 84-year-old male with complex past medical history Patient had Her procedure for aortic valve replacement about 2 weeks ago. He reports that a week later after the procedure,he noticed some blood oozing from his right groin which progressively got worse. However about a week ago he had ultrasound of bilateral groin done and was reported to him that everything seems to be fine. He was managed by applying Steri-Strips on the area and was asked to follow up with his cardiology and PCP. Patient was doing well yesterday he went out shopping and for the first time in a long while he was able to walk over a mile while shopping with no limitations due to any leg pain or any bleeding or any breathing issues. He was very happy with these outcomes however this morning when he woke up he noticed bleeding now from the left groin itch is no for which she grew concerned and decided to call his doctors who recommended that he goes to the hospital for evaluation In the ED CT angios was done and showed possible pseudoaneurysm bilaterally in the proximal femoral artery however no evidence of active contrast extravasation. Iit also suggested possibility of small hematoma in the left inguinal region. Otherwise patient labs seem to be fine around his baseline. Vital signs are stable. Case was discussed by the ER doctor with cardiology who recommended admission to the hospitalist service and possible intervention by IR in the morning to stop any oozing of blood. Vascular surgery was consulted for further assessment. Patient otherwise feels fine denies any chest pain or trouble breathing denies any fevers or chills denies any pain in his legs denies any numbness or tingling in his feet. Review of Systems Pertinent positives as noted in HPI. 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 TAVR 08-16-19 Past Anesthesia/Blood Transfusion Reactions: No Reported Reaction Additional Past Anesthesia/Blood Transfusion Reaction / Comment(s): HARD TO WAKE UP Date of Last Stent Placement:: 09/2017 Past Psychological History: No Psychological Hx Reported Additional Psychological History / Comment(s): . Smoking Status: Former smoker Past Alcohol Use History: None Reported Additional Past Alcohol Use History / Comment(s): QUIT SMOKING 1989 ; smoked f rom age 17 to 65 yrs old 2 ppd Past Drug Use History: None Reported - Past Family History Father Additional Family Medical History / Comment(s): burst appendix Mother Family Medical History: Cancer Additional Family Medical History / Comment(s): breast cancer Medications and Allergies Home Medications Medication Instructions Recorded Confirmed Type Tamsulosin HCl [Flomax] 0.4 mg PO HS 07/03/14 09/01/19 History Aspirin EC [Ecotrin Low Dose] 81 mg PO DAILY 05/22/17 09/01/19 History Metoprolol Tartrate [Lopressor] 25 mg PO DAILY 09/04/17 09/01/19 History Atorvastatin [Lipitor] 80 mg PO HS #30 tab 09/09/17 09/01/19 Rx Umeclidinium Brm/Vilanterol Tr 1 puff INHALATION RT-DAILY #30 09/15/18 09/01/19 Rx [Anoro Ellipta 62.5-25 Mcg INH] blst.w.dev Albuterol Inhaler [Ventolin Hfa 2 puff INHALATION RT-Q6H PRN 02/03/19 09/01/19 History Inhaler] predniSONE 5 mg PO DAILY #30 tab 02/08/19 09/01/19 Rx Acetaminophen Tab [Tylenol Tab] 1,000 mg PO BID 06/17/19 09/01/19 History INSULIN ASPART (NovoLOG) [NovoLOG See Protocol SQ AC-TID 06/23/19 09/01/19 History (formulary)] Insulin Degludec [Tresiba 60 unit SQ HS 06/23/19 09/01/19 History Flextouch U-100] Cephalexin [Keflex] 500 mg PO TID 09/01/19 09/01/19 History Clopidogrel [Plavix] 75 mg PO DAILY 09/01/19 09/01/19 History Ipratropium-Albuterol Nebulize 3 ml INHALATION RT-QID PRN 09/01/19 09/01/19 History [Duoneb 0.5 mg-3 mg/3 ml Soln] Isosorbide Mononitrate ER [Imdur] 30 mg PO DAILY 09/01/19 09/01/19 History Levothyroxine Sodium [Synthroid] 100 mcg PO DAILY 09/01/19 09/01/19 History Olmesartan/Hydrochlorothiazide 1 tab PO DAILY 09/01/19 09/01/19 History [Olmesartan-Hctz 20-12.5 mg Tab] metFORMIN HCL ER [Glucophage Xr] 500 mg PO HS 09/01/19 09/01/19 History Allergies Allergy/AdvReac Type Severity Reaction Status Date / Time morphine AdvReac Hallucinati Verified 09/01/19 16:28 ons propoxyphene napsylate AdvReac Nausea & Verified 09/01/19 16:28 [From [facility]-N 100] Vomiting & Diarrhea raw oyster AdvReac Diarrhea Uncoded 09/01/19 16:28 Physical Exam Vitals: Vital Signs Temp Pulse Pulse Resp BP BP Pulse Ox 09/01/19 22:15 97.7 F 76 18 168/75 95 09/01/19 21:21 98.0 F 74 18 160/70 98 09/01/19 17:58 75 18 145/75 95 09/01/19 15:50 97.9 F 62 24 139/55 95 Intake and Output 09/01/19 09/01/19 09/01/19 06:59 14:59 22:59 Other: Weight 113.852 kg Constitutional: No acute distress, conversant, pleasant Eyes: Anicteric sclerae, moist conjunctiva, Pupils equal round reactive to light, exophthalmus ENMT: NC/AT Oropharynx clear, no erythema, no exudates Neck: Supple, FROM, no masses, or JVD No carotid bruits No thyromegaly Lungs: Clear to auscultation Clear to percussion Normal respiratory effort, no accessory muscle use Cardiovascular: Heart regular in rate and rhythm, systolic murmurs, no gallops, or rubs No peripheral edema, Capillary refill is immediate over bilateral toes Abdominal: Soft Nontender, no guarding, rebound or rigidity Abdomen moving with respiration Normoactive bowel sounds No hepatomegaly, No splenomegaly No palpable mass No abdominal wall hernia noted Skin: Normal temperature, tone, texture, turgor No induration No subcutaneous nodules No rash, lesions No ulcers Extremities: bilateral groin area minimal bruising no active bleeding. No auscultated bruit or palpable thrills over the groin area No digital cyanosis No clubbing Pedal pulses stronger on the left side compared to the right side, capillary refill is immediate bilaterally Radial pulses intact and symmetrical No calf tenderness Psychiatric: Alert and oriented to person, place and time Appropriate affect fair judgment Neuro Muscles Strength 5/5 in all 4 extremities Sensation to light touch grossly present throughout Cranial nerves II-XII grossly intact No focal sensory deficits Lymphatics: no palpable cervical or supraclavicular , or inguinal lymph nodes Results CBC & Chem 7: 09/01/19 16:47 09/01/19 16:47 Labs: Abnormal Lab Results - Last 24 Hours (Table) 09/01/19 09/01/19 09/01/19 Range/Units 16:47 16:47 20:00 RBC 3.99 L (4.30-5.90) m/uL Hgb 12.0 L (13.0-17.5) gm/dL Hct 37.2 L (39.0-53.0) % Glucose 121 H (74-99) mg/dL POC Glucose (mg/dL) 104 H (75-99) mg/dL Thrombosis Risk Factor Assmnt - Choose All That Apply Any of the Below Risk Factors Present?: Yes Each Factor Represents 1 point: Abnormal pulmonary function (COPD), Obesity (BMI >25) Each Risk Factor Represents 3 Points: Age 75 years or older Other congenital or acquired thrombophilia - If yes, enter type in comment: No Thrombosis Risk Factor Assessment Total Risk Factor Score: 5 Thrombosis Risk Factor Assessment Level: High Risk Assessment and Plan Assessment: 84 year old male with complex past medical history , has recently had aortic valve replacement about 2 weeks ago, presented today due to worsening bleeding from site of insertion in his groin. patient admitted as observation with anticipated length of stay <2 midnights patient currently has stable vital signs and his labs are unremarkable plans for IR intervention in AM per cardiology recommendations, no active bleeding at this time Plan: pseudoaneurysm bilateral proximal femoral artery CTA showed no active extravasation of blood at this time consult to vascular surgery cardiology consult (patient post TAVR procedure 2 weeks ago) recommended IR consultation for intervention continue current home meds per cardio recs close monitoring of hgb and vital signs atherosclerotic vascular disease with hemodynamic stenosis of distal superficial femoral artery bilaterally hematoma of 3 X 1.5 cm over left inguinal region chronic condition s CHF compensated MAICO on cpap hypothyroid, continue levothyroxin COPD , compensated at this time , continue home meds DM, continue with basal insulin and insulin sliding scale CODE STATUS:full code DVT prophylaxis: mechanical Discussed with: Patient, ER, RN Anticipated length of stay less than [address]: home A total of 60 minutes was spent on the care of this complex patient more than 50% of the time was spent in counseling and care coordination.
[2019-09-02 06:03] LABS: Glucose,Whole Blood 123 mg/dL (75-99)
[2019-09-02] MEDS: INSULIN ASPART (NovoLOG) 100 UNIT/ML VIAL SQ SCH ×2 (06:03→12:12)
[2019-09-02] MEDS ORDERED: LEVOTHYROXINE 100 MCG TAB PO SCH (06:30)
[2019-09-02 07:20] LABS: Basophils # (A) 0.1 k/uL (0-0.2); Basophils % (A) 1 %; Eosinophils # (A) 0.4 k/uL (0-0.7); Eosinophils % (A) 5 %; HCT 38.1 % (39.0-53.0); HGB 12.9 gm/dL (13.0-17.5); Lymphocytes # (A) 1.8 k/uL (1.0-4.8); Lymphocytes % (A) 21 %; MCH 31.5 pg (25.0-35.0); MCHC 33.8 g/dL (31.0-37.0); MCV 93.2 fL (80.0-100.0); Mean Platelet Volume 5.6; Monocytes # (A) 0.5 k/uL (0-1.0); Monocytes % (A) 6 %; Neutrophils # (A) 5.6 k/uL (1.3-7.7); Neutrophils % (A) 67 %; Platelet Count 249 k/uL (150-450); RBC 4.08 m/uL (4.30-5.90); RDW 14.4 % (11.5-15.5); WBC 8.3 k/uL (3.8-10.6)
[2019-09-02 07:34] LABS: African American GFR (CKD) >90 (>60 ml/min/1.73 sqM); Anion Gap 9 mmol/L; Blood Urea Nitrogen 16 mg/dL (9-20); Calcium 9.4 mg/dL (8.4-10.2); Carbon Dioxide 25 mmol/L (22-30); Chloride 104 mmol/L (98-107); Glucose 132 mg/dL (74-99); Potassium 4.1 mmol/L (3.5-5.1); Sodium 138 mmol/L (137-145)
[2019-09-02] MEDS ORDERED: FORMOTEROL FUMARATE 20 MCG/2 ML NEBU INHALATION SCH (08:00)
[2019-09-02 08:02] VITALS: TEMP 97.8
[2019-09-02] MEDS: IPRATROPIUM 0.5 MG/2.5 ML NEBU INHALATION SCH ×2 (08:40→12:46)
[2019-09-02] MEDS ORDERED: predniSONE 5 MG TAB PO SCH (09:00)
[2019-09-02] MEDS ORDERED: ISOSORBIDE MONONITRATE ER 60 MG TAB.ER.24H PO SCH (09:00)
[2019-09-02] MEDS ORDERED: ASPIRIN 81 MG PO SCH (09:00)
[2019-09-02] MEDS ORDERED: LOSARTAN 50 MG TAB PO SCH (09:00)
[2019-09-02] MEDS ORDERED: predniSONE 2.5 MG TAB PO SCH (09:00)
[2019-09-02] MEDS ORDERED: METOPROLOL TARTRATE 25 MG TAB PO SCH (09:00)
[2019-09-02] MEDS ORDERED: ACETAMINOPHEN TAB 500 MG TAB PO SCH (09:00)
[2019-09-02] MEDS ORDERED: HYDROCHLOROTHIAZIDE 25 MG TAB PO SCH (09:00)
[2019-09-02] MEDS ORDERED: amLODIPine 5 MG TAB PO SCH (09:00)
[2019-09-02] MEDS: CEPHALEXIN 500 MG CAP PO SCH (09:54)
--- NOTE | 2019-09-02 11:57 | US ---
EXAMINATION TYPE: US lower ext pseudo artery LT DATE OF EXAM: 09/02/2019 COMPARISON: NONE CLINICAL HISTORY: pseudoaneurysm. Bleeding in both groin areas. Lt 4-5 days. Had procedure done on . EXAM PERFORMED: Grayscale and color Doppler duplex imaging performed of the groin, post cardiac homero ter to assess for pseudoaneurysm. SIDE PERFORMED: Left Color and Waveform Doppler performed to assess for the presence of pseudoaneurysm; Is there ultrasound evidence of a pseudoaneurysm: no Is there evidence of AV shunting: no Is there a fluid collection present: no IMPRESSION: No sonographic evidence of pseudoaneurysm on the left groin.
--- NOTE | 2019-09-02 11:58 | US ---
EXAMINATION TYPE: US lower ext pseudo artery RT DATE OF EXAM: 09/02/2019 COMPARISON: NONE CLINICAL HISTORY: pseudoaneurysm. Bleeding in both groin areas . Rt side about 11 days. Had procedure done 08/16/2019 EXAM PERFORMED: Grayscale and color Doppler duplex imaging performed of the groin, post cardiac homero ter to assess for pseudoaneurysm. SIDE PERFORMED: Right Color and Waveform Doppler performed to assess for the presence of pseudoaneurysm; Is there ultrasound evidence of a pseudoaneurysm: No Is there evidence of AV shunting: No Is there a fluid collection present: No IMPRESSION: No sonographic evidence of pseudoaneurysm on the right groin.
[2019-09-02 12:06] LABS: Glucose,Whole Blood 191 mg/dL (75-99)
[2019-09-02 12:17] VITALS: BP 143/68
[2019-09-02 12:58] VITALS: PULSE 68
--- NOTE | 2019-09-02 13:58 | P.GSCN ---
History of Present Illness Consult date: 09/02/19 Reason for Consult: Pseudoaneurysm post transcatheter aortic valve replacement Requesting physician: Merced Chilel History of present illness: This is an 84-year-old gentleman who follows on an outpatient basis with Dr. Deleon. He has a previous medical history of aortic stenosis status post transcatheter aortic valve replacement on 08/16/2019, coronary artery disease with stent placement, hypertension, hyperlipidemia, diabetes mellitus, hypothyroidism, previous tobacco dependence, COPD, obstructive sleep apnea, pulmonary hypertension, peripheral arterial disease, and BPH. He was recently admitted at [facility] for Her, he was discharged in stable condition after 2 days, he followed up with Dr. Talbert post surgery and was felt to be in stable condition. While at home he developed small amount of bleeding from the right groin site, he was seen in the cardiology office and sent to the emergency room for ultrasound which demonstrated no pseudoaneurysm. Yesterday he began having oozing from the left groin site and presented to [facility] emergency room for further evaluation. CT angiography was completed of the abdomen demonstrating possible 5 mm pseudoaneurysm of the left femoral artery and 3 mm pseudoaneurysm of the right femoral artery. He was admitted for evaluation and treatment with consultation placed to cardiology and Dr. Talbert from cardiothoracic surgery, as well as interventional radiology. 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; MAICO - uses CPAP q night, History of Any Multi-Drug Resistant Organisms: None Reported Past Surgical History: Appendectomy, Bowel Resection, Heart Catheterization With Stent, Orthopedic Surgery, Tonsillectomy Additional Past Surgical History / Comment(s): Bowel resections x 2 - had adhe sions that were blocking everything, cervical fusion in 1989, back injections, 2 past heart caths - stent 2016, bilateral cataract removals, 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TAVR 08/16/2019 at [place] Past Anesthesia/Blood Transfusion Reactions: No Reported Reaction Additional Past Anesthesia/Blood Transfusion Reaction / Comm: HARD TO WAKE UP Date of Last Stent Placement:: 09/2017 Past Psychological History: No Psychological Hx Reported Smoking Status: Former smoker Past Alcohol Use History: None Reported Past Drug Use History: None Reported - Past Family History Father Additional Family Medical History / Comment(s): burst appendix Mother Family Medical History: Cancer Additional Family Medical History / Comment(s): breast cancer Medications and Allergies Home Medications Medication Instructions Recorded Confirmed Type Tamsulosin HCl [Flomax] 0.4 mg PO HS 07/03/14 09/01/19 History Aspirin EC [Ecotrin Low Dose] 81 mg PO DAILY 05/22/17 09/01/19 History Metoprolol Tartrate [Lopressor] 25 mg PO DAILY 09/04/17 09/01/19 History Atorvastatin [Lipitor] 80 mg PO HS #30 tab 09/09/17 09/01/19 Rx Umeclidinium Brm/Vilanterol Tr 1 puff INHALATION RT-DAILY #30 09/15/18 09/01/19 Rx [Anoro Ellipta 62.5-25 Mcg INH] blst.w.dev Albuterol Inhaler [Ventolin Hfa 2 puff INHALATION RT-Q6H PRN 02/03/19 09/01/19 History Inhaler] predniSONE 5 mg PO DAILY #30 tab 02/08/19 09/01/19 Rx Acetaminophen Tab [Tylenol Tab] 1,000 mg PO BID 06/17/19 09/01/19 History INSULIN ASPART (NovoLOG) [NovoLOG See Protocol SQ AC-TID 06/23/19 09/01/19 History (formulary)] Insulin Degludec [Tresiba 60 unit SQ HS 06/23/19 09/01/19 History Flextouch U-100] Cephalexin [Keflex] 500 mg PO TID 09/01/19 09/01/19 History Clopidogrel [Plavix] 75 mg PO DAILY 09/01/19 09/01/19 History Ipratropium-Albuterol Nebulize 3 ml INHALATION RT-QID PRN 09/01/19 09/01/19 History [Duoneb 0.5 mg-3 mg/3 ml Soln] Isosorbide Mononitrate ER [Imdur] 30 mg PO DAILY 09/01/19 09/01/19 History Levothyroxine Sodium [Synthroid] 100 mcg PO DAILY 09/01/19 09/01/19 History Olmesartan/Hydrochlorothiazide 1 tab PO DAILY 09/01/19 09/01/19 History [Olmesartan-Hctz 20-12.5 mg Tab] metFORMIN HCL ER [Glucophage Xr] 500 mg PO HS 09/01/19 09/01/19 History guaiFENesin [Mucinex] 1,200 mg PO BID 09/02/19 09/02/19 History Allergies Allergy/AdvReac Type Severity Reaction Status Date / Time morphine AdvReac Hallucinati Verified 09/01/19 16:28 ons propoxyphene napsylate AdvReac Nausea & Verified 09/01/19 16:28 [From [facility]-N 100] Vomiting & Diarrhea raw oyster AdvReac Diarrhea Uncoded 09/01/19 16:28 Surgical - Exam Vital Signs Temp Pulse Resp BP Pulse Ox 97.9 F 62 24 139/55 95 09/01/19 15:50 09/01/19 15:50 09/01/19 15:50 09/01/19 15:50 09/01/19 15:50 - General well developed, well nourished, no distress, no pain - Eyes PERRL, normal ocular movement - ENT decreased hearing - Neck no masses, no bruits, trachea midline - Respiratory Lungs sounds diminished bilaterally. Respirations even, nonlabored. Currently on room air with oxygen saturation 95%. - Cardiovascular S1, S2 present. Regular rate and rhythm, sinus rhythm on telemetry. Palpable peripheral pulses bilaterally. No edema present. No calf pain or tenderness noted. Bilateral groins ecchymotic. Small area of firmness to the left groin. No active oozing presently but there are dressings in place with small amount of dried serosanguineous drainage. - Abdomen Abdomen: soft, non tender, bowel sounds - Genitourinary Deferred - Rectum Deferred - Integumentary no rash, no growths - Neurologic normal coordination, normal sensation - Musculoskeletal normal gait, normal posture - Psychiatric oriented to time, oriented to person, oriented to place, speech is normal, m anaheim intact Results - Labs 09/02/19 06:52 09/02/19 06:52 Abnormal Lab Results - Last 24 Hours (Table) 09/01/19 09/01/19 09/01/19 Range/Units 16:47 16:47 20:00 RBC 3.99 L (4.30-5.90) m/uL Hgb 12.0 L (13.0-17.5) gm/dL Hct 37.2 L (39.0-53.0) % Glucose 121 H (74-99) mg/dL POC Glucose (mg/dL) 104 H (75-99) mg/dL 09/02/19 09/02/19 09/02/19 Range/Units 06:02 06:52 06:52 RBC 4.08 L (4.30-5.90) m/uL Hgb 12.9 L (13.0-17.5) gm/dL Hct 38.1 L (39.0-53.0) % Glucose 132 H (74-99) mg/dL POC Glucose (mg/dL) 123 H (75-99) mg/dL 09/02/19 Range/Units 12:05 RBC (4.30-5.90) m/uL Hgb (13.0-17.5) gm/dL Hct (39.0-53.0) % Glucose (74-99) mg/dL POC Glucose (mg/dL) 191 H (75-99) mg/dL Diabetes panel 09/01/19 09/02/19 Range/Units 16:47 06:52 Sodium 139 138 (137-145) mmol/L Potassium 4.2 4.1 (3.5-5.1) mmol/L Chloride 103 104 (98-107) mmol/L Carbon Dioxide 26 25 (22-30) mmol/L BUN 16 16 (9-20) mg/dL Creatinine 0.77 0.75 (0.66-1.25) mg/dL Glucose 121 H 132 H (74-99) mg/dL Calcium 9.5 9.4 (8.4-10.2) mg/dL AST 30 (17-59) U/L ALT 29 (21-72) U/L Alkaline Phosphatase 86 (38-126) U/L Total Protein 6.4 (6.3-8.2) g/dL Albumin 3.9 (3.5-5.0) g/dL Calcium panel 09/01/19 09/02/19 Range/Units 16:47 06:52 Calcium 9.5 9.4 (8.4-10.2) mg/dL Albumin 3.9 (3.5-5.0) g/dL Pituitary panel 09/01/19 09/02/19 Range/Units 16:47 06:52 Sodium 139 138 (137-145) mmol/L Potassium 4.2 4.1 (3.5-5.1) mmol/L Chloride 103 104 (98-107) mmol/L Carbon Dioxide 26 25 (22-30) mmol/L BUN 16 16 (9-20) mg/dL Creatinine 0.77 0.75 (0.66-1.25) mg/dL Glucose 121 H 132 H (74-99) mg/dL Calcium 9.5 9.4 (8.4-10.2) mg/dL Adrenal panel 09/01/19 09/02/19 Range/Units 16:47 06:52 Sodium 139 138 (137-145) mmol/L Potassium 4.2 4.1 (3.5-5.1) mmol/L Chloride 103 104 (98-107) mmol/L Carbon Dioxide 26 25 (22-30) mmol/L BUN 16 16 (9-20) mg/dL Creatinine 0.77 0.75 (0.66-1.25) mg/dL Glucose 121 H 132 H (74-99) mg/dL Calcium 9.5 9.4 (8.4-10.2) mg/dL Total Bilirubin 0.4 (0.2-1.3) mg/dL AST 30 (17-59) U/L ALT 29 (21-72) U/L Alkaline Phosphatase 86 (38-126) U/L Total Protein 6.4 (6.3-8.2) g/dL Albumin 3.9 (3.5-5.0) g/dL - Imaging CT scan - abdomen: report reviewed, image reviewed Assessment and Plan Assessment: 1. Possible pseudoaneurysms seen on CT angiography 2. History of aortic stenosis status post TAVR 3. Coronary artery disease with previous stent placement 4. Hypertension 5. Hyperlipidemia 6. Diabetes mellitus 7. Hypothyroidism 8. Previous tobacco dependence 9. COPD with chronic prednisone use 10. Obstructive sleep apnea with home CPAP use Plan: The patient was seen and examined at the bedside. Chart/diagnostics were reviewed. The patient is stable in no acute distress. He does state he feels better than he has a long time. Case discussed with Dr. Rodriguez who is present today, will discuss with Dr. Talbert. Duplex arterial scan was completed earlier today demonstrating no pseudoaneurysm bilaterally. From cardiothoracic surgery standpoint the patient can be discharged home when okay with other service lines. Continue current medication regimen. Patient should follow-up with cardiology and cardiothoracic surgery as scheduled. Medical management per primary care service. Thank you for this consult. Please call us with any further questions. Time with Patient: Greater than 30
--- NOTE | 2019-09-02 14:14 | CONS ---
CONSULTATION This is an elderly 84-year-old gentleman with a known history of CAD and severe aortic stenosis. On August 16 or so, he underwent a TAVR that was performed at [facility] by Dr. Ling and Dr. Talbert. Since then, he was seen in the office by nurse practitioner, had some oozing from the groin, was advised antibiotics and he has been doing well but yesterday he had more oozing and came into the hospital. Had a CT angio done, which revealed a small pseudoaneurysm of about 5 mm or less. He is here in this regard. There is no further oozing. Both areas look fairly dry. There is no evidence of active infection. His vital signs are stable. He is resting comfortably without symptoms. PAST MEDICAL HISTORY: 1. CAD with previous PCI. 2. Obstructive sleep apnea syndrome, wears a CPAP. 3. Hypertension. 4. Hyperlipidemia. 5. CAD with prior PCI. 6. Recent percutaneous aortic valve implant at [facility]. MEDICATIONS: At home include metformin, aspirin 81 mg, Plavix 75 mg, Lipitor 80 mg, he also takes levothyroxine, metoprolol 25 mg daily, Flomax 0.4 mg daily. ALLERGIES: He is allergic to MORPHINE, NAPROSYN, and also PROPOXYPHENE. On examination, blood pressure is 140/70, pulse rate is 70 per minute, appears to be sinus. HEENT unremarkable. Fundus was not examined by me. NECK: Supple. There is JVD of 1 cm. No carotid bruit. HEART: Exam reveals S1, S2 with ejection systolic murmur. Second heart sound is preserved. LUNGS: Clear. ABDOMEN: Soft. Both the groin sites appear to be dry without much oozing, no erythema or signs of inflammation. Lower extremity pulses are preserved. IMPRESSION: 1. Bilateral small pseudoaneurysms in lower extremities, where he had percutaneous coronary intervention for aortic valve implant. 2. Coronary artery disease with prior PCI. 3. Hypertension. 4. Obesity. 5. Sleep apnea syndrome. RECOMMENDATION: I will request Dr. Lopez from Interventional Radiology to do an ultrasound and see if these two areas can be close or even if they need to be closed. If not, patient can be discharged on oral antibiotics and follow up with me in one week as an outpatient. I discussed my thoughts in detail with the patient and daughter. Thank you very much for the consult. MMODL / IJN: [id number] /
--- NOTE | 2019-09-02 14:53 | P.DS ---
Providers Date of admission: 09/01/19 21:13 Expected date of discharge: 09/02/19 Attending physician: Gisel Wang MD Consults: 09/01/19 21:14 Consult Physician Urgent Consulting Provider: Kendal Vaughn Consult Reason/Comments: acute pseudoanerysm, s/p AVR Do you want consulting provider notified?: Yes 09/01/19 21:15 Consult Physician Urgent Consulting Provider: Karla Talbert Consult Reason/Comments: b/l pseudoanerysm Do you want consulting provider notified?: Yes Primary care physician: [facility] Course: Discharge diagnosis Essential hypertension Type 2 diabetes Hypothyroidism Concern for bilateral femoral pseudoaneurysms History of aortic stenosis status post TAV R Coronary artery disease with previous stent placement The patient is a 81-year-old male that was admitted with concern for possible femoral pseudoaneurysm status post recent TAVR 08/16/19 secondary to severe aortic stenosis after he presented with some bleeding from his right inguinal site. In the ER he had a CTA demonstrating possible 5 mm pseudoaneurysm on the left and 3 mm pseudoaneurysm on the right femoral artery respectively. Cardiothoracic surgery was consulted and the patient case was discussed with Dr. Rodriguez/Nitish and bilateral duplex arterial scans are performed that were negative for any suggestion of pseudoaneurysm . The patient then was subsequently discharged home in stable condition and told to keep his follow up appointment. The patient is continued on Keflex on discharge. This discharge process took approximately 30 minutes Focused exam skin: bilateral ecchymotic groins with a small area of firmness on the left groin no active oozing present Patient Condition at Discharge: Stable Plan - Discharge Summary Discharge Rx Participant: Yes New Discharge Prescriptions: New amLODIPine [Norvasc] 5 mg PO DAILY #30 tab Continue Tamsulosin HCl [Flomax] 0.4 mg PO HS Aspirin EC [Ecotrin Low Dose] 81 mg PO DAILY Metoprolol Tartrate [Lopressor] 25 mg PO DAILY Atorvastatin [Lipitor] 80 mg PO HS #30 tab Umeclidinium Brm/Vilanterol Tr [Anoro Ellipta 62.5-25 Mcg INH] 1 puff INHALATION RT-DAILY #30 blst.w.dev Albuterol Inhaler [Ventolin Hfa Inhaler] 2 puff INHALATION RT-Q6H PRN PRN Reason: Shortness Of Breath predniSONE 5 mg PO DAILY #30 tab Acetaminophen Tab [Tylenol] 1,000 mg PO BID Insulin Degludec [Tresiba Flextouch U-100] 60 unit SQ HS INSULIN ASPART (NovoLOG) [NovoLOG (formulary)] See Protocol SQ AC-TID Olmesartan/Hydrochlorothiazide [Olmesartan-Hctz 20-12.5 mg Tab] 1 tab PO DAILY metFORMIN HCL ER [Glucophage Xr] 500 mg PO HS Levothyroxine Sodium [Synthroid] 100 mcg PO DAILY Ipratropium-Albuterol Nebulize [Duoneb 0.5 mg-3 mg/3 ml Soln] 3 ml INHALATION RT-QID PRN PRN Reason: Shortness Of Breath Or Wheezing Clopidogrel [Plavix] 75 mg PO DAILY Cephalexin [Keflex] 500 mg PO TID Isosorbide Mononitrate ER [Imdur] 30 mg PO DAILY guaiFENesin [Mucinex] 1,200 mg PO BID Discharge Medication List Tamsulosin HCl [Flomax] 0.4 mg PO HS 07/03/14 [History] Aspirin EC [Ecotrin Low Dose] 81 mg PO DAILY 05/22/17 [History] Metoprolol Tartrate [Lopressor] 25 mg PO DAILY 09/04/17 [History] Atorvastatin [Lipitor] 80 mg PO HS #30 tab 09/09/17 [Rx] Umeclidinium Brm/Vilanterol Tr [Anoro Ellipta 62.5-25 Mcg INH] 1 puff INHALATION RT-DAILY #30 blst.w.dev 09/15/18 [Rx] Albuterol Inhaler [Ventolin Hfa Inhaler] 2 puff INHALATION RT-Q6H PRN 02/03/19 [History] predniSONE 5 mg PO DAILY #30 tab 02/08/19 [Rx] Acetaminophen Tab [Tylenol] 1,000 mg PO BID 06/17/19 [History] INSULIN ASPART (NovoLOG) [NovoLOG (formulary)] See Protocol SQ AC-TID 06/23/19 [History] Insulin Degludec [Tresiba Flextouch U-100] 60 unit SQ HS 06/23/19 [History] Cephalexin [Keflex] 500 mg PO TID 09/01/19 [History] Clopidogrel [Plavix] 75 mg PO DAILY 09/01/19 [History] Ipratropium-Albuterol Nebulize [Duoneb 0.5 mg-3 mg/3 ml Soln] 3 ml INHALATION RT-QID PRN 09/01/19 [History] Isosorbide Mononitrate ER [Imdur] 30 mg PO DAILY 09/01/19 [History] Levothyroxine Sodium [Synthroid] 100 mcg PO DAILY 09/01/19 [History] Olmesartan/Hydrochlorothiazide [Olmesartan-Hctz 20-12.5 mg Tab] 1 tab PO DAILY 09/01/19 [History] metFORMIN HCL ER [Glucophage Xr] 500 mg PO HS 09/01/19 [History] amLODIPine [Norvasc] 5 mg PO DAILY #30 tab 09/02/19 [Rx] guaiFENesin [Mucinex] 1,200 mg PO BID 09/02/19 [History] Follow up Appointment(s)/Referral(s): Manuel Deleon MD [Primary Care Provider] - 1-2 days Discharge Disposition: HOME SELF-CARE
[2019-09-02] MEDS ORDERED: ATORVASTATIN 80 MG TAB PO SCH (21:00)
[2019-09-02] MEDS ORDERED: INSULIN DETEMIR (LEVEMIR) 100 UNIT/ML SYR SQ SCH (21:00)
[2019-09-02] MEDS ORDERED: TAMSULOSIN 0.4 MG CAP.ER.24H PO SCH (21:00)
== END 2019-09-02 16:17 | disposition home or self-care (01) ==
LOC: EC 15:31 → 3SCARD 21:13
PROVIDERS: ADMIT Internal Medicine; ATTEND Internal Medicine
DX: L76.22 Postprocedural hemorrhage of skin and subcutaneous tissue following other procedure (principal); E03.9 Hypothyroidism, unspecified; Z95.2 Presence of prosthetic heart valve; I25.10 Atherosclerotic heart disease of native coronary artery without angina pectoris; Z95.5 Presence of coronary angioplasty implant and graft; I11.0 Hypertensive heart disease with heart failure; I50.9 Heart failure, unspecified; J44.9 Chronic obstructive pulmonary disease, unspecified; E78.5 Hyperlipidemia, unspecified; M19.90 Unspecified osteoarthritis, unspecified site; G47.33 Obstructive sleep apnea (adult) (pediatric); E66.9 Obesity, unspecified; Z68.36 Body mass index [BMI] 36.0-36.9, adult; E11.51 Type 2 diabetes mellitus with diabetic peripheral angiopathy without gangrene; N40.0 Benign prostatic hyperplasia without lower urinary tract symptoms; I35.0 Nonrheumatic aortic (valve) stenosis; I27.20 Pulmonary hypertension, unspecified; Z88.5 Allergy status to narcotic agent; Z91.013 Allergy to seafood; Z79.890 Hormone replacement therapy; Z79.82 Long term (current) use of aspirin; Z79.899 Other long term (current) drug therapy; Z79.4 Long term (current) use of insulin; Z79.02 Long term (current) use of antithrombotics/antiplatelets; Z79.52 Long term (current) use of systemic steroids; Z99.89 Dependence on other enabling machines and devices; Z90.49 Acquired absence of other specified parts of digestive tract; Z98.1 Arthrodesis status; Z85.828 Personal history of other malignant neoplasm of skin; Z87.891 Personal history of nicotine dependence; Z80.3 Family history of malignant neoplasm of breast; Z83.79 Family history of other diseases of the digestive system
CPT/HCPCS: 99285; 36415; 94640 ×2; 80053; 80048; 85025 ×2; 85610; 85730; 87040; 93975; 93926 ×2; 75635; G0378 ×2; J7512; Q9967

== ENCOUNTER → 2019-09-26 | Outpatient (CLI) | payer MEDICARE ==
--- NOTE | 2019-09-27 11:01 | ECHOF ---
Referral Reason:I35.0 Aortic stenosis MEASUREMENTS -------- HEIGHT: 182.9 cm WEIGHT: 112.9 kg BP: IVSd: 1.4 cm (0.6 - 1.1) LVIDd: 3.7 cm (3.9 - 5.3) LVPWd: 1.6 cm (0.6 - 1.1) IVSs: 2.1 cm LVIDs: 1.9 cm LVPWs: 2.0 cm Ao Diam: 3.1 cm (2.0 - 3.7) AV Cusp: 1.5 cm (1.5 - 2.6) LA Diam: 4.0 cm (2.7 - 3.8) MV EXCURSION: 12.169 mm (> 18.000) MV EF SLOPE: 32 mm/s (70 - 150) EPSS: 1.5 cm MV E Fredo: 1.14 m/s MV DecT: 230 ms MV A Fredo: 1.09 m/s MV E/A Ratio: 1.05 AV maxP.24 mmHg AV meanP.09 mmHg RAP: 5.00 mmHg RVSP: 20.45 mmHg FINDINGS -------- Sinus rhythm. This was a technically good study. Post TAVR procedure The left ventricular size is normal. There is moderate concentric left ventricular hypertrophy. O verall left ventricular systolic function is normal with, an EF between 55 - 60 %. The right ventricle is normal in size. The left atrial size is normal. The right atrial size is normal. Interatrial and interventricular septum intact. Peak/mean gradient across the Aortic Valve is 14.24mmHg / 8.09mmHg. Normally functioning bioprosthe tic valve. The mitral valve is normal. Mild mitral regurgitation is present. The tricuspid valve appears structurally normal. Mild tricuspid regurgitation present. Right vent ricular systolic pressure is normal at < 35 mmHg. There is no pulmonic regurgitation present. The aortic root size is normal. Normal inferior vena cava with normal inspiratory collapse consistent with estimated right atrial pre ssure of 5 mmHg. There is no pericardial effusion. CONCLUSIONS -------- 1. Sinus rhythm. 2. This was a technically good study. 3. Post TAVR procedure 4. The left ventricular size is normal. 5. There is moderate concentric left ventricular hypertrophy. 6. Overall left ventricular systolic function is normal with, an EF between 55 - 60 %. 7. The right ventricle is normal in size. 8. The left atrial size is normal. 9. The right atrial size is normal. 10. Interatrial and interventricular septum intact. 11. Peak/mean gradient across the Aortic Valve is 14.24mmHg / 8.09mmHg. 12. Normally functioning bioprosthetic valve. 13. The mitral valve is normal. 14. Mild mitral regurgitation is present. 15. The tricuspid valve appears structurally normal. 16. Mild tricuspid regurgitation present. 17. Right ventricular systolic pressure is normal at < 35 mmHg. 18. There is no pulmonic regurgitation present. 19. The aortic root size is normal. 20. Normal inferior vena cava with normal inspiratory collapse consistent with estimated right atrial pressure of 5 mmHg. 21. There is no pericardial effusion. SKETCH ARTIST: Lidia Burks RDCS
== END | disposition home or self-care (01) ==
LOC: RADECHMAIN 12:45
PROVIDERS: ATTEND Internal Medicine Cardiovascular Disease
DX: I08.1 Rheumatic disorders of both mitral and tricuspid valves (principal)
CPT/HCPCS: 93306

== ENCOUNTER 2020-08-23 19:38 | Observation (INO) | payer MEDICARE ==
[2020-08-23] MEDS ORDERED: SODIUM CHLORIDE 0.9% 1,000 ML IV STA ×2 (20:01)
--- NOTE | 2020-08-23 20:02 | ED ---
Recheck HPI - General Chief Complaint: Recheck/Abnormal Lab/Rx Stated Complaint: Glucose Problems Time Seen by Provider: 08/23/20 20:01 Source: patient, RN notes reviewed, old records reviewed Mode of arrival: ambulatory Limitations: no limitations - History of Present Illness Initial Comments: This is an 85-year-old male presents with multiple complaints today, weakness with multiple near syncopal events as well as significant bleeding he does not believe is coming from his urine but is unsure where the blood is coming from. Has felt weak throughout the day was seen in urgent care was found to have elevated blood sugar and then sent DF for evaluation. Patient admits to blood sugar being elevated also while he was at home. Patient is a been stressed out recently secondary to passing of his and daughter is at bedside who came over to the patient's house today due to patient not feeling well MD Complaint: abnormal lab (Elevated blood sugar), other (Not feeling well blood in the urine) -: days(s) Returns Today for: Called Because of Abnormal Lab/Test, other (Not feeling well) Symptoms Since Prior Visit: no new symptoms (Episodes of near-syncope) Associated Symptoms: none Treatments Prior to Arrival: urinary catheter in place - Related Data Home Medications Medication Instructions Recorded Confirmed Tamsulosin HCl [Flomax] 0.4 mg PO HS 07/03/14 08/23/20 Aspirin EC [Ecotrin Low Dose] 81 mg PO DAILY 05/22/17 08/23/20 INSULIN ASPART (NovoLOG) [NovoLOG 24 unit SQ AC-TID 06/23/19 08/23/20 (formulary)] Insulin Degludec [Tresiba 60 unit SQ HS 06/23/19 08/23/20 Flextouch U-100] Isosorbide Mononitrate ER [Imdur] 30 mg PO DAILY 09/01/19 08/23/20 Levothyroxine Sodium [Synthroid] 100 mcg PO DAILY 09/01/19 08/23/20 metFORMIN HCL ER [Glucophage Xr] 500 mg PO HS 09/01/19 08/23/20 Albuterol Sulfate [Proair Hfa] 2 puff INHALATION RT-QID PRN 08/23/20 08/23/20 Metoprolol Tartrate [Lopressor] 50 mg PO HS 08/23/20 08/23/20 Olmesartan [Benicar] 10 mg PO DAILY 08/23/20 08/23/20 Previous Rx's Medication Instructions Recorded Atorvastatin [Lipitor] 80 mg PO HS #30 tab 09/09/17 Umeclidinium Brm/Vilanterol Tr 1 puff INHALATION RT-DAILY #30 09/15/18 [Anoro Ellipta 62.5-25 Mcg INH] blst.w.dev predniSONE 5 mg PO DAILY #30 tab 02/08/19 Allergies Allergy/AdvReac Type Severity Reaction Status Date / Time morphine AdvReac Hallucinati Verified 08/23/20 22:40 ons propoxyphene napsylate AdvReac Nausea & Verified 08/23/20 22:40 [From Darvocet-N 100] Vomiting & Diarrhea raw oyster AdvReac Diarrhea Uncoded 08/23/20 22:40 Review of Systems ROS Statement: Those systems with pertinent positive or pertinent negative responses have been documented in the HPI. ROS Other: All systems not noted in ROS Statement are negative. 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 Past Anesthesia/Blood Transfusion Reactions: No Reported Reaction Additional Past Anesthesia/Blood Transfusion Reaction / Comment(s): HARD TO WAKE UP Date of Last Stent Placement:: 09/2017 Past Psychological History: No Psychological Hx Reported Smoking Status: Former smoker Past Alcohol Use History: None Reported Past Drug Use History: None Reported - Past Family History Father Additional Family Medical History / Comment(s): burst appendix Mother Family Medical History: Cancer Additional Family Medical History / Comment(s): breast cancer General Exam Limitations: no limitations General appearance: obese Head exam: Present: atraumatic, normocephalic, normal inspection Eye exam: Present: normal appearance, PERRL, EOMI. Absent: scleral icterus, conjunctival injection, periorbital swelling ENT exam: Present: normal exam, mucous membranes moist Neck exam: Present: normal inspection. Absent: tenderness, meningismus, lymphadenopathy Respiratory exam: Present: normal lung sounds bilaterally. Absent: respiratory distress, wheezes, rales, rhonchi, stridor Cardiovascular Exam: Present: regular rate, normal rhythm, normal heart sounds. Absent: systolic murmur, diastolic murmur, rubs, gallop, clicks GI/Abdominal exam: Present: soft, normal bowel sounds. Absent: distended, tenderness, guarding, rebound, rigid Extremities exam: Present: normal inspection, full ROM, normal capillary refill. Absent: tenderness, pedal edema, joint swelling, calf tenderness Back exam: Present: normal inspection Neurological exam: Present: alert, oriented X3, CN II-XII intact Psychiatric exam: Present: normal affect, normal mood Skin exam: Present: warm, dry, intact, normal color. Absent: rash Course Vital Signs 08/23/20 08/23/20 19:52 21:07 Temperature 97.9 F Pulse Rate 62 75 Respiratory 18 20 Rate Blood Pressure 144/67 160/68 O2 Sat by Pulse 96 97 Oximetry - Reevaluation(s) Reevaluation #1: 08/23/20 22:38 Medical record is reviewed Reevaluation #2: 08/23/20 22:38 Persistent hematuria here in the ER Reevaluation #3: 08/23/20 22:39 Patient feels better with hydration - Consultations Consultation #1: Spoke with [facility] to agrees to admit the patient Medical Decision Making - Medical Decision Making 85 male DF for evaluation patient has hematuria likely underlying urinary tract infection, patient also has a for weakness and dizziness of the day with overdose of near-syncope elevated blood sugar. Skylar for blood sugar control and IV antibiotics - Lab Data Result diagrams: 08/23/20 20:51 08/23/20 20:51 Lab Results 08/23/20 08/23/20 08/23/20 Range/Units 20:22 20:40 20:51 WBC 8.8 (3.8-10.6) k/uL RBC 4.61 (4.30-5.90) m/uL Hgb 14.3 (13.0-17.5) gm/dL Hct 42.8 (39.0-53.0) % MCV 92.8 (80.0-100.0) fL MCH 30.9 (25.0-35.0) pg MCHC 33.3 (31.0-37.0) g/dL RDW 13.4 (11.5-15.5) % Plt Count 209 (150-450) k/uL Neutrophils % 71 % Lymphocytes % 18 % Monocytes % 5 % Eosinophils % 4 % Basophils % 1 % Neutrophils # 6.3 (1.3-7.7) k/uL Lymphocytes # 1.6 (1.0-4.8) k/uL Monocytes # 0.4 (0-1.0) k/uL Eosinophils # 0.3 (0-0.7) k/uL Basophils # 0.1 (0-0.2) k/uL Sodium (137-145) mmol/L Potassium (3.5-5.1) mmol/L Chloride (98-107) mmol/L Carbon Dioxide (22-30) mmol/L Anion Gap mmol/L BUN (9-20) mg/dL Creatinine (0.66-1.25) mg/dL Est GFR (CKD-EPI)AfAm (>60 ml/min/1.73 sqM) Est GFR (CKD-EPI)NonAf (>60 ml/min/1.73 sqM) Glucose (74-99) mg/dL POC Glucose (mg/dL) 155 H (75-99) mg/dL POC Glu [employer] Agent ID Kimberli, Gladys Calcium (8.4-10.2) mg/dL Phosphorus (2.5-4.5) mg/dL Magnesium (1.6-2.3) mg/dL Total Bilirubin (0.2-1.3) mg/dL AST (17-59) U/L ALT (4-49) U/L Alkaline Phosphatase (38-126) U/L Total Protein (6.3-8.2) g/dL Albumin (3.5-5.0) g/dL Urine Color Light Yellow Urine Appearance Clear (Clear) Urine pH 5.5 (5.0-8.0) Ur Specific Vass 1.007 (1.001-1.035) Urine Protein Negative (Negative) Urine Glucose (UA) Trace H (Negative) Urine Ketones Negative (Negative) Urine Blood Moderate H (Negative) Urine Nitrite Negative (Negative) Urine Bilirubin Negative (Negative) Urine Urobilinogen <2.0 (<2.0) mg/dL Ur Leukocyte Esterase Trace H (Negative) Urine RBC 175 H (0-5) /hpf Urine WBC 5 (0-5) /hpf Ur Squamous Epith Cells <1 (0-4) /hpf Urine Mucus Rare H (None) /hpf Acetone, Qual (Negative) 08/23/20 Range/Units 20:51 WBC (3.8-10.6) k/uL RBC (4.30-5.90) m/uL Hgb (13.0-17.5) gm/dL Hct (39.0-53.0) % MCV (80.0-100.0) fL MCH (25.0-35.0) pg MCHC (31.0-37.0) g/dL RDW (11.5-15.5) % Plt Count (150-450) k/uL Neutrophils % % Lymphocytes % % Monocytes % % Eosinophils % % Basophils % % Neutrophils # (1.3-7.7) k/uL Lymphocytes # (1.0-4.8) k/uL Monocytes # (0-1.0) k/uL Eosinophils # (0-0.7) k/uL Basophils # (0-0.2) k/uL Sodium 134 L (137-145) mmol/L Potassium 5.0 (3.5-5.1) mmol/L Chloride 104 (98-107) mmol/L Carbon Dioxide 23 (22-30) mmol/L Anion Gap 7 mmol/L BUN 18 (9-20) mg/dL Creatinine 0.74 (0.66-1.25) mg/dL Est GFR (CKD-EPI)AfAm >90 (>60 ml/min/1.73 sqM) Est GFR (CKD-EPI)NonAf 83 (>60 ml/min/1.73 sqM) Glucose 152 H (74-99) mg/dL POC Glucose (mg/dL) (75-99) mg/dL POC Glu Geek [employer] Agent ID Calcium 9.5 (8.4-10.2) mg/dL Phosphorus 3.7 (2.5-4.5) mg/dL Magnesium 2.2 (1.6-2.3) mg/dL Total Bilirubin 0.6 (0.2-1.3) mg/dL AST 35 (17-59) U/L ALT 26 (4-49) U/L Alkaline Phosphatase 97 (38-126) U/L Total Protein 6.8 (6.3-8.2) g/dL Albumin 4.2 (3.5-5.0) g/dL Urine Color Urine Appearance (Clear) Urine pH (5.0-8.0) Ur Specific Vass (1.001-1.035) Urine Protein (Negative) Urine Glucose (UA) (Negative) Urine Ketones (Negative) Urine Blood (Negative) Urine Nitrite (Negative) Urine Bilirubin (Negative) Urine Urobilinogen (<2.0) mg/dL Ur Leukocyte Esterase (Negative) Urine RBC (0-5) /hpf Urine WBC (0-5) /hpf Ur Squamous Epith Cells (0-4) /hpf Urine Mucus (None) /hpf Acetone, Qual Negative (Negative) Disposition Clinical Impression: Hematuria, Near syncope, Weakness, UTI (urinary tract infection), Hyperglycemia Disposition: ADMITTED IP TO THIS HOSP Condition: Good Is patient prescribed a controlled substance at d/c from ED?: No
[2020-08-23 20:29] LABS: Glucose,Whole Blood 155 mg/dL (75-99)
[2020-08-23 21:00] LABS: Appearance,Urine Clear (Clear); Bilirubin,Urine Negative (Negative); Blood,Urine Moderate (Negative); Color,Urine Light Yellow; Glucose,Urine (UA) Trace (Negative); Ketones,Urine Negative (Negative); Leukocyte Esterase,Urine Trace (Negative); Mucus,Urine Rare /hpf; Nitrite,Urine Negative (Negative); PH, Urine 5.5 (5.0-8.0); Protein,Urine Negative (Negative); RBC,Urine 175 /hpf (0-5); Specific Gravity,Urine 1.007 (1.001-1.035); Squamous Epithelial Cell,Urine <1 /hpf (0-4); Urobilinogen,Urine <2.0 mg/dL (<2.0); WBC,Urine 5 /hpf (0-5)
[2020-08-23 21:01] LABS: Basophils # (A) 0.1 k/uL (0-0.2); Basophils % (A) 1 %; Eosinophils # (A) 0.3 k/uL (0-0.7); Eosinophils % (A) 4 %; HCT 42.8 % (39.0-53.0); HGB 14.3 gm/dL (13.0-17.5); Lymphocytes # (A) 1.6 k/uL (1.0-4.8); Lymphocytes % (A) 18 %; MCH 30.9 pg (25.0-35.0); MCHC 33.3 g/dL (31.0-37.0); MCV 92.8 fL (80.0-100.0); Mean Platelet Volume 6.7; Monocytes # (A) 0.4 k/uL (0-1.0); Monocytes % (A) 5 %; Neutrophils # (A) 6.3 k/uL (1.3-7.7); Neutrophils % (A) 71 %; Platelet Count 209 k/uL (150-450); RBC 4.61 m/uL (4.30-5.90); RDW 13.4 % (11.5-15.5); WBC 8.8 k/uL (3.8-10.6)
[2020-08-23 21:10] LABS: ALT 26 U/L (4-49); AST 35 U/L (17-59); African American GFR (CKD) >90 (>60 ml/min/1.73 sqM); Albumin 4.2 g/dL (3.5-5.0); Alkaline Phosphatase 97 U/L (38-126); Anion Gap 7 mmol/L; Blood Urea Nitrogen 18 mg/dL (9-20); Calcium 9.5 mg/dL (8.4-10.2); Carbon Dioxide 23 mmol/L (22-30); Chloride 104 mmol/L (98-107); Glucose 152 mg/dL (74-99); Magnesium 2.2 mg/dL (1.6-2.3); Non-African American GFR(CKD) 83 (>60 ml/min/1.73 sqM); Phosphorus 3.7 mg/dL (2.5-4.5); Sodium 134 mmol/L (137-145); Total Bilirubin 0.6 mg/dL (0.2-1.3); Total Protein 6.8 g/dL (6.3-8.2)
[2020-08-23] MEDS ORDERED: NITROGLYCERIN SL TABS 0.4 MG TAB SUBLINGUAL PRN (22:35)
[2020-08-23] MEDS: SODIUM CHLORIDE 0.9% 1,000 ML IV SCH (23:55)
[2020-08-24] MEDS ORDERED: AMPICILLIN-SULBACTAM 3 GM in SODIUM CHLORIDE 0.9% 100 ML IVPB ONE ×2
[2020-08-24 00:05] LABS: Glucose,Whole Blood 133 mg/dL (75-99)
[2020-08-24 01:34] LABS: Glucose,Whole Blood 131 mg/dL (75-99)
[2020-08-24] MEDS: INSULIN ASPART (NovoLOG) 100 UNIT/ML VIAL SQ SCH ×4 (09:45→20:19)
[2020-08-24] MEDS: AMPICILLIN-SULBACTAM 3 GM in SODIUM CHLORIDE 0.9% 100 ML IVPB SCH ×2 (09:50→16:10)
[2020-08-24] MEDS: ASPIRIN 325 MG TAB PO SCH (09:51)
[2020-08-24] MEDS: LOSARTAN 25 MG TAB PO SCH (10:47)
[2020-08-24] MEDS: predniSONE 5 MG TAB PO SCH (10:48)
[2020-08-24] MEDS: LEVOTHYROXINE 100 MCG TAB PO SCH (10:48)
[2020-08-24] MEDS: ISOSORBIDE MONONITRATE ER 30 MG TAB.ER.24H PO SCH (10:48)
[2020-08-24 12:23] LABS: Glucose,Whole Blood 182 mg/dL (75-99)
[2020-08-24] MEDS: SODIUM CHLORIDE 0.9% 1,000 ML IV SCH ×2 (13:38→19:40)
--- NOTE | 2020-08-24 15:23 | P.GSCN ---
History of Present Illness Consult date: 08/24/20 History of present illness: This is a pleasant 85-year-old gentleman, diabetic who lost his one week ago who was feeling poorly. His sugar was elevated. He went to the outpatient clinic where they recommended he come to the hospital because of his overall feeling poorly. He was in the emergency room yesterday and found to have gross hematuria. It was thought that he had a urinary tract infection. He is subsequently admitted the hospital. We are asked to see the patient for hematuria. Patient has not noticed any change in his urination. His stream is for the most part is without difficulty. He does take tamsulosin from Dr. Deleon. The patient has not had infections. He had hematuria some 40 years ago that was due to a "infection". His no history of stones. He has no history of incontinence. He has been on blood thinner due to aortic valve replacement. 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 Past Anesthesia/Blood Transfusion Reactions: No Reported Reaction Additional Past Anesthesia/Blood Transfusion Reaction / Comm: HARD TO WAKE UP Date of Last Stent Placement:: 09/2017 Past Psychological History: No Psychological Hx Reported Additional Psychological History / Comment(s): . Smoking Status: Former smoker Past Alcohol Use History: None Reported Additional Past Alcohol Use History / Comment(s): QUIT SMOKING 1989 ; smoked from age 17 to 65 yrs old 2 ppd Past Drug Use History: None Reported - Past Family History Father Additional Family Medical History / Comment(s): burst appendix Mother Family Medical History: Cancer Additional Family Medical History / Comment(s): breast cancer Medications and Allergies Home Medications Medication Instructions Recorded Confirmed Type Tamsulosin HCl [Flomax] 0.4 mg PO HS 07/03/14 08/23/20 History Aspirin EC [Ecotrin Low Dose] 81 mg PO DAILY 05/22/17 08/23/20 History Atorvastatin [Lipitor] 80 mg PO HS #30 tab 09/09/17 08/23/20 Rx Umeclidinium Brm/Vilanterol Tr 1 puff INHALATION RT-DAILY #30 09/15/18 08/23/20 Rx [Anoro Ellipta 62.5-25 Mcg INH] blst.w.dev predniSONE 5 mg PO DAILY #30 tab 02/08/19 08/23/20 Rx INSULIN ASPART (NovoLOG) [NovoLOG 24 unit SQ AC-TID 06/23/19 08/23/20 History (formulary)] Insulin Degludec [Tresiba 60 unit SQ HS 06/23/19 08/23/20 History Flextouch U-100] Isosorbide Mononitrate ER [Imdur] 30 mg PO DAILY 09/01/19 08/23/20 History Levothyroxine Sodium [Synthroid] 100 mcg PO DAILY 09/01/19 08/23/20 History metFORMIN HCL ER [Glucophage Xr] 500 mg PO HS 09/01/19 08/23/20 History Albuterol Sulfate [Proair Hfa] 2 puff INHALATION RT-QID PRN 08/23/20 08/23/20 History Metoprolol Tartrate [Lopressor] 50 mg PO HS 08/23/20 08/23/20 History Olmesartan [Benicar] 10 mg PO DAILY 08/23/20 08/23/20 History Allergies Allergy/AdvReac Type Severity Reaction Status Date / Time morphine AdvReac Hallucinati Verified 08/23/20 22:40 ons propoxyphene napsylate AdvReac Nausea & Verified 08/23/20 22:40 [From Darvocet-N 100] Vomiting & Diarrhea raw oyster AdvReac Diarrhea Uncoded 08/23/20 22:40 Surgical - Exam Vital Signs Temp Pulse Resp BP Pulse Ox 97.9 F 62 18 144/67 96 08/23/20 19:52 08/23/20 19:52 08/23/20 19:52 08/23/20 19:52 08/23/20 19:52 - General well developed, well nourished, no distress, obese - Eyes PERRL - ENT no hearing loss - Neck no masses, trachea midline - Respiratory normal expansion, normal respiratory effort - Cardiovascular Rhythm: regular - Genitourinary Indwelling catheter with blood on the catheter. Prostate is 20-30 g and benign normal penis with no external lesions, testicles present - Integumentary no rash, no growths - Neurologic normal coordination, normal sensation - Musculoskeletal normal posture - Psychiatric oriented to time, oriented to person, oriented to place, speech is normal, memory intact Results - Labs 08/23/20 20:51 08/23/20 20:51 Abnormal Lab Results - Last 24 Hours (Table) 08/23/20 08/23/20 08/23/20 Range/Units 20:22 20:40 20:51 Sodium 134 L (137-145) mmol/L Glucose 152 H (74-99) mg/dL POC Glucose (mg/dL) 155 H (75-99) mg/dL Urine Glucose (UA) Trace H (Negative) Urine Blood Moderate H (Negative) Ur Leukocyte Esterase Trace H (Negative) Urine RBC 175 H (0-5) /hpf Urine Mucus Rare H (None) /hpf 08/24/20 08/24/20 08/24/20 Range/Units 00:03 01:31 12:22 Sodium (137-145) mmol/L Glucose (74-99) mg/dL POC Glucose (mg/dL) 133 H 131 H 182 H (75-99) mg/dL Urine Glucose (UA) (Negative) Urine Blood (Negative) Ur Leukocyte Esterase (Negative) Urine RBC (0-5) /hpf Urine Mucus (None) /hpf Diabetes panel 08/23/20 Range/Units 20:51 Sodium 134 L (137-145) mmol/L Potassium 5.0 (3.5-5.1) mmol/L Chloride 104 (98-107) mmol/L Carbon Dioxide 23 (22-30) mmol/L BUN 18 (9-20) mg/dL Creatinine 0.74 (0.66-1.25) mg/dL Glucose 152 H (74-99) mg/dL Calcium 9.5 (8.4-10.2) mg/dL AST 35 (17-59) U/L ALT 26 (4-49) U/L Alkaline Phosphatase 97 (38-126) U/L Total Protein 6.8 (6.3-8.2) g/dL Albumin 4.2 (3.5-5.0) g/dL Calcium panel 08/23/20 Range/Units 20:51 Calcium 9.5 (8.4-10.2) mg/dL Phosphorus 3.7 (2.5-4.5) mg/dL Albumin 4.2 (3.5-5.0) g/dL Pituitary panel 08/23/20 Range/Units 20:51 Sodium 134 L (137-145) mmol/L Potassium 5.0 (3.5-5.1) mmol/L Chloride 104 (98-107) mmol/L Carbon Dioxide 23 (22-30) mmol/L BUN 18 (9-20) mg/dL Creatinine 0.74 (0.66-1.25) mg/dL Glucose 152 H (74-99) mg/dL Calcium 9.5 (8.4-10.2) mg/dL Adrenal panel 08/23/20 Range/Units 20:51 Sodium 134 L (137-145) mmol/L Potassium 5.0 (3.5-5.1) mmol/L Chloride 104 (98-107) mmol/L Carbon Dioxide 23 (22-30) mmol/L BUN 18 (9-20) mg/dL Creatinine 0.74 (0.66-1.25) mg/dL Glucose 152 H (74-99) mg/dL Calcium 9.5 (8.4-10.2) mg/dL Total Bilirubin 0.6 (0.2-1.3) mg/dL AST 35 (17-59) U/L ALT 26 (4-49) U/L Alkaline Phosphatase 97 (38-126) U/L Total Protein 6.8 (6.3-8.2) g/dL Albumin 4.2 (3.5-5.0) g/dL Assessment and Plan Assessment: Impression: Gross hematuria indeterminate etiology. The urinalysis does not look infected to me. History of coronary artery disease and diabetes Recommendations: Due to the gross hematuria do think a computed tomography scan with and without contrast as appropriate. I followed patient with you.
--- NOTE | 2020-08-24 16:38 | CT ---
EXAMINATION TYPE: CT abdomen pelvis wo/w con DATE OF EXAM: 08/24/2020 COMPARISON: CTA September 01, 2019 HISTORY: gross hematuria CT DLP: 4527 mGycm, Automated Exposure Control for Dose Reduction was Utilized. CONTRAST: CT scan of the abdomen and pelvis is performed without oral and without and with IV Contrast, patient injected with 100 mL of Isovue 300. FINDINGS: LUNG BASES: Coronary artery calcification. LIVER/GB: Liver diffusely low dense consistent with diffuse fatty infiltration. Occasional punctate c alcification. Dependent density in gallbladder consistent with small stones and/or gallbladder sludge . PANCREAS: Mild generalized atrophy. SPLEEN: No significant abnormality is seen. ADRENALS: No significant abnormality is seen. KIDNEYS: No renal stones on noncontrast images. Cortical thinning bilaterally. Symmetric nodular upt low and excretion with few simple apparent thin-walled cysts bilaterally greater on the right kidney versus left kidney. No hydronephrosis or concerning solid or cystic renal mass. Bladder poorly disten ded with Castle catheter. Abnormal wall thickening is felt present. Correlate clinically for infection as there is mild fat stranding. BOWEL: No significant abnormality is seen. PROSTATE/SEMINAL VESICLES: Prostate gland normal in size with central calcifications. LYMPH NODES: No greater than 1cm abdominal or pelvic lymph nodes are appreciated. OSSEOUS STRUCTURES: Facet arthropathy lower lumbar levels. Multilevel spurring of spine. OTHER: Moderate to severe calcified plaque of the aorta extends into branch vessels. Mild subcutaneou s edema over the pelvis. IMPRESSION: 1. Castle catheterization of bladder. Suspicious wall thickening with mild fat stranding could reflect product of a hemorrhagic cystitis otherwise source of hematuria not identified.
[2020-08-24 17:20] LABS: Glucose,Whole Blood 201 mg/dL (75-99)
--- NOTE | 2020-08-24 17:25 | P.HPIM ---
History of Present Illness H&P Date: 08/24/20 Chief Complaint: Weakness/near syncope 85-year-old male presents with multiple complaints today, weakness with multiple near syncopal events as well as significant bleeding he does not believe is coming from his urine but is unsure where the blood is coming from. Has felt we ak throughout the day was seen in urgent care was found to have elevated blood sugar and then sent DF for evaluation. Patient admits to blood sugar being elevated also while he was at home. Patient is a been stressed out recently secondary to passing of his and daughter is at bedside who came over to the patient's house today due to patient not feeling well In the ED patient was found to have blood and urine; urine was sent for urine culture and sensitivity; patient was treated in ED and is admitted to the hospital for further evaluation Review of Systems REVIEW OF SYSTEMS: CONSTITUTIONAL: No fever, no malaise, no fatigue. HEENT: No recent visual problems or hearing problems. Denied any sore throat. CARDIOVASCULAR: No chest pain, orthopnea, PND, no palpitations, no syncope. PULMONARY: No shortness of breath, no cough, no hemoptysis. GASTROINTESTINAL: No diarrhea, no nausea, no vomiting, no abdominal pain. NEUROLOGICAL: No headaches, no weakness, no numbness. HEMATOLOGICAL: Denies any bleeding or petechiae. GENITOURINARY: Denies any burning micturition, frequency, or urgency. MUSCULOSKELETAL/RHEUMATOLOGICAL: Denies any joint pain, swelling, or any muscle pain. ENDOCRINE: Denies any polyuria or polydipsia. The rest of the 14-point review of systems is negative. 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 Past Anesthesia/Blood Transfusion Reactions: No Reported Reaction Additional Past Anesthesia/Blood Transfusion Reaction / Comment(s): HARD TO WAKE UP Date of Last Stent Placement:: 09/2017 Past Psychological History: No Psychological Hx Reported Smoking Status: Former smoker Past Alcohol Use History: None Reported Past Drug Use History: None Reported - Past Family History Father Additional Family Medical History / Comment(s): burst appendix Mother Family Medical History: Cancer Additional Family Medical History / Comment(s): breast cancer Medications and Allergies Home Medications Medication Instructions Recorded Confirmed Type Tamsulosin HCl [Flomax] 0.4 mg PO HS 07/03/14 08/23/20 History Aspirin EC [Ecotrin Low Dose] 81 mg PO DAILY 05/22/17 08/23/20 History Atorvastatin [Lipitor] 80 mg PO HS #30 tab 09/09/17 08/23/20 Rx Umeclidinium Brm/Vilanterol Tr 1 puff INHALATION RT-DAILY #30 09/15/18 08/23/20 Rx [Anoro Ellipta 62.5-25 Mcg INH] blst.w.dev predniSONE 5 mg PO DAILY #30 tab 02/08/19 08/23/20 Rx INSULIN ASPART (NovoLOG) [NovoLOG 24 unit SQ AC-TID 06/23/19 08/23/20 History (formulary)] Insulin Degludec [Tresiba 60 unit SQ HS 06/23/19 08/23/20 History Flextouch U-100] Isosorbide Mononitrate ER [Imdur] 30 mg PO DAILY 09/01/19 08/23/20 History Levothyroxine Sodium [Synthroid] 100 mcg PO DAILY 09/01/19 08/23/20 History metFORMIN HCL ER [Glucophage Xr] 500 mg PO HS 09/01/19 08/23/20 History Albuterol Sulfate [Proair Hfa] 2 puff INHALATION RT-QID PRN 08/23/20 08/23/20 History Metoprolol Tartrate [Lopressor] 50 mg PO HS 08/23/20 08/23/20 History Olmesartan [Benicar] 10 mg PO DAILY 08/23/20 08/23/20 History Allergies Allergy/AdvReac Type Severity Reaction Status Date / Time morphine AdvReac Hallucinati Verified 08/23/20 22:40 ons propoxyphene napsylate AdvReac Nausea & Verified 08/23/20 22:40 [From Darvocet-N 100] Vomiting & Diarrhea raw oyster AdvReac Diarrhea Uncoded 08/23/20 22:40 Physical Exam Vitals: Vital Signs Temp Pulse Pulse Resp BP BP Pulse Ox 08/24/20 12:28 97.9 F 81 20 184/77 95 08/24/20 11:41 97.5 F L 81 16 158/98 95 08/24/20 08:00 84 18 149/53 97 08/24/20 07:00 80 18 155/66 95 08/24/20 04:00 86 20 175/71 95 08/24/20 01:02 97.8 F 82 19 153/100 97 08/23/20 22:30 77 19 168/71 97 08/23/20 21:07 75 20 160/68 97 08/23/20 19:52 97.9 F 62 18 144/67 96 Intake and Output 08/23/20 08/24/20 08/24/20 22:59 06:59 14:59 Output Total 1600 Balance -1600 Output: Urine 1600 Other: Voiding Method Toilet Weight 115.666 kg PHYSICAL EXAMINATION: GENERAL: The patient is alert and oriented x3, not in any acute distress. Well developed, well nourished. HEENT: Pupils are round and equally reacting to light. EOMI. No scleral icterus. No conjunctival pallor. Normocephalic, atraumatic. No pharyngeal erythema. No thyromegaly. CARDIOVASCULAR: S1 and S2 present. No murmurs, rubs, or gallops. PULMONARY: Chest is clear to auscultation, no wheezing or crackles. ABDOMEN: Soft, nontender, nondistended, normoactive bowel sounds. No palpable organomegaly. MUSCULOSKELETAL: No joint swelling or deformity. EXTREMITIES: No cyanosis, clubbing, or pedal edema. NEUROLOGICAL: Gross neurological examination did not reveal any focal deficits. SKIN: No rashes. Results CBC & Chem 7: 08/23/20 20:51 08/23/20 20:51 Labs: Abnormal Lab Results - Last 24 Hours (Table) 08/23/20 08/23/20 08/23/20 Range/Units 20:22 20:40 20:51 Sodium 134 L (137-145) mmol/L Glucose 152 H (74-99) mg/dL POC Glucose (mg/dL) 155 H (75-99) mg/dL Urine Glucose (UA) Trace H (Negative) Urine Blood Moderate H (Negative) Ur Leukocyte Esterase Trace H (Negative) Urine RBC 175 H (0-5) /hpf Urine Mucus Rare H (None) /hpf 08/24/20 08/24/20 08/24/20 Range/Units 00:03 01:31 12:22 Sodium (137-145) mmol/L Glucose (74-99) mg/dL POC Glucose (mg/dL) 133 H 131 H 182 H (75-99) mg/dL Urine Glucose (UA) (Negative) Urine Blood (Negative) Ur Leukocyte Esterase (Negative) Urine RBC (0-5) /hpf Urine Mucus (None) /hpf Assessment and Plan Assessment: 1. Gross hematuria//UTI; patient is started on Rocephin 1 g IV daily; we will monitor patient closely for any signs of worsening infection 2. Presyncope; possibly secondary to infection versus dehydration 3. Hyperglycemia/diabetes mellitus2; chloride with insulin; monitor Accu-Cheks every before meals and at bedtime with insulin sliding scale; we will hold off on home medications at this time 4. Hypertension; continue with home dose of metoprolol 50 mg daily, Benicar 10 mg daily and Imdur 30 mg daily 5. Hypothyroidism; levothyroxin 100 MCG daily 6. Hyperlipidemia; patient is supposed to be taking Lipitor 80 mg daily at bedtime; not on patient's medication list at this time DVT prophylaxis; SCDs only due to hematuria CODE STATUS; full code
[2020-08-24 19:47] LABS: Glucose,Whole Blood 188 mg/dL (75-99)
[2020-08-24] MEDS ORDERED: metFORMIN 500 MG TAB PO SCH (21:00)
[2020-08-24] MEDS ORDERED: METOPROLOL TARTRATE 50 MG TAB PO SCH (21:00)
[2020-08-24] MEDS ORDERED: ATORVASTATIN 80 MG TAB PO SCH (21:00)
[2020-08-24] MEDS ORDERED: INSULIN DETEMIR (LEVEMIR) 100 UNIT/ML SYR SQ SCH (21:00)
[2020-08-24] MEDS ORDERED: TAMSULOSIN 0.4 MG CAP.ER.24H PO SCH (21:00)
[2020-08-25] MEDS: AMPICILLIN-SULBACTAM 3 GM in SODIUM CHLORIDE 0.9% 100 ML IVPB SCH ×2 (00:38→09:15)
[2020-08-25] MEDS: SODIUM CHLORIDE 0.9% 1,000 ML IV SCH (06:01)
[2020-08-25] MEDS: LEVOTHYROXINE 100 MCG TAB PO SCH (06:07)
[2020-08-25 06:31] LABS: Glucose,Whole Blood 178 mg/dL (75-99)
[2020-08-25 07:34] LABS: Cholesterol 124 mg/dL (<200); HDL Cholesterol 44 mg/dL (40-60); LDL Cholesterol,Calculated 40 mg/dL (0-99); Triglycerides 199 mg/dL (<150)
[2020-08-25 08:26] VITALS: BP 172/67; PULSE 72; RESP 16; TEMP 97.7
[2020-08-25] MEDS: LOSARTAN 25 MG TAB PO SCH (08:27)
[2020-08-25] MEDS: ASPIRIN 325 MG TAB PO SCH (08:27)
[2020-08-25] MEDS: INSULIN ASPART (NovoLOG) 100 UNIT/ML VIAL SQ SCH ×2 (08:27→12:22)
[2020-08-25] MEDS: predniSONE 5 MG TAB PO SCH (08:27)
[2020-08-25] MEDS: ISOSORBIDE MONONITRATE ER 30 MG TAB.ER.24H PO SCH (08:27)
[2020-08-25 09:36] LABS: Basophils # (A) 0.1 k/uL (0-0.2); Basophils % (A) 1 %; Eosinophils # (A) 0.4 k/uL (0-0.7); Eosinophils % (A) 4 %; HCT 42.1 % (39.0-53.0); HGB 13.7 gm/dL (13.0-17.5); Lymphocytes # (A) 1.8 k/uL (1.0-4.8); Lymphocytes % (A) 22 %; MCH 30.9 pg (25.0-35.0); MCHC 32.6 g/dL (31.0-37.0); MCV 94.8 fL (80.0-100.0); Mean Platelet Volume 7.5; Monocytes # (A) 0.5 k/uL (0-1.0); Monocytes % (A) 6 %; Neutrophils # (A) 5.3 k/uL (1.3-7.7); Neutrophils % (A) 66 %; Platelet Count 205 k/uL (150-450); RBC 4.44 m/uL (4.30-5.90); RDW 13.7 % (11.5-15.5); WBC 8.1 k/uL (3.8-10.6)
[2020-08-25 09:54] LABS: African American GFR (CKD) >90 (>60 ml/min/1.73 sqM); Anion Gap 8 mmol/L; Blood Urea Nitrogen 14 mg/dL (9-20); Carbon Dioxide 24 mmol/L (22-30); Chloride 103 mmol/L (98-107); Glucose 170 mg/dL (74-99); Non-African American GFR(CKD) 86 (>60 ml/min/1.73 sqM); Potassium 3.9 mmol/L (3.5-5.1); Sodium 135 mmol/L (137-145)
--- NOTE | 2020-08-25 10:38 | P.PN ---
Subjective Progress Note Date: 08/25/20 The patient was seen for gross hematuria. He had a computed tomography scan that did not show any upper tract abnormalities. From a urologic standpoint he can be discharged home. He should follow in my office in approximately 1 week for cystoscopy. This has been discussed with the patient. Objective - Vital Signs Vital signs: Vital Signs Temp 97.7 F 08/25/20 08:25 Pulse 72 08/25/20 08:25 Resp 16 08/25/20 08:25 BP 172/67 08/25/20 08:25 Pulse Ox 95 08/25/20 08:25 Intake & Output 08/24/20 08/25/20 08/25/20 18:59 06:59 18:59 Intake Total 1180 950 Output Total 3050 2800 Balance -1870 -1850 Weight 117.27 kg Intake: Intake, IV Titration 400 800 Amount Sodium Chloride 0.9% 1, 400 800 000 ml @ 100 mls/hr IV . Q10H DAMI Rx#:[id number] Oral 780 150 Output: Urine 3050 2800 Other: Voiding Method Indwelling Catheter Indwelling Catheter Toilet # Voids 1 2 1 - Labs CBC & Chem 7: 08/25/20 07:02 08/25/20 07:02 Labs: Abnormal Lab Results - Last 24 Hours (Table) 08/24/20 08/24/20 08/24/20 Range/Units 12:22 17:18 19:46 Sodium (137-145) mmol/L Glucose (74-99) mg/dL POC Glucose (mg/dL) 182 H 201 H 188 H (75-99) mg/dL Triglycerides (<150) mg/dL 08/25/20 08/25/20 08/25/20 Range/Units 06:30 07:02 07:02 Sodium 135 L (137-145) mmol/L Glucose 170 H (74-99) mg/dL POC Glucose (mg/dL) 178 H (75-99) mg/dL Triglycerides 199 H (<150) mg/dL
[2020-08-25 11:36] LABS: Glucose,Whole Blood 215 mg/dL (75-99)
== END 2020-08-25 14:20 | disposition home or self-care (01) ==
LOC: EC 19:38 → 1SOBS 22:35
PROVIDERS: ADMIT Hospitalist; ATTEND Hospitalist
DX: N39.0 Urinary tract infection, site not specified (principal); R31.0 Gross hematuria; R55 Syncope and collapse; E11.65 Type 2 diabetes mellitus with hyperglycemia; I11.0 Hypertensive heart disease with heart failure; I50.9 Heart failure, unspecified; Z63.4 Disappearance and death of family member; J44.9 Chronic obstructive pulmonary disease, unspecified; E78.5 Hyperlipidemia, unspecified; E03.9 Hypothyroidism, unspecified; I25.10 Atherosclerotic heart disease of native coronary artery without angina pectoris; M19.90 Unspecified osteoarthritis, unspecified site; G47.33 Obstructive sleep apnea (adult) (pediatric); N42.9 Disorder of prostate, unspecified; E66.9 Obesity, unspecified; Z68.38 Body mass index [BMI] 38.0-38.9, adult; Z79.82 Long term (current) use of aspirin; Z79.4 Long term (current) use of insulin; Z79.52 Long term (current) use of systemic steroids; Z79.899 Other long term (current) drug therapy; Z79.890 Hormone replacement therapy; Z88.5 Allergy status to narcotic agent; Z99.89 Dependence on other enabling machines and devices; Z90.49 Acquired absence of other specified parts of digestive tract; Z95.5 Presence of coronary angioplasty implant and graft; Z98.1 Arthrodesis status; Z85.819 Personal history of malignant neoplasm of unspecified site of lip, oral cavity, and pharynx; Z85.828 Personal history of other malignant neoplasm of skin; Z87.891 Personal history of nicotine dependence; Z95.2 Presence of prosthetic heart valve; Z91.013 Allergy to seafood; Z80.3 Family history of malignant neoplasm of breast; Z83.79 Family history of other diseases of the digestive system
CPT/HCPCS: 96361 ×2; 96366 ×3; 96365; 99285; 51702; 36415; 93005; 80061; 80053; 80048; 82009; 83735; 84100; 84484 ×2; 85025 ×2; 81001; 74178; G0378 ×3; J0295 ×2; J7512 ×2; Q9967

== ENCOUNTER 2021-06-04 11:17 | Emergency (ER) | payer MEDICARE ==
[2021-06-04 11:22] VITALS: TEMP 98.8
[2021-06-04] MEDS ORDERED: IPRATROPIUM-ALBUTEROL 3 ML NEB INHALATION STA (11:37)
--- NOTE | 2021-06-04 11:50 | ED ---
General Adult HPI - General Chief complaint: Shortness of Breath Stated complaint: SOB Time Seen by Provider: 06/04/21 11:24 Source: patient, family, RN notes reviewed Mode of arrival: wheelchair Limitations: no limitations - History of Present Illness Initial comments: Patient is a pleasant 78-year-old male presenting to emergency Department with complaints of difficulty in breathing. Patient does have chronic COPD. Symptoms also worsen today. Patient also feels achy throughout. Patient denies fever. Blood sugar was 250 at home. Family is concerned the patient may be a little bit confused. No cough. No calf pain or leg swelling. - Related Data Home Medications Medication Instructions Recorded Confirmed Tamsulosin HCl [Flomax] 0.4 mg PO HS 07/03/14 06/04/21 Aspirin EC [Ecotrin Low Dose] 81 mg PO DAILY 05/22/17 06/04/21 INSULIN ASPART (NovoLOG) [NovoLOG 20 unit SQ AC-TID 06/23/19 06/04/21 (formulary)] Insulin Degludec [Tresiba 60 unit SQ HS 06/23/19 06/04/21 Flextouch U-100] Isosorbide Mononitrate ER [Imdur] 30 mg PO DAILY@1200 09/01/19 06/04/21 Levothyroxine Sodium [Synthroid] 100 mcg PO DAILY 09/01/19 06/04/21 metFORMIN HCL ER [Glucophage Xr] 500 mg PO BID 09/01/19 06/04/21 Albuterol Sulfate [Proair Hfa] 2 puff INHALATION RT-QID PRN 08/23/20 06/04/21 Metoprolol Tartrate [Lopressor] 50 mg PO BID 08/23/20 06/04/21 Cholecalciferol (Vitamin D3) 125 mcg PO DAILY 06/04/21 06/04/21 [Vitamin D3 (5000 Iu)] Codeine Phosphate/Guaifenesin 5 - 10 ml PO Q6H PRN 06/04/21 06/04/21 [Guaifen-Codeine 100-10 mg/5 ml] Naproxen Sodium [Aleve] 220 mg PO Q12HR PRN 06/04/21 06/04/21 guaiFENesin [Mucinex] 1,200 mg PO BID 06/04/21 06/04/21 Previous Rx's Medication Instructions Recorded Atorvastatin [Lipitor] 80 mg PO HS #30 tab 09/09/17 Umeclidinium Brm/Vilanterol Tr 1 puff INHALATION RT-DAILY #30 09/15/18 [Anoro Ellipta 62.5-25 Mcg INH] blst.w.dev predniSONE 5 mg PO DAILY #30 tab 02/08/19 Losartan [Cozaar] 12.5 mg PO DAILY #30 tab 08/25/20 predniSONE [Deltasone] 20 mg PO BID #8 tab 06/04/21 Allergies Allergy/AdvReac Type Severity Reaction Status Date / Time cephalexin [From Keflex] Allergy Unknown Verified 06/04/21 12:48 morphine AdvReac Hallucinati Verified 06/04/21 12:48 ons propoxyphene napsylate AdvReac Nausea & Verified 06/04/21 12:48 [From Darvocet-N 100] Vomiting & Diarrhea raw oyster AdvReac Diarrhea Uncoded 06/04/21 12:48 Review of Systems ROS Statement: Those systems with pertinent positive or pertinent negative responses have been documented in the HPI. ROS Other: All systems not noted in ROS Statement are negative. 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 Past Anesthesia/Blood Transfusion Reactions: No Reported Reaction Additional Past Anesthesia/Blood Transfusion Reaction / Comment(s): HARD TO WAKE UP Date of Last Stent Placement:: 09/2017 Past Psychological History: No Psychological Hx Reported Smoking Status: Former smoker Past Alcohol Use History: None Reported Past Drug Use History: None Reported - Past Family History Father Additional Family Medical History / Comment(s): burst appendix Mother Family Medical History: Cancer Additional Family Medical History / Comment(s): breast cancer General Exam Limitations: no limitations General appearance: alert, in no apparent distress Head exam: Present: atraumatic, normocephalic Eye exam: Present: normal appearance, PERRL, EOMI. Absent: nystagmus ENT exam: Present: normal oropharynx Neck exam: Present: normal inspection Respiratory exam: Present: decreased breath sounds Cardiovascular Exam: Present: regular rate, normal rhythm GI/Abdominal exam: Present: soft. Absent: tenderness Extremities exam: Present: normal inspection. Absent: pedal edema, calf tenderness Neurological exam: Present: alert Psychiatric exam: Present: normal affect, normal mood Skin exam: Present: normal color Course Vital Signs 06/04/21 06/04/21 06/04/21 11:18 11:21 12:00 Temperature 98.8 F Pulse Rate 81 79 Respiratory 16 24 24 Rate Blood Pressure 154/66 O2 Sat by Pulse 92 L Oximetry 06/04/21 06/04/21 12:09 13:33 Temperature Pulse Rate 77 81 Respiratory 18 20 Rate Blood Pressure 134/67 O2 Sat by Pulse 96 Oximetry EKG Findings - EKG Comments: EKG Findings:: Sinus rhythm with a rate of 83. For screening AV block with a MS of 280. QRS 144. QT 418. QTC 491. Right axis. Right bundle branch block. No acute ST change. Medical Decision Making - Medical Decision Making Patient reevaluated and feeling much better. Lung sounds with minimal wheezing. Pulse ox 95% on room air. Patient feels much better and would like to get up and go home. Family is present who lives 1 mile away and keeps a close eye on him and checks on him daily. She is also comfortable with discharge home. - Lab Data Result diagrams: 06/04/21 11:43 06/04/21 11:43 Lab Results 06/04/21 06/04/21 06/04/21 Range/Units 11:32 11:32 11:43 WBC 10.3 (3.8-10.6) k/uL RBC 4.49 (4.30-5.90) m/uL Hgb 14.3 (13.0-17.5) gm/dL Hct 42.4 (39.0-53.0) % MCV 94.4 (80.0-100.0) fL MCH 31.8 (25.0-35.0) pg MCHC 33.7 (31.0-37.0) g/dL RDW 14.4 (11.5-15.5) % Plt Count 191 (150-450) k/uL MPV 7.3 Neutrophils % 80 % Lymphocytes % 13 % Monocytes % 4 % Eosinophils % 2 % Basophils % 1 % Neutrophils # 8.2 H (1.3-7.7) k/uL Lymphocytes # 1.3 (1.0-4.8) k/uL Monocytes # 0.4 (0-1.0) k/uL Eosinophils # 0.2 (0-0.7) k/uL Basophils # 0.1 (0-0.2) k/uL PT (9.0-12.0) sec INR (<1.2) APTT (22.0-30.0) sec D-Dimer 1.00 H (<0.60) mg/L FEU Sample Site ABG pH (7.35-7.45) ABG pCO2 (35-45) mmHg ABG pO2 (83-108) mmHg ABG HCO3 (21-25) mmol/L ABG Total CO2 (19-24) mmol/L ABG O2 Saturation (94-97) % ABG Base Excess mmol/L Avinash Test FiO2 % Sodium (137-145) mmol/L Potassium (3.5-5.1) mmol/L Chloride (98-107) mmol/L Carbon Dioxide (22-30) mmol/L Anion Gap mmol/L BUN (9-20) mg/dL Creatinine (0.66-1.25) mg/dL Est GFR (CKD-EPI)AfAm (>60 ml/min/1.73 sqM) Est GFR (CKD-EPI)NonAf (>60 ml/min/1.73 sqM) Glucose (74-99) mg/dL Plasma Lactic Acid Don (0.7-2.0) mmol/L Calcium (8.4-10.2) mg/dL Magnesium (1.6-2.3) mg/dL Total Bilirubin (0.2-1.3) mg/dL AST (17-59) U/L ALT (4-49) U/L Alkaline Phosphatase (38-126) U/L Troponin I (0.000-0.034) ng/mL NT-Pro-B Natriuret Pep pg/mL Total Protein (6.3-8.2) g/dL Albumin (3.5-5.0) g/dL TSH 1.970 (0.465-4.680) mIU/L Free T4 0.95 (0.78-2.19) ng/dL Free T3 pg/mL 3.4 (2.8-5.3) pg/ml Coronavirus (PCR) (Not Detectd) 06/04/21 06/04/21 06/04/21 Range/Units 11:43 11:43 11:43 WBC (3.8-10.6) k/uL RBC (4.30-5.90) m/uL Hgb (13.0-17.5) gm/dL Hct (39.0-53.0) % MCV (80.0-100.0) fL MCH (25.0-35.0) pg MCHC (31.0-37.0) g/dL RDW (11.5-15.5) % Plt Count (150-450) k/uL MPV Neutrophils % % Lymphocytes % % Monocytes % % Eosinophils % % Basophils % % Neutrophils # (1.3-7.7) k/uL Lymphocytes # (1.0-4.8) k/uL Monocytes # (0-1.0) k/uL Eosinophils # (0-0.7) k/uL Basophils # (0-0.2) k/uL PT 10.5 (9.0-12.0) sec INR 1.0 (<1.2) APTT 24.3 (22.0-30.0) sec D-Dimer (<0.60) mg/L FEU Sample Site ABG pH (7.35-7.45) ABG pCO2 (35-45) mmHg ABG pO2 (83-108) mmHg ABG HCO3 (21-25) mmol/L ABG Total CO2 (19-24) mmol/L ABG O2 Saturation (94-97) % ABG Base Excess mmol/L Avinash Test FiO2 % Sodium 134 L (137-145) mmol/L Potassium 4.0 (3.5-5.1) mmol/L Chloride 102 (98-107) mmol/L Carbon Dioxide 21 L (22-30) mmol/L Anion Gap 11 mmol/L BUN 15 (9-20) mg/dL Creatinine 0.70 (0.66-1.25) mg/dL Est GFR (CKD-EPI)AfAm >90 (>60 ml/min/1.73 sqM) Est GFR (CKD-EPI)NonAf 85 (>60 ml/min/1.73 sqM) Glucose 221 H (74-99) mg/dL Plasma Lactic Acid Don 1.8 (0.7-2.0) mmol/L Calcium 9.1 (8.4-10.2) mg/dL Magnesium 1.9 (1.6-2.3) mg/dL Total Bilirubin 0.6 (0.2-1.3) mg/dL AST 29 (17-59) U/L ALT 25 (4-49) U/L Alkaline Phosphatase 89 (38-126) U/L Troponin I (0.000-0.034) ng/mL NT-Pro-B Natriuret Pep pg/mL Total Protein 6.2 L (6.3-8.2) g/dL Albumin 3.8 (3.5-5.0) g/dL TSH (0.465-4.680) mIU/L Free T4 (0.78-2.19) ng/dL Free T3 pg/mL (2.8-5.3) pg/ml Coronavirus (PCR) (Not Detectd) 06/04/21 06/04/21 06/04/21 Range/Units 11:43 11:43 11:43 WBC (3.8-10.6) k/uL RBC (4.30-5.90) m/uL Hgb (13.0-17.5) gm/dL Hct (39.0-53.0) % MCV (80.0-100.0) fL MCH (25.0-35.0) pg MCHC (31.0-37.0) g/dL RDW (11.5-15.5) % Plt Count (150-450) k/uL MPV Neutrophils % % Lymphocytes % % Monocytes % % Eosinophils % % Basophils % % Neutrophils # (1.3-7.7) k/uL Lymphocytes # (1.0-4.8) k/uL Monocytes # (0-1.0) k/uL Eosinophils # (0-0.7) k/uL Basophils # (0-0.2) k/uL PT (9.0-12.0) sec INR (<1.2) APTT (22.0-30.0) sec D-Dimer (<0.60) mg/L FEU Sample Site ABG pH (7.35-7.45) ABG pCO2 (35-45) mmHg ABG pO2 (83-108) mmHg ABG HCO3 (21-25) mmol/L ABG Total CO2 (19-24) mmol/L ABG O2 Saturation (94-97) % ABG Base Excess mmol/L Avinash Test FiO2 % Sodium (137-145) mmol/L Potassium (3.5-5.1) mmol/L Chloride (98-107) mmol/L Carbon Dioxide (22-30) mmol/L Anion Gap mmol/L BUN (9-20) mg/dL Creatinine (0.66-1.25) mg/dL Est GFR (CKD-EPI)AfAm (>60 ml/min/1.73 sqM) Est GFR (CKD-EPI)NonAf (>60 ml/min/1.73 sqM) Glucose (74-99) mg/dL Plasma Lactic Acid Don (0.7-2.0) mmol/L Calcium (8.4-10.2) mg/dL Magnesium (1.6-2.3) mg/dL Total Bilirubin (0.2-1.3) mg/dL AST (17-59) U/L ALT (4-49) U/L Alkaline Phosphatase (38-126) U/L Troponin I <0.012 (0.000-0.034) ng/mL NT-Pro-B Natriuret Pep 1100 pg/mL Total Protein (6.3-8.2) g/dL Albumin (3.5-5.0) g/dL TSH (0.465-4.680) mIU/L Free T4 (0.78-2.19) ng/dL Free T3 pg/mL (2.8-5.3) pg/ml Coronavirus (PCR) Not Detected (Not Detectd) 06/04/21 Range/Units 11:57 WBC (3.8-10.6) k/uL RBC (4.30-5.90) m/uL Hgb (13.0-17.5) gm/dL Hct (39.0-53.0) % MCV (80.0-100.0) fL MCH (25.0-35.0) pg MCHC (31.0-37.0) g/dL RDW (11.5-15.5) % Plt Count (150-450) k/uL MPV Neutrophils % % Lymphocytes % % Monocytes % % Eosinophils % % Basophils % % Neutrophils # (1.3-7.7) k/uL Lymphocytes # (1.0-4.8) k/uL Monocytes # (0-1.0) k/uL Eosinophils # (0-0.7) k/uL Basophils # (0-0.2) k/uL PT (9.0-12.0) sec INR (<1.2) APTT (22.0-30.0) sec D-Dimer (<0.60) mg/L FEU Sample Site r rad ABG pH 7.44 (7.35-7.45) ABG pCO2 35 (35-45) mmHg ABG pO2 77 L (83-108) mmHg ABG HCO3 24 (21-25) mmol/L ABG Total CO2 25 H (19-24) mmol/L ABG O2 Saturation 96.0 (94-97) % ABG Base Excess -0.4 mmol/L Avinash Test Yes FiO2 28 % Sodium (137-145) mmol/L Potassium (3.5-5.1) mmol/L Chloride (98-107) mmol/L Carbon Dioxide (22-30) mmol/L Anion Gap mmol/L BUN (9-20) mg/dL Creatinine (0.66-1.25) mg/dL Est GFR (CKD-EPI)AfAm (>60 ml/min/1.73 sqM) Est GFR (CKD-EPI)NonAf (>60 ml/min/1.73 sqM) Glucose (74-99) mg/dL Plasma Lactic Acid Don (0.7-2.0) mmol/L Calcium (8.4-10.2) mg/dL Magnesium (1.6-2.3) mg/dL Total Bilirubin (0.2-1.3) mg/dL AST (17-59) U/L ALT (4-49) U/L Alkaline Phosphatase (38-126) U/L Troponin I (0.000-0.034) ng/mL NT-Pro-B Natriuret Pep pg/mL Total Protein (6.3-8.2) g/dL Albumin (3.5-5.0) g/dL TSH (0.465-4.680) mIU/L Free T4 (0.78-2.19) ng/dL Free T3 pg/mL (2.8-5.3) pg/ml Coronavirus (PCR) (Not Detectd) - Radiology Data Radiology results: report reviewed (Computed tomography scan chest shows adenopathy. Possible pulmonary artery hypertension. No pulmonary embolism.), image reviewed (X-ray reveals no acute process.) Disposition Clinical Impression: COPD with exacerbation Disposition: HOME SELF-CARE Condition: Stable Instructions (If sedation given, give patient instructions): COPD (Chronic Obstructive Pulmonary Disease) (ED) Additional Instructions: Please do follow-up to primary care physician in the next day or 2 for recheck. Return for difficulty breathing, fevers, confusion or change in mental status, worsening symptoms or any other concerns. Prescriptions: predniSONE [Deltasone] 20 mg PO BID #8 tab Is patient prescribed a controlled substance at d/c from ED?: No Referrals: Cynthia Barclay MD [Primary Care Provider] - 1-2 days Time of Disposition: 14:47
[2021-06-04 11:51] LABS: Basophils # (A) 0.1 k/uL (0-0.2); Basophils % (A) 1 %; Eosinophils # (A) 0.2 k/uL (0-0.7); Eosinophils % (A) 2 %; HCT 42.4 % (39.0-53.0); HGB 14.3 gm/dL (13.0-17.5); Lymphocytes # (A) 1.3 k/uL (1.0-4.8); Lymphocytes % (A) 13 %; MCH 31.8 pg (25.0-35.0); MCHC 33.7 g/dL (31.0-37.0); MCV 94.4 fL (80.0-100.0); Mean Platelet Volume 7.3; Monocytes # (A) 0.4 k/uL (0-1.0); Monocytes % (A) 4 %; Neutrophils # (A) 8.2 k/uL (1.3-7.7); Neutrophils % (A) 80 %; Platelet Count 191 k/uL (150-450); RBC 4.49 m/uL (4.30-5.90); RDW 14.4 % (11.5-15.5); WBC 10.3 k/uL (3.8-10.6)
[2021-06-04 12:02] LABS: ALT 25 U/L (4-49); AST 29 U/L (17-59); African American GFR (CKD) >90 (>60 ml/min/1.73 sqM); Albumin 3.8 g/dL (3.5-5.0); Alkaline Phosphatase 89 U/L (38-126); Anion Gap 11 mmol/L; Blood Urea Nitrogen 15 mg/dL (9-20); Calcium 9.1 mg/dL (8.4-10.2); Carbon Dioxide 21 mmol/L (22-30); Chloride 102 mmol/L (98-107); Glucose 221 mg/dL (74-99); Magnesium 1.9 mg/dL (1.6-2.3); Non-African American GFR(CKD) 85 (>60 ml/min/1.73 sqM); Sodium 134 mmol/L (137-145); Total Bilirubin 0.6 mg/dL (0.2-1.3); Total Protein 6.2 g/dL (6.3-8.2)
[2021-06-04 12:05] LABS: ABG Base Excess -0.4 mmol/L; ABG HCO3 24 mmol/L (21-25); ABG PCO2 35 mmHg (35-45); ABG PH 7.44 (7.35-7.45); ABG PO2 77 mmHg (83-108); ABG TCO2 25 mmol/L (19-24); Allen Test Performed? Yes
[2021-06-04 12:25] LABS: Partial Thromboplastin Time 24.3 sec (22.0-30.0); Prothrombin Time 10.5 sec (9.0-12.0)
--- NOTE | 2021-06-04 12:39 | XR ---
EXAMINATION TYPE: XR chest 2V DATE OF EXAM: 06/04/2021 COMPARISON: 02/06/2019 HISTORY: COPD TECHNIQUE: Frontal and lateral views of the chest are obtained. FINDINGS: Prominence of the interstitium bilaterally appears similar to the prior examination. Cardiac silhouette is unchanged. IMPRESSION: No acute cardiopulmonary process.
[2021-06-04 13:11] LABS: T4, Free (Free Thyroxine) 0.95 ng/dL (0.78-2.19)
[2021-06-04 13:34] VITALS: RESP 20
--- NOTE | 2021-06-04 14:28 | CT ---
EXAMINATION TYPE: CT angio chest DATE OF EXAM: 06/04/2021 COMPARISON: Chest x-ray same date, CT 09/13/2018 HISTORY: elevated d dimer CT DLP: 767.9 mGycm Automated exposure control for dose reduction was used. CONTRAST: CTA scan of the thorax is performed with IV Contrast, patient injected with 100 mL of Isovue 370, pul monary embolism protocol. MIP images are created and reviewed. 3D reconstructed images are created on an independent workstation and reviewed. FINDINGS: LUNGS: The lungs are stable, there is emphysematous change, interstitial change. There is no pleura l effusion or pneumothorax seen. The tracheobronchial tree is patent. AORTA: No additional significant abnormality is seen. MEDIASTINUM: There is satisfactory enhancement of the pulmonary artery and its branches, there is no CT evidence for pulmonary embolism. There is mediastinal adenopathy, the prevascular space there is a node benign appearance central fat density but showing an increased diameter and 11 mm. There is a right aortic arch present. Patient is post TAVR procedure. Retrocaval pretracheal node shows a short axis measurement of 14 mm on axial image 64. Pulmonary artery is dilated at 3.6 cm. Right hilar adeno pati is noted. Subcarinal adenopathy is present similar to prior, axial image #90 short axis measure ment of 2 cm. No pericardial effusion is seen. Heart remains enlarged. OTHER: Spleen is enlarged. IMPRESSION: MEDIASTINAL ADENOPATHY. NO EVIDENT PULMONARY MASS. POSTPROCEDURAL CHANGES. EMPHYSEMA AND INTERSTITIAL LUNG DISEASE. CORRELATE FOR PULMONARY ARTERY HYPERTENSION. CLINICALLY. RIGHT AORTIC ARCH.
[2021-06-04] MEDS ORDERED: predniSONE 10 MG TAB PO STA (14:46)
[2021-06-04 15:02] VITALS: BP 136/86; PULSE 84
== END 2021-06-04 15:02 | disposition home or self-care (01) ==
LOC: EC 11:17
DX: J44.1 Chronic obstructive pulmonary disease with (acute) exacerbation (principal); I50.9 Heart failure, unspecified; E11.36 Type 2 diabetes mellitus with diabetic cataract; E78.5 Hyperlipidemia, unspecified; G47.33 Obstructive sleep apnea (adult) (pediatric); M19.90 Unspecified osteoarthritis, unspecified site; Z87.891 Personal history of nicotine dependence; Z20.822 Contact with and (suspected) exposure to COVID-19; Z79.4 Long term (current) use of insulin; Z79.52 Long term (current) use of systemic steroids; Z79.82 Long term (current) use of aspirin; Z79.51 Long term (current) use of inhaled steroids; Z88.1 Allergy status to other antibiotic agents; Z88.5 Allergy status to narcotic agent
CPT/HCPCS: 36415; 94640; 36600; 93005; 85379; 84439; 84481; 83880; 80053; 82805; 83605; 83735; 84443; 84484; 85025; 85610; 85730; 87635; 71046; 71275; 99285; J7512; Q9967

== ENCOUNTER → 2022-03-10 | Outpatient (CLI) | payer MEDICARE ==
--- NOTE | 2022-03-10 11:14 | P.PN ---
Subjective Progress Note Date: 03/10/22 Principal diagnosis: A 86 yr old male with daughter at side with a history of severe and chronic low back pain secondary to lumbar degenerative disc diseases and lumbar spondylosis with facet arthropathy presents today for evaluation s/p BL RFA L3- L4, L4-L5. States he experienced 60-80% pain relief s/p procedure. Pain level is currently at 0/10 in intensity but escalates as high as 5/10 in intensity with walking and standing for periods of 15 minutes or more. Pain is alleviated with medications, topicals, injections, physical therapy integrated with massage in January 2022, sitting, use of a reclining chair and rest. Also admits to BL knee pain, stiffness, worse in the morning. He is limited to ambulation with a walking cane due to BL knee pain. He states his knees are "bone on bone." Interventional pain procedures completed include BL RFA L3-L4, L4-L5 Patient is currently on Tylenol #3, Aleve OTC Patient denies any side effects of the medication(s), denies excessive drowsiness or sleepiness, denies suicidal ideation and reports that the current pain medication is helping to control the pain and improve activities of daily living. Patient denies any motor or sensory deficits. Patient denies any fever or night sweats, denies any change in the bowel movements or urination. Physical Examination: -Constitutional: Cooperative. Not in acute distress . -HEENT: Neck is supple. No lymphadenopathy. No thyromegaly. Normal thyroid size. Eyes: No ptosis , no icterus, no photophobia. ENT: No auditory deficits. Normal oropharynx. No Thrush. - Respiratory: Chest clear to auscultations bilaterally. No wheezing. No rhonchi. - Cardiovascular: Regular rate and rhythm. S1 / S2 , no S3 , no S4. - Gastrointestinal: Abdomen soft no tenderness. Bowel sounds positive in all four quadrants. No organomegaly. - Genitourinary: Deferred. - Neurologic: Cranial nerve II to XII intact. No focal neurological deficits. - Psychatric: Alert & oriented x 3. Matching mood & appropriate affect. Judgment and insight intact. - Lymphatic: No Lymphadenopathy. - Musculoskeletal: Cervical spine: Muscle bulk/ tone/ strength in the bilateral upper extremities normal. Facet loading test cervical area positive. Lumbar spine: Motor bulk/ tone/ strength lower extremities , thigh and legs : 5/5 Deep tendon reflexes : Normal Knee Jerk. Normal Ankle Jerk . Vertebral body tenderness to palpation over Lumbar Facet Loading Test positive over BL L5-S1 Straight Leg Raise: positive at 30 degrees right side/ left side Gaenslen's Test positive Sacral spine : Severe tenderness over the Sacroiliac joint: right side / left side Range of motion: Flexion of the lumbar spine <60 degrees Range of motion: Extension of the lumbar spine <20 degrees Gaenslen's Test positive Yolie test: positive right side / left side Assessment and plan: Chronic low back pain secondary to lumbar degenerative disc disease , lumbar spondylosis with facet arthropathy without myelopathy May need additional RFA for L5-S1 BL. Will reevaluate in 3-6 months. BL xray of knees re: osteoarthritis, M 17.9 All patient questions answered MAPS reviewed and it was appropriate. I have spent 31 minutes on patient care today. Dr Carroll was available by phone for the evaluation of this patient. The time was used to review the medical records including relevant urine studies and Prescription history (MAPs), review of the available imaging, evaluation and examination of the patient, coordination of care with the medical staff and if applicable referring physicians, as well as creation of the medical record PQRS Measure Charge Sheet PQRS Narrative: Smoking Status Former smoker Home Medications: Ambulatory Orders Tamsulosin HCl [Flomax] 0.4 mg PO HS 07/03/14 Aspirin EC [Ecotrin Low Dose] 81 mg PO DAILY 05/22/17 Atorvastatin [Lipitor] 80 mg PO HS #30 tab 09/09/17 Umeclidinium Brm/Vilanterol Tr [Anoro Ellipta 62.5-25 Mcg INH] 1 puff INHALATION RT-DAILY #30 blst.w.dev 09/15/18 predniSONE 5 mg PO DAILY #30 tab 02/08/19 INSULIN ASPART (NovoLOG) [NovoLOG (formulary)] 24 unit SQ AC-BRKFST 06/23/19 Insulin Degludec [Tresiba Flextouch U-100 Pen] 60 unit SQ HS 06/23/19 Isosorbide Mononitrate ER [Imdur] 30 mg PO DAILY@1200 09/01/19 Levothyroxine Sodium [Synthroid] 100 mcg PO DAILY 09/01/19 metFORMIN HCL ER [Glucophage XR] 500 mg PO BID 09/01/19 Albuterol Sulfate [Proair Hfa] 2 puff INHALATION RT-QID PRN 08/23/20 Metoprolol Tartrate [Lopressor] 50 mg PO BID 08/23/20 Cholecalciferol (Vitamin D3) [Vitamin D3 (5000 Iu)] 125 mcg PO DAILY 06/04/21 Codeine Phosphate/Guaifenesin [Guaifen-Codeine 100-10 mg/5 ml] 5 - 10 ml PO Q6H PRN 06/04/21 Naproxen Sodium [Aleve] 220 mg PO Q12HR PRN 06/04/21 guaiFENesin [Mucinex] 1,200 mg PO BID 06/04/21 Acetaminophen-Codeine 300-30mg [Tylenol w/codeine #3] 1 tab PO Q6H PRN 01/09/22 Losartan [Cozaar] 25 mg PO DAILY 01/09/22 tiZANidine HCL 1 tab PO Q8H PRN 01/09/22 Insulin Aspart [NovoLOG Flexpen] 22 units SQ BID 02/20/22
[2022-03-10 12:08] VITALS: BP 135/71; PULSE 60; RESP 18; TEMP 97.8
== END ==
LOC: PNWHC3 10:11
PROVIDERS: ATTEND Specialist
DX: M51.36 Other intervertebral disc degeneration, lumbar region (principal); M47.816 Spondylosis without myelopathy or radiculopathy, lumbar region; G89.29 Other chronic pain; M17.0 Bilateral primary osteoarthritis of knee; Z87.891 Personal history of nicotine dependence; Z88.1 Allergy status to other antibiotic agents; Z88.5 Allergy status to narcotic agent; Z91.013 Allergy to seafood
CPT/HCPCS: 99211

== ENCOUNTER → 2022-03-13 | Outpatient (CLI) | payer MEDICARE ==
--- NOTE | 2022-03-13 10:00 | XR ---
Bilateral knees HISTORY: Osteoarthritis, M 17.9 3 views of each knee submitted, no comparisons Joint space loss is present especially in the medial compartment of the right knee, patellofemoral anibal ints. There is tricompartmental marginal spurring in the right knee, left knee shows patellofemoral j oint spurring. Enthesophyte present at the insertion of the patellar tendon bilaterally. Difficult to exclude joint effusion. Alignment and bone mineralization are maintained. No fracture or dislocation . There are vascular calcifications present bilaterally. IMPRESSION: Osteoarthritis is more significant in the right knee.
== END | disposition home or self-care (01) ==
LOC: RADXRMAIN 08:19
DX: M17.11 Unilateral primary osteoarthritis, right knee (principal)

== ENCOUNTER 2022-03-18 18:00 | Emergency (ER) | payer MEDICARE ==
[2022-03-18 18:12] VITALS: BP 182/65; PULSE 64; RESP 24; TEMP 97.6
[2022-03-18] MEDS ORDERED: HYDROmorphone 0.5 MG/0.5 ML SYRINGE IVP STA (18:18)
[2022-03-18] MEDS ORDERED: KETOROLAC 15 MG/ML 1 ML VIAL IVP STA (18:18)
--- NOTE | 2022-03-18 18:27 | ED ---
General Adult HPI - General Chief complaint: Fall Stated complaint: fall Time Seen by Provider: 03/18/22 18:12 Source: patient, family, EMS, RN notes reviewed Mode of arrival: EMS Limitations: no limitations - History of Present Illness Initial comments: Patient is a pleasant 87-year-old male presenting to the emergency Department with complaints of fall. Patient was sitting on the edge of his bed and slipped to the floor. A nathan has been having back spasms since that time. Patient does have chronic back problems and history of similar Andrea previously. Patient has had previous injections in his back. Patient does have chronic difficulty with walking secondary to back and leg pain, no change currently. No new incontinence or retention of bowel or bladder products. - Related Data Home Medications Medication Instructions Recorded Confirmed Tamsulosin HCl [Flomax] 0.4 mg PO HS 07/03/14 03/10/22 Aspirin EC [Ecotrin Low Dose] 81 mg PO DAILY 05/22/17 03/10/22 INSULIN ASPART (NovoLOG) [NovoLOG 24 unit SQ AC-BRKFST 06/23/19 03/10/22 (formulary)] Insulin Degludec [Tresiba 60 unit SQ 06/23/19 03/10/22 Flextouch U-100 Pen] Isosorbide Mononitrate ER [Imdur] 30 mg PO DAILY@1200 09/01/19 03/10/22 Levothyroxine Sodium [Synthroid] 100 mcg PO DAILY 09/01/19 03/10/22 metFORMIN HCL ER [Glucophage XR] 500 mg PO BID 09/01/19 03/10/22 Albuterol Sulfate [Proair Hfa] 2 puff INHALATION RT-QID PRN 08/23/20 03/10/22 Metoprolol Tartrate [Lopressor] 50 mg PO BID 08/23/20 03/10/22 Cholecalciferol (Vitamin D3) 125 mcg PO DAILY 06/04/21 03/10/22 [Vitamin D3 (5000 Iu)] Codeine Phosphate/Guaifenesin 5 - 10 ml PO Q6H PRN 06/04/21 03/10/22 [Guaifen-Codeine 100-10 mg/5 ml] Naproxen Sodium [Aleve] 220 mg PO Q12HR PRN 06/04/21 03/10/22 guaiFENesin [Mucinex] 1,200 mg PO BID 06/04/21 03/10/22 Acetaminophen-Codeine 300-30mg 1 tab PO Q6H PRN 01/09/22 03/10/22 [Tylenol w/codeine #3] Losartan [Cozaar] 25 mg PO DAILY 01/09/22 03/10/22 tiZANidine HCL 1 tab PO Q8H PRN 01/09/22 03/10/22 Insulin Aspart [NovoLOG Flexpen] 22 units SQ BID 02/20/22 03/10/22 Previous Rx's Medication Instructions Recorded Atorvastatin [Lipitor] 80 mg PO HS #30 tab 09/09/17 Umeclidinium Brm/Vilanterol Tr 1 puff INHALATION RT-DAILY #30 09/15/18 [Anoro Ellipta 62.5-25 Mcg INH] blst.w.dev predniSONE 5 mg PO DAILY #30 tab 02/08/19 Allergies Allergy/AdvReac Type Severity Reaction Status Date / Time cephalexin [From Keflex] Allergy Unknown Verified 03/10/22 10:42 morphine AdvReac Hallucinati Verified 03/10/22 10:42 ons propoxyphene napsylate AdvReac Nausea & Verified 03/10/22 10:42 [From Darvocet-N 100] Vomiting & Diarrhea raw oyster AdvReac Diarrhea Uncoded 03/10/22 10:42 Review of Systems ROS Statement: Those systems with pertinent positive or pertinent negative responses have been documented in the HPI. ROS Other: All systems not noted in ROS Statement are negative. Constitutional: Denies: fever Eyes: Denies: eye pain ENT: Denies: ear pain Respiratory: Denies: cough Cardiovascular: Denies: chest pain Endocrine: Denies: fatigue Gastrointestinal: Denies: abdominal pain Genitourinary: Denies: dysuria Musculoskeletal: Reports: as per HPI, back pain Skin: Denies: rash Neurological: Denies: weakness Past Medical History Past Medical History: Cancer, Heart Failure, COPD, Diabetes Mellitus, Hearing Disorder / Deafness, Hyperlipidemia, Osteoarthritis (OA), Prostate Disorder, Respiratory Disorder, Sleep Apnea/CPAP/BIPAP, Thyroid Disorder Additional Past Medical History / Comment(s): 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 Past Anesthesia/Blood Transfusion Reactions: No Reported Reaction Additional Past Anesthesia/Blood Transfusion Reaction / Comment(s): HARD TO WAKE UP Date of Last Stent Placement:: 09/2017 Past Psychological History: No Psychological Hx Reported Smoking Status: Former smoker - Past Family History Father Additional Family Medical History / Comment(s): burst appendix Mother Family Medical History: Cancer Additional Family Medical History / Comment(s): breast cancer General Exam Limitations: no limitations General appearance: alert, in no apparent distress Head exam: Present: normocephalic Eye exam: Present: normal appearance Neck exam: Present: normal inspection, full ROM. Absent: tenderness Respiratory exam: Present: normal lung sounds bilaterally Cardiovascular Exam: Present: regular rate, normal rhythm GI/Abdominal exam: Present: soft. Absent: tenderness Extremities exam: Present: normal inspection Back exam: Present: normal inspection. Absent: tenderness, vertebral tenderness Neurological exam: Present: alert. Absent: motor sensory deficit Expanded Sensory exam: Lower Extremity Light Touch: Normal Motor strength exam: RLE: 5, LLE: 5 Psychiatric exam: Present: normal affect, normal mood Skin exam: Present: normal color Course Vital Signs 03/18/22 18:01 Temperature 97.6 F Pulse Rate 64 Respiratory 24 Rate Blood Pressure 182/65 O2 Sat by Pulse 95 Oximetry Medical Decision Making - Medical Decision Making Patient reevaluated and feeling much better. Patient requesting discharge home. Patient and family updated. Disposition Clinical Impression: Fall, Back spasm Disposition: HOME SELF-CARE Condition: Stable Instructions (If sedation given, give patient instructions): Fall Prevention (ED), Back Pain (ED) Additional Instructions: Please do follow-up to primary care physician in the next couple days for recheck. Return for weakness, loss of control of bowel or bladder, worsening symptoms or any other concerns. Is patient prescribed a controlled substance at d/c from ED?: No Referrals: Cynthia Barclay MD [Primary Care Provider] - 1-2 days Time of Disposition: 19:20
== END 2022-03-18 19:25 | disposition home or self-care (01) ==
LOC: EC 18:00
DX: M62.830 Muscle spasm of back (principal); E11.36 Type 2 diabetes mellitus with diabetic cataract; I50.9 Heart failure, unspecified; J44.9 Chronic obstructive pulmonary disease, unspecified; E78.5 Hyperlipidemia, unspecified; M19.90 Unspecified osteoarthritis, unspecified site; Z87.891 Personal history of nicotine dependence; Z79.4 Long term (current) use of insulin; Z79.84 Long term (current) use of oral hypoglycemic drugs; Z79.52 Long term (current) use of systemic steroids; Z79.82 Long term (current) use of aspirin; Z79.51 Long term (current) use of inhaled steroids; Z79.890 Hormone replacement therapy; Z79.899 Other long term (current) drug therapy; W06.XXXA Fall from bed, initial encounter
CPT/HCPCS: 99284; 96374; 96375; J1885; J1170

== ENCOUNTER → 2022-04-28 | Outpatient (CLI) | payer MEDICARE ==
[2022-04-28 08:09] VITALS: BP 173/71; PULSE 65; RESP 16
[2022-04-28 08:16] VITALS: TEMP 98
--- NOTE | 2022-04-28 08:26 | P.PN ---
Subjective Progress Note Date: 04/28/22 Principal diagnosis: An 87 yr old male with a history of severe and chronic low back pain secondary to lumbar degenerative disc diseases and lumbar spondylosis with facet arthropathy presents today for evaluation status post RFA BL L3-L4, L4-L5. He states he experienced 80% pain relief status post procedure. Pain level is currently at 0 out of 10 in intensity but escalates as high as 10 out of 10 in intensity with walking and other weightbearing activity. Pain is achy, sharp pain in character with shooting towards . Pain is alleviated with medications (Tylenol #3, Aleve OTC, Voltaren gel), PT 3 x per week x 3 mo, home based guided exercise regimen, sitting and rest. Interventional pain procedures completed include BL RFA L3-L4, L4-L5 Patient is currently on Tylenol #3, Aleve OTC, Voltaren gel Patient denies any side effects of the medication(s), denies excessive d rowsiness or sleepiness, denies suicidal ideation and reports that the current pain medication is helping to control the pain and improve activities of daily living. Patient denies any motor or sensory deficits. Patient denies any fever or night sweats, denies any change in the bowel movements or urination. Physical Examination: -Constitutional: Cooperative. Not in acute distress . -HEENT: Neck is supple. No lymphadenopathy. No thyromegaly. Normal thyroid size. Eyes: No ptosis , no icterus, no photophobia. ENT: No auditory deficits. Normal oropharynx. No Thrush. - Respiratory: Chest clear to auscultations bilaterally. No wheezing. No rhonchi. - Cardiovascular: Regular rate and rhythm. S1 / S2 , no S3 , no S4. - Gastrointestinal: Abdomen soft no tenderness. Bowel sounds positive in all four quadrants. No organomegaly. - Genitourinary: Deferred. - Neurologic: Cranial nerve II to XII intact. No focal neurological deficits. - Psychatric: Alert & oriented x 3. Matching mood & appropriate affect. Judgment and insight intact. - Lymphatic: No Lymphadenopathy. - Musculoskeletal: Diffuse BL Knee TTP. +crepitus Cervical spine: Muscle bulk/ tone/ strength in the bilateral upper extremities normal Vertebral body tenderness to palpation over Facet loading test positive Thoracic spine Muscle bulk / tone/ strength in the bilateral paraspinal muscles normal Vertebral body tender to palpation over Facet loading test positive Lumbar spine: Motor bulk/ tone/ strength lower extremities , thigh and legs : 5/5 Deep tendon reflexes : Normal Knee Jerk. Normal Ankle Jerk . Vertebral body tenderness to palpation over Lumbar Facet Loading Test positive Straight Leg Raise: positive at 30 degrees right side/ left side Gaenslen's Test positive Sacral spine : Severe tenderness over the Sacroiliac joint: right side / left side Range of motion: Flexion of the lumbar spine <60 degrees Range of motion: Extension of the lumbar spine <20 degrees Gaenslen's Test positive Petr's Test positive Yolie test: positive right side / left side Thigh Thrust Test Sacral Thrust Test Imaging: X-ray BL knees from 03/13/22 reviewed Assessment and plan: Chronic low back pain secondary to lumbar degenerative disc disease , lumbar spondylosis with facet arthropathy without myelopathy, BL Knee OA. Patient exhibited sufficient and substantial pain relief status post procedure. He is complaining of lower back pain which we will revisit in a few months. Recommendation is for BL knee injections. May need a series of injections, up to 3 within a six-month period, for optimal pain relief. Risks, benefits of procedure discussed and pt verbalized understanding. Admits to anticoagulant use. Admits to a medical history of diabetes. Protocol for discontinuation/ continuation of medications shala procedure discussed. All patient questions answered MAPS reviewed and it was appropriate. I have spent 31 minutes on patient care today. Dr Carroll was available by phone for the evaluation of this patient. The time was used to review the medical records including relevant urine studies and Prescription history (MAPs), review of the available imaging, evaluation and examination of the patient, coordination of care with the medical staff and if applicable referring physicians, as well as creation of the medical record PQRS Measure Charge Sheet Mode of Arrival: Ambulatory - Pain Location Bilateral Knee Non-Pharmacological Interventions: Home Exercise, Inactivity, Physical Therapy, Sitting Pharmacological Interventions: PRN Medication, Topical Medication PQRS Narrative: Smoking Status Former smoker Blood Pressure 173/71 Pain Intensity [Bilateral Knee 10 ] Scale Used Numeric (1 - 10) Hx Alcohol Use (MH) No Home Medications: Ambulatory Orders Tamsulosin HCl [Flomax] 0.4 mg PO HS 07/03/14 Aspirin EC [Ecotrin Low Dose] 81 mg PO DAILY 05/22/17 Atorvastatin [Lipitor] 80 mg PO HS #30 tab 09/09/17 Umeclidinium Brm/Vilanterol Tr [Anoro Ellipta 62.5-25 Mcg INH] 1 puff INHALATION RT-DAILY #30 blst.w.dev 09/15/18 predniSONE 5 mg PO DAILY #30 tab 02/08/19 INSULIN ASPART (NovoLOG) [NovoLOG (formulary)] 24 unit SQ AC-BRKFST 06/23/19 Insulin Degludec [Tresiba Flextouch U-100 Pen] 60 unit SQ HS 06/23/19 Isosorbide Mononitrate ER [Imdur] 30 mg PO DAILY@1200 09/01/19 Levothyroxine Sodium [Synthroid] 100 mcg PO DAILY 09/01/19 metFORMIN HCL ER [Glucophage XR] 500 mg PO BID 09/01/19 Albuterol Sulfate [Proair Hfa] 2 puff INHALATION RT-QID PRN 08/23/20 Metoprolol Tartrate [Lopressor] 50 mg PO BID 08/23/20 Cholecalciferol (Vitamin D3) [Vitamin D3 (5000 Iu)] 125 mcg PO DAILY 06/04/21 Codeine Phosphate/Guaifenesin [Guaifen-Codeine 100-10 mg/5 ml] 5 - 10 ml PO Q6H PRN 06/04/21 Naproxen Sodium [Aleve] 220 mg PO Q12HR PRN 06/04/21 guaiFENesin [Mucinex] 1,200 mg PO BID 06/04/21 Acetaminophen-Codeine 300-30mg [Tylenol w/codeine #3] 1 tab PO Q6H PRN 01/09/22 Losartan [Cozaar] 25 mg PO DAILY 01/09/22 tiZANidine HCL 1 tab PO Q8H PRN 01/09/22 Insulin Aspart [NovoLOG Flexpen] 22 units SQ BID 02/20/22
== END ==
LOC: PNWHC3 07:42
PROVIDERS: ATTEND Specialist
DX: M47.26 Other spondylosis with radiculopathy, lumbar region (principal); M51.16 Intervertebral disc disorders with radiculopathy, lumbar region; G89.29 Other chronic pain; M17.0 Bilateral primary osteoarthritis of knee; E11.9 Type 2 diabetes mellitus without complications; Z87.891 Personal history of nicotine dependence; Z79.84 Long term (current) use of oral hypoglycemic drugs; Z79.4 Long term (current) use of insulin; Z88.1 Allergy status to other antibiotic agents; Z88.5 Allergy status to narcotic agent; Z91.018 Allergy to other foods; Z88.8 Allergy status to other drugs, medicaments and biological substances
CPT/HCPCS: 99211

== ENCOUNTER 2022-05-29 08:31 | Day surgery (SDC) | payer MEDICARE ==
[2022-05-27 11:01] VITALS: BMI 39.9
[2022-05-29 08:58] VITALS: TEMP 97.9
[2022-05-29] MEDS ORDERED: LACTATED RINGERS 1,000 ML IV ONE (09:00)
[2022-05-29] MEDS ORDERED: LIDOCAINE 1% (10MG/ML) FOR IV START INTRADERMA ONE (09:00)
[2022-05-29 09:10] LABS: Glucose,Whole Blood 107 mg/dL (70-110)
[2022-05-29] MEDS ORDERED: ROPIVACAINE 5 MG/ML 20 ML AMPULE ONE (09:21)
[2022-05-29] MEDS ORDERED: MIDAZOLAM 2 MG/2 ML VIAL ONE (09:21)
[2022-05-29] MEDS ORDERED: methylPREDNISolone ACETATE 40 MG/ML 1 ML VIAL ONE (09:21)
[2022-05-29] MEDS ORDERED: LIDOCAINE 2% INJ 20 MG/ML (2 ML VIAL) ONE (09:21)
[2022-05-29] MEDS ORDERED: fentaNYL (PF) 50 MCG/ML 2 ML AMP ONE (09:21)
[2022-05-29] MEDS ORDERED: IV FLUID CONTINUATION 600 ML IV ONE (09:36)
--- NOTE | 2022-05-29 09:36 | P.PCN ---
Date of Procedure: 05/29/22 Description of Procedure: PROCEDURE: Bilateral knee joint Intraarticular Injection under ultrasound guidance guidance. PREPROCEDURE DIAGNOSIS: Knee Osteoarthrosis. POSTPROCEDURE DIAGNOSIS: Knee Osteoarthrosis. ANESTHESIA: Local with 1% lidocaine; IV sedation: Versed 0.5 mg, and fentanyl 25 g EBL: none COMPLICATIONS: none Specimens removed: None Ultrasound image: Saved to patient electronic medical records. Indications for Procedure: The patient has been suffering from chronic knee pain, and inadequate pain relief after pharmacologic regimen, and knee joint injection was scheduled for the patient. Procedure and Findings: The patient was seen and examined and written informed consent was obtained after explaining the risks, benefits and alternatives of the procedure to the patient. The patient was placed in the supine position. The skin preparation was done with ChloraPrep 2 solution, and sterile technique was observed throughout the procedure. Using ultrasound the target point for needle entry on the lateral side identified. 2 ml of 1% Lidocaine was injected with a 25 gauge needle to achieve adequate local anesthesia of the skin and subcutaneous tissue. A 25 gauge 1.5 inch needle was introduced through the target point and advanced into the joint cavity. A negative aspiration was confirmed, 5 ml block solution containing 20 MG of Depo-Medrol and 4.5 ml of 0.5% % preservative-free ropivacaine was injected slowly. Entire procedure was repeated on the left side of the knee . The needle was removed and needle puncture site was appropriately cleaned, and covered with a bandage. Total dose of Depo-Medrol used was 40 MG. Disposition : The patient tolerated the procedure very well. The patient was given detailed discharge instructions for infection, bleeding, and increased pain at the injection site, and was advised to seek immediate medical attention should significant side effects develop. The patient scheduled to follow up with pain clinic in 4 weeks weeks.
[2022-05-29 09:40] VITALS: RESP 18
[2022-05-29] MEDS ORDERED: LACTATED RINGERS 1,000 ML IV SCH (09:45)
[2022-05-29 09:56] VITALS: BP 172/70; PULSE 69
== END 2022-05-29 10:05 | disposition home or self-care (01) ==
LOC: ORPAIN 08:31
DX: M17.0 Bilateral primary osteoarthritis of knee (principal); E11.9 Type 2 diabetes mellitus without complications; J44.9 Chronic obstructive pulmonary disease, unspecified; I11.0 Hypertensive heart disease with heart failure; I50.9 Heart failure, unspecified; G47.33 Obstructive sleep apnea (adult) (pediatric); Z90.49 Acquired absence of other specified parts of digestive tract; Z98.1 Arthrodesis status; Z98.890 Other specified postprocedural states; Z88.1 Allergy status to other antibiotic agents; Z88.5 Allergy status to narcotic agent; Z91.013 Allergy to seafood
CPT/HCPCS: 20611; J2250; J1030; J3010; J2795; J2001; 20610; 76942

== ENCOUNTER → 2022-06-26 | Outpatient (CLI) | payer MEDICARE ==
[2022-06-26 09:13] VITALS: BP 148/49; PULSE 57; RESP 18
--- NOTE | 2022-06-26 09:28 | P.PN ---
Subjective Progress Note Date: 06/26/22 This is 87 years old male ,with a history of lower back pain secondary to degenerative disc disease, disc bulges, anterolisthesis, spondylosis, and multilevel facet arthropathy , and the arthritis of bilateral knees, previously we have done RFA of the medial branch lumbar spine. He got excellent pain rel ief, and also we did bilateral knee steroid injection Patient states his lower back pain is 2 out of 10 in intensity but mostly located in the buttocks area with an achy, constant pain that escalates as high as 10 out of 10 in intensity when walking for 10 minutes or standing for 20 minutes or more. Pain is relieved with medications, heat, physical therapy 10 years ago, massage therapy 10 years ago, use of a cane and wheelchair for ambulation, repositioning and rest. Currently patient started complaining of increased low back pain, and also patient complaining of some knee pain, intensity of the pain increases with activity of daily livings, patient continued to use Tylenol 3 Zanaflex and naproxen for pain Past Medical History: Skin Cancer, Heart Failure, COPD, Diabetes Mellitus, Hyper lipidemia, Osteoarthritis (OA), Prostate Disorder, Respiratory Disorder, Sleep Apnea/CPAP/BIPAP, Thyroid Disorder Past Surgical History: Appendectomy, Bowel Resection, Heart Catheterization With Stent (last Sep, 2017), Orthopedic Surgery, Tonsillectomy, Bowel Resection x 2, Cervical fusion in 1989, Colonoscopy, Bilateral L3-L5 RFA in 2013 Past Alcohol Use History: Quit tobacco use 32 years ago. Denies ETOH abuse or illicit drug use. Family History: Father- Appendicitis, Mother- Breast CA. All: See list Meds: See list Physical Examinations : -Constitutiona : Cooperative , not in acute distress . -HEENT : nech : supple , no Lymphadenopathy , normal thyroid size . : eyes : no ptosis , no icterus, no photophobia . - neurologic : Cranial nerve II to XII intact , no focal neurological deffecit . -psychatric : alert , oriented X 3 , appropriate affect , intact judgment and insight . -Lymphatic : no Lymphadenopathy . - musculoskeltal : Lumber spine moter stegnth lower extremities ,thigh and legs 5/5 Right side , 5/5 Left side deep tendon reflexes : normal Knee Jerk , normal ankle Jerk lumber facet Loading Test =positive Right , positive Left Range of motion of the lumbar spine Flexion 30 degrees, extension 10 degrees strait leg raising test = positive at degree Fabere test= positive Right , and positive LT . Sever tenderness over the Sacroiliac joint on the Right , and Left sides Gaenslen test= positive right ,and positive left . Seated flexion test= positive right ,and positive Left . Distraction test= positive bilaterally Sacroiliac compression test= positive bilaterally Action and extension of bilateral knee associated with pain there Is healing skin irritation below the right knee Redness around the lower part of the right leg below the knee area pitting edema bilateral lower extremity Imaging: Computed tomography scan of the lumbar spine without contrast from 04/07/2017 reviewed Assessment/ Plan : Recommendation of bilateral RFA of the L4-5 ,L5-S1 Once patient pain increased. Vies patient to follow-up with his primary care PATIENT ACCESS SPECIALIST Cynthia Askwe ,regarding the edema in the lower extremity Objective - Vital Signs Vital signs: Vital Signs Temp Pulse 57 L 06/26/22 09:04 Resp 18 06/26/22 09:04 BP 148/49 06/26/22 09:04 Pulse Ox 95 06/26/22 09:04 FiO2 Intake & Output 06/25/22 06/26/22 06/26/22 18:59 06:59 18:59 Weight 122.47 kg
== END ==
LOC: PNWHC3 08:44
PROVIDERS: ATTEND Specialist
DX: M51.36 Other intervertebral disc degeneration, lumbar region (principal); M51.26 Other intervertebral disc displacement, lumbar region; M47.816 Spondylosis without myelopathy or radiculopathy, lumbar region; M17.0 Bilateral primary osteoarthritis of knee; J44.9 Chronic obstructive pulmonary disease, unspecified; E11.9 Type 2 diabetes mellitus without complications; E78.5 Hyperlipidemia, unspecified; Z88.1 Allergy status to other antibiotic agents; Z88.5 Allergy status to narcotic agent; Z91.013 Allergy to seafood; Z87.891 Personal history of nicotine dependence
CPT/HCPCS: 99211

== ENCOUNTER 2022-08-12 14:27 | Emergency (ER) | payer MEDICARE ==
[2022-08-12 14:43] VITALS: PULSE 76; TEMP 97.2
[2022-08-12] MEDS ORDERED: BACITRACIN OINT 1 EACH PACKET TOPICAL ONE (14:48)
--- NOTE | 2022-08-12 14:54 | ED ---
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 Patient is complaining of right shoulder pain and right-sided rib pain. He states he may have bumped his head but it does not hurt. No loss of consciousness. No other pain or discomfort. He does not take any blood thinners. He believes his tetanus shot is up-to-date. 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 Fall Witnessed: yes, by bystander Place Fall Occurred: other (parking lot) Loss of Consciousness: none Prolonged Down Time?: no Symptoms Prior to Fall: none Location: chest Location - Extremities: Right: Shoulder Context: tripped/slipped (tripped on curb) Associated Symptoms: chest paint (right anterior rib) - Related Data Home Medications Medication Instructions Recorded Confirmed Tamsulosin HCl [Flomax] 0.4 mg PO HS 07/03/14 06/26/22 Aspirin EC [Ecotrin Low Dose] 81 mg PO DAILY 05/22/17 06/26/22 INSULIN ASPART (NovoLOG) [NovoLOG 24 unit SQ AC-BRKFST 06/23/19 06/26/22 (formulary)] Insulin Degludec [Tresiba 60 unit SQ 06/23/19 06/26/22 Flextouch U-100 Pen] Isosorbide Mononitrate ER [Imdur] 30 mg PO DAILY@1200 09/01/19 06/26/22 Levothyroxine Sodium [Synthroid] 100 mcg PO DAILY 09/01/19 06/26/22 metFORMIN HCL ER [Glucophage XR] 500 mg PO BID 09/01/19 06/26/22 Albuterol Sulfate [Proair Hfa] 2 puff INHALATION RT-QID PRN 08/23/20 06/26/22 Metoprolol Tartrate [Lopressor] 50 mg PO BID 08/23/20 06/26/22 Cholecalciferol (Vitamin D3) 125 mcg PO DAILY 06/04/21 06/26/22 [Vitamin D3 (5000 Iu)] Codeine Phosphate/Guaifenesin 5 - 10 ml PO Q6H PRN 06/04/21 06/26/22 [Guaifen-Codeine 100-10 mg/5 ml] Naproxen Sodium [Aleve] 220 mg PO Q12HR PRN 06/04/21 06/26/22 guaiFENesin [Mucinex] 1,200 mg PO BID 06/04/21 06/26/22 Acetaminophen-Codeine 300-30mg 1 tab PO Q6H PRN 01/09/22 06/26/22 [Tylenol w/codeine #3] Losartan [Cozaar] 100 mg PO DAILY 01/09/22 06/26/22 tiZANidine HCL 2 mg PO Q8H PRN 01/09/22 06/26/22 Insulin Aspart [NovoLOG Flexpen] 22 units SQ BID 02/20/22 06/26/22 Previous Rx's Medication Instructions Recorded Atorvastatin [Lipitor] 80 mg PO HS #30 tab 09/09/17 Umeclidinium Brm/Vilanterol Tr 1 puff INHALATION RT-DAILY #30 09/15/18 [Anoro Ellipta 62.5-25 Mcg INH] blst.w.dev predniSONE 5 mg PO DAILY #30 tab 02/08/19 Lidocaine 5% Patch [Lidoderm] 1 patch TOPICAL DAILY PRN #20 patch 08/12/22 Allergies Allergy/AdvReac Type Severity Reaction Status Date / Time cephalexin [From Keflex] Allergy Unknown Verified 06/26/22 09:13 morphine AdvReac Hallucinati Verified 06/26/22 09:13 ons propoxyphene napsylate AdvReac Nausea & Verified 06/26/22 09:13 [From Darvocet-N 100] Vomiting & Diarrhea raw oyster AdvReac Diarrhea Uncoded 06/26/22 09:13 Review of Systems ROS Statement: Those systems with pertinent positive or pertinent negative responses have been documented in the HPI. ROS Other: All systems not noted in ROS Statement are negative. 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 Past Anesthesia/Blood Transfusion Reactions: No Reported Reaction Additional Past Anesthesia/Blood Transfusion Reaction / Comment(s): HARD TO WAKE UP Date of Last Stent Placement:: 09/2017 Past Psychological History: No Psychological Hx Reported Smoking Status: Former smoker - Past Family History Father Additional Family Medical History / Comment(s): burst appendix Mother Family Medical History: Cancer Additional Family Medical History / Comment(s): breast cancer General Exam Limitations: no limitations General appearance: alert, in no apparent distress Head exam: Present: atraumatic, normocephalic Eye exam: Present: other (Exophthalmos). Absent: scleral icterus, conjunctival injection ENT exam: Present: mucous membranes moist Neck exam: Present: full ROM. Absent: tenderness, meningismus Respiratory exam: Absent: respiratory distress, accessory muscle use Cardiovascular Exam: Present: regular rate GI/Abdominal exam: Present: soft, distended, other (green/yellow bruising lower abdomen from insulin injections). Absent: tenderness, guarding, rebound, rigid Extremities exam: Present: full ROM, normal capillary refill. Absent: pedal edema, calf tenderness Back exam: Absent: tenderness, CVA tenderness (R), CVA tenderness (L), muscle spasm, paraspinal tenderness, vertebral tenderness, rash noted Neurological exam: Present: alert, oriented X3 Psychiatric exam: Present: normal affect, normal mood Skin exam: Present: warm, dry, normal color. Absent: cyanosis, diaphoretic, petechiae, pallor Course Vital Signs 08/12/22 08/12/22 14:40 16:17 Temperature 97.2 F L Pulse Rate 76 76 Respiratory 18 20 Rate Blood Pressure 161/73 143/81 O2 Sat by Pulse 93 L 96 Oximetry - Reevaluation(s) Reevaluation #1: 08/12/22 14:55 Patient offered pain medication and declined at this time. Time: 14:55 Medical Decision Making - Medical Decision Making Chest x-ray shows a minimally displaced right lateral fifth rib fracture, no pneumothorax or pleural effusion seen. 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 X-ray of the right shoulder shows no acute osseous pathology. Severe osteoporosis of the right shoulder. CT brain shows no acute intracranial process. Chronic small vessel disease. No evidence of cervical spine fracture. Mild multilevel degenerative disc disease. Fusion of C5 and C6 vertebral bodies. Vital signs are stable. Patient will be discharged home with Lidoderm patches and directed to continue his [place] and Tylenol 3 as prescribed as his normal pain medication management program. I also discussed the appearance of taking deep breaths and coughing to prevent pneumonia. He was instructed to follow-up with primary care doctor this week and return to the emergency room with any new or concerning symptoms. Patient and family member are agreeable to this plan of care. Case discussed with Dr. Sagastume Disposition Clinical Impression: Fall, Right rib fracture Disposition: HOME SELF-CARE Condition: Good Instructions (If sedation given, give patient instructions): Rib Fracture (ED), Fall Prevention for Older Adults (ED) Additional Instructions: Take deep breaths and cough once an hour to prevent pneumonia. Use Lidoderm patches as prescribed for pain. Continue your [place] and Tylenol 3 as previously prescribed for pain management. Follow-up with your primary care doctor this week. Return to the emergency room with any new or concerning symptoms including fever, difficulty breathing or increased pain. Prescriptions: Lidocaine 5% Patch [Lidoderm] 1 patch TOPICAL DAILY PRN #20 patch PRN Reason: Pain Is patient prescribed a controlled substance at d/c from ED?: No Referrals: Cynthia Askew NPC [STAFF PHYSICIAN] - 1-2 days Time of Disposition: 16:02
--- NOTE | 2022-08-12 15:19 | XR ---
EXAMINATION TYPE: XR shoulder complete RT DATE OF EXAM: 08/12/2022 3:12 PM INDICATION: Patient age:Male; 87 years old; Reason for study: pain after fall; COMPARISON: None TECHNIQUE: The right shoulder was examined in AP, internally rotated and scapular Y projections. . FINDINGS: Degeneration changes of the acromioclavicular and glenohumeral joint with osteophytes and joint space narrowing. No evidence of acute osseous pathology, joint dislocation, or soft tissue swelling. Multi focal airspace opacities are seen throughout the chest. IMPRESSION: 1. No acute osseous pathology. 2. Marked severe osteoporosis of the right shoulder. 3. Multifocal airspace opacities. Correlate for pneumonia.
--- NOTE | 2022-08-12 15:24 | CT ---
EXAMINATION TYPE: CT brain cspine wo con CT DLP: 1700.4 mGycm, Automated exposure control for dose reduction was used. DATE OF EXAM: 08/12/2022 3:16 PM COMPARISON: CT brain 08/12/2015. CLINICAL INDICATION:Male, 87 years old with history of pain; fall TECHNIQUE: Brain: Multiple axial CT images of the brain were obtained without IV contrast. Cspine: Axial CT images from the skull base to the inferior aspect of T2 we obtained without intraven ous contrast. Coronal and sagittal reformatted images were also reviewed. FINDINGS: Motion degraded examination. Brain: Extra-axial spaces: No abnormal extra-axial fluid collections. Ventricular system: Dilatation in proportion to cerebral atrophy. Cerebral parenchyma: No acute intraparenchymal hemorrhage or mass effect. The lopez-white junction is well differentiated. Scattered hypoattenuating areas are seen within the white matter. Cerebral vol ume loss. Cerebellum: Poorly visualized due to motion artifact. Mass effect: No evidence of midline shift. Intracranial vasculature: Atherosclerotic calcifications of the intracranial vessels. Soft tissues: Normal. Calvarium/osseous structures: No depressed skull fracture. Paranasal sinuses and mastoid air cells: The mastoid air cells are clear. Mild mucosal thickening of the ethmoid sinuses. Visualized orbits: Bilateral aphakia. Cervical spine: Fracture: None. Osseous structures: Multilevel degenerative disc disease changes with endplate spurring and disc oste ophyte complex's. Fusion of the C5 and C6 vertebral bodies. Multilevel facet arthropathy. Vertebral alignment: Within normal limits. Spinal canal/Neural Foramina: Disc osteophyte complexes at C3-C4 with at least mild spinal canal sten osis. Facet joint uncovertebral joint arthropathy scattered throughout the cervical spine with varyin g degrees of neural foraminal stenosis. Neck soft tissues: Prevertebral soft tissues are within normal limits. Other: The airway is patent. The lung apices are clear. IMPRESSION: 1. No acute intracranial process. 2. Nonspecific white matter changes, likely secondary to chronic small vessel ischemic disease. 3. No evidence of cervical spine fracture. 4. Mild multilevel degenerative disc disease.
--- NOTE | 2022-08-12 15:40 | XR ---
EXAMINATION TYPE: XR chest 2V DATE OF EXAM: 08/12/2022 3:12 PM COMPARISON: Chest radiographs from 06/04/2021, CTA chest 06/04/2021 TECHNIQUE: XR chest 2V Frontal and lateral views of the chest. CLINICAL INDICATION:Male, 87 years old with history of right rib pain after fall; FINDINGS: Lungs/Pleura: No pneumothorax or pleural effusions. Similar prominence of the interstitium bilaterall y. No focal consolidation. Pulmonary vascularity: Unremarkable. Heart/mediastinum: Cardiomediastinal silhouette is prominent stable. 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 Musculoskeletal: Minimally displaced right lateral fifth rib fracture. Stable anterior wedge compress ion deformity of the T5 vertebral body with thoracic kyphosis. IMPRESSION: 1. Acute minimally displaced right lateral fifth rib fracture. 2. Similar prominence of the interstitium bilaterally.
[2022-08-12] MEDS ORDERED: ACET/COD 300 MG/30 MG STARTER PACK 6 TAB BTL PO STA (15:59)
[2022-08-12] MEDS ORDERED: LIDOCAINE 5% PATCH TOPICAL SCH (16:00)
[2022-08-12 16:24] VITALS: BP 143/81; RESP 20
== END 2022-08-12 16:40 | disposition home or self-care (01) ==
LOC: EC 14:27
DX: S22.31XA Fracture of one rib, right side, initial encounter for closed fracture (principal); J44.9 Chronic obstructive pulmonary disease, unspecified; E11.9 Type 2 diabetes mellitus without complications; E07.89 Other specified disorders of thyroid; E78.5 Hyperlipidemia, unspecified; Z87.891 Personal history of nicotine dependence; Z79.84 Long term (current) use of oral hypoglycemic drugs; Z79.4 Long term (current) use of insulin; Z79.82 Long term (current) use of aspirin; Z79.890 Hormone replacement therapy; Z99.89 Dependence on other enabling machines and devices; Z79.899 Other long term (current) drug therapy; Z88.6 Allergy status to analgesic agent; Z88.1 Allergy status to other antibiotic agents; Z88.5 Allergy status to narcotic agent; Z91.013 Allergy to seafood
CPT/HCPCS: 70450; 71046; 72125; 99284

== ENCOUNTER 2022-09-26 06:57 | Day surgery (SDC) | payer MEDICARE ==
[2022-09-24 10:48] VITALS: BMI 39.5
[2022-09-26] MEDS ORDERED: LIDOCAINE 1% (10MG/ML) FOR IV START INTRADERMA PRN (07:11)
[2022-09-26] MEDS ORDERED: LACTATED RINGERS 1,000 ML IV SCH (07:11)
[2022-09-26 07:25] VITALS: TEMP 97.8
[2022-09-26 07:34] LABS: Glucose,Whole Blood 143 mg/dL (70-110)
[2022-09-26] MEDS ORDERED: ROPIVACAINE 5 MG/ML 20 ML AMPULE ONE (08:18)
[2022-09-26] MEDS ORDERED: LABETALOL 5 MG/ML VIAL MDV ONE ×2 (08:18)
[2022-09-26] MEDS ORDERED: methylPREDNISolone ACETATE 40 MG/ML 1 ML VIAL ONE (08:18)
[2022-09-26] MEDS ORDERED: fentaNYL (PF) 50 MCG/ML 2 ML AMP ONE (08:18)
[2022-09-26] MEDS ORDERED: MIDAZOLAM 2 MG/2 ML VIAL ONE (08:18)
--- NOTE | 2022-09-26 08:55 | P.PCN ---
Date of Procedure: 09/26/22 Procedure(s) Performed: PREOPERATIVE DIAGNOSIS: 1-Lumbar Spondylosis with Facet Arthropathy without myelopathy. 2- Lumber degenerative disc disease. POSTOPERATIVE DIAGNOSIS: 1- Lumbar Spondylosis with Facet Arthropathy without myelopathy. 2- Lumber degenerative disc disease. PROCEDURES : Bilateral Radiofrequency thermocoagulation, L3 , L4 , and L5 medial branch, with fluoroscopic guidance (fluoroscopy images available in the radiology department) ( to denervate the facet joint at bilateral L4-5 ,and L5-S1 levels ). ANESTHESIA: Monitored anesthesia care as per anesthesia department . EBL: Minimal PROCEDURE INDICATION: The patient with low back pain secondary to lumbar facet arthropathy who had more than 50% relief of her pain with previous diagnostic lumbar medial branch block with bupivacaine. PROCEDURE DESCRIPTION / TECHNIQUE: The patient was seen and identified in the preoperative area. Risks, benefits, complications, including but not limited to risk of infection ,bleeding , allergic reactions to the medications and no complete pain releife , and alternatives were discussed with the patient, the patient agreed to proceed with the procedure and signed the consent. IV was started. Vital signs remained stable throughout the procedure. Patient was taken to the OR and time out was completed. The patient was placed in the prone position on the procedure table. The lumber area was prepped and draped in the usual sterile fashion. . Vital signs were closely monitored during the procedure .IV sedation was used during the procedure to decrease patients anxiety. Using AP and then oblique fluoroscopy, the ``eye of the Jay dog co rresponding to the connection between the superior and transverse articular processes of right L3, L4, and L5 were identified, marked, and localized with 1% lidocaine. Subsequently, a 18 -ly radiofrequency cannula with a 10- mm active tip was advanced guided by fluoroscopy to each of the``eyes of the Jay dog at right L3, L4, and L5. Each site then underwent sensory testing at 50 Hz and 0 to 1 volt and motor testing at 2.5 Hz and 0 to 3 volt with local stimulation, but no radicular symptoms down the legs. Thereafter each sites underwent radiofrequency thermocoagulation at 80 degrees celsius for 90 seconds after injecting 0.5 ml of PF Ropivacaine 1ml, then after the thermocoagulation done , 1 ml of the block solution containing Depo-Medrol 20 mg and 3 ml of Ropivacaine 0.5% was injected at the right L3 , L4 , and L5 , levels after negative aspiration of CSF and blood and with no paresthesias. Cannulas were retracted while injecting lidocaine 1% until the needle is out. The same procedure was repeated at the level of Left L3, L4, and L5 levels. At the end of the procedure, the skin was cleansed and bandages were applied. COMPLICATIONS: No acute complications. DISPOSITION / PLANS: The patient was placed in a supine position and transferred to the recovery area in a stable condition for observation and was discharged from the recovery room after meeting discharge criteria. Home discharge instructions given to the patient by the staff. The patient was reexamined prior to discharge. The patient will schedule a follow up in the clinic in 2-4 weeks.
[2022-09-26] MEDS ORDERED: IV FLUID CONTINUATION 1,000 ML IV ONE (09:03)
[2022-09-26 09:19] VITALS: BP 143/62; PULSE 65; RESP 20
--- NOTE | 2022-09-26 09:35 | FL ---
Intraoperative/procedural fluoroscopic services were provided. Total fluoroscopy time is 53 seconds w ith a total of 6 submitted images to PACS. Please see the operative/procedural note for further detai ls.
== END 2022-09-26 09:41 | disposition home or self-care (01) ==
LOC: ORPAIN 06:57
PROVIDERS: ATTEND Specialist
DX: M47.816 Spondylosis without myelopathy or radiculopathy, lumbar region (principal); M51.36 Other intervertebral disc degeneration, lumbar region
CPT/HCPCS: 64635; 64636; J2250; J1030; J3010; J2795

== ENCOUNTER 2022-10-03 11:14 | Observation (INO) | payer MEDICARE ==
[2022-10-03] MEDS ORDERED: NITROGLYCERIN OINT 1 INCH/GM PACKET TOPICAL STA (12:37)
[2022-10-03] MEDS ORDERED: ASPIRIN 81 MG PO STA (12:37)
--- NOTE | 2022-10-03 12:41 | ED ---
General Adult HPI - General Chief complaint: Shortness of Breath Stated complaint: SOB Time Seen by Provider: 10/03/22 11:32 Source: patient, EMS, RN notes reviewed Mode of arrival: EMS Limitations: no limitations - History of Present Illness Initial comments: Patient is a pleasant 87-year-old male presenting to the emergency department with chest discomfort. Onset of symptoms was this morning. Family helps provide history as patient is a poor historian. Patient does admit to having some chest discomfort earlier and states it was moderate, none at this time. Patient reportedly was short of breath and near syncopal however patient does not recall this. Patient also reportedly was diaphoretic. Patient states he is feeling fine at this time and has no complaints. - Related Data Home Medications Medication Instructions Recorded Confirmed Tamsulosin HCl [Flomax] 0.4 mg PO HS 07/03/14 09/26/22 Aspirin EC [Ecotrin Low Dose] 81 mg PO DAILY 05/22/17 09/26/22 INSULIN ASPART (NovoLOG) [NovoLOG 24 unit SQ AC-BRKFST 06/23/19 09/26/22 (formulary)] Insulin Degludec [Tresiba 60 unit SQ HS 06/23/19 09/26/22 Flextouch U-100 Pen] Isosorbide Mononitrate ER [Imdur] 30 mg PO DAILY@1200 09/01/19 09/26/22 Levothyroxine Sodium [Synthroid] 100 mcg PO DAILY 09/01/19 09/26/22 metFORMIN HCL ER [Glucophage XR] 500 mg PO BID 09/01/19 09/26/22 Albuterol Sulfate [Proair Hfa] 2 puff INHALATION RT-QID PRN 08/23/20 09/26/22 Metoprolol Tartrate [Lopressor] 50 mg PO BID 08/23/20 09/26/22 Cholecalciferol (Vitamin D3) 125 mcg PO DAILY 06/04/21 09/26/22 [Vitamin D3 (5000 Iu)] Codeine Phosphate/Guaifenesin 5 - 10 ml PO Q6H PRN 06/04/21 09/26/22 [Guaifen-Codeine 100-10 mg/5 ml] Naproxen Sodium [Aleve] 220 mg PO Q12HR PRN 06/04/21 09/26/22 guaiFENesin [Mucinex] 1,200 mg PO BID 06/04/21 09/26/22 Acetaminophen-Codeine 300-30mg 1 tab PO Q6H PRN 01/09/22 09/26/22 [Tylenol w/codeine #3] Losartan [Cozaar] 100 mg PO DAILY 01/09/22 09/26/22 Insulin Aspart [NovoLOG Flexpen] 22 units SQ BID 02/20/22 09/26/22 Previous Rx's Medication Instructions Recorded Atorvastatin [Lipitor] 80 mg PO HS #30 tab 09/09/17 Umeclidinium Brm/Vilanterol Tr 1 puff INHALATION RT-DAILY #30 09/15/18 [Anoro Ellipta 62.5-25 Mcg INH] blst.w.dev predniSONE 5 mg PO DAILY #30 tab 02/08/19 Lidocaine 5% Patch [Lidoderm] 1 patch TOPICAL DAILY PRN #20 patch 08/12/22 Allergies Allergy/AdvReac Type Severity Reaction Status Date / Time cephalexin [From Keflex] Allergy Unknown Verified 09/26/22 07:17 morphine AdvReac Hallucinati Verified 09/26/22 07:17 ons propoxyphene napsylate AdvReac Nausea & Verified 09/26/22 07:17 [From Darvocet-N 100] Vomiting & Diarrhea raw oyster AdvReac Diarrhea Uncoded 09/26/22 07:17 Review of Systems ROS Statement: Those systems with pertinent positive or pertinent negative responses have been documented in the HPI. ROS Other: All systems not noted in ROS Statement are negative. Constitutional: Denies: fever Eyes: Denies: eye pain ENT: Denies: ear pain Respiratory: Reports: as per HPI. 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 Past Anesthesia/Blood Transfusion Reactions: No Reported Reaction Additional Past Anesthesia/Blood Transfusion Reaction / Comment(s): HARD TO WAKE UP Date of Last Stent Placement:: 09/2017 Past Psychological History: No Psychological Hx Reported Smoking Status: Former smoker - Past Family History Father Additional Family Medical History / Comment(s): burst appendix Mother Family Medical History: Cancer Additional Family Medical History / Comment(s): breast cancer General Exam Limitations: no limitations General appearance: alert, in no apparent distress Head exam: Present: normocephalic Eye exam: Present: other (Exophthalmos) ENT exam: Present: normal oropharynx Neck exam: Present: normal inspection Respiratory exam: Present: normal lung sounds bilaterally Cardiovascular Exam: Present: regular rate, normal rhythm Expanded Peripheral pulses: 2+: Radial (R), Radial (L), Posterior Tibialis (R), Posterior Tibialis (L) GI/Abdominal exam: Present: soft. Absent: tenderness Extremities exam: Present: normal inspection. Absent: pedal edema, calf tenderness Neurological exam: Present: alert Psychiatric exam: Present: normal affect, normal mood Skin exam: Present: normal color Course Vital Signs 10/03/22 10/03/22 10/03/22 11:21 12:38 13:29 Temperature 98.9 F Pulse Rate 84 83 Respiratory 22 24 22 Rate Blood Pressure 181/68 152/58 O2 Sat by Pulse 94 L 96 Oximetry EKG Findings - EKG Comments: EKG Findings:: Sinus rhythm 82. For screening AV block MS 241. QRS 150. QT 418. QTC 456. Superior axis. Right bundle branch block. Nonspecific T waves. Medical Decision Making - Medical Decision Making Patient reevaluated and resting comfortably at bedside. Patient updated on results and plan. [facility] has been paged for admission covering hospital call. Patient will need computed tomography scan to rule out PE which may also help further evaluate potential pneumonia. Patient will need to take enzymes repeated. Case was discussed with Dr. Armenta, who will admit - Lab Data Result diagrams: 10/03/22 12:40 10/03/22 12:40 Lab Results 10/03/22 10/03/22 10/03/22 Range/Units 12:40 12:40 12:40 WBC 8.0 (3.8-10.6) k/uL RBC 4.79 (4.30-5.90) m/uL Hgb 15.4 (13.0-17.5) gm/dL Hct 45.2 (39.0-53.0) % MCV 94.4 (80.0-100.0) fL MCH 32.1 (25.0-35.0) pg MCHC 34.0 (31.0-37.0) g/dL RDW 13.9 (11.5-15.5) % Plt Count 201 (150-450) k/uL MPV 7.7 Neutrophils % 83 % Lymphocytes % 10 % Monocytes % 5 % Eosinophils % 1 % Basophils % 1 % Neutrophils # 6.7 (1.3-7.7) k/uL Lymphocytes # 0.8 L (1.0-4.8) k/uL Monocytes # 0.4 (0-1.0) k/uL Eosinophils # 0.1 (0-0.7) k/uL Basophils # 0.1 (0-0.2) k/uL PT 11.5 (9.0-12.0) sec INR 1.1 (<1.2) APTT 26.2 (22.0-30.0) sec D-Dimer 1.04 H (<0.60) mg/L FEU Sodium 134 L (137-145) mmol/L Potassium 4.6 (3.5-5.1) mmol/L Chloride 99 (98-107) mmol/L Carbon Dioxide 28 (22-30) mmol/L Anion Gap 7 mmol/L BUN 17 (9-20) mg/dL Creatinine 0.79 (0.66-1.25) mg/dL Est GFR (CKD-EPI)AfAm >90 (>60 ml/min/1.73 sqM) Est GFR (CKD-EPI)NonAf 80 (>60 ml/min/1.73 sqM) Glucose 148 H (74-99) mg/dL Calcium 9.1 (8.4-10.2) mg/dL Magnesium 1.9 (1.6-2.3) mg/dL Total Bilirubin 1.0 (0.2-1.3) mg/dL AST 29 (17-59) U/L ALT 28 (4-49) U/L Alkaline Phosphatase 92 (38-126) U/L Troponin I (0.000-0.034) ng/mL NT-Pro-B Natriuret Pep pg/mL Total Protein 6.9 (6.3-8.2) g/dL Albumin 4.3 (3.5-5.0) g/dL 10/03/22 10/03/22 Range/Units 12:40 12:40 WBC (3.8-10.6) k/uL RBC (4.30-5.90) m/uL Hgb (13.0-17.5) gm/dL Hct (39.0-53.0) % MCV (80.0-100.0) fL MCH (25.0-35.0) pg MCHC (31.0-37.0) g/dL RDW (11.5-15.5) % Plt Count (150-450) k/uL MPV Neutrophils % % Lymphocytes % % Monocytes % % Eosinophils % % Basophils % % Neutrophils # (1.3-7.7) k/uL Lymphocytes # (1.0-4.8) k/uL Monocytes # (0-1.0) k/uL Eosinophils # (0-0.7) k/uL Basophils # (0-0.2) k/uL PT (9.0-12.0) sec INR (<1.2) APTT (22.0-30.0) sec D-Dimer (<0.60) mg/L FEU Sodium (137-145) mmol/L Potassium (3.5-5.1) mmol/L Chloride (98-107) mmol/L Carbon Dioxide (22-30) mmol/L Anion Gap mmol/L BUN (9-20) mg/dL Creatinine (0.66-1.25) mg/dL Est GFR (CKD-EPI)AfAm (>60 ml/min/1.73 sqM) Est GFR (CKD-EPI)NonAf (>60 ml/min/1.73 sqM) Glucose (74-99) mg/dL Calcium (8.4-10.2) mg/dL Magnesium (1.6-2.3) mg/dL Total Bilirubin (0.2-1.3) mg/dL AST (17-59) U/L ALT (4-49) U/L Alkaline Phosphatase (38-126) U/L Troponin I 0.014 (0.000-0.034) ng/mL NT-Pro-B Natriuret Pep 1480 pg/mL Total Protein (6.3-8.2) g/dL Albumin (3.5-5.0) g/dL - Radiology Data Radiology results: image reviewed (Chest x-ray interpreted by myself reveals patchy infiltrate right middle lung, possible developing pneumonia) Disposition Clinical Impression: Chest pain, Near syncope Disposition: ADMITTED IP TO THIS HOSP Is patient prescribed a controlled substance at d/c from ED?: No Referrals: Cynthia Barclay MD [Primary Care Provider] - 1-2 days Time of Disposition: 14:42
--- NOTE | 2022-10-03 13:08 | XR ---
EXAMINATION TYPE: XR chest 2V DATE OF EXAM: 10/03/2022 COMPARISON: 08/12/2022 HISTORY: Shortness of breath TECHNIQUE: Frontal and lateral views of the chest are obtained. FINDINGS: Scattered senescent parenchymal changes noted. Hyperinflation compatible with COPD. Mild patchy density right medial lung base may reflect developing infiltrate. Correlate clinically an d consider progress studies. Heart size is stable. Mediastinal structures are stable and grossly unremarkable. No evidence for hilar prominence. Degenerative changes dorsal spine. IMPRESSION: 1. Mild patchy density right medial lung base may reflect developing infiltrate. Correlate clinically and consider progress studies.
[2022-10-03 13:53] LABS: Basophils # (A) 0.1 k/uL (0-0.2); Basophils % (A) 1 %; Eosinophils # (A) 0.1 k/uL (0-0.7); Eosinophils % (A) 1 %; HCT 45.2 % (39.0-53.0); HGB 15.4 gm/dL (13.0-17.5); Lymphocytes # (A) 0.8 k/uL (1.0-4.8); Lymphocytes % (A) 10 %; MCH 32.1 pg (25.0-35.0); MCV 94.4 fL (80.0-100.0); Mean Platelet Volume 7.7; Monocytes # (A) 0.4 k/uL (0-1.0); Monocytes % (A) 5 %; Neutrophils # (A) 6.7 k/uL (1.3-7.7); Neutrophils % (A) 83 %; Platelet Count 201 k/uL (150-450); RBC 4.79 m/uL (4.30-5.90); RDW 13.9 % (11.5-15.5)
[2022-10-03 14:02] LABS: ALT 28 U/L (4-49); AST 29 U/L (17-59); African American GFR (CKD) >90 (>60 ml/min/1.73 sqM); Albumin 4.3 g/dL (3.5-5.0); Alkaline Phosphatase 92 U/L (38-126); Anion Gap 7 mmol/L; Blood Urea Nitrogen 17 mg/dL (9-20); Calcium 9.1 mg/dL (8.4-10.2); Carbon Dioxide 28 mmol/L (22-30); Chloride 99 mmol/L (98-107); Glucose 148 mg/dL (74-99); Magnesium 1.9 mg/dL (1.6-2.3); Non-African American GFR(CKD) 80 (>60 ml/min/1.73 sqM); Potassium 4.6 mmol/L (3.5-5.1); Sodium 134 mmol/L (137-145); Total Protein 6.9 g/dL (6.3-8.2)
[2022-10-03 14:07] LABS: INR 1.1 (<1.2); Partial Thromboplastin Time 26.2 sec (22.0-30.0); Prothrombin Time 11.5 sec (9.0-12.0)
[2022-10-03] MEDS ORDERED: NITROGLYCERIN SL TABS 0.4 MG TAB SUBLINGUAL PRN (14:43)
--- NOTE | 2022-10-03 16:21 | CT ---
CT CHEST FOR PULMONARY EMBOLISM. EXAMINATION TYPE: CT angio chest DATE OF EXAM: 10/03/2022 INDICATION: Shortness of breath. CT DLP: 771.4 mGycm, Automated exposure control for dose reduction was used. CONTRAST: Patient injected with 70ml mL of Isovue 370. COMPARISON: 06/04/2021 TECHNIQUE: CT of the chest is performed on a spiral scan at 2 mm thick sections. Study is performed with intravenous contrast timed for evaluation for pulmonary embolism. This will limit additional po rtions of the evaluation. 3-D MIP images reconstructed by the technologist are reviewed on the compu ter in the coronal and sagittal planes. FINDINGS: No persistent filling defects are evident to suggest an acute pulmonary embolism. No mediastinal or hilar adenopathy enlarged by CT criteria is evident. There is a right aortic arch. Descending thoracic aorta extends in a normal position. The stomach is in a normal left upper quadrant. Coronary artery calcification may be present. The ascending aorta di ameter at the level of the main pulmonary artery is 3.4 cm. The main pulmonary artery diameter at th e bifurcation is 3.5 cm. Small right and very minimal left pleural effusion may be present. Some mild compressive atelectasis is adjacent to the right pleural effusion. Some emphysematous changes are present within the lung fie lds. Trachea and left and right main bronchus appear somewhat narrowed. Underlying masses are not julio ntified. Limited CT section through the upper abdomen. Mild fatty infiltration versus liver. Pancreas is atrop hic where visualized. IMPRESSIONS: 1. No acute pulmonary emboli. 2. Right aortic arch. 3. Emphysematous changes within the lung pederson. There may be some narrowing of the distal trachea an d main bronchi bilaterally compared to the earlier examination. Underlying encasement however is not identified. 4. Small right and minimal left pleural effusion. Minimal compressive atelectasis in the right lung b ase adjacent to the pleural effusion.
[2022-10-03] MEDS ORDERED: HYDROcodone/APAP 5-325MG 1 EACH TAB PO PRN (16:42)
[2022-10-03 17:01] LABS: Glucose,Whole Blood 147 mg/dL (70-110)
[2022-10-03] MEDS: INSULIN ASPART (NovoLOG) 100 UNIT/ML VIAL SQ SCH ×2 (17:08→20:51)
[2022-10-03] MEDS: NITROGLYCERIN OINT 1 INCH/GM PACKET TOPICAL SCH (17:09)
[2022-10-03] MEDS ORDERED: IPRATROPIUM-ALBUTEROL 3 ML NEB INHALATION PRN (17:34)
--- NOTE | 2022-10-03 17:42 | P.HPIM ---
History of Present Illness H&P Date: 10/03/22 Patient's an 87-year-old male with PMH of COPD on 2 L home O2, diabetes mellitus, diastolic CHF, sleep apnea, hypothyroidism, CAD with stents, hypertension that presents the ED for chest pain. Patient reports waking up this morning feeling very disoriented. He reports shortness of breath that is w orse than his usual. He reports chest pain that is described as pressure-like in nature. He is unable to elaborate further with regard to his chest pain. His symptoms were associated with chills. He also reports a cough productive of green sputum has been ongoing for the last 2 months. He also reports feeling lightheaded throughout the day. His daughter's concern prompted him to come to the ED. He denies any headache, lower extremity edema, nausea vomiting, fever, palpitations, changes in urination or bowel habits. No changes in appetite or weight. He denies any dizziness, numbness/weakness or tingling of the extremities. In the ED, his vital signs are stable on 4 L nasal cannula. CBC showed lymphocyte count of 0.8. D-dimer was 1.04, CTA chest negative for PE, emphysematous changes within the lung pederson, narrowing of the distal trachea, bilateral small pleural effusion with atelectasis. Chest x-ray showed mild patchy density in the right medial lung base. Coagulation panel negative. CMP showed sodium of 134, glucose 148. Troponin was 0.014, 0.015. BNP was 1480. Patient is admitted for chest pain, rule out acute coronary syndrome and cardiology consultation. Pertinent positives and negatives as discussed in HPI, a complete review of systems was performed and all other systems are negative. General: non toxic, no distress, appears at stated age Derm: warm, dry Head: atraumatic, normocephalic, symmetric Eyes: EOMI, no lid lag, anicteric sclera Mouth: no lip lesion, mucus membranes moist Cardiovascular: S1S2 reg, no murmur, positive DP pulse bilateral, Lungs: Decreased breath sounds bilateral, no rhonchi, no rales , no accessory muscle use Abdominal: soft, nontender to palpation, no guarding, no appreciable organomegaly Ext: no gross muscle atrophy, no edema, no contractures Neuro: CN II-XI grossly intact, no focal neuro deficits Psych: Alert, oriented, appropriate affect #Chest pain, rule out acute coronary syndrome #COPD exacerbation with acute bronchitis #Elevated d-dimer #Diastolic CHF #Diabetes Mellitus #Hypothyroidism #Hypertension Initial Troponin is negative. He does have history of stenting in the past. Echocardiogram 09/2019 shows EF 55-60% with moderate concentric LVH. Trend Trop/EKG to rule out ACS. Telemetry monitoring. Obtain Echocardiogram. Consult cardiology. Continue ASA, Lipitor, Metoprolol. Start DuoNeb scheduled and as needed for SOB/wheezing. Start Prednisone 40 mg PO QD x 4 days. Start Azithromycin for treatment for acute bronchitis. Obtain COVID 19 test. Restart home dose of insulin at a lower dose. Levemir 30 units QAM and Novolog 10 units TID. Accuchecks ACHS. Hypoglycemic precautions. Restart Synthorid. Restart Imdur, Metoprolol, Losartan. Monitor vitals and adjust medication if necessary. DVT prophylaxis: Heparin Discussed with: Patient, ED physician Anticipated discharge: 1-[address]: Home A total of 30 minutes was spent on the care of this complex patient more than 50% of the time was spent in counseling and care coordination. Patient names his daughter decision maker if he cant make decisions for himself. Patient would like to be FULL CODE. 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 Past Anesthesia/Blood Transfusion Reactions: No Reported Reaction Additional Past Anesthesia/Blood Transfusion Reaction / Comment(s): HARD TO WAKE UP Date of Last Stent Placement:: 09/2017 Past Psychological History: No Psychological Hx Reported Smoking Status: Former smoker - Past Family History Father Additional Family Medical History / Comment(s): burst appendix Mother Family Medical History: Cancer Additional Family Medical History / Comment(s): breast cancer Medications and Allergies Home Medications Medication Instructions Recorded Confirmed Type Tamsulosin HCl [Flomax] 0.4 mg PO HS 07/03/14 10/03/22 History Aspirin EC [Ecotrin Low Dose] 81 mg PO DAILY 05/22/17 10/03/22 History Atorvastatin [Lipitor] 80 mg PO HS #30 tab 09/09/17 10/03/22 Rx Umeclidinium Brm/Vilanterol Tr 1 puff INHALATION RT-DAILY #30 09/15/18 10/03/22 Rx [Anoro Ellipta 62.5-25 Mcg INH] blst.w.dev predniSONE 5 mg PO DAILY #30 tab 02/08/19 10/03/22 Rx INSULIN ASPART (NovoLOG) [NovoLOG 22 unit SQ AC-BRKFST 06/23/19 10/03/22 History (formulary)] Insulin Degludec [Tresiba 60 unit SQ HS 06/23/19 10/03/22 History Flextouch U-100 Pen] Isosorbide Mononitrate ER [Imdur] 30 mg PO DAILY@1200 09/01/19 10/03/22 History Levothyroxine Sodium [Synthroid] 100 mcg PO DAILY 09/01/19 10/03/22 History metFORMIN HCL ER [Glucophage XR] 500 mg PO BID 09/01/19 10/03/22 History Albuterol Sulfate [Proair Hfa] 2 puff INHALATION RT-QID PRN 08/23/20 10/03/22 History Metoprolol Tartrate [Lopressor] 50 mg PO BID 08/23/20 10/03/22 History Cholecalciferol (Vitamin D3) 125 mcg PO DAILY 06/04/21 10/03/22 History [Vitamin D3 (5000 Iu)] Codeine Phosphate/Guaifenesin 5 - 10 ml PO Q6H PRN 06/04/21 10/03/22 History [Guaifen-Codeine 100-10 mg/5 ml] Naproxen Sodium [Aleve] 220 mg PO BID 06/04/21 10/03/22 History guaiFENesin [Mucinex] 1,200 mg PO BID 06/04/21 10/03/22 History Acetaminophen-Codeine 300-30mg 1 tab PO Q6H PRN 01/09/22 10/03/22 History [Tylenol w/codeine #3] Losartan [Cozaar] 100 mg PO DAILY 01/09/22 10/03/22 History Insulin Aspart [NovoLOG Flexpen] 18 units SQ AC-BID@1200,1800 02/20/22 10/03/22 History HYDROcodone/APAP 5-325MG [Banks 1 tab PO Q4-6H PRN 10/03/22 10/03/22 History 5-325] tiZANidine [Zanaflex] 2 mg PO QID PRN 10/03/22 10/03/22 History Allergies Allergy/AdvReac Type Severity Reaction Status Date / Time cephalexin [From Keflex] Allergy Unknown Verified 10/03/22 15:55 morphine AdvReac Hallucinati Verified 10/03/22 15:55 ons propoxyphene napsylate AdvReac Nausea & Verified 10/03/22 15:55 [From Darisabelt-N 100] Vomiting & Diarrhea raw oyster Allergy Rash & Uncoded 10/03/22 15:55 Diarrhea Physical Exam Vitals: Vital Signs Temp Pulse Resp BP Pulse Ox 10/03/22 17:11 98.7 F 84 24 155/65 97 10/03/22 13:29 83 22 152/58 96 10/03/22 12:38 24 10/03/22 11: 98.9 F 84 22 181/68 94 L Intake and Output 10/03/22 10/03/22 10/03/22 06:59 14:59 22:59 Other: Weight 122.47 kg Results CBC & Chem 7: 10/03/22 12:40 10/03/22 12:40 Labs: Abnormal Lab Results - Last 24 Hours (Table) 10/03/22 10/03/22 10/03/22 Range/Units 12:40 12:40 12:40 Lymphocytes # 0.8 L (1.0-4.8) k/uL D-Dimer 1.04 H (<0.60) mg/L FEU Sodium 134 L (137-145) mmol/L Glucose 148 H (74-99) mg/dL POC Glucose (mg/dL) (70-110) mg/dL 10/03/22 Range/Units 16:59 Lymphocytes # (1.0-4.8) k/uL D-Dimer (<0.60) mg/L FEU Sodium (137-145) mmol/L Glucose (74-99) mg/dL POC Glucose (mg/dL) 147 H (70-110) mg/dL
[2022-10-03] MEDS ORDERED: AZITHROMYCIN 500 MG in SODIUM CHLORIDE 0.9% 250 ML IVPB SCH (18:00)
[2022-10-03 18:13] LABS: Glucose,Whole Blood 200 mg/dL (70-110)
[2022-10-03] MEDS: predniSONE 20 MG TAB PO SCH (18:34)
[2022-10-03] MEDS: METOPROLOL TARTRATE 50 MG TAB PO SCH (20:51)
[2022-10-03] MEDS: HEPARIN SODIUM,PORCINE/PF 5,000 UNIT/0.5 ML SYRINGE SQ SCH (20:51)
[2022-10-03 20:58] LABS: Glucose,Whole Blood 123 mg/dL (70-110)
[2022-10-03] MEDS ORDERED: ATORVASTATIN 80 MG TAB PO SCH (21:00)
[2022-10-03] MEDS ORDERED: TAMSULOSIN 0.4 MG CAP.ER.24H PO SCH (21:00)
[2022-10-03] MEDS: IPRATROPIUM-ALBUTEROL 3 ML NEB INHALATION SCH (21:04)
[2022-10-03 21:34] VITALS: RESP 18
[2022-10-04] MEDS: NITROGLYCERIN OINT 1 INCH/GM PACKET TOPICAL SCH ×2 (01:22→06:31)
[2022-10-04] MEDS ORDERED: LEVOTHYROXINE 100 MCG TAB PO SCH (06:30)
[2022-10-04] MEDS: INSULIN ASPART (NovoLOG) 100 UNIT/ML VIAL SQ SCH ×2 (06:33→12:53)
[2022-10-04 06:34] LABS: Glucose,Whole Blood 191 mg/dL (70-110)
[2022-10-04] MEDS ORDERED: INSULIN DETEMIR (LEVEMIR) 100 UNIT/ML SYR SQ SCH (07:00)
[2022-10-04] MEDS ORDERED: FUROSEMIDE 10 MG/ML 4 ML VIAL IV STA (07:40)
[2022-10-04] MEDS: IPRATROPIUM-ALBUTEROL 3 ML NEB INHALATION SCH ×2 (08:33→11:54)
[2022-10-04] MEDS ORDERED: predniSONE 5 MG TAB PO SCH (09:00)
[2022-10-04] MEDS ORDERED: ASPIRIN 325 MG TAB PO SCH (09:00)
[2022-10-04] MEDS ORDERED: LOSARTAN 50 MG TAB PO SCH (09:00)
[2022-10-04] MEDS ORDERED: ASPIRIN 81 MG PO SCH (09:00)
[2022-10-04 09:02] VITALS: BP 154/50; TEMP 97.5
[2022-10-04 09:05] LABS: Chol/HDL Ratio 2.44 Ratio
[2022-10-04] MEDS: HEPARIN SODIUM,PORCINE/PF 5,000 UNIT/0.5 ML SYRINGE SQ SCH (09:35)
[2022-10-04] MEDS: METOPROLOL TARTRATE 50 MG TAB PO SCH (09:36)
[2022-10-04] MEDS: predniSONE 20 MG TAB PO SCH (09:36)
--- NOTE | 2022-10-04 09:46 | P.CRDCN ---
History of Present Illness Consult date: 10/04/22 Consult reason: chest pain History of present illness: History of present illness: This is an 87-year-old male patient of Dr. ROGER Bustamante with past medical history of coronary artery disease with previous stenting of the circumflex in August 2017. The patient had a left and right heart catheterization in 2018 that showed mild pulmonary hypertension, RCA 40%, LAD 50-55% diagonal 40%. A LYLE at that time showed severe aortic stenosis, moderate to severe left ventricular hypertrophy, normal EF. Patient also has history of chronic diastolic heart failure, diabetes mellitus type 2, obstructive sleep apnea, COPD, chronic hypoxic respiratory failure on home O2 at 2 L, status post TAVR at [place]. Patient gives history that he woke up early on Thursday morning with the chills he ended up going back to bed and woke up again at 8 AM. At that time, patient felt disoriented, cold, fatigued. He had soreness all over his body and was breathing heavy. He also had headache and usually does not have headaches. He called his daughter but could network his cell phone. He has a paid help further comes and at 10 AM who then helped him contact his daughter and both advised him to come into the hospital for further evaluation. Patient denies any chest pain at that time. He denies any syncopal or pre-temp syncopal, lightheadedness or dizziness symptoms. EKG normal sinus rhythm with a first-degree AV block and right bundle branch block. Troponin negative 3, WBC 11, d-dimer 1.04. CTA of the chest revealed no pulmonary embolism, minimal left pleural effusion and atelectasis. Patient has been started on antibiotics prednisone and one dose of IV Lasix and he currently states that all symptoms have resolved. Review Of Systems: At the time of my evaluation Constitutional: No fever, no chills. No weakness, fatigue or lethargy. EENT: No headache. No dizziness. Lungs: No shortness of breath, cough, no sputum production. No wheezing. Cardiovascular: No chest pain, no lower extremity edema. No palpitations. No paroxysmal nocturnal dyspnea. No orthopnea. No lightheadedness or dizziness. No syncopal episodes. Abdominal: No abdominal pain. No nausea, vomiting. No diarrhea. No constipation. No bloody or tarry stools.. No loss of appetite. Genitourinary: No dysuria.. No urinary retention. Musculoskeletal: No myalgias. No muscle weakness, no gait dysfunction, no frequent falls. No back pain. No neck pain. Integumentary: No wounds, no lesions. No rash or pruritus. No unusual bruising. Neurologic: No aphasia. No facial droop. No change in mentation. No head injury. No headache. No paralysis. No paresthesia. Psychiatric: No depression. No anxiety. Endocrine: No abnormal blood sugars. Physical examination: Gen: This is an 87-year-old male. He is resting in bed and appears to be comfortable and in no acute distress. VS: Afebrile, heart rate 84, blood pressure 154/50, pulse ox 94% on 4 L nasal cannula HEENT: Head is atraumatic, normocephalic. Pupils equal, round. Sclerae is anicteric. NECK: Supple. No JVD. No lymphadenopathy. No thyromegaly. LUNGS: Clear to auscultation. No wheezes or rhonchi. No intercostal retractions. HEART: Regular rate and rhythm. No murmur. ABDOMEN: Soft. Bowel sounds are present. No masses. No tenderness. EXTREMITIES: No pedal edema. No calf tenderness. NEUROLOGICAL: Patient is awake, alert and oriented x3. Cranial nerves 2 through 12 are grossly intact. Assessment: Chills, fatigue, shortness of breath most likely secondary to infectious process Disorientation ost likely due to not utilizing oxygen/cpap consistently Possible chest pain with negative troponins, acute coronary syndrome ruled out Elevated d-dimer, CTA negative for pulmonary embolism. Plan: Continue patient's home cardiac medications Obtain 2-D echocardiogram and Doppler study to assess cardiac structure and function Further recommendations to follow based upon clinical course Plan for follow-up in the office with Dr. ROGER Vaughn when discharged Thank you kindly for this consultation. Nurse practitioner note has been reviewed, I agree with documented findings and plan of care. Patient was seen and examined. 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 Past Anesthesia/Blood Transfusion Reactions: No Reported Reaction Additional Past Anesthesia/Blood Transfusion Reaction / Comment(s): HARD TO WAKE UP Date of Last Stent Placement:: 09/2017 Past Psychological History: No Psychological Hx Reported Smoking Status: Former smoker - Past Family History Father Additional Family Medical History / Comment(s): burst appendix Mother Family Medical History: Cancer Additional Family Medical History / Comment(s): breast cancer Medications and Allergies Home Medications Medication Instructions Recorded Confirmed Type Tamsulosin HCl [Flomax] 0.4 mg PO HS 07/03/14 10/03/22 History Aspirin EC [Ecotrin Low Dose] 81 mg PO DAILY 05/22/17 10/03/22 History Atorvastatin [Lipitor] 80 mg PO HS #30 tab 09/09/17 10/03/22 Rx Umeclidinium Brm/Vilanterol Tr 1 puff INHALATION RT-DAILY #30 09/15/18 10/03/22 Rx [Anoro Ellipta 62.5-25 Mcg INH] blst.w.dev predniSONE 5 mg PO DAILY #30 tab 02/08/19 10/03/22 Rx INSULIN ASPART (NovoLOG) [NovoLOG 22 unit SQ AC-BRKFST 06/23/19 10/03/22 History (formulary)] Insulin Degludec [Tresiba 60 unit SQ HS 06/23/19 10/03/22 History Flextouch U-100 Pen] Isosorbide Mononitrate ER [Imdur] 30 mg PO DAILY@1200 09/01/19 10/03/22 History Levothyroxine Sodium [Synthroid] 100 mcg PO DAILY 09/01/19 10/03/22 History metFORMIN HCL ER [Glucophage XR] 500 mg PO BID 09/01/19 10/03/22 History Albuterol Sulfate [Proair Hfa] 2 puff INHALATION RT-QID PRN 08/23/20 10/03/22 History Metoprolol Tartrate [Lopressor] 50 mg PO BID 08/23/20 10/03/22 History Cholecalciferol (Vitamin D3) 125 mcg PO DAILY 06/04/21 10/03/22 History [Vitamin D3 (5000 Iu)] Codeine Phosphate/Guaifenesin 5 - 10 ml PO Q6H PRN 06/04/21 10/03/22 History [Guaifen-Codeine 100-10 mg/5 ml] Naproxen Sodium [Aleve] 220 mg PO BID 06/04/21 10/03/22 History guaiFENesin [Mucinex] 1,200 mg PO BID 06/04/21 10/03/22 History Acetaminophen-Codeine 300-30mg 1 tab PO Q6H PRN 01/09/22 10/03/22 History [Tylenol w/codeine #3] Losartan [Cozaar] 100 mg PO DAILY 01/09/22 10/03/22 History Insulin Aspart [NovoLOG Flexpen] 18 units SQ AC-BID@1200,1800 02/20/22 10/03/22 History HYDROcodone/APAP 5-325MG [[place] 1 tab PO Q4-6H PRN 10/03/22 10/03/22 History 5-325] tiZANidine [Zanaflex] 2 mg PO QID PRN 10/03/22 10/03/22 History Allergies Allergy/AdvReac Type Severity Reaction Status Date / Time cephalexin [From Keflex] Allergy Unknown Verified 10/03/22 15:55 morphine AdvReac Hallucinati Verified 10/03/22 15:55 ons propoxyphene napsylate AdvReac Nausea & Verified 10/03/22 15:55 [From Darvocet-N 100] Vomiting & Diarrhea raw oyster Allergy Rash & Uncoded 10/03/22 15:55 Diarrhea Physical Exam Vitals: Vital Signs Temp Pulse Pulse Resp BP BP Pulse Ox 10/04/22 02:11 97.8 F 78 18 161/69 94 L 10/03/22 21:20 84 10/03/22 21:05 86 97 10/03/22 20:05 98.2 F 47 L 18 175/74 93 L 10/03/22 20:00 20 10/03/22 17:57 98.3 F 82 20 174/68 98 11/11/22 17:11 98.7 F 84 24 155/65 97 10/03/22 13:29 83 22 152/58 96 10/03/22 12:38 24 10/03/22 11:21 98.9 F 84 22 181/68 94 L Intake and Output 10/03/22 10/04/22 10/04/22 22:59 06:59 14:59 Intake Total 118 Balance 118 Intake: Oral 118 Other: # Voids 1 2 Weight 122.47 kg Results 10/03/22 12:40 10/03/22 12:40 Cardiac Enzymes 10/03/22 10/03/22 10/03/22 Range/Units 12:40 12:40 15:30 AST 29 (17-59) U/L Troponin I 0.014 0.015 (0.000-0.034) ng/mL 10/03/22 Range/Units 19:02 AST (17-59) U/L Troponin I <0.012 (0.000-0.034) ng/mL Coagulation 10/03/22 Range/Units 12:40 PT 11.5 (9.0-12.0) sec APTT 26.2 (22.0-30.0) sec CBC 10/03/22 Range/Units 12:40 WBC 8.0 (3.8-10.6) k/uL RBC 4.79 (4.30-5.90) m/uL Hgb 15.4 (13.0-17.5) gm/dL Hct 45.2 (39.0-53.0) % Plt Count 201 (150-450) k/uL Comprehensive Metabolic Panel 10/03/22 Range/Units 12:40 Sodium 134 L (137-145) mmol/L Potassium 4.6 (3.5-5.1) mmol/L Chloride 99 (98-107) mmol/L Carbon Dioxide 28 (22-30) mmol/L BUN 17 (9-20) mg/dL Creatinine 0.79 (0.66-1.25) mg/dL Glucose 148 H (74-99) mg/dL Calcium 9.1 (8.4-10.2) mg/dL AST 29 (17-59) U/L ALT 28 (4-49) U/L Alkaline Phosphatase 92 (38-126) U/L Total Protein 6.9 (6.3-8.2) g/dL Albumin 4.3 (3.5-5.0) g/dL Current Medications Generic Name Dose Route Start Last Admin Trade Name Freq PRN Reason Stop Dose Admin Hydrocodone Bitart/Acetaminophen 1 each 10/03/22 16:42 Hydrocodone/Apap 5-325mg 1 Each Tab PO Q4H PRN Pain Albuterol/Ipratropium 3 ml 10/03/22 17:34 Ipratropium-Albuterol 3 Ml Neb INHALATION RT-QID PRN Shortness Of Breath Or Wheezing Albuterol/Ipratropium 3 ml 10/03/22 20:00 10/03/22 21:04 Ipratropium-Albuterol 3 Ml Neb INHALATION 3 ml RT-QID DAMI Administration Aspirin 81 mg 10/04/22 09:00 Aspirin 81 Mg PO DAILY [facility] Atorvastatin Calcium 80 mg 10/03/22 21:00 10/03/22 20:51 Atorvastatin 80 Mg Tab PO 80 mg HS DAMI Administration Heparin Sodium (Porcine) 5,000 unit 10/03/22 21:00 10/03/22 20:51 Heparin Sodium,Porcine/Pf 5,000 Unit/0.5 Ml Syringe SQ 5,000 unit Q12HR DAMI Administration Azithromycin 500 mg/ Sodium 250 mls @ 250 mls/hr 10/03/22 18:00 10/03/22 20:51 Chloride IVPB 10/05/22 18:59 250 mls/hr Q24H DAMI Administration Protocol Insulin Aspart 10 unit 10/03/22 17:30 10/04/22 06:33 Insulin Aspart (Novolog) 100 Unit/Ml Vial SQ 10 unit ACHS [facility] Administration Insulin Detemir 30 unit 10/04/22 07:00 10/04/22 06:33 Insulin Detemir (Levemir) 100 Unit/Ml Syr SQ 30 unit DAILY@0700 [facility] Administration Isosorbide Mononitrate 30 mg 10/04/22 12:00 Isosorbide Mononitrate Er 30 Mg Tab.Er.24h PO DAILY@1200 [facility] Levothyroxine Sodium 100 mcg 10/04/22 06:30 10/04/22 06:31 Levothyroxine 100 Mcg Tab PO 100 mcg DAILY@0630 [facility] Administration Losartan Potassium 100 mg 10/04/22 09:00 Losartan 50 Mg Tab PO DAILY [facility] Metoprolol Tartrate 50 mg 10/03/22 21:00 10/03/22 20:51 Metoprolol Tartrate 50 Mg Tab PO 50 mg BID DAMI Administration Nitroglycerin 0.4 mg 10/03/22 14:43 Nitroglycerin Sl Tabs 0.4 Mg Tab SUBLINGUAL Q5M PRN Chest Pain Nitroglycerin 1 inch 10/03/22 18:00 10/04/22 06:31 Nitroglycerin Oint 1 Inch/Gm Packet TOPICAL 10/04/22 11:00 Not Given Q6HR [facility] Prednisone 40 mg 10/03/22 17:45 10/03/22 18:34 Prednisone 20 Mg Tab PO 40 mg DAILY DAMI Administration Tamsulosin HCl 0.4 mg 10/03/22 21:00 10/03/22 20:51 Tamsulosin 0.4 Mg Cap.Er.24h PO 0.4 mg HS DAMI Administration Intake and Output 10/03/22 10/04/22 10/04/22 22:59 06:59 14:59 Intake Total 118 Balance 118 Intake: Oral 118 Other: # Voids 1 2 Weight 122.47 kg 10/03/22 12:40 10/03/22 12:40
--- NOTE | 2022-10-04 11:11 | P.CNPUL ---
History of Present Illness Consult date: 10/04/22 Requesting physician: Zuleima Caballero Reason for consult: dyspnea, abnormal CXR/CT Chief complaint: Chest pain History of present illness: This is a pleasant 87-year-old male patient who has a history of aortic valve stenosis with previous transcatheter aortic valve replacement, hyperlipidemia, hypertension, hypothyroidism, obesity withobstructive sleep apnea, diabetes mellitus type 2. He also has a history of chronic obstructive pulmonary [id number] follows with Dr. Hayward in our office for the same. He is somewhat of a poor historian. He was brought in by his family for complaints of chest pain. This morning he denies any chest pain at all. He states he was having issues with altered mental status and confusion. He states he couldn't use his cell phone. He was having issues with shortness of breath. Today he is awake and alert in no acute distress. He denies any shortness of breath cough or congestion. He was up with assistance and a walker. no syncopal episodes. He is maintaining O2 saturation in the 90s on 4 L/m per nasal cannula. Afebrile.white count 8.0. Hemoglobin 15.4. D-dimer 1.04. Sodium 134. Potassium 4.6. BUN 17. Creatinine 0.79. Glucose 148. Troponins are negative. ProBNP 1480. Wang virus not detected.chest x-ray shows mild patchy density in the right medial lung base.CT angiogram ruled out pulmonary emboli. There is emphysematous changes. Some narrowing of the distal trachea and main bronchi bilaterally. Underlying encasement is not identified. There is small right and minimal left pleural effusion. Some atelectatic changes in the right base. Review of Systems REVIEW OF SYSTEMS: CONSTITUTIONAL: Positive for confusionDenies any recent significant weight loss or weight gain. EYES: Denies change in vision. EARS, NOSE, MOUTH, THROAT: Denies headaches, denies sore throat. CARDIOVASCULAR: Positive for chest pain, palpitations or syncopal episodes. RESPIRATORY: Denies shortness of breath, cough, congestion or hemoptysis. GASTROINTESTINAL: Denies change in appetite, denies abdominal pain GENITOURINARY: Denies hematuria, denies infections. MUSKULOSKELETAL: Denies pain, denies swelling. INTEGUMENTARY: Denies rash, denies eczema. NEUROLOGICAL: Denies recent memory loss, no recent seizure activity. PSYCHIATRIC: Denies anxiety, denies depression. HEMATOLOGIC/LYMPHATIC: Denies anemia, denies enlarged lymph nodes. 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 Past Anesthesia/Blood Transfusion Reactions: No Reported Reaction Additional Past Anesthesia/Blood Transfusion Reaction / Comment(s): HARD TO WAKE UP Date of Last Stent Placement:: 09/2017 Past Psychological History: No Psychological Hx Reported Smoking Status: Former smoker - Past Family History Father Additional Family Medical History / Comment(s): burst appendix Mother Family Medical History: Cancer Additional Family Medical History / Comment(s): breast cancer Medications and Allergies Home Medications Medication Instructions Recorded Confirmed Type Tamsulosin HCl [Flomax] 0.4 mg PO HS 07/03/14 10/03/22 History Aspirin EC [Ecotrin Low Dose] 81 mg PO DAILY 05/22/17 10/03/22 History Atorvastatin [Lipitor] 80 mg PO HS #30 tab 09/09/17 10/03/22 Rx Umeclidinium Brm/Vilanterol Tr 1 puff INHALATION RT-DAILY #30 09/15/18 10/03/22 Rx [Anoro Ellipta 62.5-25 Mcg INH] blst.w.dev predniSONE 5 mg PO DAILY #30 tab 02/08/19 10/03/22 Rx INSULIN ASPART (NovoLOG) [NovoLOG 22 unit SQ AC-BRKFST 06/23/19 10/03/22 History (formulary)] Insulin Degludec [Tresiba 60 unit SQ HS 06/23/19 10/03/22 History Flextouch U-100 Pen] Isosorbide Mononitrate ER [Imdur] 30 mg PO DAILY@1200 09/01/19 10/03/22 History Levothyroxine Sodium [Synthroid] 100 mcg PO DAILY 09/01/19 10/03/22 History metFORMIN HCL ER [Glucophage XR] 500 mg PO BID 09/01/19 10/03/22 History Albuterol Sulfate [Proair Hfa] 2 puff INHALATION RT-QID PRN 08/23/20 10/03/22 History Metoprolol Tartrate [Lopressor] 50 mg PO BID 08/23/20 10/03/22 History Cholecalciferol (Vitamin D3) 125 mcg PO DAILY 06/04/21 10/03/22 History [Vitamin D3 (5000 Iu)] Codeine Phosphate/Guaifenesin 5 - 10 ml PO Q6H PRN 06/04/21 10/03/22 History [Guaifen-Codeine 100-10 mg/5 ml] Naproxen Sodium [Aleve] 220 mg PO BID 06/04/21 10/03/22 History guaiFENesin [Mucinex] 1,200 mg PO BID 06/04/21 10/03/22 History Acetaminophen-Codeine 300-30mg 1 tab PO Q6H PRN 01/09/22 10/03/22 History [Tylenol w/codeine #3] Losartan [Cozaar] 100 mg PO DAILY 01/09/22 10/03/22 History Insulin Aspart [NovoLOG Flexpen] 18 units SQ AC-BID@1200,1800 02/20/22 10/03/22 History HYDROcodone/APAP 5-325MG [[place] 1 tab PO Q4-6H PRN 10/03/22 10/03/22 History 5-325] tiZANidine [Zanaflex] 2 mg PO QID PRN 10/03/22 10/03/22 History Allergies Allergy/AdvReac Type Severity Reaction Status Date / Time cephalexin [From Keflex] Allergy Unknown Verified 10/03/22 15:55 morphine AdvReac Hallucinati Verified 10/03/22 15:55 ons propoxyphene napsylate AdvReac Nausea & Verified 10/03/22 15:55 [From Darvocet-N 100] Vomiting & Diarrhea raw oyster Allergy Rash & Uncoded 10/03/22 15:55 Diarrhea Physical Exam Vitals: Vital Signs Temp Pulse Pulse Resp BP BP Pulse Ox 10/04/22 08:45 84 10/04/22 08:33 84 10/04/22 07:00 97.5 F L 80 18 154/50 94 L 10/04/22 02:11 97.8 F 78 18 161/69 94 L 10/03/22 21:20 84 10/03/22 21:05 86 97 10/03/22 20:05 98.2 F 47 L 18 175/74 93 L 10/03/22 20:00 20 10/03/22 17:57 98.3 F 82 20 174/68 98 10/03/22 17:11 98.7 F 84 24 155/65 97 10/03/22 13:29 83 22 152/58 96 10/03/22 12:38 24 10/03/22 11:21 98.9 F 84 22 181/68 94 L Intake and Output 10/03/22 10/04/22 10/04/22 22:59 06:59 14:59 Intake Total 118 Balance 118 Intake: Oral 118 Other: # Voids 1 2 1 Weight 122.47 kg GENERAL EXAM: Alert, pleasant 87-year-old male patient, on 4 L nasal cannula, comfortable in no apparent distress. HEAD: Normocephalic. EYES: Normal reaction of pupils, equal size. NOSE: Clear with pink turbinates. THROAT: No erythema or exudates. NECK: No masses, no JVD. CHEST: No chest wall deformity. LUNGS: Equal air entry with faint crackles in posterior bases. CVS: S1 and S2 normal with no audible murmur, regular rhythm. ABDOMEN: No hepatosplenomegaly, normal bowel sounds, no guarding or rigidity. SPINE: No scoliosis or deformity SKIN: No rashes CENTRAL NERVOUS SYSTEM: No focal deficits, tone is normal in all 4 extremities. EXTREMITIES: There is no peripheral edema. No clubbing, no cyanosis. Peripheral pulses are intact. Results - Laboratory Findings CBC and BMP: 10/03/22 12:40 10/03/22 12:40 PT/INR, D-dimer PT 11.5 sec (9.0-12.0) 10/03/22 12:40 INR 1.1 (<1.2) 10/03/22 12:40 D-Dimer 1.04 mg/L FEU (<0.60) H 10/03/22 12:40 Abnormal lab findings: Abnormal Labs 10/03/22 10/03/22 10/03/22 12:40 12:40 12:40 Lymphocytes # 0.8 L D-Dimer 1.04 H Sodium 134 L Glucose 148 H POC Glucose (mg/dL) 10/03/22 10/03/22 10/03/22 16:59 18:11 20:56 Lymphocytes # D-Dimer Sodium Glucose POC Glucose (mg/dL) 147 H 200 H 123 H 10/04/22 06:32 Lymphocytes # D-Dimer Sodium Glucose POC Glucose (mg/dL) 191 H - Diagnostic Findings Chest x-ray: image reviewed CT scan - chest: image reviewed Assessment and Plan Assessment: Chest pain, atypical, acute coronary syndrome ruled out. Pulmonary emboli ruled out. Narrowing of the distal trachea and main bronchi bilaterally. Underlying encasement however not identified. 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 Chronic obstructive pulmonary disease, currently inactive in stable History of aortic stenosis status post transcutaneous aortic valve replacement Hyperlipidemia Hypertension Obesity Obstructive sleep apnea Diabetes mellitus type 2 Plan: The patient was seen and evaluated Chest x-ray, CAT scan, labs and medications reviewed Procalcitonin pending Currently on azithromycin Continue bronchodilators and prednisone Titrate the FiO2 as tolerated We will continue to follow make further recommendations based on his clinical status I have personally seen and examined the patient, performed the documentation and the assessment and plan as written. Number of minutes spent on the visit: 20.
[2022-10-04] MEDS ORDERED: ISOSORBIDE MONONITRATE ER 30 MG TAB.ER.24H PO SCH (12:00)
[2022-10-04 12:14] VITALS: PULSE 76
[2022-10-04 12:44] LABS: Glucose,Whole Blood 213 mg/dL (70-110)
--- NOTE | 2022-10-04 14:29 | CA ---
Transthoracic Echo Report Name: Jorge Escobar Age: 87 Gender: M : 1935 Exam Date: 10/04/2022 09:12 Exam Location: [facility] Ht (in): 60 Wt (lb): 270 Ordering Physician: Zuleima Caballero MD Attending/Referring Phys: Pressure Tester Operator Samira Rice RDCS Procedure CPT: Indications: CP Cardiac Hx: Technical Quality: Very technically difficult study Contrast 1: Lumason Total Dose (mL): 4 Contrast 2: Total Dose (mL): MEASUREMENTS (Male / Female) Normal Values 2D ECHO LV Diastolic Diameter PLAX 4.1 cm 4.2 - 5.9 / 3.9 - 5.3 cm LV Systolic Diameter PLAX 2.4 cm IVS Diastolic Thickness 1.4 cm 0.6 - 1.0 / 0.6 - 0.9 cm LVPW Diastolic Thickness 2.0 cm 0.6 - 1.0 / 0.6 - 0.9 cm LV Relative Wall Thickness 0.8 LVOT Diameter 2.9 cm M-MODE MV E Point Septal Separation 0.5 cm DOPPLER AV Peak Velocity 204.6 cm/s AV Peak Gradient 16.7 mmHg AV Mean Velocity 125.4 cm/s AV Mean Gradient 8.3 mmHg AV Velocity Time Integral 37.0 cm LVOT Peak Velocity 99.8 cm/s LVOT Peak Gradient 4.0 mmHg AV Area Cont Eq pk 3.1 cm??? MV Peak Velocity 143.8 cm/s MV Peak Gradient 8.3 mmHg MV Mean Velocity 83.4 cm/s MV Mean Gradient 3.4 mmHg MV Velocity Time Integral 31.9 cm MV Area PHT 3.4 cm??? Mitral E Point Velocity 47.2 cm/s Mitral A Point Velocity 100.7 cm/s Mitral E to A Ratio 0.5 MV Deceleration Time 249.1 ms TR Peak Velocity 283.4 cm/s TR Peak Gradient 32.1 mmHg Right Ventricular Systolic Press 37.1 mmHg FINDINGS Left Ventricle Mildly increased septal wall thickness. Left ventricular ejection fraction is estimated at 55%. Right Ventricle Normal right ventricular size and function. Mild pulmonary hypertension. Right Atrium Normal right atrial size. Left Atrium Normal left atrial size. Mitral Valve Mitral valve not well visualized. Mild mitral regurgitation. Aortic Valve bioprosthetic aortic valve without stenosis with a peak velocity of 20.46 m/s, peak gradient 16.7 mmHg, mean gradient 8.3 mmHg, and estimated aortic valve area of 3.1 cm???. Aortic valve not well visualized. Tricuspid Valve Structurally normal tricuspid valve. Mild tricuspid regurgitation. Pulmonic Valve Pulmonic valve not well visualized. Pericardium Echo free space anterior to the right ventricle likely represents a fat pad. Pleural effusion. Aorta Aortic root and proximal ascending aorta not well visualized. CONCLUSIONS Mild increased left ventricular wall thickness Normal left ventricular ejection fraction 55% RVSP 37 Mild mitral regurgitation Bioprosthetic aortic valve with mean gradient 8.3 mmHg, no significant aortic stenosis No pericardial effusion Previewed by: Dr. Luis Haq DO (Electronically Signed) Final Date: 04 October 2022 14:28
--- NOTE | 2022-10-04 17:56 | P.DS ---
Providers Date of admission: 10/03/22 14:43 Expected date of discharge: 10/04/22 Attending physician: Zuleima Caballero MD Consults: 10/03/22 14:43 Consult Physician Urgent Consulting Provider: Tony Fleming Consult Reason/Comments: cp, near syncope Do you want consulting provider notified?: Yes Primary care physician: [facility] Course: Patient's an 87-year-old male with PMH of COPD on 2 L home O2, diabetes mellitus, diastolic CHF, sleep apnea, hypothyroidism, CAD with stents, hypertension that presents the ED for chest pain. Patient reports waking up t his morning feeling very disoriented. He reports shortness of breath that is worse than his usual. He reports chest pain that is described as pressure-like in nature. He is unable to elaborate further with regard to his chest pain. His symptoms were associated with chills. He also reports a cough productive of green sputum has been ongoing for the last 2 months. He also reports feeling lightheaded throughout the day. His daughter's concern prompted him to come to the ED. He denies any headache, lower extremity edema, nausea vomiting, fever, palpitations, changes in urination or bowel habits. No changes in appetite or weight. He denies any dizziness, numbness/weakness or tingling of the extremities. In the ED, his vital signs are stable on 4 L nasal cannula. CBC showed lymphocyte count of 0.8. D-dimer was 1.04, CTA chest negative for PE, emphysematous changes within the lung pederson, narrowing of the distal trachea, bilateral small pleural effusion with atelectasis. Chest x-ray showed mild patchy density in the right medial lung base. Coagulation panel negative. CMP showed sodium of 134, glucose 148. Troponin was 0.014, 0.015. BNP was 1480. Patient is admitted for chest pain, rule out acute coronary syndrome and cardiology consultation. Troponins were trended and ACS was ruled out. Echocardiogram was ordered which showed EF of 55% with mild increased LVH, bioprosthetic aortic valve. Cardiology was consulted and he recommended no further workup. He was also started on DuoNeb scheduled and as needed for shortness of breath and wheezing along with prednisone 40 mg by mouth daily. COVID-19 test was negative. Pulmonology was consulted and followed the patient during his hospitalization. Patient was seen and examined this morning. He reported complete resolution of his symptoms. He'll be discharged home with azithromycin and Medrol Dosepak. He also reports that he has not been using his CPAP machine over the last 2-3 days because he is sleeping in his recliner rather than his bed. He is also noncompliant with his home oxygen. He is advised to obtain a pulse ox and monitor his oxygen saturation. He is advised compliance with CPAP and home oxygen. This could very well explain his disorientation, lightheadedness and shortness of breath. Pertinent studies include chest x-ray, chest CTA, echocardiogram. General: non toxic, no distress, appears at stated age Derm: warm, dry Head: atraumatic, normocephalic, symmetric Eyes: EOMI, no lid lag, anicteric sclera Mouth: no lip lesion, mucus membranes moist Cardiovascular: S1S2 reg, no murmur, positive DP pulse bilateral, Lungs: Decreased breath sounds bilateral, no rhonchi, no rales , no accessory muscle use Abdominal: soft, nontender to palpation, no guarding, no appreciable organo megaly Ext: no gross muscle atrophy, no edema, no contractures Neuro: no focal neuro deficits Psych: Alert, oriented, appropriate affect Discharge diagnosis: #Chest pain, rule out acute coronary syndrome #COPD exacerbation with acute bronchitis #Elevated d-dimer #Diastolic CHF #Diabetes Mellitus #Hypothyroidism #Hypertension Patient Condition at Discharge: Stable Plan - Discharge Summary Discharge Rx Participant: No New Discharge Prescriptions: New methylPREDNISolone Dose Pack [Medrol Dose Pack] 4 mg PO DIRECTED #1 packet RX: Azithromycin [Zithromax Tri-Ej (3 tabs)] 500 mg PO DAILY 3 Days #3 tab Continue RX: Tamsulosin HCl [Flomax] 0.4 mg PO HS RX: Aspirin EC [Ecotrin Low Dose] 81 mg PO DAILY RX: Atorvastatin [Lipitor] 80 mg PO HS #30 tab RX: Umeclidinium Brm/Vilanterol Tr [Anoro Ellipta 62.5-25 Mcg INH] 1 puff INHALATION RT-DAILY #30 blst.w.dev RX: predniSONE 5 mg PO DAILY #30 tab RX: Insulin Degludec [Tresiba Flextouch U-100 Pen] 60 unit SQ HS RX: INSULIN ASPART (NovoLOG) [NovoLOG (formulary)] 22 unit SQ AC-BRKFST RX: metFORMIN HCL ER [Glucophage XR] 500 mg PO BID RX: Levothyroxine Sodium [Synthroid] 100 mcg PO DAILY RX: Isosorbide Mononitrate ER [Imdur] 30 mg PO DAILY@1200 RX: Albuterol Sulfate [Proair Hfa] 2 puff INHALATION RT-QID PRN PRN Reason: Shortness Of Breath RX: Metoprolol Tartrate [Lopressor] 50 mg PO BID RX: Naproxen Sodium [Aleve] 220 mg PO BID RX: guaiFENesin [Mucinex] 1,200 mg PO BID RX: Insulin Aspart [NovoLOG Flexpen] 18 units SQ AC-BID@1200,1800 RX: tiZANidine [Zanaflex] 2 mg PO QID PRN PRN Reason: Muscle Spasm RX: Codeine Phosphate/Guaifenesin [Guaifen-Codeine 100-10 mg/5 ml] 5 - 10 ml PO Q6H PRN PRN Reason: Cough RX: Cholecalciferol (Vitamin D3) [Vitamin D3 (5000 Iu)] 125 mcg PO DAILY RX: Losartan [Cozaar] 100 mg PO DAILY RX: Acetaminophen-Codeine 300-30mg [Tylenol w/codeine #3] 1 tab PO Q6H PRN PRN Reason: Pain RX: HYDROcodone/APAP 5-325MG [[place] 5-325] 1 tab PO Q4-6H PRN PRN Reason: Pain Discharge Medication List RX: Tamsulosin HCl [Flomax] 0.4 mg PO HS 07/03/14 [History] RX: Aspirin EC [Ecotrin Low Dose] 81 mg PO DAILY 05/22/17 [History] RX: Atorvastatin [Lipitor] 80 mg PO HS #30 tab 09/09/17 [Rx] RX: Umeclidinium Brm/Vilanterol Tr [Anoro Ellipta 62.5-25 Mcg INH] 1 puff INHALATION RT-DAILY #30 blst.w.dev 09/15/18 [Rx] RX: predniSONE 5 mg PO DAILY #30 tab 02/08/19 [Rx] RX: INSULIN ASPART (NovoLOG) [NovoLOG (formulary)] 22 unit SQ AC-BRKFST 06/23/19 [History] RX: Insulin Degludec [Tresiba Flextouch U-100 Pen] 60 unit SQ HS 06/23/19 [History] RX: Isosorbide Mononitrate ER [Imdur] 30 mg PO DAILY@1200 09/01/19 [History] RX: Levothyroxine Sodium [Synthroid] 100 mcg PO DAILY 09/01/19 [History] RX: metFORMIN HCL ER [Glucophage XR] 500 mg PO BID 09/01/19 [History] RX: Albuterol Sulfate [Proair Hfa] 2 puff INHALATION RT-QID PRN 08/23/20 [History] RX: Metoprolol Tartrate [Lopressor] 50 mg PO BID 08/23/20 [History] RX: Cholecalciferol (Vitamin D3) [Vitamin D3 (5000 Iu)] 125 mcg PO DAILY 06/04/21 [History] RX: Codeine Phosphate/Guaifenesin [Guaifen-Codeine 100-10 mg/5 ml] 5 - 10 ml PO Q6H PRN 06/04/21 [History] RX: Naproxen Sodium [Aleve] 220 mg PO BID 06/04/21 [History] RX: guaiFENesin [Mucinex] 1,200 mg PO BID 06/04/21 [History] RX: Acetaminophen-Codeine 300-30mg [Tylenol w/codeine #3] 1 tab PO Q6H PRN 01/09/22 [History] RX: Losartan [Cozaar] 100 mg PO DAILY 01/09/22 [History] RX: Insulin Aspart [NovoLOG Flexpen] 18 units SQ AC-BID@1200,1800 02/20/22 [History] RX: HYDROcodone/APAP 5-325MG [[place] 5-325] 1 tab PO Q4-6H PRN 10/03/22 [History] RX: tiZANidine [Zanaflex] 2 mg PO QID PRN 10/03/22 [History] RX: Azithromycin [Zithromax Tri-Ej (3 tabs)] 500 mg PO DAILY 3 Days #3 tab 10/04/22 [Rx] methylPREDNISolone Dose Pack [Medrol Dose Pack] 4 mg PO DIRECTED #1 packet 10/04/22 [Rx] Follow up Appointment(s)/Referral(s): Kaisre Adams MD [STAFF PHYSICIAN] - 1 Week Luis Haq DO [STAFF PHYSICIAN] - 1 Week Cynthia Barclay MD [Primary Care Provider] - 1-2 days Patient Instructions/Handouts: Chest Pain (DC), Syncope (DC) Activity/Diet/Wound Care/Special Instructions: Diet: Diabetic, Cardiac FU PCP within 1-2 days of DC. FU Cardiology within 1 week of DC. FU Pulmonology within 1 week of DC. Take all medications as advised. Come back to the ED for Chest pain, shortness of breath, palpitations, confusion or lightheadedness. Discharge Disposition: HOME SELF-CARE
== END 2022-10-04 15:00 | disposition home or self-care (01) ==
LOC: EC 11:14 → 6NMEDSUR 14:43
PROVIDERS: ADMIT Family Medicine; ATTEND Family Medicine
DX: R07.89 Other chest pain (principal); R55 Syncope and collapse; J44.0 Chronic obstructive pulmonary disease with (acute) lower respiratory infection; J20.9 Acute bronchitis, unspecified; R79.89 Other specified abnormal findings of blood chemistry; R41.0 Disorientation, unspecified; R68.83 Chills (without fever); R53.83 Other fatigue; I11.0 Hypertensive heart disease with heart failure; I50.32 Chronic diastolic (congestive) heart failure; E11.9 Type 2 diabetes mellitus without complications; E78.5 Hyperlipidemia, unspecified; M19.90 Unspecified osteoarthritis, unspecified site; G47.33 Obstructive sleep apnea (adult) (pediatric); I35.0 Nonrheumatic aortic (valve) stenosis; E03.9 Hypothyroidism, unspecified; J96.11 Chronic respiratory failure with hypoxia; I25.10 Atherosclerotic heart disease of native coronary artery without angina pectoris; E66.9 Obesity, unspecified; Z85.828 Personal history of other malignant neoplasm of skin; Z87.891 Personal history of nicotine dependence; Z95.3 Presence of xenogenic heart valve; Z95.5 Presence of coronary angioplasty implant and graft; Z99.81 Dependence on supplemental oxygen; Z91.199 Patient's noncompliance with other medical treatment and regimen due to unspecified reason; Z79.4 Long term (current) use of insulin; Z79.52 Long term (current) use of systemic steroids; Z79.82 Long term (current) use of aspirin; Z79.84 Long term (current) use of oral hypoglycemic drugs; Z79.890 Hormone replacement therapy; Z79.899 Other long term (current) drug therapy; Z88.1 Allergy status to other antibiotic agents; Z88.6 Allergy status to analgesic agent; Z20.822 Contact with and (suspected) exposure to COVID-19
CPT/HCPCS: 96365; 96366; 96372 ×3; 96375; 99285; 36415; 94640 ×3; 94760; 93005; 85379; 83880; 80061; 80053; 83735; 84484; 85025; 85610; 85730; 84145; 87635; 71046; 71275; G0378 ×2; C8929; J1940; J0456; J7512 ×2; Q9950; Q9967; J1644 ×2; 93306

== ENCOUNTER → 2022-10-13 | Outpatient (CLI) | payer MEDICARE ==
[2022-10-13 10:17] VITALS: BP 105/52; PULSE 67; RESP 18
--- NOTE | 2022-10-13 14:47 | P.PAINPG ---
PQRS Measure Charge Sheet Comment: A 87 yr old male w daughter at side with a history of severe and chronic low back pain secondary to lumbar DDD and spondylosis with facet arthropathy without myelopathy presents today for evaluation s/p BL RFA L3-L5. Pt states she experienced 80 % pain relief s/p procedure. Pain level is currently at 3 /10 in intensity, constant, localized in the lower lumbar spine, achy in character w soreness in the calves w increased use. Pain is provoked by bending, lifting. Pain is alleviated with medications (Aleve, Tylenol 3), topicals, injections, PT in 2019, daily home stretching regimen, use of a walker for ambulation, repositioning and rest. Interventional pain procedures completed include BL RFA L3-C5 Patient is currently on Aleve, Tylenol 3 Patient denies any side effects of the medication(s), denies excessive drowsiness or sleepiness, denies suicidal ideation and reports that the current pain medication is helping to control the pain and improve activities of daily living. Patient denies any motor or sensory deficits. Patient denies any fever or night sweats, denies any change in the bowel movements or urination. Physical Examination: -Constitutional: Cooperative. Not in acute distress . - Neurologic: Cranial nerve II to XII intact. No focal neurological deficits. - Psychatric: Alert & oriented x 3. Matching mood & appropriate affect. Judgment and insight intact. - Musculoskeletal: Cervical spine: Muscle bulk/ tone/ strength in the bilateral upper extremities normal Vertebral body tenderness to palpation over Spurling test positive Distraction test positive Facet loading test positive Thoracic spine Muscle bulk / tone/ strength in the bilateral paraspinal muscles normal Vertebral body tender to palpation over Facet loading test positive Lumbar spine: Motor bulk/ tone/ strength lower extremities , thigh and legs : 5/5 Deep tendon reflexes : Normal Knee Jerk. Normal Ankle Jerk . Vertebral body tenderness to palpation over Lumbar Facet Loading Test positive Straight Leg Raise: positive at 30 degrees right side/ left side Gaenslen's Test positive Sacral spine : Severe tenderness over the Sacroiliac joint: right side / left side Range of motion: Flexion of the lumbar spine <60 degrees Range of motion: Extension of the lumbar spine <20 degrees Gaenslen's Test positive Yolie test: positive right side / left side Thigh Thrust Test Sacral Thrust Test Assessment and plan: Chronic low back pain secondary to lumbar degenerative disc disease, spondylosis with facet arthropathy without myelopathy Patient exhibited optimal and satisfactory pain relief s/p procedure. He will maintain residual pain with home pain modifying remedies and may return to this clinic on an as-needed basis. All patient questions answered I have spent less than 30 minutes on patient care today. Dr Carroll was available by phone for the evaluation of this patient. The time was used to review the medical records including relevant urine studies and Prescription history (MAPs), review of the available imaging, evaluation and examination of the patient, coordination of care with the medical staff and if applicable re [facility] physicians, as well as creation of the medical record PQRS Narrative: Smoking Status Former smoker Hx Alcohol Use (MH) No Home Medications: Ambulatory Orders Tamsulosin HCl [Flomax] 0.4 mg PO HS 07/03/14 Aspirin EC [Ecotrin Low Dose] 81 mg PO DAILY 05/22/17 Atorvastatin [Lipitor] 80 mg PO HS #30 tab 09/09/17 Umeclidinium Brm/Vilanterol Tr [Anoro Ellipta 62.5-25 Mcg INH] 1 puff INHALATION RT-DAILY #30 blst.w.dev 09/15/18 predniSONE 5 mg PO DAILY #30 tab 02/08/19 INSULIN ASPART (NovoLOG) [NovoLOG (formulary)] 22 unit SQ AC-BRKFST 06/23/19 Insulin Degludec [Tresiba Flextouch U-100 Pen] 60 unit SQ HS 06/23/19 Isosorbide Mononitrate ER [Imdur] 30 mg PO DAILY@1200 09/01/19 Levothyroxine Sodium [Synthroid] 100 mcg PO DAILY 09/01/19 metFORMIN HCL ER [Glucophage XR] 500 mg PO BID 09/01/19 Albuterol Sulfate [Proair Hfa] 2 puff INHALATION RT-QID PRN 08/23/20 Metoprolol Tartrate [Lopressor] 50 mg PO BID 08/23/20 Cholecalciferol (Vitamin D3) [Vitamin D3 (5000 Iu)] 125 mcg PO DAILY 06/04/21 Codeine Phosphate/Guaifenesin [Guaifen-Codeine 100-10 mg/5 ml] 5 - 10 ml PO Q6H PRN 06/04/21 Naproxen Sodium [Aleve] 220 mg PO BID 06/04/21 guaiFENesin [Mucinex] 1,200 mg PO BID 06/04/21 Acetaminophen-Codeine 300-30mg [Tylenol w/codeine #3] 1 tab PO Q6H PRN 01/09/22 Losartan [Cozaar] 100 mg PO DAILY 01/09/22 Insulin Aspart [NovoLOG Flexpen] 18 units SQ AC-BID@1200,1800 02/20/22 HYDROcodone/APAP 5-325MG [[place] 5-325] 1 tab PO Q4-6H PRN 10/03/22 tiZANidine [Zanaflex] 2 mg PO QID PRN 10/03/22 Azithromycin [Zithromax Tri-Ej (3 tabs)] 500 mg PO DAILY 3 Days #3 tab 10/04/22 methylPREDNISolone Dose Pack [Medrol Dose Pack] 4 mg PO DIRECTED #1 packet 10/04/22 Controlled Substance Measures - Controlled Substance Measures Is patient prescribed a controlled substance at discharge?: No
== END ==
LOC: PNWHC3 09:03
PROVIDERS: ATTEND Specialist
DX: M47.816 Spondylosis without myelopathy or radiculopathy, lumbar region (principal); M51.36 Other intervertebral disc degeneration, lumbar region; G89.29 Other chronic pain; Z87.891 Personal history of nicotine dependence; Z88.1 Allergy status to other antibiotic agents; Z88.5 Allergy status to narcotic agent; Z88.8 Allergy status to other drugs, medicaments and biological substances; Z91.013 Allergy to seafood
CPT/HCPCS: 99211

== ENCOUNTER → 2022-12-18 | Outpatient (CLI) | payer MEDICARE ==
[2022-12-18 09:04] VITALS: BP 145/65; PULSE 69; RESP 18; TEMP 98.1
--- NOTE | 2022-12-18 14:48 | P.PAINPG ---
PQRS Measure Charge Sheet Comment: A 87 yr old male w daughter at side with a history of severe and chronic BL knee pain secondary to OA presents today for evaluation. Pain level is provoked at 10 /10 in intensity, constant, localized in the BL knees, sore in character w shooting towards the feet. Pain is provoked by standing/ twisting his knees when turning. Pain is alleviated with PT x 6 wks in 2020, home guided exercises whenever possible, use of a cane or walker for ambulation, heat, medications (Tyl #3, Aleve, [place]), topicals, sitting and rest. Interventional pain procedures completed include BL knee injections Patient is currently on Tylenol #3 prn, Aleve, [place] prn Patient denies any side effects of the medication(s), denies excessive drowsiness or sleepiness, denies suicidal ideation and reports that the current pain medication is helping to control the pain and improve activities of daily living. Patient denies any motor or sensory deficits. Patient denies any fever or night sweats, denies any change in the bowel movements or urination. Physical Examination: -Constitutional: Cooperative. Not in acute distress . - Neurologic: Cranial nerve II to XII intact. No focal neurological deficits. - Psychatric: Alert & oriented x 3. Matching mood & appropriate affect. Judgment and insight intact. - Musculoskeletal: Cervical spine: Muscle bulk/ tone/ strength in the bilateral upper extremities normal Vertebral body tenderness to palpation over Spurling test positive Distraction test positive Facet loading test positive Thoracic spine Muscle bulk / tone/ strength in the bilateral paraspinal muscles normal Vertebral body tender to palpation over Facet loading test positive Lumbar spine: BL Diffuse TTP in shala patellar region Motor bulk/ tone/ strength lower extremities , thigh and legs : 5/5 Deep tendon reflexes : Normal Knee Jerk. Normal Ankle Jerk . Vertebral body tenderness to palpation over Lumbar Facet Loading Test positive Straight Leg Raise: positive at 30 degrees right side/ left side Gaenslen's Test positive Sacral spine : Severe tenderness over the Sacroiliac joint: right side / left side Range of motion: Flexion of the lumbar spine <60 degrees Range of motion: Extension of the lumbar spine <20 degrees Gaenslen's Test positive Yolie test: positive right side / left side Thigh Thrust Test Sacral Thrust Test Assessment and plan: Chronic BL Knee Pain secondary to OA Recommendation of BL intra articular injection. May need a series, up to 4 within a 12 mo period, for optimal pain relief. Risks, benefits of procedure discussed and pt verbalized understanding. Admits to anticoagulant use or medical history of diabetes. Protocol for discontinuation/ continuation of medications shala procedure discussed. All patient questions answered I have spent less than 30 minutes on patient care today. Dr Carroll was available by phone for the evaluation of this patient. The time was used to review the medical records including relevant urine studies and Prescription history (MAPs), review of the available imaging, evaluation and examination of the patient, coordination of care with the medical staff and if applicable referring physicians, as well as creation of the medical record - Pain Location Bilateral Knee Non-Pharmacological Interventions: Heat, Inactivity, Physical Therapy, Position/Reposition, Sitting Pharmacological Interventions: Epidural, PRN Medication, Scheduled Medication, Topical Medication PQRS Narrative: Smoking Status Former smoker Hx Alcohol Use (MH) No Home Medications: Ambulatory Orders Tamsulosin HCl [Flomax] 0.4 mg PO HS 07/03/14 Aspirin EC [Ecotrin Low Dose] 81 mg PO DAILY 05/22/17 Atorvastatin [Lipitor] 80 mg PO HS #30 tab 09/09/17 Umeclidinium Brm/Vilanterol Tr [Anoro Ellipta 62.5-25 Mcg INH] 1 puff INHALATION RT-DAILY #30 blst.w.dev 09/15/18 predniSONE 5 mg PO DAILY #30 tab 02/08/19 INSULIN ASPART (NovoLOG) [NovoLOG (formulary)] 22 unit SQ AC-BRKFST 06/23/19 Insulin Degludec [Tresiba Flextouch U-100 Pen] 60 unit SQ HS 06/23/19 Isosorbide Mononitrate ER [Imdur] 30 mg PO DAILY@1200 09/01/19 Levothyroxine Sodium [Synthroid] 100 mcg PO DAILY 09/01/19 metFORMIN HCL ER [Glucophage XR] 500 mg PO BID 09/01/19 Albuterol Sulfate [Proair Hfa] 2 puff INHALATION RT-QID PRN 08/23/20 Metoprolol Tartrate [Lopressor] 50 mg PO BID 08/23/20 Cholecalciferol (Vitamin D3) [Vitamin D3 (5000 Iu)] 125 mcg PO DAILY 06/04/21 Codeine Phosphate/Guaifenesin [Guaifen-Codeine 100-10 mg/5 ml] 5 - 10 ml PO Q6H PRN 06/04/21 Naproxen Sodium [Aleve] 220 mg PO BID 06/04/21 guaiFENesin [Mucinex] 1,200 mg PO BID 06/04/21 Acetaminophen-Codeine 300-30mg [Tylenol w/codeine #3] 1 tab PO Q6H PRN 01/09/22 Losartan [Cozaar] 100 mg PO DAILY 01/09/22 Insulin Aspart [NovoLOG Flexpen] 18 units SQ AC-BID@1200,1800 02/20/22 HYDROcodone/APAP 5-325MG [[place] 5-325] 1 tab PO Q4-6H PRN 10/03/22 tiZANidine [Zanaflex] 2 mg PO QID PRN 10/03/22 Azithromycin [Zithromax Tri-Ej (3 tabs)] 500 mg PO DAILY 3 Days #3 tab 10/04/22 methylPREDNISolone Dose Pack [Medrol Dose Pack] 4 mg PO DIRECTED #1 packet 10/04/22 Controlled Substance Measures - Controlled Substance Measures Is patient prescribed a controlled substance at discharge?: No
== END ==
LOC: PNWHC3 08:36
PROVIDERS: ATTEND Specialist
DX: M17.0 Bilateral primary osteoarthritis of knee (principal); Z87.891 Personal history of nicotine dependence; Z79.82 Long term (current) use of aspirin; Z88.1 Allergy status to other antibiotic agents; Z88.5 Allergy status to narcotic agent; Z91.013 Allergy to seafood
CPT/HCPCS: 99211

== ENCOUNTER → 2023-02-05 | Outpatient (CLI) | payer MEDICARE ==
[2023-02-05 09:25] VITALS: BP 141/41; PULSE 58; RESP 18; TEMP 97.6
--- NOTE | 2023-02-05 15:50 | P.PAINPG ---
PQRS Measure Charge Sheet Comment: A 87 yr old male w daughter at side with a history of severe and chronic BL knee pain secondary to OA presents today for evaluation s/p BL intra articular injections. Pt states he experienced 80 % pain relief x 3 wks s/p procedure. Pain level is provoked at 8/10 in intensity, constant, localized in the lumbar spine, burning in character w shooting towards . Pain is provoked by weight bearing such as walking/ climbing stairs. Pain is alleviated with use of a walker, PT in 2020, home exercise regimen from a chair, medications, topicals, sitting, repositioning and rest. Interventional pain procedures completed include BL knee injections, BL RFA L3- L5 x3 Patient is currently on Tyl #3, Aleve, Voltaren gel Patient denies any side effects of the medication(s), denies excessive drowsiness or sleepiness, denies suicidal ideation and reports that the current pain medication is helping to control the pain and improve activities of daily living. Patient denies any motor or sensory deficits. Patient denies any fever or night sweats, denies any change in the bowel movements or urination. Physical Examination: -Constitutional: Cooperative. Not in acute distress . - Neurologic: Cranial nerve II to XII intact. No focal neurological deficits. - Psychatric: Alert & oriented x 3. Matching mood & appropriate affect. Judgment and insight intact. - Musculoskeletal: Cervical spine: Muscle bulk/ tone/ strength in the bilateral upper extremities normal Vertebral body tenderness to palpation over Spurling test positive Distraction test positive Facet loading test positive TTP Thoracic spine Muscle bulk / tone/ strength in the bilateral paraspinal muscles normal Vertebral body tender to palpation over Facet loading test positive TTP Lumbar spine: +Diffuse shala patellar TTP Motor bulk/ tone/ strength lower extremities , thigh and legs : 5/5 Deep tendon reflexes : Normal Knee Jerk. Normal Ankle Jerk . Vertebral body tenderness to palpation over Lumbar Facet Loading Test positive Straight Leg Raise: positive at 30 degrees right side/ left side Gaenslen's Test positive Sacral spine : Severe tenderness over the Sacroiliac joint: right side / left side Range of motion: Flexion of the lumbar spine <60 degrees Range of motion: Extension of the lumbar spine <20 degrees Gaenslen's Test positive right side / left side Yolie test: positive right side / left side Thigh Thrust Test positive right side / left side Sacral Thrust Test positive right side / left side Assessment and plan: Chronic BL knee pain secondary to OA Recommendation of BL intra articular knee injections #2. May need a series for optimal pain relief. Risks, benefits of procedure discussed and pt verbalized understanding. Admits to anticoagulant use or medical history of diabetes. Protocol for discontinuation/ continuation of medications shala procedure discussed. All questions answered. I have spent less than 30 minutes on patient care today. Dr Carroll was available by phone for the evaluation of this patient. The time was used to review the medical records including relevant urine studies and Prescription history (MAPs), review of the available imaging, evaluation and examination of the patient, coordination of care with the medical staff and if applicable referring physicians, as well as creation of the medical record PQRS Narrative: Smoking Status Former smoker Hx Alcohol Use (MH) No Home Medications: Ambulatory Orders Tamsulosin HCl [Flomax] 0.4 mg PO HS 07/03/14 Aspirin EC [Ecotrin Low Dose] 81 mg PO DAILY 05/22/17 Atorvastatin [Lipitor] 80 mg PO HS #30 tab 09/09/17 Umeclidinium Brm/Vilanterol Tr [Anoro Ellipta 62.5-25 Mcg INH] 1 puff INHALATION RT-DAILY #30 blst.w.dev 09/15/18 predniSONE 5 mg PO DAILY #30 tab 02/08/19 INSULIN ASPART (NovoLOG) [NovoLOG (formulary)] 22 unit SQ AC-BRKFST 06/23/19 Insulin Degludec [Tresiba Flextouch U-100 Pen] 60 unit SQ HS 06/23/19 Isosorbide Mononitrate ER [Imdur] 30 mg PO DAILY@1200 09/01/19 Levothyroxine Sodium [Synthroid] 100 mcg PO DAILY 09/01/19 metFORMIN HCL ER [Glucophage XR] 500 mg PO BID 09/01/19 Albuterol Sulfate [Proair Hfa] 2 puff INHALATION RT-QID PRN 08/23/20 Metoprolol Tartrate [Lopressor] 50 mg PO BID 08/23/20 Cholecalciferol (Vitamin D3) [Vitamin D3 (5000 Iu)] 125 mcg PO DAILY 06/04/21 Codeine Phosphate/Guaifenesin [Guaifen-Codeine 100-10 mg/5 ml] 5 - 10 ml PO Q6H PRN 06/04/21 Naproxen Sodium [Aleve] 220 mg PO BID 06/04/21 guaiFENesin [Mucinex] 1,200 mg PO BID 06/04/21 Acetaminophen-Codeine 300-30mg [Tylenol w/codeine #3] 1 tab PO Q6H PRN 01/09/22 Losartan [Cozaar] 100 mg PO DAILY 01/09/22 Insulin Aspart [NovoLOG Flexpen] 18 units SQ AC-BID@1200,1800 02/20/22 HYDROcodone/APAP 5-325MG [[place] 5-325] 1 tab PO Q4-6H PRN 10/03/22 tiZANidine [Zanaflex] 2 mg PO QID PRN 10/03/22 Controlled Substance Measures - Controlled Substance Measures Is patient prescribed a controlled substance at discharge?: No
== END ==
LOC: PNWHC3 08:44
PROVIDERS: ATTEND Specialist
DX: M17.0 Bilateral primary osteoarthritis of knee (principal); Z79.82 Long term (current) use of aspirin; Z87.891 Personal history of nicotine dependence; Z88.1 Allergy status to other antibiotic agents; Z88.5 Allergy status to narcotic agent; Z88.8 Allergy status to other drugs, medicaments and biological substances; Z91.013 Allergy to seafood
CPT/HCPCS: 99211

== ENCOUNTER 2023-02-12 19:14 | Inpatient (IN) | payer MEDICARE ==
[2023-02-12] MEDS ORDERED: SODIUM CHLORIDE 0.9% 1,000 ML IV STA (19:30)
--- NOTE | 2023-02-12 19:35 | ED ---
General Adult HPI - General Source: patient, EMS, RN notes reviewed Mode of arrival: EMS Limitations: no limitations <Mirza Casas - Last Filed: 02/12/23 20:05> <Escobar Baker - Last Filed: 02/12/23 23:08> - General Stated complaint: Fall Time Seen by Provider: 02/12/23 19:24 - History of Present Illness Initial comments: Patient is a pleasant 87-year-old male presenting to the emergency department general weakness. Patient states he has been feeling weak and tired recently. Patient did have a fall in his bathroom. Patient denies any injury. No isolated area of injury. Patient states he has been eating and drinking normally. (Mirza Casas) - Related Data Home Medications Medication Instructions Recorded Confirmed Tamsulosin HCl [Flomax] 0.4 mg PO HS 07/03/14 02/12/23 Aspirin EC [Ecotrin Low Dose] 81 mg PO DAILY 05/22/17 02/12/23 Insulin Degludec [Tresiba 60 unit SQ HS 06/23/19 02/12/23 Flextouch U-100 Pen] Isosorbide Mononitrate ER [Imdur] 30 mg PO DAILY@1200 09/01/19 02/12/23 Levothyroxine Sodium [Synthroid] 100 mcg PO DAILY 09/01/19 02/12/23 metFORMIN HCL ER [Glucophage XR] 500 mg PO BID 09/01/19 02/12/23 Albuterol Sulfate [Proair Hfa] 2 puff INHALATION RT-QID PRN 08/23/20 02/12/23 Metoprolol Tartrate [Lopressor] 50 mg PO BID 08/23/20 02/12/23 Cholecalciferol (Vitamin D3) 125 mcg PO DAILY 06/04/21 02/12/23 [Vitamin D3 (5000 Iu)] Codeine Phosphate/Guaifenesin 5 - 10 ml PO Q6H PRN 06/04/21 02/12/23 [Guaifen-Codeine 100-10 mg/5 ml] Naproxen Sodium [Aleve] 220 mg PO BID 06/04/21 02/12/23 guaiFENesin [Mucinex] 1,200 mg PO BID 06/04/21 02/12/23 Acetaminophen-Codeine 300-30mg 1 tab PO Q6H PRN 01/09/22 02/12/23 [Tylenol w/codeine #3] Insulin Aspart [NovoLOG Flexpen] 22 units SQ AC-BID@1200,1800 02/20/22 02/12/23 Insulin Aspart [NovoLOG Flexpen] 24 units SQ AC-BRKFST 02/12/23 02/12/23 Losartan Potassium [Cozaar] 100 mg PO DAILY 02/12/23 02/12/23 Sulfamethox-Tmp 800-160Mg [Bactrim 1 tab PO Q12HR 02/12/23 02/12/23 DS 800-160 mg] Previous Rx's Medication Instructions Recorded Atorvastatin [Lipitor] 80 mg PO HS #30 tab 09/09/17 Umeclidinium Brm/Vilanterol Tr 1 puff INHALATION RT-DAILY #30 09/15/18 [Anoro Ellipta 62.5-25 Mcg INH] blst.w.dev predniSONE 5 mg PO DAILY #30 tab 02/08/19 Allergies Allergy/AdvReac Type Severity Reaction Status Date / Time cephalexin [From Keflex] Allergy Unknown Verified 02/12/23 20:49 morphine AdvReac Hallucinati Verified 02/12/23 20:49 ons propoxyphene napsylate AdvReac Nausea & Verified 02/12/23 20:49 [From Darvocet-N 100] Vomiting & Diarrhea raw oyster Allergy Rash & Uncoded 01/15/23 08:35 Diarrhea Review of Systems ROS Other: All systems not noted in ROS Statement are negative. Constitutional: Denies: fever Eyes: Denies: eye pain ENT: Denies: ear pain Respiratory: Denies: dyspnea Cardiovascular: Denies: chest pain Endocrine: Reports: fatigue Gastrointestinal: Denies: abdominal pain Genitourinary: Denies: urgency Musculoskeletal: Denies: back pain Skin: Denies: rash Neurological: Reports: as per HPI. Denies: headache <Mirza Casas - Last Filed: 02/12/23 20:05> ROS Other: All systems not noted in ROS Statement are negative. <Escobar Baker - Last Filed: 02/12/23 23:08> ROS Statement: Those systems with pertinent positive or pertinent negative responses have been documented in the HPI. 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 Past Anesthesia/Blood Transfusion Reactions: No Reported Reaction Additional Past Anesthesia/Blood Transfusion Reaction / Comment(s): HARD TO WAKE UP Date of Last Stent Placement:: 09/2017 Smoking Status: Former smoker - Past Family History Father Additional Family Medical History / Comment(s): burst appendix Mother Family Medical History: Cancer Additional Family Medical History / Comment(s): breast cancer <Mirza Casas - Last Filed: 02/12/23 20:05> General Exam Limitations: no limitations General appearance: alert, in no apparent distress Head exam: Present: atraumatic Eye exam: Present: other (Exophthalmos) ENT exam: Present: mucous membranes dry Neck exam: Present: normal inspection. Absent: tenderness, meningismus Respiratory exam: Present: wheezes Cardiovascular Exam: Present: regular rate, normal rhythm GI/Abdominal exam: Present: soft. Absent: tenderness Extremities exam: Present: pedal edema Neurological exam: Present: alert Expanded Neurological exam: Present: protecting the airway Motor strength exam: RUE: 5, LUE: 5, RLE: 5, LLE: 5 Eye Response: (3) open to voice Motor Response: (6) obeys commands Verbal Response: (5) oriented Psychiatric exam: Present: normal affect, normal mood Skin exam: Present: erythema (Bilateral anterior lower legs) <Mirza Casas - Last Filed: 02/12/23 20:05> Course Vital Signs 02/12/23 02/12/23 02/12/23 19:33 21:41 22:35 Temperature 98.0 F Pulse Rate 80 90 89 Respiratory 24 20 22 Rate Blood Pressure 182/60 200/78 174/89 O2 Sat by Pulse 94 L 96 98 Oximetry EKG Findings - EKG Results: EKG: interpreted by ERMD (Left axis. Right bundle branch block.), normal ST/T EKG shows: atrial fibrillation <Mirza Casas - Last Filed: 02/12/23 20:05> Medical Decision Making - Lab Data Result diagrams: 02/12/23 19:18 <Mirza Casas - Last Filed: 02/12/23 20:05> - Lab Data Result diagrams: 02/12/23 19:18 02/12/23 19:18 <Escobra Baker - Last Filed: 02/12/23 23:08> - Medical Decision Making Was pt. sent in by a medical professional or institution (, PA, CYTOGENETIC TECHNICIAN, urgent care, hospital, or longterm...) When possible be specific @ -No Did you speak to anyone other than the patient for history (EMS, parent, family, police, friend...)? What history was obtained from this source @ -No Did you review nursing and triage notes (agree or disagree)? Why? @ -I reviewed and agree with nursing and triage notes Were old charts reviewed (outside hosp., previous admission, EMS record, old EKG, old radiological studies, urgent care reports/EKG's, longterm records)? Report findings @ -Old charts reviewed from September 2022. Differential Diagnosis (chest pain, altered mental status, abdominal pain women, abdominal pain men, vaginal bleeding, weakness, fever, dyspnea, syncope, headache, dizziness, GI bleed, back pain, seizure, CVA, palpatations, mental health, musculoskeletal)? @ -Differential Weakness: Hypoglycemia, shock, sepsis, hyponatremia, anemia, infection, FL, ETOH, adverse medicine reaction, overdose, stroke, this is not meant to be an all-inclusive list. EKG interpreted by me (3pts min.). @ -As above X-rays interpreted by me (1pt min.). @ -Chest x-ray reveals findings concerning for worsening pulmonary vascular congestion in the setting of heart failure. CT interpreted by me (1pt min.). @ -CT brain shows no obvious acute intracranial process. U/S interpreted by me (1pt. min.). @ -None done What testing was considered but not performed or refused? (CT, X-rays, U/S, labs)? Why? @ -None What meds were considered but not given or refused? Why? @ -None Did you discuss the management of the patient with other professionals (professionals i.e. DrSadia, PA, CYTOGENETIC TECHNICIAN, lab, RT, psych nurse, social worker clinical, supervising architect, teacher, special technical operations officer, rn case management)? Give summary @ -Yes, discussed with admitting physician Dr. Wang who accepted the patient. Was smoking cessation discussed for >3mins.? @ -No Was critical care preformed (if so, how long)? @ -No Were there social determinants of health that impacted care today? How? (Homeles sness, low income, unemployed, alcoholism, drug addiction, transportation, low edu. Level, literacy, decrease access to med. care, senior care, rehab)? @ -No Was there de-escalation of care discussed even if they declined (Discuss DNR or withdrawal of care, Hospice)? DNR status @ -No What co-morbidities impacted this encounter? (DM, HTN, Smoking, COPD, CAD, Cancer, CVA, ARF, Chemo, Hep., AIDS, mental health diagnosis, sleep apnea, morbid obesity)? @ -CHF Was patient admitted / discharged? Hospital course, mention meds given and route, prescriptions, significant lab abnormalities, going to OR and other pertinent info. @ -Patient was signed out to me by the prior physician. Workup was pending. Concern for infection versus possible CHF exacerbation as the patient is requiring more constant oxygen via nasal cannula. He is at baseline on intermittent as needed oxygen at home. Is requiring it more frequently. Patient's workup was remarkable for clinically showing signs of CHF with chest x-ray findings suggestive of that as well. Urine is also concerning for UTI and he will be started on levofloxacin. Patient's Covid, flu, RSV negative. Family is in agreement with this plan. Patient will be admitted as he is mildly confused per family. Is mostly complaining of tailbone pain. He states it is from the bed. We will restart him on his home medications, start him on his antibiotics, and place him on twice a day Lasix. Cardiology consulted. Echo wa s ordered. Vital signs are within acceptable limits, mildly hypertensive but she did not receive his evening medications and therefore we will provide them. I spoke with the admitting physician, Dr. Wang who accepted the patient. Undiagnosed new problem with uncertain prognosis? @ -No Drug Therapy requiring intensive monitoring for toxicity (Heparin, Nitro, Insulin, Cardizem)? @ -No Were any procedures done? @ -No Diagnosis/symptom? @ -UTI Acute, or Chronic, or Acute on Chronic? @ -Acute Uncomplicated (without systemic symptoms) or Complicated (systemic symptoms)? @ -Complicated Side effects of treatment? @ -No Exacerbation, Progression, or Severe Exacerbation? @ -No Poses a threat to life or bodily function? How? (Chest pain, [place], FL, pneumonia, PE, COPD, DKA, ARF, appy, cholecystitis, CVA, Diverticulitis, Homicidal, Suicidal, threat to staff... and all critical care pts) @ -Yes, if untreated can result in significant morbidity and mortality. Diagnosis/symptom? @ -Dyspnea, likely secondary to CHF Acute, or Chronic, or Acute on Chronic? @ -Acute on chronic Uncomplicated (without systemic symptoms) or Complicated (systemic symptoms)? @ -Complicated Side effects of treatment? @ -none Exacerbation, Progression, or Severe Exacerbation] @ -Exacerbation Poses a threat to life or bodily function? @ -Yes, if untreated can result in significant morbidity and mortality. (Escobar Baker) - Lab Data Lab Results 02/12/23 02/12/23 02/12/23 Range/Units 19:18 19:18 19:18 WBC 10.6 (3.8-10.6) k/uL RBC 4.42 (4.30-5.90) m/uL Hgb 13.9 (13.0-17.5) gm/dL Hct 41.9 (39.0-53.0) % MCV 94.7 (80.0-100.0) fL MCH 31.5 (25.0-35.0) pg MCHC 33.3 (31.0-37.0) g/dL RDW 14.2 (11.5-15.5) % Plt Count 200 (150-450) k/uL MPV 7.3 Neutrophils % 91 % Lymphocytes % 4 % Monocytes % 2 % Eosinophils % 2 % Basophils % 0 % Neutrophils # 9.7 H (1.3-7.7) k/uL Lymphocytes # 0.4 L (1.0-4.8) k/uL Monocytes # 0.3 (0-1.0) k/uL Eosinophils # 0.2 (0-0.7) k/uL Basophils # 0.0 (0-0.2) k/uL PT 10.1 (9.0-12.0) sec INR 0.9 (<1.2) APTT 22.5 (22.0-30.0) sec Sodium 134 L (137-145) mmol/L Potassium 5.1 (3.5-5.1) mmol/L Chloride 101 (98-107) mmol/L Carbon Dioxide 23 (22-30) mmol/L Anion Gap 10 mmol/L BUN 19 (9-20) mg/dL Creatinine 0.86 (0.66-1.25) mg/dL Est GFR (CKD-EPI)AfAm 89 (>60 ml/min/1.73 sqM) Est GFR (CKD-EPI)NonAf 77 (>60 ml/min/1.73 sqM) Glucose 184 H (74-99) mg/dL Plasma Lactic Acid Don (0.7-2.0) mmol/L Calcium 8.9 (8.4-10.2) mg/dL Phosphorus 4.2 (2.5-4.5) mg/dL Magnesium 1.8 (1.6-2.3) mg/dL Total Bilirubin 0.7 (0.2-1.3) mg/dL AST 39 (17-59) U/L ALT 31 (4-49) U/L Alkaline Phosphatase 98 (38-126) U/L Troponin I (0.000-0.034) ng/mL NT-Pro-B Natriuret Pep pg/mL Total Protein 6.4 (6.3-8.2) g/dL Albumin 3.8 (3.5-5.0) g/dL TSH 2.260 (0.465-4.680) mIU/L Free T4 1.04 (0.78-2.19) ng/dL Free T3 pg/mL 3.6 (2.8-5.3) pg/ml Urine Color Urine Appearance (Clear) Urine pH (5.0-8.0) Ur Specific [place] (1.001-1.035) Urine Protein (Negative) Urine Glucose (UA) (Negative) Urine Ketones (Negative) Urine Blood (Negative) Urine Nitrite (Negative) Urine Bilirubin (Negative) Urine Urobilinogen (<2.0) mg/dL Ur Leukocyte Esterase (Negative) Urine RBC (0-5) /hpf Urine WBC (0-5) /hpf Ur Squamous Epith Cells (0-4) /hpf Urine Mucus (None) /hpf Influenza Type A (PCR) (Not Detectd) Influenza Type B (PCR) (Not Detectd) RSV (PCR) (Not Detectd) SARS-CoV-2 (PCR) (Not Detectd) 02/12/23 02/12/23 02/12/23 Range/Units 19:18 19:18 20:00 WBC (3.8-10.6) k/uL RBC (4.30-5.90) m/uL Hgb (13.0-17.5) gm/dL Hct (39.0-53.0) % MCV (80.0-100.0) fL MCH (25.0-35.0) pg MCHC (31.0-37.0) g/dL RDW (11.5-15.5) % Plt Count (150-450) k/uL MPV Neutrophils % % Lymphocytes % % Monocytes % % Eosinophils % % Basophils % % Neutrophils # (1.3-7.7) k/uL Lymphocytes # (1.0-4.8) k/uL Monocytes # (0-1.0) k/uL Eosinophils # (0-0.7) k/uL Basophils # (0-0.2) k/uL PT (9.0-12.0) sec INR (<1.2) APTT (22.0-30.0) sec Sodium (137-145) mmol/L Potassium (3.5-5.1) mmol/L Chloride (98-107) mmol/L Carbon Dioxide (22-30) mmol/L Anion Gap mmol/L BUN (9-20) mg/dL Creatinine (0.66-1.25) mg/dL Est GFR (CKD-EPI)AfAm (>60 ml/min/1.73 sqM) Est GFR (CKD-EPI)NonAf (>60 ml/min/1.73 sqM) Glucose (74-99) mg/dL Plasma Lactic Acid Don 2.0 (0.7-2.0) mmol/L Calcium (8.4-10.2) mg/dL Phosphorus (2.5-4.5) mg/dL Magnesium (1.6-2.3) mg/dL Total Bilirubin (0.2-1.3) mg/dL AST (17-59) U/L ALT (4-49) U/L Alkaline Phosphatase (38-126) U/L Troponin I 0.029 (0.000-0.034) ng/mL NT-Pro-B Natriuret Pep 871 pg/mL Total Protein (6.3-8.2) g/dL Albumin (3.5-5.0) g/dL TSH (0.465-4.680) mIU/L Free T4 (0.78-2.19) ng/dL Free T3 pg/mL (2.8-5.3) pg/ml Urine Color Urine Appearance (Clear) Urine pH (5.0-8.0) Ur Specific [place] (1.001-1.035) Urine Protein (Negative) Urine Glucose (UA) (Negative) Urine Ketones (Negative) Urine Blood (Negative) Urine Nitrite (Negative) Urine Bilirubin (Negative) Urine Urobilinogen (<2.0) mg/dL Ur Leukocyte Esterase (Negative) Urine RBC (0-5) /hpf Urine WBC (0-5) /hpf Ur Squamous Epith Cells (0-4) /hpf Urine Mucus (None) /hpf Influenza Type A (PCR) (Not Detectd) Influenza Type B (PCR) (Not Detectd) RSV (PCR) (Not Detectd) SARS-CoV-2 (PCR) (Not Detectd) 02/12/23 02/12/23 Range/Units 20:55 21:41 WBC (3.8-10.6) k/uL RBC (4.30-5.90) m/uL Hgb (13.0-17.5) gm/dL Hct (39.0-53.0) % MCV (80.0-100.0) fL MCH (25.0-35.0) pg MCHC (31.0-37.0) g/dL RDW (11.5-15.5) % Plt Count (150-450) k/uL MPV Neutrophils % % Lymphocytes % % Monocytes % % Eosinophils % % Basophils % % Neutrophils # (1.3-7.7) k/uL Lymphocytes # (1.0-4.8) k/uL Monocytes # (0-1.0) k/uL Eosinophils # (0-0.7) k/uL Basophils # (0-0.2) k/uL PT (9.0-12.0) sec INR (<1.2) APTT (22.0-30.0) sec Sodium (137-145) mmol/L Potassium (3.5-5.1) mmol/L Chloride (98-107) mmol/L Carbon Dioxide (22-30) mmol/L Anion Gap mmol/L BUN (9-20) mg/dL Creatinine (0.66-1.25) mg/dL Est GFR (CKD-EPI)AfAm (>60 ml/min/1.73 sqM) Est GFR (CKD-EPI)NonAf (>60 ml/min/1.73 sqM) Glucose (74-99) mg/dL Plasma Lactic Acid Don (0.7-2.0) mmol/L Calcium (8.4-10.2) mg/dL Phosphorus (2.5-4.5) mg/dL Magnesium (1.6-2.3) mg/dL Total Bilirubin (0.2-1.3) mg/dL AST (17-59) U/L ALT (4-49) U/L Alkaline Phosphatase (38-126) U/L Troponin I (0.000-0.034) ng/mL NT-Pro-B Natriuret Pep pg/mL Total Protein (6.3-8.2) g/dL Albumin (3.5-5.0) g/dL TSH (0.465-4.680) mIU/L Free T4 (0.78-2.19) ng/dL Free T3 pg/mL (2.8-5.3) pg/ml Urine Color Yellow Urine Appearance Clear (Clear) Urine pH 5.5 (5.0-8.0) Ur Specific [place] 1.019 (1.001-1.035) Urine Protein 2+ H (Negative) Urine Glucose (UA) Trace H (Negative) Urine Ketones Negative (Negative) Urine Blood Trace H (Negative) Urine Nitrite Negative (Negative) Urine Bilirubin Negative (Negative) Urine Urobilinogen <2.0 (<2.0) mg/dL Ur Leukocyte Esterase Moderate H (Negative) Urine RBC 11 H (0-5) /hpf Urine WBC 16 H (0-5) /hpf Ur Squamous Epith Cells <1 (0-4) /hpf Urine Mucus Rare H (None) /hpf Influenza Type A (PCR) Not Detected (Not Detectd) Influenza Type B (PCR) Not Detected (Not Detectd) RSV (PCR) Not Detected (Not Detectd) SARS-CoV-2 (PCR) Not Detected (Not Detectd) Disposition <Mirza Casas - Last Filed: 02/12/23 20:05> Time of Disposition: 22:00 <Escobar Baker - Last Filed: 02/12/23 23:08> Clinical Impression: UTI (urinary tract infection), CHF (congestive heart failure), Weakness Disposition: ADMITTED IP TO THIS HOSP Condition: Stable
[2023-02-12 19:56] LABS: Basophils % (A) 0 %; Eosinophils # (A) 0.2 k/uL (0-0.7); Eosinophils % (A) 2 %; HCT 41.9 % (39.0-53.0); HGB 13.9 gm/dL (13.0-17.5); Lymphocytes # (A) 0.4 k/uL (1.0-4.8); Lymphocytes % (A) 4 %; MCH 31.5 pg (25.0-35.0); MCHC 33.3 g/dL (31.0-37.0); MCV 94.7 fL (80.0-100.0); Mean Platelet Volume 7.3; Monocytes # (A) 0.3 k/uL (0-1.0); Monocytes % (A) 2 %; Neutrophils # (A) 9.7 k/uL (1.3-7.7); Neutrophils % (A) 91 %; Platelet Count 200 k/uL (150-450); RBC 4.42 m/uL (4.30-5.90); RDW 14.2 % (11.5-15.5); WBC 10.6 k/uL (3.8-10.6)
[2023-02-12 20:04] LABS: INR 0.9 (<1.2); Partial Thromboplastin Time 22.5 sec (22.0-30.0); Prothrombin Time 10.1 sec (9.0-12.0)
[2023-02-12 20:09] LABS: Albumin 3.8 g/dL (3.5-5.0); Calcium 8.9 mg/dL (8.4-10.2); Magnesium 1.8 mg/dL (1.6-2.3); Phosphorus 4.2 mg/dL (2.5-4.5); Potassium 5.1 mmol/L (3.5-5.1); Total Bilirubin 0.7 mg/dL (0.2-1.3); Total Protein 6.4 g/dL (6.3-8.2)
[2023-02-12 20:26] LABS: T4, Free (Free Thyroxine) 1.04 ng/dL (0.78-2.19)
[2023-02-12] MEDS ORDERED: ALBUTEROL HFA INHALER INHALATION STA (20:34)
--- NOTE | 2023-02-12 21:03 | CT ---
EXAMINATION TYPE: CT brain wo con DATE OF EXAM: 02/12/2023 COMPARISON: HISTORY: AMS and weakness CT DLP: 1217.4 mGycm Automated exposure control for dose reduction was used. Images of the brain obtained with no contrast. There is diffuse cerebral cortical atrophy. There is no mass effect or midline shift. No sign of intr acranial hemorrhage. The calvarium is intact. Skull base is intact. Sella turcica is normal. IMPRESSION: Cerebral atrophy. No acute intracranial abnormality.
--- NOTE | 2023-02-12 21:05 | XR ---
EXAMINATION TYPE: XR chest 2V DATE OF EXAM: 02/12/2023 COMPARISON: 10/03/2022 HISTORY: Weakness TECHNIQUE: 2 views FINDINGS: Heart appears slightly enlarged. There is pulmonary vascular congestion. There is slight bl unting of the costophrenic angles. There are chest leads. IMPRESSION: There is evidence for some congestive heart failure with increased pulmonary congestion c ompared to old exam.
[2023-02-12 21:31] LABS: Appearance,Urine Clear (Clear); Bilirubin,Urine Negative (Negative); Blood,Urine Trace (Negative); Color,Urine Yellow; Glucose,Urine (UA) Trace (Negative); Ketones,Urine Negative (Negative); Leukocyte Esterase,Urine Moderate (Negative); Mucus,Urine Rare /hpf; Nitrite,Urine Negative (Negative); PH, Urine 5.5 (5.0-8.0); Protein,Urine 2+ (Negative); RBC,Urine 11 /hpf (0-5); Specific Gravity,Urine 1.019 (1.001-1.035); Squamous Epithelial Cell,Urine <1 /hpf (0-4); Urobilinogen,Urine <2.0 mg/dL (<2.0); WBC,Urine 16 /hpf (0-5)
[2023-02-12] MEDS ORDERED: ALBUTEROL NEBULIZED 2.5 MG/3 ML INHALATION PRN (22:05)
[2023-02-12] MEDS ORDERED: NALOXONE 0.4 MG/ML 1 ML VIAL IV PRN (22:12)
[2023-02-12] MEDS ORDERED: LEVOFLOXACIN 500MG-D5W PMX 500 MG in DEXTROSE/WATER 1 100ML.BAG IVPB SCH (22:15)
[2023-02-12] MEDS ORDERED: DEXTROSE 50% SYRINGE 50 ML IVP PRN ×2 (22:16)
[2023-02-12 22:54] LABS: Glucose,Whole Blood 184 mg/dL (70-110)
[2023-02-12] MEDS: FUROSEMIDE 10 MG/ML 4 ML VIAL IV SCH (23:06)
[2023-02-12] MEDS: metFORMIN 500 MG TAB PO SCH (23:07)
[2023-02-12] MEDS: METOPROLOL TARTRATE 50 MG TAB PO SCH (23:07)
[2023-02-13] MEDS: INSULIN DETEMIR (LEVEMIR) 100 UNIT/ML SYR SQ SCH (00:05)
[2023-02-13] MEDS: HYDROmorphone 0.5 MG/0.5 ML SYRINGE IVP PRN ×7 (03:18→21:39)
--- NOTE | 2023-02-13 03:29 | XR ---
EXAMINATION TYPE: XR abdomen acute w cxr DATE OF EXAM: 02/13/2023 COMPARISON: Chest x-ray yesterday HISTORY: Pain TECHNIQUE: 5 views FINDINGS: The heart is enlarged. There is pulmonary vascular congestion and interstitial edema. There are chest leads. No evidence of pneumoperitoneum. No evidence of dilated bowel in the abdomen. Exam limited by patient size. IMPRESSION: There is interstitial edema and cardiomegaly that is suggestive of some heart failure. No nacute bowel gas pattern. Pulmonary congestion is the same or slightly improved compared to exam yest kathleen.
[2023-02-13] MEDS ORDERED: hydrALAZINE HCL 20 MG/ML 1 ML VIAL IVP STA (03:34)
[2023-02-13] MEDS ORDERED: hydrALAZINE HCL 20 MG/ML 1 ML VIAL IVP PRN (04:01)
[2023-02-13] MEDS ORDERED: HEPARIN SODIUM 1,000 UN/ML (10ML VL) IV ONE (04:12)
[2023-02-13] MEDS ORDERED: HEPARIN SODIUM 1,000 UN/ML (10ML VL) IV PRN (04:12)
[2023-02-13] MEDS ORDERED: HEPARIN SOD,PORK IN 0.45% NACL 25,000 UNIT in 0.45% NACL 1 250ML.BAG IV SCH (04:15)
--- NOTE | 2023-02-13 04:18 | P.HPIM ---
History of Present Illness H&P Date: 02/12/23 Chief Complaint: generalized weakness 87 year old male with COPD , MAICO, CHF , intermittently using home oxygen coming in due to increase weakness and confusion , he seems to be huffing and puffing and looks uncomfortable , he is not able to provide any meaningful history , but answers with yes and no intermittently. he seems more focused on breathing and getting comfortable complaining of low back pain . 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 Past Anesthesia/Blood Transfusion Reactions: No Reported Reaction Additional Past Anesthesia/Blood Transfusion Reaction / Comment(s): HARD TO WAKE UP Date of Last Stent Placement:: 09/2017 Smoking Status: Former smoker - Past Family History Father Additional Family Medical History / Comment(s): burst appendix Mother Family Medical History: Cancer Additional Family Medical History / Comment(s): breast cancer Medications and Allergies Home Medications Medication Instructions Recorded Confirmed Type Tamsulosin HCl [Flomax] 0.4 mg PO HS 07/03/14 02/12/23 History Aspirin EC [Ecotrin Low Dose] 81 mg PO DAILY 05/22/17 02/12/23 History Atorvastatin [Lipitor] 80 mg PO HS #30 tab 09/09/17 02/12/23 Rx Umeclidinium Brm/Vilanterol Tr 1 puff INHALATION RT-DAILY #30 09/15/18 02/12/23 Rx [Anoro Ellipta 62.5-25 Mcg INH] blst.w.dev predniSONE 5 mg PO DAILY #30 tab 02/08/19 02/12/23 Rx Insulin Degludec [Tresiba 60 unit SQ HS 06/23/19 02/12/23 History Flextouch U-100 Pen] Isosorbide Mononitrate ER [Imdur] 30 mg PO DAILY@1200 09/01/19 02/12/23 History Levothyroxine Sodium [Synthroid] 100 mcg PO DAILY 09/01/19 02/12/23 History metFORMIN HCL ER [Glucophage XR] 500 mg PO BID 09/01/19 02/12/23 History Albuterol Sulfate [Proair Hfa] 2 puff INHALATION RT-QID PRN 08/23/20 02/12/23 History Metoprolol Tartrate [Lopressor] 50 mg PO BID 08/23/20 02/12/23 History Cholecalciferol (Vitamin D3) 125 mcg PO DAILY 06/04/21 02/12/23 History [Vitamin D3 (5000 Iu)] Codeine Phosphate/Guaifenesin 5 - 10 ml PO Q6H PRN 06/04/21 02/12/23 History [Guaifen-Codeine 100-10 mg/5 ml] Naproxen Sodium [Aleve] 220 mg PO BID 06/04/21 02/12/23 History guaiFENesin [Mucinex] 1,200 mg PO BID 06/04/21 02/12/23 History Acetaminophen-Codeine 300-30mg 1 tab PO Q6H PRN 01/09/22 02/12/23 History [Tylenol w/codeine #3] Insulin Aspart [NovoLOG Flexpen] 22 units SQ AC-BID@1200,1800 02/20/22 02/12/23 History Insulin Aspart [NovoLOG Flexpen] 24 units SQ AC-BRKFST 02/12/23 02/12/23 History Losartan Potassium [Cozaar] 100 mg PO DAILY 02/12/23 02/12/23 History Sulfamethox-Tmp 800-160Mg [Bactrim 1 tab PO Q12HR 02/12/23 02/12/23 History DS 800-160 mg] Allergies Allergy/AdvReac Type Severity Reaction Status Date / Time cephalexin [From Keflex] Allergy Unknown Verified 02/12/23 20:49 morphine AdvReac Hallucinati Verified 02/12/23 20:49 ons propoxyphene napsylate AdvReac Nausea & Verified 02/12/23 20:49 [From Darvocet-N 100] Vomiting & Diarrhea raw oyster Allergy Rash & Uncoded 01/15/23 08:35 Diarrhea Physical Exam Vitals: Vital Signs Temp Pulse Resp BP Pulse Ox 02/12/23 21:41 90 20 200/78 96 02/12/23 19:33 98.0 F 80 24 182/60 94 L Intake and Output 02/12/23 02/12/23 02/12/23 06:59 14:59 22:59 Other: Weight 95.254 kg Constitutional: tachypnea , seems uncomfortable , awake follows commands Eyes: Anicteric sclerae, proptosis bilateral eyes, moist conjunctiva, Pupils equal round reactive to light ENMT: NC/AT Oropharynx clear, no erythema, or exudates Neck: Supple, no masses, or JVD No carotid bruits No thyromegaly Lungs: good breath sounds with diffuse inspiratory rales Clear to percussion accessory muscle use Cardiovascular: Heart regular in rate and rhythm, No murmurs, gallops, or rubs trace bilateral peripheral edema Abdominal: distended large abd Nontender, no guarding, rebound or rigidity Abdomen moving with respiration bowel sounds sluggish No palpable mass No abdominal wall hernia noted Skin: Normal temperature, tone, texture, turgor Extremities: No digital cyanosis No clubbing Pedal pulses intact and symmetrical Radial pulses intact and symmetrical No calf tenderness Psychiatric: Alert and oriented to person, place Neuro Muscles Strength 4/5 in bilateral upper extremities , 3/5 bilateral lower extremities with poor effort Sensation to light touch grossly present throughout Cranial nerves II-XII grossly intact Lymphatics: no palpable cervical or supraclavicular lymph nodes Results CBC & Chem 7: 02/12/23 19:18 02/12/23 19:18 Labs: Abnormal Lab Results - Last 24 Hours (Table) 02/12/23 02/12/23 02/12/23 Range/Units 19:18 19:18 20:55 Neutrophils # 9.7 H (1.3-7.7) k/uL Lymphocytes # 0.4 L (1.0-4.8) k/uL Sodium 134 L (137-145) mmol/L Glucose 184 H (74-99) mg/dL Urine Protein 2+ H (Negative) Urine Glucose (UA) Trace H (Negative) Urine Blood Trace H (Negative) Ur Leukocyte Esterase Moderate H (Negative) Urine RBC 11 H (0-5) /hpf Urine WBC 16 H (0-5) /hpf Urine Mucus Rare H (None) /hpf Assessment and Plan Assessment: 87 year old male with COPD , chf, coming in for progressive weakness I discussed the case with ED doc , I accepted the admission to control his blood pressure and IV diuresis with anticipated length of stay > 2 midnights acute CHF exacerbation elevated trops rule out NSTEMI acute hypoxic respiratory failure urinary retention malignant hypertension plan IV diuresis lasix 40 mg IVP BID monitor urine output mina cath insertion for accurate I/O , and urinary retention monitor vital signs hydralazin 10 mg IVP q4hr for systolic blood pressure >180 encourage to use BIPAP 14/8 supplemental oxygen keep oxygen sat >92% heparin gtt cardiology consult trend trops blood work reviewed , Hgb 13.9 within normal limits ,Na 134, mild hyponatremia blood sugar 184 elevated , Pro BNP 871 continue home dose of losartan , metoprolol, isosorbide continue Aspirin and atorvastatin UTI follow up cultures initiated on levofloxacin 500 mg daily IVPB WBC 10.6 , afebrile chronic conditions DM , hyperglycemia insulin sliding scale resume levemir qhs 60- units acute abd series , no acute abd pathology CXR showed pulmonary edema and congestion , cardiomegally full code DVT PPX on heparin gtt
[2023-02-13 05:58] LABS: Glucose,Whole Blood 160 mg/dL (70-110)
[2023-02-13] MEDS: INSULIN ASPART (NovoLOG) 100 UNIT/ML VIAL SQ SCH ×3 (06:06→17:04)
[2023-02-13] MEDS ORDERED: LEVOTHYROXINE 100 MCG TAB PO SCH (06:30)
[2023-02-13] MEDS: METOPROLOL TARTRATE 50 MG TAB PO SCH (07:07)
[2023-02-13 08:11] LABS: Calcium 8.5 mg/dL (8.4-10.2)
[2023-02-13 08:15] LABS: Potassium 4.9 mmol/L (3.5-5.1)
--- NOTE | 2023-02-13 08:35 | CONS ---
CONSULTATION HISTORY OF PRESENT ILLNESS: Jorge Escobar is an 87-year-old obese gentleman with multiple medical problems. He has morbid obesity, obstructive sleep apnea with pulmonary hypertension which had improved remarkably after he started wearing his BiPAP a few years ago. He also has history of severe aortic stenosis, underwent a percutaneous aortic valve implant with remarkable improvement in functional capacity. He has type 2 diabetes, hypertension, hyperlipidemia, and hypothyroidism. He came into the hospital mainly after having had what seems to be a fall. He lives alone at this time. Apparently, his . He came with generalized weakness, was short of breath, seems to have a combination of exacerbation of COPD. He also has what seems to be a UTI as well. After being in the hospital, he seems to have improved. His breathing is better. He is more comfortable. He is on a BiPAP at the time of my evaluation, but his tachycardia has improved. He is in atrial fibrillation which is new for him apparently. He has no chest pain. His breathing seems to have improved. His presentation is that of exacerbation of COPD and also UTI. He is not in overt heart failure on my evaluation. He is a previous smoker. PAST MEDICAL HISTORY: 1. CAD with prior PCI in 2017 of circumflex coronary artery and a repeat cardiac cath in 2019 revealed that he had mild pulmonary hypertension, 40% RCA stenosis, 50% mid LAD diagonal and previous dilated circumflex was widely patent. He had an aortic valve replacement by percutaneous approach. 2. The patient also has hypertension, hyperlipidemia, and also history of obstructive sleep apnea, wears BiPAP at home. MEDICATIONS: Medications at home include, 1. Insulin. 2. Metformin. 3. Flomax. 4. Aspirin 81 mg daily. 5. Metoprolol 50 mg b.i.d. 6. Losartan 100 mg daily. 7. Levothyroxine 100 mcg daily. 8. Vitamin supplements. DIAGNOSTIC DATA: EKG revealed atrial fib with relatively controlled rate, right bundle branch block and leftward axis, nonspecific ST-T changes. LABORATORY DATA: Suggests that his 2 troponins are elevated but this elevated troponin could be related to relative hypoxia and underlying UTI. His white count is not significantly elevated. His BNP is normal. Thyroids are normal. He has significant leukocyte esterase in the urine. PHYSICAL EXAMINATION: VITAL SIGNS: Blood pressure is 140/70, pulse rate is 90 and irregular. HEENT: Unremarkable. Fundus was not examined. NECK: Supple. JVD 1 cm. No carotid bruit. HEART: Reveals S1, S2 with a short systolic murmur at the base. LUNGS: Reveal fair air entry bilaterally. ABDOMEN: Soft. LOWER EXTREMITIES: Reveal bilateral mild edema. Diminished pulses. CENTRAL NERVOUS SYSTEM: Grossly no focal deficits but detailed exam was not performed. IMPRESSION: 1. Exacerbation of chronic obstructive pulmonary disease. 2. Urinary tract infection. 3. No overt heart failure. 4. Elevated troponin related to hypoxia and urinary tract infection. I doubt if we are dealing with any primary injury. 5. New onset atrial fibrillation. 6. Pulmonary hypertension. 7. Diabetes. 8. History of aortic valve replacement by percutaneous approach. 9. History of previous percutaneous coronary intervention of circumflex. RECOMMENDATIONS: I am recommending that we continue his current medical regimen including a BiPAP. Resume his home medications. With regard to anticoagulation, we will speak to his daughter and if he continues to be at fall risk like it happened on this hospitalization, he is not an ideal candidate for long-term anticoagulation, but if he has some reliable care at home, it would be reasonable to start him on Eliquis 2.5 mg b.i.d., even though his creatinine is normal and he is obese. However, for now I will hold anticoagulation, resume his other medications, seek pulmonary input in view of exacerbation of COPD and he is already on antibiotic for UTI. We will try to manage him conservatively and we will try and communicate with his daughter. MMPRASHANTL / CLARICEN: [id number] /
[2023-02-13 08:36] LABS: Basophils % (A) 0 %; Eosinophils % (A) 0 %; HCT 42.1 % (39.0-53.0); HGB 14.1 gm/dL (13.0-17.5); Lymphocytes # (A) 0.1 k/uL (1.0-4.8); Lymphocytes % (A) 1 %; MCH 31.9 pg (25.0-35.0); MCHC 33.4 g/dL (31.0-37.0); MCV 95.5 fL (80.0-100.0); Mean Platelet Volume 7.7; Monocytes # (A) 0.6 k/uL (0-1.0); Monocytes % (A) 5 %; Neutrophils # (A) 11.1 k/uL (1.3-7.7); Neutrophils % (A) 93 %; Platelet Count 179 k/uL (150-450); RBC 4.41 m/uL (4.30-5.90); RDW 14.3 % (11.5-15.5); WBC 11.9 k/uL (3.8-10.6)
[2023-02-13] MEDS: IPRATROPIUM 0.5 MG/2.5 ML NEBU INHALATION SCH ×4 (08:37→20:02)
[2023-02-13] MEDS: FORMOTEROL FUMARATE 20 MCG/2 ML NEBU INHALATION SCH ×2 (08:37→20:02)
[2023-02-13] MEDS: FUROSEMIDE 10 MG/ML 4 ML VIAL IV SCH ×2 (08:59→21:39)
[2023-02-13] MEDS ORDERED: ASPIRIN 81 MG PO SCH (09:00)
[2023-02-13] MEDS ORDERED: HEPARIN SODIUM,PORCINE/PF 5,000 UNIT/0.5 ML SYRINGE SQ SCH (09:00)
[2023-02-13] MEDS ORDERED: LOSARTAN 50 MG TAB PO SCH (09:00)
[2023-02-13] MEDS ORDERED: NAPROXEN 250 MG TAB PO SCH (09:00)
[2023-02-13] MEDS ORDERED: ACETAMINOPHEN TAB 325 MG TAB PO PRN (09:43)
[2023-02-13 11:42] LABS: Glucose,Whole Blood 127 mg/dL (70-110)
--- NOTE | 2023-02-13 11:55 | CA ---
Transthoracic Echo Report Name: Jorge Escobar Age: 87 Gender: M : 1935 Exam Date: 02/13/2023 07:42 Exam Location: [facility] Ht (in): 70 Wt (lb): 210 Ordering Physician: Escobar Baker MD Attending/Referring Phys: Furnace Tapper Marlo Jones RDCS Procedure CPT: Indications: chf Cardiac Hx: CHF; COPD; Pum emphysema: Obesity; HTN; CAD; Technical Quality: Very technically difficult study; The patient was under O2 mask and slept all the time; he could not cooperate t all. Contrast 1: Lumason Total Dose (mL): 4 Contrast 2: Total Dose (mL): MEASUREMENTS (Male / Female) Normal Values 2D ECHO LV Diastolic Diameter PLAX 5.1 cm 4.2 - 5.9 / 3.9 - 5.3 cm LV Systolic Diameter PLAX 4.5 cm IVS Diastolic Thickness 1.5 cm 0.6 - 1.0 / 0.6 - 0.9 cm LVPW Diastolic Thickness 1.7 cm 0.6 - 1.0 / 0.6 - 0.9 cm LV Relative Wall Thickness 0.6 RV Internal Dim ED PLAX 4.6 cm LA Systolic Diameter LX 3.2 cm 3.0 - 4.0 / 2.7 - 3.8 cm LV Diastolic Volume MOD BP 61.6 cm??? 67 - 155 / 56 - 104 cm??? LV Systolic Volume MOD BP 22.5 cm??? 22 - 58 / 19 - 49 cm??? LV Ejection Fraction MOD BP 63.4 % >= 55 % LV Diastolic Volume MOD 4C 57.7 cm??? LV Systolic Volume MOD 4C 27.4 cm??? LV Ejection Fraction MOD 4C 52.5 % LV Diastolic Length 4C 8.1 cm LV Systolic Length 4C 6.7 cm LV Diastolic Volume MOD 2C 64.9 cm??? LV Systolic Volume MOD 2C 19.0 cm??? LV Ejection Fraction MOD 2C 70.7 % LV Diastolic Length 2C 8.3 cm LV Systolic Length 2C 6.9 cm DOPPLER AV Peak Velocity 151.7 cm/s AV Peak Gradient 9.2 mmHg LVOT Peak Velocity 98.1 cm/s LVOT Peak Gradient 3.8 mmHg MV Peak Velocity 99.4 cm/s MV Peak Gradient 4.0 mmHg MV Mean Velocity 72.1 cm/s MV Mean Gradient 2.3 mmHg MV Velocity Time Integral 30.9 cm Mitral E Point Velocity 86.8 cm/s Mitral A Point Velocity 91.6 cm/s Mitral E to A Ratio 0.9 MV Deceleration Time 160.9 ms MV E' Velocity 5.3 cm/s Mitral E to MV E' Ratio 16.3 TR Peak Velocity 125.8 cm/s TR Peak Gradient 6.3 mmHg Right Ventricular Systolic Press 11.3 mmHg PV Peak Velocity 81.8 cm/s PV Peak Gradient 2.7 mmHg FINDINGS Left Ventricle Left ventricular ejection fraction is estimated at 50-55 %. Very hard visible (PLAX, PSAX). Right Ventricle Right ventricle not well visualized. Right Atrium Right atrium not well visualized. Left Atrium Left atrium not well visualized. Mitral Valve Mitral valve not well visualized. Mitral valve thickened. Aemm-[id number] mitral stenosis. Pgvz-[id number] mitral regurgitation. Aortic Valve Aortic valve not well visualized. Tricuspid Valve Tricuspid valve not well visualized. Trace to mild tricuspid regurgitation. Pulmonic Valve Pulmonic valve not well visualized. Pericardium No pericardial effusion. Aorta Aortic root and proximal ascending aorta not well visualized. CONCLUSIONS Technically difficult study for interpretation Normal LV systolic function Poorly visualized intracardiac valves Previewed by: Dr. Tony Fleming MD (Electronically Signed) Final Date: 13 February 2023 11:54
[2023-02-13] MEDS ORDERED: ISOSORBIDE MONONITRATE ER 30 MG TAB.ER.24H PO SCH (12:00)
[2023-02-13] MEDS: APIXABAN 2.5 MG TABLET PO SCH (12:10)
--- NOTE | 2023-02-13 12:10 | P.PN ---
Subjective Progress Note Date: 02/13/23 Hospital Course: 87-year-old male with history of COPD, on oxygen, MAICO, CHF, hypertension presenting with acute encephalopathy, and dyspnea. In the ED, patient was hypertensive up to systolics of 200s, afebrile, heart rate in the 90s, tachypnea, dyspneic requiring BiPAP. Initial laboratory workup was significant for sodium of 134, glucose of 184, troponin of 0.21, urinalysis showed moderate leukocyte esterase, negative nitrites, respiratory viral panel was negative. Chest x-ray consistent with increased pulmonary vascular congestion. Cardiology and pulmonology were consulted. Patient started on IV diuretics for CHF exacerbation, and antibiotics for UTI. He was also started on heparin drip for elevated troponin. Subjective: Patient seen and examined at bedside. Overnight, patient continues to remain uncomfortable and confused. He denies any chest pain, abdominal pain, nausea, vomiting, urinary or bowel complaints. He does have difficulty breathing. Pertinent positives and negatives as discussed above, a complete review of systems was performed and all other systems are negative. Vitals Signs Reviewed. General: in moderate distress, appears at stated age, morbidly obese, uncomfortable Derm: warm, dry, left great toe with chronic ulceration, no induration or drainage Head: atraumatic, normocephalic, symmetric Eyes: EOMI, no lid lag, anicteric sclera Mouth: no lip lesion, mucus membranes moist Cardiovascular: S1S2 reg, no murmur Lungs: Bilateral rales , on BiPAP Abdominal: soft, nontender to palpation, no guarding, no appreciable organomegaly Ext: no gross muscle atrophy, trace edema, no contractures Neuro: CN II-XI grossly intact, no focal neuro deficits Psych: Alert, oriented 1, appropriate affect Data Reviewed Today: Pertinent Labs: WBC 11.9, hemoglobin 14.1, sodium 135, bicarb 20, BUN 23, creatinine 1.28, glucose 159, A1c 7.6, troponin 0.242 Assessment and Plan: Patient is currently critically ill, was on BiPAP now transitioned to nasal cannula. Prognosis guarded. Active: Acute on chronic hypoxic respiratory failure Possible acute COPD exacerbation Possible pneumonia Possible Acute CHF exacerbation Malignant hypertension Elevated troponin New onset atrial fibrillation, rate controlled Acute metabolic encephalopathy Sepsis secondary to urinary tract infection Acute urinary retention Acute kidney injury Hyperglycemia, history of diabetes -Off of BiPAP, currently on nasal cannula -Had personal discussion with pulmonology, will continue IV antibiotics for possible pneumonia and urinary tract infection, maintain on bronchodilators -Cardiology note reviewed: Unlikely to be in CHF exacerbation -Is currently on IV Lasix 40 mg twice a day, continue to follow urine output, and BMP -Hypertension improved, has 10 mg hydralazine IV every 4 hours as needed, continue losartan 100 mg daily and Imdur 30 mg daily -Per cardiology, elevated troponin likely demand ischemia -Patient was started on Eliquis 2.5 mg twice a day for new onset A. fib, continue home metoprolol 50 mg twice a day, repeat CBC tomorrow -Metabolic encephalopathy likely in the setting of sepsis and hypoxia -Continue levofloxacin 250 mg IV daily -Continue Castle catheter -Acute kidney injury likely in the setting of urinary retention, and possible cardiorenal, repeat BMP tomorrow -Metformin held, continue 60 units Levemir, on sliding scale insulin Chronic: CAD Aortic valve replacement Hypothyroidism DVT ppx: Eliquis Code status: Full code Anticipated discharge place: Pending clinical course Anticipated discharge time: Pending clinical course Objective - Vital Signs Vital signs: Vital Signs Temp 102.9 F H 02/13/23 08:45 Pulse 75 02/13/23 11:39 Resp 22 02/13/23 09:00 BP 157/69 02/13/23 08:45 Pulse Ox 92 L 02/13/23 11:26 FiO2 50 02/13/23 07:43 Intake & Output 02/12/23 02/13/23 02/13/23 18:59 06:59 18:59 Output Total 975 Balance -975 Weight 120.5 kg Output: Urine 975 - Labs CBC & Chem 7: 02/13/23 07:28 02/13/23 07:28 Labs: Abnormal Lab Results - Last 24 Hours (Table) 02/12/23 02/12/23 02/12/23 Range/Units 19:18 19:18 20:55 WBC (3.8-10.6) k/uL Neutrophils # 9.7 H (1.3-7.7) k/uL Lymphocytes # 0.4 L (1.0-4.8) k/uL Sodium 134 L (137-145) mmol/L Carbon Dioxide (22-30) mmol/L BUN (9-20) mg/dL Creatinine (0.66-1.25) mg/dL Glucose 184 H (74-99) mg/dL POC Glucose (mg/dL) (70-110) mg/dL Hemoglobin A1c (0.0-6.0) % Troponin I (0.000-0.034) ng/mL Urine Protein 2+ H (Negative) Urine Glucose (UA) Trace H (Negative) Urine Blood Trace H (Negative) Ur Leukocyte Esterase Moderate H (Negative) Urine RBC 11 H (0-5) /hpf Urine WBC 16 H (0-5) /hpf Urine Mucus Rare H (None) /hpf 02/12/23 02/12/23 02/13/23 Range/Units 22:52 23:54 01:28 WBC (3.8-10.6) k/uL Neutrophils # (1.3-7.7) k/uL Lymphocytes # (1.0-4.8) k/uL Sodium (137-145) mmol/L Carbon Dioxide (22-30) mmol/L BUN (9-20) mg/dL Creatinine (0.66-1.25) mg/dL Glucose (74-99) mg/dL POC Glucose (mg/dL) 184 H (70-110) mg/dL Hemoglobin A1c (0.0-6.0) % Troponin I 0.210 H* 0.242 H* (0.000-0.034) ng/mL Urine Protein (Negative) Urine Glucose (UA) (Negative) Urine Blood (Negative) Ur Leukocyte Esterase (Negative) Urine RBC (0-5) /hpf Urine WBC (0-5) /hpf Urine Mucus (None) /hpf 02/13/23 02/13/23 02/13/23 Range/Units 05:56 07:28 07:28 WBC 11.9 H (3.8-10.6) k/uL Neutrophils # 11.1 H (1.3-7.7) k/uL Lymphocytes # 0.1 L (1.0-4.8) k/uL Sodium 135 L (137-145) mmol/L Carbon Dioxide 20 L (22-30) mmol/L BUN 23 H (9-20) mg/dL Creatinine 1.28 H (0.66-1.25) mg/dL Glucose 159 H (74-99) mg/dL POC Glucose (mg/dL) 160 H (70-110) mg/dL Hemoglobin A1c (0.0-6.0) % Troponin I (0.000-0.034) ng/mL Urine Protein (Negative) Urine Glucose (UA) (Negative) Urine Blood (Negative) Ur Leukocyte Esterase (Negative) Urine RBC (0-5) /hpf Urine WBC (0-5) /hpf Urine Mucus (None) /hpf 02/13/23 02/13/23 Range/Units 07:28 11:40 WBC (3.8-10.6) k/uL Neutrophils # (1.3-7.7) k/uL Lymphocytes # (1.0-4.8) k/uL Sodium (137-145) mmol/L Carbon Dioxide (22-30) mmol/L BUN (9-20) mg/dL Creatinine (0.66-1.25) mg/dL Glucose (74-99) mg/dL POC Glucose (mg/dL) 127 H (70-110) mg/dL Hemoglobin A1c 7.6 H (0.0-6.0) % Troponin I (0.000-0.034) ng/mL Urine Protein (Negative) Urine Glucose (UA) (Negative) Urine Blood (Negative) Ur Leukocyte Esterase (Negative) Urine RBC (0-5) /hpf Urine WBC (0-5) /hpf Urine Mucus (None) /hpf Microbiology - Last 24 Hours (Table) 02/12/23 20:55 Urine Culture - Preliminary Urine,Voided
--- NOTE | 2023-02-13 12:49 | P.CNPUL ---
History of Present Illness Consult date: 02/13/23 Requesting physician: Gisel Wang Reason for consult: dyspnea, COPD, hypoxemia, abnormal CXR/CT, obstructive sleep apnea Chief complaint: CHF exacerbation, urinary tract infection. History of present illness: Pulmonary consult dated 02/13/2023. 87-year-old male well-known to me. He does have COPD for which I see him in the office. He presented to the emergency room, on February 12, via EMS, for weakness, and falling at home. Apparently his daughter said that he collapsed at home, because he was so weak. Apparently there was no injury. He did not lose consciousness or hit his head. He was evaluated in the emergency room, and was thought to have a urinary tract infection. Today he is seen in room 370. He is wearing a BiPAP device, with settings of 14/8 and 50%. The nurse tells us that on nasal oxygen, his saturations were more than adequate. No IV fluids are running. The patient has a history of CHF, COPD, diabetes, impaired hearing, hyperlipidemia, osteoarthritis, sleep apnea syndrome, obesity, hypothyroidism, skin cancer, and previous cardiac catheterization with stent placement. The patient was a previous tobacco user, many years ago. White count 11.9, hemoglob in 14.1, hematocrit 42.1, with a normal platelet count. Sodium 135, potassium 4.9, chlorides 104, CO2 20, anion gap 11, BUN 23, creatinine 1.28. N-terminal proBNP was 0.210 and 0.242. TSH was normal. N-terminal proBNP was 871. Urine had 2+ protein, trace glucose, trace blood, moderate positive leukocyte esterase, 11 RBCs, 16 WBCs, without any bacteria. Studies for influenza A, and B, RSV, and coronavirus are all negative. Brain CT showed nothing acute. Chest x-ray suggested either heart failure or bilateral pneumonia. Review of Systems REVIEW OF SYSTEMS: CONSTITUTIONAL: Weakness. NEUROLOGIC: [ Negative.] HEENT: [ Negative.] CARDIAC: [Negative.] PULMONARY: Shortness of breath, chronic. GI: [Negative.] : [Negative.] RHEUMATOLOGIC: [ Negative.] IMMUNOLOGIC: [ Negative.] ENDOCRINE: [Negative. 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 Past Anesthesia/Blood Transfusion Reactions: No Reported Reaction Additional Past Anesthesia/Blood Transfusion Reaction / Comment(s): HARD TO WAKE UP Date of Last Stent Placement:: 09/2017 Smoking Status: Former smoker - Past Family History Father Additional Family Medical History / Comment(s): burst appendix Mother Family Medical History: Cancer Additional Family Medical History / Comment(s): breast cancer Medications and Allergies Home Medications Medication Instructions Recorded Confirmed Type Tamsulosin HCl [Flomax] 0.4 mg PO HS 07/03/14 02/12/23 History Aspirin EC [Ecotrin Low Dose] 81 mg PO DAILY 05/22/17 02/12/23 History Atorvastatin [Lipitor] 80 mg PO HS #30 tab 09/09/17 02/12/23 Rx Umeclidinium Brm/Vilanterol Tr 1 puff INHALATION RT-DAILY #30 09/15/18 02/12/23 Rx [Anoro Ellipta 62.5-25 Mcg INH] blst.w.dev predniSONE 5 mg PO DAILY #30 tab 02/08/19 02/12/23 Rx Insulin Degludec [Tresiba 60 unit SQ HS 06/23/19 02/12/23 History Flextouch U-100 Pen] Isosorbide Mononitrate ER [Imdur] 30 mg PO DAILY@1200 09/01/19 02/12/23 History Levothyroxine Sodium [Synthroid] 100 mcg PO DAILY 09/01/19 02/12/23 History metFORMIN HCL ER [Glucophage XR] 500 mg PO BID 09/01/19 02/12/23 History Albuterol Sulfate [Proair Hfa] 2 puff INHALATION RT-QID PRN 08/23/20 02/12/23 History Metoprolol Tartrate [Lopressor] 50 mg PO BID 08/23/20 02/12/23 History Cholecalciferol (Vitamin D3) 125 mcg PO DAILY 06/04/21 02/12/23 History [Vitamin D3 (5000 Iu)] Codeine Phosphate/Guaifenesin 5 - 10 ml PO Q6H PRN 06/04/21 02/12/23 History [Guaifen-Codeine 100-10 mg/5 ml] Naproxen Sodium [Aleve] 220 mg PO BID 06/04/21 02/12/23 History guaiFENesin [Mucinex] 1,200 mg PO BID 06/04/21 02/12/23 History Acetaminophen-Codeine 300-30mg 1 tab PO Q6H PRN 01/09/22 02/12/23 History [Tylenol w/codeine #3] Insulin Aspart [NovoLOG Flexpen] 22 units SQ AC-BID@1200,1800 02/20/22 02/12/23 History Insulin Aspart [NovoLOG Flexpen] 24 units SQ AC-BRKFST 02/12/23 02/12/23 History Losartan Potassium [Cozaar] 100 mg PO DAILY 02/12/23 02/12/23 History Sulfamethox-Tmp 800-160Mg [Bactrim 1 tab PO Q12HR 02/12/23 02/12/23 History DS 800-160 mg] Apixaban [Eliquis] 2.5 mg PO BID #60 tab 02/13/23 Rx Allergies Allergy/AdvReac Type Severity Reaction Status Date / Time cephalexin [From Keflex] Allergy Unknown Verified 02/12/23 20:49 morphine AdvReac Hallucinati Verified 02/12/23 20:49 ons propoxyphene napsylate AdvReac Nausea & Verified 02/12/23 20:49 [From Darvocet-N 100] Vomiting & Diarrhea raw oyster Allergy Rash & Uncoded 01/15/23 08:35 Diarrhea Physical Exam Osteopathic Statement: *. No significant issues noted on an osteopathic structural exam other than those noted in the History and Physical/Consult. Vitals: Vital Signs Temp Pulse Pulse Resp BP BP Pulse Ox 02/13/23 11:39 75 02/13/23 11:26 72 92 L 02/13/23 09:00 22 91 L 02/13/23 08:58 95 02/13/23 08:47 93 02/13/23 08:45 102.9 F H 90 24 157/69 98 02/13/23 08:37 90 02/13/23 07:43 02/13/23 05:14 02/13/23 03:59 84 144/63 02/13/23 03:33 87 30 H 191/76 94 L 02/13/23 01:44 02/13/23 01:06 92 169/51 02/13/23 00:38 97 192/51 02/12/23 23:54 97.9 F 94 24 188/51 94 L 02/12/23 23:15 90 20 168/60 94 L 02/12/23 22:35 89 22 174/89 98 02/12/23 21:41 90 20 200/78 96 02/12/23 19:33 98.0 F 80 24 182/60 94 L FiO2 02/13/23 11:39 02/13/23 11:26 02/13/23 09:00 02/13/23 08:58 02/13/23 08:47 02/13/23 08:45 02/13/23 08:37 02/13/23 07:43 50 02/13/23 05:14 50 02/13/23 03:59 02/13/23 03:33 02/13/23 01:44 50 02/13/23 01:06 02/13/23 00:38 02/12/23 23:54 02/12/23 23:15 02/12/23 22:35 02/12/23 21:41 02/12/23 19:33 Intake and Output 02/12/23 02/13/23 02/13/23 22:59 06:59 14:59 Output Total 975 Balance -975 Output: Urine 975 Other: Weight 120.5 kg 120.5 kg Agitated and restless, wearing BiPAP. HEENT examination is grossly unremarkable. Neck supple. Full range of motion. No adenopathy thyromegaly or neck vein distention. Cardiovascular examination reveals regular rhythm rate. S1-S2 normal. No S3 or S4. No discernible murmur noted. Heart sounds are distant. Heart rate 75 bpm. Lungs reveal scattered diffuse rhonchi. Scattered crackles. No wheezes. Breath sounds equal. Saturations on 3 L, are in the low 90s. Abdomen obese, soft, without tenderness. Extremities are intact. No cyanosis clubbing or edema. Skin of the lower extremities is very erythematous, and hyperemic. Neurologic examination is is difficult to assess. The patient's quite agitated wearing the BiPAP device. Results - Laboratory Findings CBC and BMP: 02/13/23 07:28 02/13/23 07:28 PT/INR, D-dimer PT 10.1 sec (9.0-12.0) 02/12/23 19:18 INR 0.9 (<1.2) 02/12/23 19:18 Abnormal lab findings: Abnormal Labs 02/12/23 02/12/23 02/12/23 19:18 19:18 20:55 WBC Neutrophils # 9.7 H Lymphocytes # 0.4 L Sodium 134 L Carbon Dioxide BUN Creatinine Glucose 184 H POC Glucose (mg/dL) Hemoglobin A1c Troponin I Urine Protein 2+ H Urine Glucose (UA) Trace H Urine Blood Trace H Ur Leukocyte Esterase Moderate H Urine RBC 11 H Urine WBC 16 H Urine Mucus Rare H 02/12/23 02/12/23 02/13/23 22:52 23:54 01:28 WBC Neutrophils # Lymphocytes # Sodium Carbon Dioxide BUN Creatinine Glucose POC Glucose (mg/dL) 184 H Hemoglobin A1c Troponin I 0.210 H* 0.242 H* Urine Protein Urine Glucose (UA) Urine Blood Ur Leukocyte Esterase Urine RBC Urine WBC Urine Mucus 02/13/23 02/13/23 02/13/23 05:56 07:28 07:28 WBC 11.9 H Neutrophils # 11.1 H Lymphocytes # 0.1 L Sodium 135 L Carbon Dioxide 20 L BUN 23 H Creatinine 1.28 H Glucose 159 H POC Glucose (mg/dL) 160 H Hemoglobin A1c Troponin I Urine Protein Urine Glucose (UA) Urine Blood Ur Leukocyte Esterase Urine RBC Urine WBC Urine Mucus 02/13/23 02/13/23 07:28 11:40 WBC Neutrophils # Lymphocytes # Sodium Carbon Dioxide BUN Creatinine Glucose POC Glucose (mg/dL) 127 H Hemoglobin A1c 7.6 H Troponin I Urine Protein Urine Glucose (UA) Urine Blood Ur Leukocyte Esterase Urine RBC Urine WBC Urine Mucus - Diagnostic Findings Chest x-ray: image reviewed Assessment and Plan Assessment: Mental status changes, with weakness, could relate to underlying sepsis. Sources include a possible urinary tract infection, versus pneumonia. Rule out acute congestive heart failure. History of CAD with previous stent placement. History of COPD. History of diabetes mellitus. History of hypertension. History of hyperlipidemia. History of obstructive sleep apnea syndrome, maintained on CPAP. Morbid obesity. Hypothyroidism. History of skin cancer. Plan: Plan dated 02/13/2023. The patient is seen today in room 370. He looks quite agitated on the BiPAP. We've ordered a pro-calcitonin level. His urinary evaluation, might suggest a possible UTI. There was no bacteria in the urine. The chest x-ray could be consistent with fluid overload, and/or pneumonia. The N-terminal proBNP was not particularly high. Additional recommendations and suggestions are forthcoming. We will continue to follow the patient make recommendations along the way. We asked the nurse to take him off the BiPAP. Prognosis is guarded. Time with Patient: Greater than 30
[2023-02-13] MEDS: ALPRAZolam 0.5 MG TAB PO PRN ×2 (13:52→18:50)
[2023-02-13 17:00] LABS: Glucose,Whole Blood 73 mg/dL (70-110)
[2023-02-13] MEDS: BUDESONIDE 1 MG/2 ML NEBU INHALATION SCH (20:02)
[2023-02-13 20:31] LABS: Glucose,Whole Blood 112 mg/dL (70-110)
[2023-02-13] MEDS ORDERED: ATORVASTATIN 80 MG TAB PO SCH (21:00)
[2023-02-13] MEDS ORDERED: LEVOFLOXACIN 250MG-D5W PMX 250 MG in DEXTROSE/WATER 1 50ML.BAG IVPB SCH (21:00)
[2023-02-13] MEDS ORDERED: TAMSULOSIN 0.4 MG CAP.ER.24H PO SCH (21:00)
[2023-02-14] MEDS: APIXABAN 2.5 MG TABLET PO SCH (00:19)
[2023-02-14] MEDS: METOPROLOL TARTRATE 50 MG TAB PO SCH (00:20)
[2023-02-14] MEDS: INSULIN DETEMIR (LEVEMIR) 100 UNIT/ML SYR SQ SCH (00:20)
[2023-02-14] MEDS: HYDROmorphone 0.5 MG/0.5 ML SYRINGE IVP PRN (00:27)
[2023-02-14 00:44] VITALS: TEMP 96.3
[2023-02-14 06:23] LABS: Glucose,Whole Blood 98 mg/dL (70-110)
[2023-02-14 06:37] VITALS: BP 115/52; PULSE 80; RESP 24
--- NOTE | 2023-02-14 06:46 | P.PN ---
Subjective Progress Note Date: 02/14/23 Principal diagnosis: Atrial fibrillation The patient is an 87-year-old gentleman with severe COPD as well as multiple comorbid conditions was admitted to the hospital with COPD exacerbation and we consulted to see the patient for the management of atrial fibrillation #15 2022 The patient was seen this morning. Currently he is DO NOT RESUSCITATE. He is in atrial fibrillation but his heart rate has been slow. Overall he is not doing well from a cardiovascular standpoint of view. The family has been updated about his situation. Objective - Vital Signs Vital signs: Vital Signs Temp 96.3 F L 02/14/23 00:00 Pulse 80 02/14/23 04:00 Resp 24 02/14/23 04:00 BP 115/52 02/14/23 04:00 Pulse Ox 93 L 02/14/23 04:00 FiO2 35 02/13/23 20:26 Intake & Output 02/13/23 02/13/23 02/14/23 06:59 18:59 06:59 Intake Total 0 Output Total 975 785 400 Balance -975 -785 -400 Weight 120.5 kg Intake: Oral 0 Output: Urine 975 375 400 Uretheral ([place]) 375 Post Void Residual 410 Other: Voiding Method Indwelling Catheter Indwelling Catheter # Bowel Movements 1 - Labs CBC & Chem 7: 02/13/23 07:28 02/13/23 07:28 Labs: Abnormal Lab Results - Last 24 Hours (Table) 02/13/23 02/13/23 02/13/23 Range/Units 07:28 07:28 07:28 WBC 11.9 H (3.8-10.6) k/uL Neutrophils # 11.1 H (1.3-7.7) k/uL Lymphocytes # 0.1 L (1.0-4.8) k/uL Sodium 135 L (137-145) mmol/L Carbon Dioxide 20 L (22-30) mmol/L BUN 23 H (9-20) mg/dL Creatinine 1.28 H (0.66-1.25) mg/dL Glucose 159 H (74-99) mg/dL POC Glucose (mg/dL) (70-110) mg/dL Hemoglobin A1c 7.6 H (0.0-6.0) % Procalcitonin (0.02-0.09) ng/mL 02/13/23 02/13/23 02/13/23 Range/Units 07:28 11:40 20:29 WBC (3.8-10.6) k/uL Neutrophils # (1.3-7.7) k/uL Lymphocytes # (1.0-4.8) k/uL Sodium (137-145) mmol/L Carbon Dioxide (22-30) mmol/L BUN (9-20) mg/dL Creatinine (0.66-1.25) mg/dL Glucose (74-99) mg/dL POC Glucose (mg/dL) 127 H 112 H (70-110) mg/dL Hemoglobin A1c (0.0-6.0) % Procalcitonin 2.51 H (0.02-0.09) ng/mL Microbiology - Last 24 Hours (Table) 02/12/23 20:55 Urine Culture - Preliminary Urine,Voided
[2023-02-14] MEDS: FORMOTEROL FUMARATE 20 MCG/2 ML NEBU INHALATION SCH (08:15)
[2023-02-14] MEDS: BUDESONIDE 1 MG/2 ML NEBU INHALATION SCH (08:15)
[2023-02-14] MEDS: IPRATROPIUM 0.5 MG/2.5 ML NEBU INHALATION SCH (08:16)
--- NOTE | 2023-02-14 14:38 | P.DS ---
Providers Date of admission: 02/12/23 22:12 Expected date of discharge: 02/14/23 Attending physician: Gisel Wang MD Consults: 02/12/23 22:12 Consult Physician Routine Consulting Provider: [facility] Consult Reason/Comments: chf Do you want consulting provider notified?: Yes, Notify in am 02/13/23 07:13 Consult Physician Routine Consulting Provider: Steve Hayward Consult Reason/Comments: COPD and MAICO Do you want consulting provider notified?: Yes Primary care physician: [facility] Course: Discharge Diagnosis: Acute on chronic hypoxic respiratory failure Possible acute COPD exacerbation Possible pneumonia Possible Acute CHF exacerbation Malignant hypertension Elevated troponin New onset atrial fibrillation, rate controlled Acute metabolic encephalopathy Sepsis secondary to urinary tract infection Acute urinary retention Acute kidney injury Hyperglycemia, history of diabetes Hospital Course: 87-year-old male with history of COPD, on oxygen, MAICO, CHF, hypertension presenting with acute encephalopathy, and dyspnea. In the ED, patient was hypertensive up to systolics of 200s, afebrile, heart rate in the 90s, tach ypnea, dyspneic requiring BiPAP. Initial laboratory workup was significant for sodium of 134, glucose of 184, troponin of 0.21, urinalysis showed moderate leukocyte esterase, negative nitrites, respiratory viral panel was negative. Chest x-ray consistent with increased pulmonary vascular congestion. Cardiology and pulmonology were consulted. Patient started on IV diuretics for possible CHF exacerbation, and antibiotics for UTI. He is also being treated for acute COPD exacerbation and possible pneumonia. He was also started on heparin drip for elevated troponin. Overnight, patient continued to worsen, code status was changed to DO NOT RESUSCITATE, DO NOT INTUBATE. Patient at 0650 on 02/14/23. Patient was not seen by me prior to expiring. Plan - Discharge Summary Discharge Rx Participant: No New Discharge Prescriptions: New Apixaban [Eliquis] 2.5 mg PO BID #60 tab No Action Tamsulosin HCl [Flomax] 0.4 mg PO HS Aspirin EC [Ecotrin Low Dose] 81 mg PO DAILY Atorvastatin [Lipitor] 80 mg PO HS #30 tab Umeclidinium Brm/Vilanterol Tr [Anoro Ellipta 62.5-25 Mcg INH] 1 puff INHALATION RT-DAILY #30 blst.w.dev predniSONE 5 mg PO DAILY #30 tab Insulin Degludec [Tresiba Flextouch U-100 Pen] 60 unit SQ HS metFORMIN HCL ER [Glucophage XR] 500 mg PO BID Levothyroxine Sodium [Synthroid] 100 mcg PO DAILY Isosorbide Mononitrate ER [Imdur] 30 mg PO DAILY@1200 Albuterol Sulfate [Proair Hfa] 2 puff INHALATION RT-QID PRN PRN Reason: Shortness Of Breath Metoprolol Tartrate [Lopressor] 50 mg PO BID Naproxen Sodium [Aleve] 220 mg PO BID guaiFENesin [Mucinex] 1,200 mg PO BID Insulin Aspart [NovoLOG Flexpen] 22 units SQ AC-BID@1200,1800 Insulin Aspart [NovoLOG Flexpen] 24 units SQ AC-BRKFST Codeine Phosphate/Guaifenesin [Guaifen-Codeine 100-10 mg/5 ml] 5 - 10 ml PO Q6H PRN PRN Reason: Cough Cholecalciferol (Vitamin D3) [Vitamin D3 (5000 Iu)] 125 mcg PO DAILY Acetaminophen-Codeine 300-30mg [Tylenol w/codeine #3] 1 tab PO Q6H PRN PRN Reason: Pain Sulfamethox-Tmp 800-160Mg [Bactrim DS 800-160 mg] 1 tab PO Q12HR Losartan Potassium [Cozaar] 100 mg PO DAILY Discharge Medication List Tamsulosin HCl [Flomax] 0.4 mg PO HS 07/03/14 [History] Aspirin EC [Ecotrin Low Dose] 81 mg PO DAILY 05/22/17 [History] Atorvastatin [Lipitor] 80 mg PO HS #30 tab 09/09/17 [Rx] Umeclidinium Brm/Vilanterol Tr [Anoro Ellipta 62.5-25 Mcg INH] 1 puff INHALATION RT-DAILY #30 blst.w.dev 09/15/18 [Rx] predniSONE 5 mg PO DAILY #30 tab 02/08/19 [Rx] Insulin Degludec [Tresiba Flextouch U-100 Pen] 60 unit SQ HS 06/23/19 [History] Isosorbide Mononitrate ER [Imdur] 30 mg PO DAILY@1200 09/01/19 [History] Levothyroxine Sodium [Synthroid] 100 mcg PO DAILY 09/01/19 [History] metFORMIN HCL ER [Glucophage XR] 500 mg PO BID 09/01/19 [History] Albuterol Sulfate [Proair Hfa] 2 puff INHALATION RT-QID PRN 08/23/20 [History] Metoprolol Tartrate [Lopressor] 50 mg PO BID 08/23/20 [History] Cholecalciferol (Vitamin D3) [Vitamin D3 (5000 Iu)] 125 mcg PO DAILY 06/04/21 [History] Codeine Phosphate/Guaifenesin [Guaifen-Codeine 100-10 mg/5 ml] 5 - 10 ml PO Q6H PRN 06/04/21 [History] Naproxen Sodium [Aleve] 220 mg PO BID 06/04/21 [History] guaiFENesin [Mucinex] 1,200 mg PO BID 06/04/21 [History] Acetaminophen-Codeine 300-30mg [Tylenol w/codeine #3] 1 tab PO Q6H PRN 01/09/22 [History] Insulin Aspart [NovoLOG Flexpen] 22 units SQ AC-BID@1200,1800 02/20/22 [History] Insulin Aspart [NovoLOG Flexpen] 24 units SQ AC-BRKFST 02/12/23 [History] Losartan Potassium [Cozaar] 100 mg PO DAILY 02/12/23 [History] Sulfamethox-Tmp 800-160Mg [Bactrim DS 800-160 mg] 1 tab PO Q12HR 02/12/23 [History] Apixaban [Eliquis] 2.5 mg PO BID #60 tab 02/13/23 [Rx] Follow up Appointment(s)/Referral(s): Cynthia Barclay MD [Primary Care Provider] - 1-2 days Discharge Disposition: - Preliminary Cause of Preliminary Cause of : hypoxia
== END 2023-02-14 08:46 | disposition expired | DRG 871 ==
LOC: EC 19:14 → 3SCARD 22:12
PROVIDERS: ADMIT Internal Medicine; ATTEND Internal Medicine
PROC: 5A09357 Assistance with Respiratory Ventilation, Less than 24 Consecutive Hours, Continuous Positive Airway Pressure (ICD-10-PCS; principal; 2023-02-13)
DX: A41.9 Sepsis, unspecified organism (principal); G93.41 Metabolic encephalopathy; J18.9 Pneumonia, unspecified organism; J96.21 Acute and chronic respiratory failure with hypoxia; E87.1 Hypo-osmolality and hyponatremia; I24.8 Other forms of acute ischemic heart disease; J44.0 Chronic obstructive pulmonary disease with (acute) lower respiratory infection; J44.1 Chronic obstructive pulmonary disease with (acute) exacerbation; N17.9 Acute kidney failure, unspecified; N39.0 Urinary tract infection, site not specified; E11.621 Type 2 diabetes mellitus with foot ulcer; E03.9 Hypothyroidism, unspecified; E66.01 Morbid (severe) obesity due to excess calories; Z68.38 Body mass index [BMI] 38.0-38.9, adult; I11.0 Hypertensive heart disease with heart failure; L97.509 Non-pressure chronic ulcer of other part of unspecified foot with unspecified severity; Z95.2 Presence of prosthetic heart valve; I27.20 Pulmonary hypertension, unspecified; I50.9 Heart failure, unspecified; Z99.81 Dependence on supplemental oxygen; I35.0 Nonrheumatic aortic (valve) stenosis; I48.91 Unspecified atrial fibrillation; Z66 Do not resuscitate; Z91.81 History of falling; Z20.822 Contact with and (suspected) exposure to COVID-19; R65.20 Severe sepsis without septic shock; Z63.4 Disappearance and death of family member; Z60.2 Problems related to living alone; I25.10 Atherosclerotic heart disease of native coronary artery without angina pectoris; E78.5 Hyperlipidemia, unspecified; G47.33 Obstructive sleep apnea (adult) (pediatric); H91.90 Unspecified hearing loss, unspecified ear; Z79.01 Long term (current) use of anticoagulants; Z79.4 Long term (current) use of insulin; Z79.82 Long term (current) use of aspirin; Z79.84 Long term (current) use of oral hypoglycemic drugs; Z79.890 Hormone replacement therapy; Z79.899 Other long term (current) drug therapy; Z85.828 Personal history of other malignant neoplasm of skin; Z95.5 Presence of coronary angioplasty implant and graft; Z98.1 Arthrodesis status; Z88.1 Allergy status to other antibiotic agents; Z88.5 Allergy status to narcotic agent; Z90.49 Acquired absence of other specified parts of digestive tract; Z79.1 Long term (current) use of non-steroidal anti-inflammatories (NSAID); Z87.891 Personal history of nicotine dependence
CPT/HCPCS: 36415; 70450; 71046; 74022; 80048; 80053; 81001; 83036; 83605; 83735; 83880; 84100; 84145; 84439; 84443; 84481; 84484; 85025; 85610; 85730; 87070; 87086; 87205; 87636; 93005; 93306; 94640; 94660; 94760; 96365; 96375; 99285